=== PATIENT | female | born 1950 | race Caucasian/White ===

== ENCOUNTER 2020-12-30 11:09 | Outpatient (RCR) | payer MEDICARE, SELFPAY ==
[2020-12-30] MEDS: COVID-19 VACC, MRNA(PFIZER)/PF 30 MCG/0.3 ML SYRINGE IM (09:26)
[2021-01-20] MEDS: COVID-19 VACC, MRNA(PFIZER)/PF 30 MCG/0.3 ML SYRINGE IM (09:01)
== END 2021-03-29 23:59 ==
LOC: IMMUN 11:09
PROVIDERS: PCP Internal Medicine; Referring Provider Family Medicine; Visit Provider Family Medicine
DX: Z23 Encounter for immunization (principal)
CPT/HCPCS: 0001A; 0002A; 91300

== ENCOUNTER → 2022-02-28 | Outpatient (CLI) | payer MEDICARE, SELFPAY ==
[2022-02-28] MEDS: COVID-19 VACC, MRNA(PFIZER)/PF 30 MCG/0.3 ML SYRINGE IM (09:17)
== END | disposition home or self-care (01) ==
LOC: IMMUN 08:44
PROVIDERS: PCP Internal Medicine; Referring Provider Family Medicine; Visit Provider Family Medicine
DX: Z23 Encounter for immunization (principal); U07.1 COVID-19
CPT/HCPCS: 0004A; 91300

== ENCOUNTER 2022-07-02 20:12 | Emergency (ER) | payer MEDICARE, SELFPAY ==
[2022-07-02 20:14] VITALS: PULSE 89; RESP 18; TEMP 36.6; O2SAT 100; BMI 16.8
--- NOTE | 2022-07-02 21:41 | EX.ED.DYSGE1 ---
HPI History of Present Illness Chief Complaint: Itching Informant: patient Narrative Narrative: Bee sting left pinky 2 days ago. Increased swelling today with itching. No fevers. Has had bee stings in the past and no reactions like this. Concerns for infection. States increasing warmth. [facility] Medical History Breast cancer Osteoporosis Home Medications anastrozole 1 mg tablet 1 mg PO DAILY 03/04/21 [History Last Taken Unknown] cholecalciferol (vitamin D3) 25 mcg (1,000 unit) capsule 25 mcg PO DAILY 03/04/21 [History Last Taken Unknown] epinephrine 0.3 mg/0.3 mL injection, auto-injector 0.3 mg IM ONCE PRN anaphylaxis 03/04/21 [History Last Taken Unknown] multivitamin 1 tab PO DAILY 03/04/21 [History Last Taken Unknown] cephalexin 500 mg capsule 500 mg PO Q6 #40 caps 07/02/22 [Rx Last Taken Unknown] Allergy/AdvReac Type Severity Reaction Status Date / Time cantaloupe Allergy Intermediate swelling Verified 07/02/22 20:13 clindamycin Allergy Mild rash Verified 07/02/22 20:13 chicken derived Allergy Unknown unknown Verified 07/02/22 20:13 propofol Allergy Unknown unknown Verified 07/02/22 20:13 ranitidine Allergy Unknown unknown Verified 07/02/22 20:13 tetracycline Allergy Unknown unknown Verified 07/02/22 20:13 ciprofloxacin AdvReac Unknown unknown Verified 07/02/22 20:13 Egg Derived AdvReac Unknown unknown Verified 07/02/22 20:13 Family History Mother Alcoholism Drug abuse Father Myocardial infarction, Onset Age: 72 Diabetes Liver disease Grandmother Diabetes Myocardial infarction, Onset Age: 40 68 CVA (cerebral vascular accident) Heart disease Aunt Breast cancer Colon cancer CVA (cerebral vascular accident) Heart disease Uncle Heart disease Cancer Surgical History H/O dilation and curettage H/O mastectomy H/O umbilical hernia repair History of excision of pilonidal cyst History of tonsillectomy and adenoidectomy [place] teeth extracted Social History Smoking Status: Never smoker alcohol intake: current alcohol intake frequency: 0-2 drinks per day Alcohol type: beer and wine substance use type: does not use what type of physical activity do you participate in: walking and weight training frequency: 3-4 times per week ROS ROS ED Constitutional Constitutional ED: Denies chills, fever(s) or sweats Eyes Eyes: Denies change in vision ENT ENT ED: Denies dysphagia or sore throat Cardiovascular Cardiovascular: Denies chest pain, leg edema, palpitations or racing heartbeat Respiratory/Chest Respiratory/Chest: Denies cough, dyspnea or dyspnea on exertion Gastrointestinal Gastrointestinal: Denies abdominal pain, diarrhea, nausea or vomiting Genitourinary Genitourinary ED: Denies dysuria, hematuria or urinary frequency Musculoskeletal Musculoskeletal: Denies back pain, extremity pain or neck pain Integumentary Reports wounds; Denies rash Neurologic Neurologic: Denies headache(s), paresthesias or weakness EXAM Physical Exam Const Vital Signs: 07/02/22 20:14 Temperature 97.8 F Temperature Source Temporal Pulse Rate 89 Respiratory Rate 18 Pulse Ox 100 Oxygen Delivery Method Room Air Positive well nourished and well developed General Appearance ED: well developed and NAD HEENT Reports moist mucous membranes normocephalic and atraumatic Eyes PERRL, EOMs intact bilaterally and conjunctivae normal General Eye ED: Yes normal appearance of both eyes Neck no lymphadenopathy and supple General: Negative for tenderness Chest Wall Chest: Negative for tenderness Resp normal respiratory effort and normal air movement Effort and Inspection: symmetric chest movement; Negative for respiratory distress Cardio regular rate, regular rhythm and no murmurs Peripheral Pulses: pulses 2+ throughout GI normal to inspection, nondistended, normoactive bowel sounds and non-tender Palpation: Negative for guarding or rebound tenderness present Back/Spine no CVA tenderness and no thoracic nor lumbar tenderness Extremity Extremity Narrative: Left upper extremity pink exam notes swelling to the pinky, there is hemorrhagic blisters on the radial aspect of the middle phalanx. There is erythema. There is no redness of the hand. No drainage. There is a puncture noted dorsum of the proximal phalanx. No stinger present. No active drainage. General Extremety ED: Negative for edema or tenderness General Extremity: Negative for edema Neuro oriented x3 and no sensory deficits noted Sensorium / Orientation: awake and alert Skin no rashes or lesions noted and no wounds MDM MDM MDM Narrative Medical decision making narrative: Patient's history exam with concerns for noninflammatory process due to local reaction to bee sting. She has no fevers. There is no streaking. Discussed with patient [id number] antibiotic prescription after 2 to 3 days. Discussed with hemorrhagic blisters this will eventually dry and slough off however may take up to 2 weeks. She is reassured. All questions were answered. Discharge Plan Triage Chief Complaint: Itching ED Provider: Leonid Cabrera Dx/Rx/DC Orders Clinical Impression: Bee sting reaction, Swelling of left little finger Instructions: ED Insect Sting, Local Reaction Prescriptions: New cephalexin [cephalexin] 500 mg capsule 500 mg PO Q6 Qty: 40 0RF No Action anastrozole 1 mg tablet 1 mg PO DAILY cholecalciferol (vitamin D3) 25 mcg (1,000 unit) capsule 25 mcg PO DAILY multivitamin Tablet 1 tab PO DAILY epinephrine 0.3 mg/0.3 mL auto-injector 0.3 mg IM ONCE PRN (Reason: anaphylaxis) Rx Instructions: as a single dose Primary Care Provider: Shannon Giles Referrals: Shannon Giles MD [Primary Care Provider] - 1 Week Activity Restrictions/Additional Instructions: Localized reaction to bee sting to the left femur. Monitor symptoms. If symptoms worsen after 2 to 3 days with redness up the hand start antibiotics otherwise symptomatic treatment. Disposition Disposition: Home, Self Care Discharge Date/Time: 07/02/22 21:48
== END 2022-07-02 21:48 | disposition home or self-care (01) ==
PROVIDERS: Emergency Provider Emergency Medicine; PCP Internal Medicine; Visit Provider Emergency Medicine
DX: T63.444A Toxic effect of venom of bees, undetermined, initial encounter (principal); Z85.3 Personal history of malignant neoplasm of breast; M81.0 Age-related osteoporosis without current pathological fracture
CPT/HCPCS: 99282

== ENCOUNTER → 2022-09-05 | Outpatient (CLI) | payer MEDICARE, SELFPAY | END | disposition home or self-care (01) | LOC: IMMUN 13:24 | PROVIDERS: PCP Internal Medicine; Visit Provider Family Medicine | DX: Z23 Encounter for immunization (principal); Z28.311 Partially vaccinated for COVID-19 | CPT/HCPCS: 0124A; 91312 ==

== ENCOUNTER 2024-08-18 13:43 | Emergency (ER) | payer MEDICARE, SELFPAY ==
[2024-08-18] VITALS (7 sets, daily range): BP systolic 99–135; BP diastolic 57–91; PULSE 60–165; RESP 15–19; TEMP 36.6–36.7; O2SAT 99–100; BMI 17.5
--- NOTE | 2024-08-18 14:35 | EKG12_ITS ---
Test Reason : CHEST PAIN Blood Pressure : / mmHG Vent. Rate : 095 BPM Atrial Rate : 095 BPM P-R Int : 128 ms QRS Dur : 084 ms QT Int : 354 ms P-R-T Axes : 085 068 066 degrees QTc Int : 444 ms Sinus rhythm with frequent Premature ventricular complexes Biatrial enlargement Nonspecific ST abnormality Abnormal ECG Confirmed by ESDRAS MOSELEY, HAL ([id number]), movie editor PERFECTO RODRIGUEZ ([id number]) on 08/19/2024 8:00:19 AM Referred By: Confirmed By:HAL DEWITT MD
[2024-08-18 14:46] LABS: Absolute Lymphocyte Count 1.72 X10^3/uL (0.83-4.51); Absolute Neutrophil Count 5.4 X10^3/uL (2.0-7.7); Basophil# 0.04 X10^3/uL; Basophil% 0.5 % (0-1); Eosinophil# 0.21 X10^3/uL; Eosinophils% 2.6 % (0-5); Hemoglobin 14.6 g/dL (12.0-15.0); Lymphocyte # 1.72 X10^3/ul (0.83-4.51); Mean Corp Hgb Conc 33.2 g/dL (32-36); Mean Corpuscular Hgb 30.3 pg (27.0-32.0); Mean Corpuscular Volume 91.3 fL (81-99); Mean Platelet Vol. 10.3 fl (6.2-12.0); Monocyte# 0.76 X10^3/uL; Monocyte% 9.3 % (0-10); NRBC Flagged by Analyzer 0 % (0-5); Neutrophil # 5.43 X10^3/uL (2.7-7.7); Neutrophil % 66.2 % (47-70); Platelet Count 280 K/mm3 (150-450); RBC Distribution Width SD 43.4 fl (35.1-43.9); Red Blood Count 4.82 M/mm3 (4.2-5.4); White Blood Count 8.2 K/mm3 (4.4-11.0)
--- NOTE | 2024-08-18 14:49 | RAD_ITS ---
STUDY: X-RAY CHEST REASON FOR EXAM: Female, 73 years old. Chest pain TECHNIQUE: Single AP portable view of the chest. COMPARISON: Comparison is made with prior study dated June 25, 2007. FINDINGS: EKG electrodes are seen. Surgical clips are seen in both axillary regions. Findings suggestive of prior mastectomy. Hyperinflation. No acute abnormality is seen. There is no demonstrated pleural abnormality. Normal size heart. Normal mediastinum and kathrine. Normal visualized pulmonary arteries. Normal visualized aortic arch and descending thoracic aorta. Normal visualized thoracic spine. Normal visualized ribs, clavicles, and shoulders. There is no demonstrated abnormality of the visualized soft tissue structures of the upper abdomen. RAD/Chest 1 View (Portable) IMPRESSION: Hyperinflation. No acute abnormality is seen. Electronically Signed: Ji Finch MD at 15:08 EDT ,
[2024-08-18 15:03] LABS: Anion Gap 3 (5-15); BUN 14 mg/dL (7-18); BUN/Creat Ratio 18.8 RATIO (10-20); Calcium,Total 9.7 mg/dL (8.5-10.1); Chloride 106 mmol/L (98-107); Creatinine, Serum 0.74 mg/dL (0.55-1.02); EST Glomerular Filtration Rate 81 mL/min (>60); Est Glom Filt Rate - Afr Amer 98 mL/min (>60); Estimated Creatinine Clearance 47.36 ml/min; Glucose 130 mg/dL (74-106); Potassium 3.6 mmol/L (3.5-5.1); Sodium Level 138 mmol/L (136-145); Troponin-I HS (w/2H Reflex) 6 pg/mL (3.0-54.0)
--- NOTE | 2024-08-18 15:35 | VDLE_ITS ---
Reason For Study: RLE Pain RIGHT LEFT GSV is normal. CFV is compressible, spontaneous, phasic, CFV is compressible, spontaneous, phasic, competent, and demonstrates normal competent and demonstrates normal augmentation. augmentation. FV is compressible, spontaneous, phasic, competent and demonstrates normal augmentation. POP V is compressible, spontaneous, phasic, competent and demonstrates normal augmentation. T/P Trunk is compressible. PTV is compressible. RT PerV is compressible. Procedure This is a venous duplex using B-mode, color flow and spectral Doppler. Exam performed portable in ED. The exam was diagnostic. A preliminary report was called and/or faxed to Veronica Mejia ED RN. VL/Venous Duplex US, Unilateral Interpretation Summary Deep veins of the right lower extremity are patent and compressible segmentally . There is no evidence of right lower extremity deep vein thrombosis. Valvular competence yajaira ears intact within the proximal deep venous system on the right . The right great saphenous vein a ppears patent and compressible segmentally. The left common femoral vein is patent and compressib le . Ordering Physician: Vijaya Serna Referring Physician: Shannon Giles Performed By: Brennan Dennison RVT
[2024-08-18 15:36] LABS: Magnesium 2.6 mg/dL (1.6-2.6); Thyroid Stim Hormone (TSH) 0.995 uIU/mL (0.358-3.740)
--- NOTE | 2024-08-18 15:51 | EDS_ITS ---
HPI History of Present Illness Chief Complaint: Palpitations Informant: patient Narrative Narrative: Patient is a 73-year-old female with history of bilateral breast cancer (initially had unilateral mastectomy and underwent treatment with tamoxifen for 5 years and then had a second mastectomy on the opposite side and was treated with a course of Arimidex) as well as osteoporosis presenting with heart palpitations. Patient states at approximately 1245 she felt that her heart was pounding. She notes every few weeks she will have transient episode of palpitations only last for couple minutes. This lasted for at least half an hour which is what brought her to the emergency room. She checked her heart rate on her smart watch and said her heart rate was 181. She denies any associated diaphoresis but states it made her feel anxious and that did make her feel short of breath. She denies any chest pain. He states her palpitations have currently improved/resolved. She has some mild discomfort underneath her right breast/underarm but thinks it is from the position she is sitting in the bed. She notes that for the past week to a week and a half she has had a heavy feeling in her right groin but that has been improving. She did have a low velocity fall onto her left side 2 weeks ago and thinks is related to that as well as doing yard work. Denies any swelling of her legs. States that she is highly active and walks a mile a day on an incline of her treadmill. States she did this yesterday did not feel short of breath. Denies any recent weight change or night sweats. Denies any nausea, vomiting or melena. Had her normal coffee this morning but no increase in her coffee/caffeine intake. Denies any history of DVT or PE. No other complaints or concerns reported at this time [facility] Medical History Osteoporosis Breast cancer Home Medications ?Medication ?Instructions ?Recorded ?Last Taken ?Type anastrozole 1 mg tablet 1 mg PO DAILY 03/04/21 Unknown History cholecalciferol (vitamin D3) 25 25 mcg PO DAILY 03/04/21 Unknown History mcg (1,000 unit) capsule epinephrine 0.3 mg/0.3 mL 0.3 mg IM ONCE PRN anaphylaxis 03/04/21 Unknown History injection, auto-injector multivitamin 1 tab PO DAILY 03/04/21 Unknown History Allergy/AdvReac Type Severity Reaction Status Date / Time cantaloupe Allergy Intermediate swelling Verified 08/18/24 14:00 clindamycin Allergy Mild rash Verified 08/18/24 14:00 chicken derived Allergy Unknown unknown Verified 08/18/24 14:00 propofol Allergy Unknown unknown Verified 08/18/24 14:00 ranitidine Allergy Unknown unknown Verified 08/18/24 14:00 tetracycline Allergy Unknown unknown Verified 08/18/24 14:00 ciprofloxacin AdvReac Unknown unknown Verified 08/18/24 14:00 Egg Derived AdvReac Unknown unknown Verified 08/18/24 14:00 Family History Mother Alcoholism Drug abuse Father Myocardial infarction, Onset Age: 72 Diabetes Liver disease Grandmother Diabetes Myocardial infarction, Onset Age: 40 68 CVA (cerebral vascular accident) Heart disease Aunt Breast cancer Colon cancer CVA (cerebral vascular accident) Heart disease Uncle Heart disease Cancer Surgical History History of tonsillectomy and adenoidectomy [place] teeth extracted History of excision of pilonidal cyst H/O mastectomy H/O umbilical hernia repair H/O dilation and curettage Social History Smoking Status: Never smoker alcohol intake: current alcohol intake frequency: 0-2 drinks per day Alcohol type: beer and wine substance use type: does not use what type of physical activity do you participate in: walking and weight training frequency: 3-4 times per week ROS ROS ED Constitutional Constitutional ED: Denies chills, fever(s) or sweats ENT ENT ED: Denies sore throat Cardiovascular Cardiovascular: Reports chest pain, palpitations and racing heartbeat Respiratory/Chest Respiratory/Chest: Reports dyspnea; Denies cough or dyspnea on exertion Gastrointestinal Gastrointestinal: Denies abdominal pain, melena, nausea or vomiting Musculoskeletal Musculoskeletal: Reports other Details: Reports right groin heaviness/discomfort ; Denies arthralgias or myalgias Integumentary Denies rash Neurologic Neurologic: Denies paresthesias or weakness Psychiatric Psychiatric: Reports anxiety Hematologic/Lymphatic Hematologic/Lymphatic: Denies easy bleeding or easy bruising EXAM Physical Exam Const Vital Signs: 08/18/24 13:45 08/18/24 14:11 08/18/24 14:12 Temperature 97.9 F Temperature Source Temporal Pulse Rate 165 H 98 Respiratory Rate 18 16 Respiratory Effort Normal Non-Labored Respiratory Pattern Normal Blood Pressure 135/75 H 126/91 H Blood Pressure Mean 95 102 Pulse Ox 99 Oxygen Delivery Method Room Air Room Air 08/18/24 14:49 08/18/24 15:00 08/18/24 16:00 Temperature Temperature Source Pulse Rate 80 60 Respiratory Rate 19 H Respiratory Effort Respiratory Pattern Blood Pressure 99/61 107/65 Blood Pressure Mean 73 79 Pulse Ox 100 Oxygen Delivery Method Room Air 08/18/24 17:00 08/18/24 18:00 Temperature Temperature Source Pulse Rate 76 72 Respiratory Rate 15 Respiratory Effort Respiratory Pattern Blood Pressure 107/57 L 115/70 Blood Pressure Mean 73 85 Pulse Ox Oxygen Delivery Method Positive well nourished and well developed General Appearance ED: well developed and NAD HEENT Reports moist mucous membranes Eyes PERRL Neck supple and no JVD Chest Wall inspection of chest normal and palpation of chest normal Resp normal respiratory effort and clear to auscultation bilaterally Cardio regular rate, regular rhythm and no murmurs GI normal to inspection, nondistended, normoactive bowel sounds and non-tender Extremity normal to inspection General Extremety ED: Negative for edema or tenderness General Extremity: Negative for edema Neuro oriented x3 Sensorium / Orientation: alert Motor Exam: Negative for general weakness Psych mental status grossly normal Skin no rashes or lesions noted and no wounds MDM MDM MDM Narrative Medical decision making narrative: Patient is evaluate for palpitations. Upon arrival patient's heart rate was 165 however on EKG her heart rate is 95 In the room her heart rate is in the 70s. Suspect she has some type of arrhythmia. Differential includes SVT, atrial fibrillation, thyroid dysfunction, symptomatic anemia, electrolyte abnormality and [place] as well as ACS and pulmonary emboli. Workup is largely normal. Patient has no further arrhythmia in the emergency room. D-dimer is less than 0.27 and has since troponin is normal at 6 and 10 respectively. Her TSH is normal. She has no significant leukocytosis, anemia or electrolyte abnormalities. Single view chest x-ray viewed by myself as well as radiology shows hyperinflation with no other acute process. Patient would like to follow-up through the [facility] where she and her receive their care. Will try to follow-up with her PCP as well as her 's controls designer. She is given information for [place] [facility] as well. Discussed that she might benefit from Holter monitor. Is given return precautions. Discussed that my main differential is SVT versus atrial fibrillation. Is counseled on the Valsalva maneuver should she have another episode and this is SVT. At this time do not think she requires admission for further workup of her palpitations and arrhythmia. Patient verbalized agreement understands plan. Discharged home in stable condition Lab Data Attestation: I reviewed the patient's lab results. Labs: Laboratory Results - last 24 hr 08/18/24 08/18/24 14:10 16:54 WBC 8.2 RBC 4.82 Hgb 14.6 Hct 44.0 MCV 91.3 MCH 30.3 MCHC 33.2 RDW Std Deviation 43.4 RDW Coeff of [place] 13.0 Plt Count 280 MPV 10.3 Immature Gran % (Auto) 0.400 Neut % (Auto) 66.2 Lymph % (Auto) 21.0 [place] % (Auto) 9.3 Eos % (Auto) 2.6 Baso % (Auto) 0.5 Absolute Neuts (auto) 5.4 Absolute Lymphs (auto) 1.72 Nucleated RBC % 0 D-Dimer Quant (PE/DVT) < 0.27 L Sodium 138 Potassium 3.6 Chloride 106 Carbon Dioxide 29.0 Anion Gap 3 L BUN 14 Creatinine 0.74 Estim Creat Clear Calc 47.36 Est GFR (MDRD) Af Amer 98 Est GFR (MDRD) Non-Af 81 BUN/Creatinine Ratio 18.8 Glucose 130 H Calcium 9.7 Magnesium 2.6 Troponin I High Sens 6 10 TSH 0.995 Radiography Diagnostic Testing: Clinical Impression(s) from Imaging Studies Chest X-Ray 08/18/24 14:49 IMPRESSION: Hyperinflation. No acute abnormality is seen. Electronically Signed: Ji Finch MD at 15:08 EDT , Rhythm Strip Rhythm Strip: Sinus Rhythm Rate: 95 Ectopy: PVC(s) EKG Initial EKG: Attestation: I personally reviewed and interpreted this EKG as follows: Comments: Normal sinus rhythm at a rate of 95 bpm with PVCs in a trigeminy pattern Normal axis Biatrial enlargement present Normal ST segments No prior EKG available for comparison Discharge Plan Triage Chief Complaint: Palpitations ED Provider: Vijaya Serna Dx/Rx/DC Orders Clinical Impression: Palpitation, Sinus arrhythmia, Frequent PVCs Instructions: ED Palpitations Prescriptions: No Action anastrozole 1 mg tablet 1 mg PO DAILY cholecalciferol (vitamin D3) 25 mcg (1,000 unit) capsule 25 mcg PO DAILY multivitamin Tablet 1 tab PO DAILY epinephrine 0.3 mg/0.3 mL auto-injector 0.3 mg IM ONCE PRN (Reason: anaphylaxis) Rx Instructions: as a single dose Primary Care Provider: Shannon Giles Referrals: Narciso Hodges MD [Med Staff - Active Staff] - As Needed Shannon Giles MD [Primary Care Provider] - Activity Restrictions/Additional Instructions: Your workup today was very reassuring and largely normal. We were not able to capture your high heart rate on an EKG to know what underlying rhythm was. I am concerned it could have either been SVT or atrial fibrillation/flutter. I do think he would benefit from an outpatient Holter monitor. Please follow-up with your primary care doctor and cardiology further workup. If your symptoms worsen or progress please return to the emergency room. Print Language: Indonesian Disposition Disposition: Home, Self Care
[2024-08-18 16:42] LABS: Reflex Troponin-HS? (from REC) Y
[2024-08-18 16:48] LABS: D-Dimer Quantitative (DVT/PE) < 0.27 FEU/ug/m (0.27-0.49)
[2024-08-18 17:33] LABS: Troponin-I HS 10 pg/mL (3.0-54.0)
--- OUTSIDE RECORDS SUMMARY | 2024-08-18 19:35 | XMS RPT_ITS | CCD ---
Author Organization [facility] Care Team Providers Care Animal Care Service Worker Name Role Phone Chan MOSELEY Carolina D Primary Care Provider Dojordyn RN, Martina Unavailable Unavailable Carolina Peterson MD Primary Care Provider Tiffanie RN, Martina Unavailable Unavailable Jose Armando MOSELEY, Dario Ellis Unavailable TALAMPAS, CAROLINA D Primary Care Unavailable TALAMPAS, CAROLINA D Attending Unavailable TALAMPAS, CAROLINA D Primary Care Unavailable TALAMPAS, CAROLINA D Attending Unavailable DARIO SUÁREZ Attending Unavailable JOSE ARMANDODARIO Referring Unavailable TALAMPAS, CAROLINA D Primary Care Unavailable TALAMPAS, CAROLINA D Primary Care Unavailable TALAMPAS, CAROLINA D Attending Unavailable TALAMPAS, CAROLINA D Primary Care Unavailable TALAMPAS, CAROLINA D Referring Unavailable TALAMPAS, CAROLINA D Primary Care Unavailable TALAMPAS, CAROLINA D Primary Care Unavailable SERA PA Attending Unavailable RODRIGUEZ ALTAMIRANO Referring Unavailable TALAMPAS, CAROLINA D Primary Care Unavailable JADE AGUDELO Attending Unavailable TALAMPAS, CAROLINA D Primary Care Unavailable TALAMPAS, CAROLINA D Attending Unavailable TALAMPAS, CAROLINA D Primary Care Unavailable TALAMPAS, CAROLINA D Referring Unavailable ROSAMARIA ZURITA Attending Unavailable TALAMPAS, CAROLINA D Primary Care Unavailable TALAMPAS, CAROLINA D Primary Care Unavailable RODRIGUEZ ALTAMIRANO Referring Unavailable RODRIGUEZ ALTAMIRANO Attending Unavailable TALAMPAS, CAROLINA D Primary Care Unavailable TEE LAGUNAS Attending Unavailable Allergies Allergy Classification Reported Allergen(s) Allergy Type Date of Onset Reaction(s) Facility (20 sources) cantaloupe allergenic extract; Translations: [CANTALOUPE] Drug Allergy 12-30-2012 [facility] Work Phone: (20 sources) chicken allergenic extract; Translations: [CHICKEN] Drug Allergy 07-30-2006 GI Upset [facility] Work Phone: (20 sources) Ciprofloxacin; Translations: [CIPROFLOXACIN] Drug Allergy 12-06-2017 Intolerance [facility] Work Phone: (20 sources) Clindamycin; Translations: [CLINDAMYCIN] Drug Allergy 07-19-2017 Rash [facility] Work Phone: (20 sources) Egg; Translations: [EGG DERIVED] Drug Allergy 04-19-2019 Contraindicatio n-Medical Surgical [facility] (20 sources) Propofol; Translations: [PROPOFOL] Drug Allergy 01-02-2013 Unknown [facility] Work Phone: (20 sources) raNITIdine; Translations: [RANITIDINE HCL] Drug Allergy 08-07-2005 Unknown [facility] (20 sources) Tetracycline; Translations: [TETRACYCLINE] Drug Allergy 08-07-2005 Unknown [facility] Work Phone: Medications Current Medications Medication Drug Class(es) Dates Sig (Normalized) Sig (Original) cholecalciferol 0.025 mg oral capsule (20 sources) Vitamin D Start: 04-10-2018 take 1 capsule by mouth once daily Cholecalciferol, Vitamin D3, 1,000 unit cap Indications: Vitamin D deficiency Take 1 capsule by mouth once daily. 04/10/2018 Active Comment on above: Take 1 capsule by [facility] once daily. [id number] 0.3 ml EPINEPHrine 1 mg/ml auto-injector (20 sources) alpha-Adrenergic Agonist, beta-Adrenergic Agonist, Catecholamine Start: 12-06-2021 End: 07-03-2024 EPINEPHrine (EPIPEN) 0.3 mg/0.3 mL auto-injector Use as directed for reaction to food allergen 2 Each 1 07/03/2024 Active Comment on above: Use as directed for reaction to food allergen THERAPEUTIC MULTIVITAMIN TAB (20 sources) Start: 08-07-2005 take 1 tablet by mouth once daily THERAPEUTIC MULTIVITAMIN TAB Take 1 tablet by mouth once daily. 0 08/07/2005 Active Start: 08-07-2005 THERAPEUTIC MU LTIVITAMIN TAB Take one(1) tablet daily. 0 08/07/2005 Active Comment on above: Take one(1) tablet d aily. Take 1 tablet by eli th once daily. Completed/Discontinued Medications Medication Drug Class(es) Dates Sig (Normalized) Sig (Original) anastrozole 1 mg oral tablet (20 sources) Aromatase Inhibitor Start: 12-09-2021 End: 01-01-2023 take 1 tablet by mouth once daily anastrozole (ARIMIDEX) 1 mg tablet Take 1 tablet by mouth once daily. 90 tablet 3 08/18/2022 01/01/2023 Discontinued Comment on above: Take 1 tablet by eli th once daily. meclizine hydrochloride 12.5 mg oral tablet (3 sources) Antiemetic Start: 05-14-2024 End: 07-10-2024 take 1 tablet by mouth three times daily as needed for dizziness meclizine (ANTIVERT) 12.5 mg tab Indications: Benign paroxysmal positional vertigo, unspecified laterality Take 1 tablet by mouth three times a day as needed (dizziness). 90 tablet 1 05/14/2024 07/10/2024 Discontinued meloxicam 15 mg oral tablet (4 sources) Nonsteroidal Anti-inflammatory Drug Start: 05-25-2023 End: 06-11-2023 take 1 tablet by mouth once daily as needed for pain meloxicam (MOBIC) 15 mg tablet Indications: Right wrist pain Take 1 tablet by mouth once daily as needed for pain. With food. 30 tablet 1 05/25/2023 06/11/2023 Discontinued Comment on above: Take 1 tablet by eli th once daily as needed for pain. With food. triamcinolone acetonide 1 mg/ml topical cream (13 sources) Corticosteroid Start: 07-11-2022 End: 01-01-2023 triamcinolone acetonide (KENALOG) 0.1 % cream Indications: Toxic reaction to hornets, wasps and bees, accidental or unintentional, subsequent encounter Apply 1 application to affected area three times daily as needed (for itchy rash and stings). Apply sparingly to area for rash/itching. Up to 14 days 15 g 0 07/11/2022 01/01/2023 Discontinued Comment on above: Apply 1 application to affected area three times daily as needed (for itchy rash and stings). Apply sparingly to area for rash/itching. Up to 14 days Problems Active Problems Problem Classification Problem Date Documented Da te Episodic/Chronic Allergic reactions (1 source) Solar degeneration; Translations: [Other skin changes due to chronic exposure to nonionizing radiation] Episodic Cancer of breast (20 sources) Malignant neoplasm of female breast; Translations: [Malignant neoplasm of nipple and areola, left female breast] Onset: 6 Resolved: 8 08-10-2016 Chronic Cancer of breast (20 sources) History of malignant neoplasm of breast; Translations: [Personal history of malignant neoplasm of breast] Onset: 8 Resolved: 0 Episodic Complications of surgical procedures or medical care (20 sources) Expected difficult tracheal intubation; Translations: [Failed or difficult intubation, initial encounter] Onset: 3 Resolved: 0 11-01-2017 Episodic Conditions associated with dizziness or vertigo (5 sources) Benign paroxysmal positional vertigo; Translations: [Benign paroxysmal vertigo, unspecified ear] Onset: 4 05-14-2024 Episodic Disorders of teeth and jaw (20 sources) Temporomandibular joint disorder; Translations: [Unspecified temporomandibular joint disorder, unspecified side] 08-07-2005 Episodic E Codes: Natural/environment (1 source) Arthropod bite wound; Translations: [Bitten or stung by nonvenomous insect and other nonvenomous arthropods, subsequent encounter] Episodic Lymphadenitis (4 sources) Lymphadenopathy of head AND/OR neck; Translations: [Localized enlarged lymph nodes] Episodic Neoplasms of unspecified nature or uncertain behavior (2 sources) Neoplastic disease; Translations: [Neoplasm of unspecified behavior of bone, soft tissue, and skin] Episodic Nutritional deficiencies (6 sources) Vitamin D deficiency; Translations: [Vitamin D deficiency, unspecified] Chronic Osteoarthritis (1 source) Arthritis of hand; Translations: [Primary osteoarthritis, unspecified hand] 04-07-2024 Chronic Osteoporosis (20 sources) Postmenopausal osteoporosis; Translations: [Age-related osteoporosis without current pathological fracture] Onset: 5 Chronic Other aftercare (10 sources) Patient encounter status; Translations: [Other manager terminal (current) drug therapy] Episodic Other aftercare (1 source) Prophylactic aromatase inhibitors given; Translations: [retirement (current) use of aromatase inhibitors] Episodic Other and unspecified benign neoplasm (1 source) Multiple benign melanocytic nevi ; Translations: [Melanocytic nevi, unspecified] Episodic Other and unspecified benign neoplasm (1 source) Senile angioma; Translations: [Hemangioma of skin and subcutaneous tissue] Episodic Other and unspecified benign neoplasm (1 source) Dermatofibroma; Translations: [Other benign neoplasm of skin of right upper limb, including shoulder] Episodic Other connective tissue disease (1 source) Neuralgia; Translations: [Neuralgia and neuritis, unspecified] Episodic Other gastrointestinal disorders (20 sources) Irritable bowel syndrome; Translations: [Irritable bowel syndrome without diarrhea] 08-07-2005 Chronic Other inflammatory condition of skin (1 source) Psoriasis; Translations: [Psoriasis, unspecified] Chronic Other non-traumatic joint disorders (2 sources) Pain of right wrist; Translations: [Pain in right wrist] 05-25-2023 Episodic Other skin disorders (1 source) Lentiginosis; Translations: [Other melanin hyperpigmentation] Episodic Other skin disorders (2 sources) Seborrheic keratosis; Translations: [Other seborrheic keratosis] Episodic Other skin disorders (1 source) Abdominal mass; Translations: [Localized swelling, mass and lump, trunk] Episodic Other skin disorders (1 source) Skin tag; Translations: [Other hypertrophic disorders of the skin] Episodic Other skin disorders (1 source) Mass of neck; Translations: [Localized swelling, mass and lump, neck] Episodic Other skin disorders (2 sources) Finding of neck region; Translations: [Localized swelling, mass and lump, neck] 06-22-2023 Episodic Other upper respiratory disease (1 source) Chronic rhinitis; Translations: [Chronic rhinitis] 10-05-2023 Chronic Other upper respiratory infections (1 source) Acute upper respiratory infection; Translations: [Acute upper respiratory infection, unspecified] Episodic Poisoning by nonmedicinal substances (1 source) Poisoning due to insect venom; Translations: [Toxic effect of venom of hornets, accidental (unintentional), subsequent encounter] Episodic Unclassified (1 source) annual/clinical Onset: Viral infection (2 sources) Recurrent herpes simplex labialis; Translations: [Herpesviral vesicular dermatitis] Episodic Past or Other Problems Problem Classification Problem Date Documented Date Episodic/Chronic Abdominal hernia (12 sources) Ventral incisional hernia; Translations: [Incisional hernia without obstruction or gangrene] Onset: 04-22-2017 Resolved: 07-28-2020 07-28-2020 Episodic Deficiency and other anemia (12 sources) Anemia; Translations: [Anemia, unspecified] Resolved: 07-28-2020 07-28-2020 Episodic Diabetes mellitus without complication (20 sources) Impaired fasting glycemia; Translations: [Impaired fasting glucose] Onset: 11-10-2010 Resolved: 02-27-2015 04-03-2017 Episodic Joint disorders and dislocations; trauma-related (12 sources) Dislocation of temporomandibular joint; Translations: [Dislocation of jaw, unspecified side, initial encounter] Onset: 10-20-2015 Resolved: 07-28-2020 07-28-2020 Episodic Nonmalignant breast conditions (20 sources) Breast finding ; Translations: [Dense breasts] Onset: 07-16-2017 Resolved: 07-28-2020 04-21-2018 Episodic Other aftercare (12 sources) Surgical follow-up; Translations: [Encounter for follow-up examination after completed treatment for conditions other than malignant neoplasm] Onset: 01-22-2013 Resolved: 07-28-2020 07-28-2020 Episodic Other and unspecified benign neoplasm (12 sources) Benign neoplasm of skin of upper limb; Translations: [Other benign neoplasm of skin of unspecified upper limb, including shoulder] Onset: 08-26-2005 Resolved: 07-28-2020 07-28-2020 Episodic Other and unspecified benign neoplasm (12 sources) Benign neoplasm of skin of trunk; Translations: [Other benign neoplasm of skin of trunk] Onset: 01-12-2009 Resolved: 07-28-2020 07-28-2020 Episodic Other non-traumatic joint disorders (16 sources) Hip pain; Translations: [Pain in left hip] Onset: 09-21-2021 Resolved: 03-06-2022 01-12-2022 Episodic Other non-traumatic joint disorders (16 sources) Pain in right hip joint; Translations: [Pain in right hip] Onset: 01-12-2022 Resolved: 03-06-2022 01-12-2022 Episodic Other screening for suspected conditions (not mental disorders or infectious disease) (20 sources) Breast cancer genetic marker of susceptibility negative; Translations: [Encounter for nonprocreative screening for genetic disease carrier status] Onset: 04-24-2022 Episodic Results Test Name Value Interpretation Reference Range Facility CNOVSPon 07-10-2024 CNOVS Visit (SP) Office (BAYLEE) -------- INDIADARIA Sharma ([id number]) 1950 F NFR Date Time Provider Department 07/10/24 9:50 AM RODRIGUEZ ALTAMIRANO During your visit today, we recorded the following information about you: Temperature Pulse Blood pressure Weight 97.6 degrees 75/minute 128/82 46.7 kg Height 1.64 m Rodriguez Altamirano DO 07/10/2024 10:23 AM Signed Diagnosis: 1) Breast cancer right breast. 2) H/O stage I breast cancer left breast. HPI: The patient is a 73 yo female who was found to have a suspicious mass in the left breast on a routine gynecologic exam 11/03/2012. Underwent a diagnostic mammogram on 11/25/2012 which demonstrated a lobulated mass associated with a few microcalcifications in the retroareolar region. An US was also performed which revealed a 1.8 cm mass at 12 o'clock. On 12/02, a US guided core biopsy was performed with pathology demonstrating moderate to poorly differentiated IDC with a focus of DCIS, ER/WY (+), Her2 equivocal. She subsequently underwent an MRI on 12/16 which revealed the known left breast cancer and a 0.5 cm enhancing lesion in the lower sternum for which a bone scan was recommended. The bone scan did not show any areas concerning for malignancy. Left mastectomy with SLN biopsy 01/06/13. Final pathology: FINAL DIAGNOSIS A. LEFT SENTINEL LYMPH NODE, EXCISION: TWO LYMPH NODES NEGATIVE FOR MALIGNANCY (0/2). B. LEFT BREAST 58 GRAMS, EXCISION: INVASIVE MODERATELY DIFFERENTIATED DUCTAL CARCINOMA DUCTAL CARCINOMA IN SITU, CRIBRIFORM AND COMEDONECROSIS TYPES SKIN - SEBORRHEIC KERATOSIS SP/mz 01/08/2013 COMMENT B. BREAST (INVASIVE CARCINOMA) SYNOPTIC REPORT PROCEDURE: - Simple mastectomy LYMPH NODE SAMPLING: - [place] lymph nodes SPECIMEN LATERALITY: - Left HISTOLOGIC TYPE OF INVASIVE CARCINOMA: - Invasive ductal carcinoma (no special type or not otherwise specified) TUMOR SIZE (SIZE OF LARGEST INVASIVE CARCINOMA): - Size of largest invasive carcinoma - - Greatest dimension of largest focus invasion over 1 mm: 1.3 cm VIELKA HISTOLOGIC GRADE: - Glandular (acinar)/Tubular differentiation: Score 2 - Nuclear pleomorphism: Score 2 - Mitotic rate: Score 2 - Overall grade: Grade 2 TUMOR FOCALITY: - Single focus of invasive carcinoma DUCTAL CARCINOMA IN SITU (DCIS): - DCIS is present MACROSCOPIC/MICROSCOPIC EXTENT OF TUMOR: - Skin: No invasive carcinoma - Nipple: No invasive carcinoma - Skeletal Muscle: Not identified MARGINS: - Invasive carcinoma MARGINS: - - Distance of DCIS from closest margin: 3.0 mm (deep) DCIS: - Margins uninvolved by DCIS Distance from closest margin: 4.0 mm (deep) LYMPH NODES: - Number of sentinel lymph nodes examined: 2 - Total number of lymph nodes examined (sentinel and non-sentinel): 2 - - Number of lymph nodes with macrometastasis (greater than 2 mm): 0 - - Number of lymph nodes with micrometastasis (greater than 0.2 mm to 2 mm and/or greater than 200 cells): 0 - - Number of lymph nodes with isolated tumor cells (less than or equal to 0.2 mm and less than or equal to 200 cells: 0 - - Number of lymph nodes without tumor cells identified: 2 PATHOLOGIC STAGING: pT1c p(sn)0 pMX Procedure Results and Interpretation ER/PgR/HER2(ERBB2) FISH Estrogen Receptor: Positive (90%) Stain Intensity: Strong Progesterone Receptor: Positive (90%) Stain Intensity: Strong HER2(ERBB2) by FISH: Not amplified HER2(ERBB2)/[id number] ratio 1.1 Tissue analyzed: Invasive carcinoma Block Number: [id number] Control slides: Known positive control tissue (external control) is evaluated in concert with the patient's tissue for ER and PgR expression. A separate slide of the patient's tissue is similarly processed without antibody (negative control); slides were reviewed and showed appropriate staining. Internal control (normal breast epithelial elements) were present and were appropriately positive. Antibody and Detection System: Estrogen receptor (rabbit monoclonal clone SP1), progesterone receptor (rabbit monoclonal clone 1E2); both [place], [place], [place]. Detected with the [employer] iView Detection System (indirect biotin streptavidin detection); [place], [place], [place]. Estrogen/Progesterone Interpretation: Positive: Greater than or equal to 1% of tumor nuclei stain Negative: Less than 1% of tumor nuclei stain These tests were performed and reported according to Guidelines for IHC testing of Estrogen and Progesterone Receptors in Breast Cancer, Arch Pathol Lab Med 2010; 134: E1-E16. Estrogen and progesterone results are valid if tissue was processed according to ASCO/CAP guidelines. HER2(ERBB2) Gene Amplification: NOT AMPLIFIED HER2(ERBB2) Gene Amplification was evaluated on paraffin-embedded block [id number] by interphase fluorescence in situ hybridization (FISH), using a dual label probe set for the HE (more content not included)... Normal [facility] Hemoccult Stl Ql IAon 2023 Lower GI hemoglobin IA Ql (Stl) Negative Normal Negative [facility] Comment on above: Order Comment: Speci men Type: STOOL SPECIMENOrdering Facility: [facility] Address: [address] [place] [address] Performed By: #### [id number] ####[facility] LABCLIA [id number] [address] OF [facility] CNOVon 05-14-2024 CNOV Office Visit (INTMWS ) -------- DARIA OSBORNE ([id number]) 1950 F NFR Date Time Provider Department 05/14/24 10:40 AM TEE LAGUNAS INTMWS During your visit today, we recorded the following information about you: Pulse Respiration Blood pressure Weight 64/minute 16/minute 118/72 46.3 kg Tee Lagunas APRN.DISTRIBUTION SYSTEM OPERATOR 05/14/2024 12:38 PM Signed SUBJECTIVE Daria Sharma [place] is a 73 year old female here today for acute concerns. Chief Complaint Patient presents with: Dizziness: started Sunday am. Off and on More with ROM of head HPI Daria Osborne is a 73 year old female. She is an established patient of Caorlina Peterson MD. Here today for acute concerns of some dizziness. Onset Sunday am. Has occurred off and on, not constant. Seems to be positional. Triggered at the grocery store when looking up at a shelf. Denies any weakness, numbness, tingling, vision disturbance, nausea or vomiting or ear ache. Slight headache associated with the dizziness. Seems to be slowly improving. Her medications were reviewed today and her list is now up to date. Medications Current Outpatient Medications Medication Sig EPINEPHrine (EPIPEN) 0.3 mg/0.3 mL auto-injector Use as directed for reaction to food allergen Cholecalciferol, Vitamin D3, 1,000 unit cap Take 1 capsule by mouth once daily. THERAPEUTIC MULTIVITAMIN TAB Take 1 tablet by mouth once daily. meclizine (ANTIVERT) 12.5 mg tab Take 1 tablet by mouth three times a day as needed (dizziness). No current facility-administered medications for this visit. ALLERGIES Allergen Reactions Cantaloupe Swelling Throat itchy Chicken GI Upset + allergy test to chicken meat (in past just had GI upset but test +); told by property custodian no flu shot because of this allergy Clindamycin Rash possible allergy, rash appeared treatment completed Propofol Unknown History of possible egg allergy as a child. Skin test to egg-white negative on 12/06/17. Patient has never been treated with propofol Ciprofloxacin Intolerance C/o feeling anxious and shaky while taking ciprofloxacin in the post-operative period following evacuation of breast hematoma in Oct, 2017. Also c/o joints popping no other symptoms. Egg Derived Contraindication-Medical Surgical Slipper Maker told patient to avoid anything derived from eggs due to chicken allergy revealed on testing. May eat eggs. Zantac [Ranitidine * Unknown Tetracycline Unknown ACTIVE PROBLEM LIST Benign Paroxysmal Positional Vertigo - 05/14/2024 Brca Negative - 04/24/2022 Status Post Bilateral Mastectomy - 04/12/2022 Difficult Airway for Intubation Malignant Neoplasm of Upper-Outer Quadrant of Right Breast in Female, Estrogen Receptor Positive (Hcc) - 10/31/2017 Ifg (Impaired Fasting Glucose) - 04/03/2017 Malignant Neoplasm of Nipple of Left Breast in Female ([facility]) - 08/10/2016 Osteoporosis Comment: progression to osteoporosis noted on 2008 bone density Irritable Bowel Syndrome Temporomandibular Joint Disorders, Unspecified Social History Tobacco Use Smoking status: Former Types: Cigarettes Quit date: 10/22/1970 Years since quittin.5 Smokeless tobacco: Never Tobacco comments: 3 cigarettes a week back in college for 9 months Vaping Use Vaping Use: Never used Substance Use Topics Alcohol use: Yes Comment: beer/wine maybe daily depends Drug use: No Review of Systems Respiratory: Negative. Cardiovascular: Negative. Neurological: Positive for dizziness. Negative for tremors, seizures, syncope, facial asymmetry, speech difficulty, weakness and numbness. OBJECTIVE BP 118/72 Pulse 64 Resp 16 Wt 102 lb (46.3kg) SpO2 99% LMP 08/31/2013 Physical Exam Vitals and nursing note reviewed. Constitutional: General: She is awake. She is not in acute distress. Appearance: Normal appearance. She is well-developed and well-groomed. She is not ill-appearing, toxic-appearing or diaphoretic. HENT: Head: Normocephalic. Right Ear: External ear normal. Left Ear: External ear normal. Nose: Nose normal. Eyes: General: Vision grossly intact. Conjunctiva/sclera: Conjunctivae normal. Pupils: Pupils are equal, round, and reactive to light. Neck: Vascular: No JVD. Trachea: Trachea normal. Cardiovascular: Rate and Rhythm: Normal rate and regular rhythm. Pulses: Normal pulses. Heart sounds: Normal heart sounds. No murmur heard. Pulmonary: Effort: Pulmonary effort is normal. No accessory muscle usage, prolonged expiration or respiratory distress. Breath sounds: Normal breath sounds. Musculoskeletal: Cervical back: Neck supple. Skin: General: Skin is warm and dry. Capillary Refill: Capillary refill takes less than 2 seconds. Neurological: General: No focal deficit present. Mental Status: She is alert and oriented to person, place, and time. Mental status is at baseline. Cranial Ner (more content not included)... Normal [facility] CNOVon 04-22-2024 CNOV Office Visit (BRCRBD ) -------- DARIA OSBORNE ([id number]) 1950 F NFR Date Time Provider Department 04/22/24 11:00 AM DARIO SUÁREZ During your visit today, we recorded the following information about you: Cristina Lay MA 04/22/2024 10:55 AM Signed Patient is being seen today for annual exam Last mammogram on: N/A Is the patient active on MyChart Yes Electronically Signed By: Cristina Lay MA In Department: BREAST CENTER REVIEW OF PATIENT HISTORY: OB History T1 L1 SAB0 IAB0 Ectopic0 Multiple0 Live Births1 Comment: Menarche age 11 AFB 26 Pt did not breast feed Pt did use BC Pt denies use of HRTs Menopause 54 or 55 FAMILY HISTORY Problem Relation Age of Onset Alcohol/Drug Mother Heart Father [place] at 72 Diabetes Father Thyroid Father other (LIVER) Father Diabetes Paternal Grandmother Heart Paternal Grandmother Diabetes Maternal Grandmother Heart Maternal Grandmother [place] in her 40's; from [place] at 68 Stroke Maternal Grandfather Heart Paternal Grandfather Breast Cancer Maternal Aunt breast, 50's oral Coronary Artery Disease Maternal Uncle Prostate Cancer Maternal Uncle 86 Colon Cancer Maternal Aunt 60 Stroke Maternal Aunt Coronary Artery Disease Maternal Aunt PAST MEDICAL HISTORY Diagnosis Date Anemia, unspecified Benign neoplasm of skin of trunk, except scrotum 01/12/2009 Benign neoplasm of skin of upper limb, including shoulder 08/26/2005 Breast cancer (HCC) 11/2012 left Dense breasts 07/16/2017 Difficult airway for intubation Disorder of bone and cartilage, unspecified History of bilateral breast cancer 04/21/2018 left them right; s/p bilateral mastectomy Incisional hernia of anterior abdominal wall without obstruction or gangrene 04/22/2017 just above and to the right of umbilicus; 02/10/[address] Shepherd reviewed; stable findings of slight bulge seen best while patient standing Irritable bowel syndrome Malignant neoplasm of upper-outer quadrant of right breast, estrogen receptor positive (HCC) Osteoporosis, unspecified progression to osteoporosis noted on 2007 bone density Postmenopausal bleeding Postmenop. bleeding Postoperative thrombophlebitis 09/20/2013 Temporomandibular joint disorders, unspecified TMJ (dislocation of temporomandibular joint) 10/20/2015 Transfusion history after childbirth Unspecified vitamin D deficiency PAST SURGICAL HISTORY Procedure Laterality Date CURETTAGE 1978 Curettage, post delivery CURETTAGE DILATION AND CURETTAGE DXAND/THER NONOBSTETRIC 07/01/2013 [facility] EXCISION PILONIDAL CYST/SINUS SIMPLE LAPROSCOPIC REPAIR UMBILICAL HERNIA MASTECTOMY, SIMPLE, COMPLETE Left 01/06/2013 left breast with SLND ([place]) MASTECTOMY, SIMPLE, COMPLETE 10/2017 right PAST SURGICAL HISTORY OF pilonidal cyst PAST SURGICAL HISTORY OF abdominal hernia PAST SURGICAL HISTORY OF breast cyst removed PAST SURGICAL HISTORY OF wisdom teeth PAST SURGICAL HISTORY OF N/A 07/2020 removal of skin tags PORTOCATH PLACEMENT 2017 PORTOCATH PLACEMENT 12/18/2017 port placement [place]wey NOHEMI W/WO REMOVAL TUBE OVARY 08/2013 w/ BSO TONSILLECTOMY AND ADENOIDECTOMY Social History Tobacco Use Smoking status: Former Types: Cigarettes Quit date: 10/22/1970 Years since quittin.5 Smokeless tobacco: Never Tobacco comments: 3 cigarettes a week back in college for 9 months Vaping Use Vaping Use: Never used Substance Use Topics Alcohol use: Yes Comment: beer/wine maybe daily depends Drug use: No Cristina Lay MA 04/22/2024 10:54 AM Signed General Breast Health Recommendations A healthy body helps promote healthy breasts. If you smoke, please consider a smoking cessation program. If you do not exercise, please consider starting an exercise program if you are able to, even if it is just walking in your neighborhood. Research shows that obesity, especially post-menopausal obesity, is a risk factor for breast cancer. Obtaining calcium in your diet or taking a calcium supplement that contains vitamin D is good for your bones. There is evolving evidence that Vitamin D supplementation may also help to decrease breast cancer risk. If you are post-menopausal and are bothered by hot flashes and still have a uterus, combined estrogen-progesterone preparations can increase your risk of breast cancer if taken for longer than five years. Alcohol is also an under-recognized risk factor. Every drink you have daily increases your breast cancer risk by 10%. Mammograms save lives. Have an annual mammogram annually beginning at age 40. Continue annual mammograms as long as you remain in good health. Breast self-exam, performed on day 7 of your menstrual cycle, can also be very (more content not included)... Normal [facility] CNPNon 04-08-2024 CNPN Telephone (INTMWS) -------- DARIA OSBORNE ([id number]) 1950 F NFR Date Time Provider Department 04/08/24 CAROLINA PETERSON INTMWS During your visit today, we recorded the following information about you: Rosa Isela Sultana LPN 04/08/2024 10:49 AM Signed Patient calling forgot to ask PCP yesterday at her appt for order for the IFOBT kit. It has been a year since her last one was done. She wanted to get it done before she forgets about it. Pending order needs diagnosis. Please advise Carolina Peterson MD 04/08/2024 1:54 PM Signed Filed order Rosa Isela Sultana LPN 04/08/2024 2:31 PM Signed Phoned patient aware order in place and gave her hours of operation for the lab and check in in main lobby first with understanding. Allergies As of Date: 04/08/2024 Noted Allergy Reaction CANTALOUPE 12/30/2012 7 - Swelling Comments: Throat itchy CHICKEN 07/30/2006 8 - GI Upset Comments: + allergy test to chicken meat (in past just had GI upset but test +); told by property custodian no flu shot because of this allergy CLINDAMYCIN 07/19/2017 2 - Rash Comments: possible allergy, rash appeared treatment completed PROPOFOL 01/02/2013 16 - Unknown Comments: History of possible egg allergy as a child. Skin test to egg-white negative on 12/06/17. Patient has never been treated with propofol CIPROFLOXACIN 12/06/2017 5 - Intolerance Comments: C/o feeling anxious and shaky while taking ciprofloxacin in the post-operative period following evacuation of breast hematoma in Oct, 2017. Also c/o joints popping no other symptoms. EGG DERIVED 04/19/2019 15 - Contraindication-Medical Da Silva* Comments: Slipper Maker told patient to avoid anything derived from eggs due to chicken allergy revealed on testing. May eat eggs. ZANTAC (RANITIDINE HCL) 08/07/2005 16 - Unknown TETRACYCLINE 08/07/2005 16 - Unknown Date Reviewed: 04/07/2024 Reviewed by: Mouna Odell LPN - Fully Assessed Reason for Visit: Orders [681] Primary Visit Diagnosis:Colon cancer screening [Z12.11] Order(s):IMMUNOCHEMICAL FECAL OCCULT BLOOD TEST [SQIFOBT] Order #: [id number]. #:[id number] Prescriptions as of 04/08/2024 - EPINEPHrine (EPIPEN) 0.3 mg/0.3 mL auto-injector Use as directed for reaction to food allergen - Cholecalciferol, Vitamin D3, 1,000 unit cap Take 1 capsule by mouth once daily. - THERAPEUTIC MULTIVITAMIN TAB Take 1 tablet by mouth once daily. Problem List As Of Date 04/08/2024 Noted Resolved Anemia [D64.9] 07/28/2020 IRRITABLE COLON [K58.9] TM JOINT DISORDER, UNSPEC [M26.609] Benign neoplasm of skin of upper limb, includin*08/26/2005 07/28/2020 Osteoporosis [M81.0] Benign neoplasm of skin of trunk, except scrotu*01/12/2009 07/28/2020 Impaired fasting glucose [R73.01] 11/10/2010 02/27/2015 Postop check [Z09] 01/22/2013 07/28/2020 Postoperative thrombophlebitis [T81.72XA] 09/20/2013 07/28/2020 TMJ (dislocation of temporomandibular joint) [S*10/20/2015 07/28/2020 Malignant neoplasm of nipple of left breast in *08/10/2016 IFG (impaired fasting glucose) [R73.01] 04/03/2017 Incisional hernia of anterior abdominal wall wi*04/22/2017 07/28/2020 Dense breasts [R92.30] 07/16/2017 04/21/2018 Breast mass, right [N63.10] 10/03/2017 07/28/2020 Malignant neoplasm of upper-outer quadrant of r*10/31/2017 Breast cancer, right breast (HCC) [C50.911] 11/01/2017 Difficult airway for intubation [T88.4XXA] History of bilateral breast cancer [Z85.3] 04/21/2018 07/28/2020 Hip pain, left [M25.552] 09/21/2021 03/06/2022 Hip pain, right [M25.551] 01/12/2022 03/06/2022 Status post bilateral mastectomy [Z90.13] 04/12/2022 BRCA negative [Z13.71] 04/24/2022 Encounter Status:Closed by ROSA ISELA SULTANA on 04/08/24 [facility] CNOVon 04-07-2024 CNOV Office Visit (INTMWS ) -------- DARIA OSBORNE ([id number]) 1950 F NFR Date Time Provider Department 04/07/24 9:20 AM CAROLINA PETERSON INTMWS During your visit today, we recorded the following information about you: Temperature Pulse Respiration Blood pressure 98.4 degrees 74/minute 18/minute 122/62 Weight Height 46.3 kg 1.65 m Carolina Peterson MD 04/08/2024 12:00 AM Signed This note was created using Beetailerriter. Subjective Daria Osborne is a 73 year old female. Patient presents with: F/U 6 months: Labs prior SUBJECTIVE: Daria Osborne is a 73 year old year old lady here today for 6 month follow up appointment for review of medical conditions. Discussed BP okay even though up from prior 90s for SBP. No lightheaded ness or dizziness. Working out in yard more so not exercising as much. Staying active. Will swime more soon. Weight went down to 99 recently but got up to 102 here. At home was 100.8 Weight has been up to 106 to 108. Feels well at 101 to 102. Working on getting more foods with protein--hummus, beans. Knows needs more calories and more protein when more active. Noted right anterior chest wall pain--attributes to pulling weeds plus other yardwork. Wondered if new bra contributed. Right middle finger PIP joint with some swelling. Mild tenderness. Does not hurt often. Sometimes thumb hurts too. PAST MEDICAL HISTORY Diagnosis Date Anemia, unspecified Benign neoplasm of skin of trunk, except scrotum 01/12/2009 Benign neoplasm of skin of upper limb, including shoulder 08/26/2005 Breast cancer (HCC) 11/2012 left Dense breasts 07/16/2017 Difficult airway for intubation Disorder of bone and cartilage, unspecified History of bilateral breast cancer 04/21/2018 left them right; s/p bilateral mastectomy Incisional hernia of anterior abdominal wall without obstruction or gangrene 04/22/2017 just above and to the right of umbilicus; 02/10/[address] Shepherd reviewed; stable findings of slight bulge seen best while patient standing Irritable bowel syndrome Malignant neoplasm of upper-outer quadrant of right breast, estrogen receptor positive (HCC) Osteoporosis, unspecified progression to osteoporosis noted on 2007 bone density Postmenopausal bleeding Postmenop. bleeding Postoperative thrombophlebitis 09/20/2013 Temporomandibular joint disorders, unspecified TMJ (dislocation of temporomandibular joint) 10/20/2015 Transfusion history after childbirth Unspecified vitamin D deficiency Current Outpatient Medications Medication Sig EPINEPHrine (EPIPEN) 0.3 mg/0.3 mL auto-injector Use as directed for reaction to food allergen Cholecalciferol, Vitamin D3, 1,000 unit cap Take 1 capsule by mouth once daily. THERAPEUTIC MULTIVITAMIN TAB Take 1 tablet by mouth once daily. No current facility-administered medications for this visit. Review of Systems Objective BP 122/62 Pulse 74 Temp 36.9 ?C (98.4 ?F) Resp 18 Ht 165 cm (5' 4.96 ) Wt 46.3 kg (102 lb 1.6 oz) LMP 08/31/2013 SpO2 100% BMI 17.01 kg/m? Last 5 Encounter Wt Readings: Date: Wt: 04/07/2024 46.3 kg (102 lb 1.6 oz) 01/11/2024 48.1 kg (106 lb) 01/01/2024 48.5 kg (106 lb 14.4 oz) 10/05/2023 47.2 kg (104 lb) 07/03/2023 47.4 kg (104 lb 8 oz) No waist measurement recorded Estimated body mass index is 17.01 kg/m? as calculated from the following: Height as of this encounter: 165 cm (5' 4.96 ). Weight as of this encounter: 46.3 kg (102 lb 1.6 oz). Last 5 Encounter BP Readings: Date: BP: 04/07/2024 122/62 01/11/2024 116/68 01/01/2024 122/84 10/05/2023 110/62 07/03/2023 102/64 Physical Exam Constitutional: Appearance: Normal appearance. HENT: Head: Normocephalic. Eyes: Conjunctiva/sclera: Conjunctivae normal. Cardiovascular: Rate and Rhythm: Normal rate and regular rhythm. Heart sounds: Normal heart sounds. Pulmonary: Effort: Pulmonary effort is normal. Breath sounds: Normal breath sounds. Musculoskeletal: Right lower leg: No edema. Left lower leg: No edema. Skin: General: Skin is warm and dry. Neurological: General: No focal deficit present. Mental Status: She is alert and oriented to person, place, and time. Psychiatric: Mood and Affect: Mood normal. Behavior: Behavior normal. Thought Content: Thought content normal. Judgment: Judgment normal. Latest Ref Rng 03/24/2023 10/01/2023 04/01/2024 Protein, Total 6.3 - 8.0 g/dL 7.3 7.6 7.2 Albumin 3.9 - 4.9 g/dL 4.5 4.7 4.6 Calcium 8.5 - 10.2 mg/dL 9.7 9.9 9.9 Bilirubin, Total 0.2 - 1.3 mg/dL 0.5 0.6 0.4 Alkaline Phosphatase 34 - 123 U/L 49 53 53 AST 13 - 35 U/L 31 26 34 ALT 7 - 38 U/L 18 18 24 Glucose 74 - 99 mg/dL 100 (H) 109 (H) 101 (H) BUN 7 - 21 mg/dL 10 10 10 Creatinine 0.58 - 0.96 mg/dL 0.53 (L) 0.63 0.60 Sodium 136 - 144 mmol/L 138 140 138 Potassium 3.7 - 5.1 mmol/L 4.7 4 (more content not included)... Normal [facility] 25-hydroxyvitamin D3 [Mass/Vol] 68.2 ng/mL Normal 31.0-80.0 [facility] Comment on above: Order Comment: Speci men Type: BLOOD SPECIMENOrdering Facility: [facility] Address: [address] [place] [address] Result Comment: Clas sification of 25 OH Vitamin D status: Deficiency/Insufficiency: < or = 30 ng/ml. Sufficiency/Optimal Levels: 31-80 ng/mL Toxicity: > 100 ng/mL. Test performed by chemiluminescent immunoassay. Performed By: #### 1 989-3 ####[facility] LABCLIA [id number] [place] [address] [place] CBC panel Auto (Bld)on 04-01 Erythrocyte distribution width (RBC) [Ratio] 13.0 % Normal 11.5-15.0 [facility] Comment on above: Order Comment: Speci men Type: BLOOD SPECIMENOrdering Facility: [facility] Address: [address] [place] [address] Performed By: #### 5 8410-2 ####[facility] LABCLIA [id number] [place] [address] [place] Hematocrit (Bld) [Volume fraction] 45.9 % Normal 36.0-46.0 [facility] Comment on above: Order Comment: Speci men Type: BLOOD SPECIMENOrdering Facility: [facility] Address: [address] [place] [address] Performed By: #### 5 8410-2 ####[facility] LABCLIA [id number] [place] [address] [place] Hemoglobin (Bld) [Mass/Vol] 14.7 g/dL Normal 11.5-15.5 [facility] Comment on above: Order Comment: Speci men Type: BLOOD SPECIMENOrdering Facility: [facility] Address: [address] [place] [address] Performed By: #### 5 8410-2 ####[facility] LABCLIA [id number] [place] [address] [place] MCH (RBC) [Entitic mass] 30.0 pg Normal 26.0-34.0 [facility] Comment on above: Order Comment: Speci men Type: BLOOD SPECIMENOrdering Facility: [facility] Address: [address] [place] [address] Performed By: #### 5 8410-2 ####[facility] LABCLIA [id number] [place] [address] [place] MCHC (RBC) [Mass/Vol] 32.0 g/dL Normal 30.5-36.0 [facility] Comment on above: Order Comment: Speci men Type: BLOOD SPECIMENOrdering Facility: [facility] Address: [address] [place] [address] Performed By: #### 5 8410-2 ####[facility] LABIA [id number] [place] [address] [place] MCV (RBC) [Entitic vol] 93.7 fL Normal 80.0-100.0 [facility] Comment on above: Order Comment: Speci men Type: BLOOD SPECIMENOrdering Facility: [facility] Address: [address] [place] [address] Performed By: #### 5 8410-2 ####[facility] LABIA [id number] [place] [address] [place] Nucleated RBC (Bld) [#/Vol] 10*3/uL Normal <0.01 [facility] Comment on above: Order Comment: Speci men Type: BLOOD SPECIMENOrdering Facility: [facility] Address: [address] [place] [address] Performed By: #### 5 8410-2 ####[facility] LABCLIA [id number] [place] [address] [place] Platelet mean volume (Bld) [Entitic vol] 9.9 fL Normal 9.0-12.7 [facility] Comment on above: Order Comment: Speci men Type: BLOOD SPECIMENOrdering Facility: [facility] Address: [address] [place] [address] Performed By: #### 5 8410-2 ####[facility] LABIA [id number] [place] [address] [place] Platelets (Bld) [#/Vol] 246 10*3/uL Normal 150-400 [facility] Comment on above: Order Comment: Speci men Type: BLOOD SPECIMENOrdering Facility: [facility] Address: [address] [place] [address] Performed By: #### 5 8410-2 ####[facility] LABIA [id number] [place] [address] [place] RBC (Bld) [#/Vol] 4.90 10*6/uL Normal 3.90-5.20 [facility] Comment on above: Order Comment: Speci men Type: BLOOD SPECIMENOrdering Facility: [facility] Address: [address] [place] [address] Performed By: #### 5 8410-2 ####[facility] LABCLIA [id number] [place] [address] [place] WBC (Bld) [#/Vol] 5.07 10*3/uL Normal 3.70-11.00 [facility] Comment on above: Order Comment: Speci men Type: BLOOD SPECIMENOrdering Facility: [facility] Address: [address] [place] [address] Performed By: #### 5 8410-2 ####[facility] LABCLIA [id number] [address] [address] [place] Comprehensive metabolic 2000 panelon 04-01-2024 Albumin [Mass/Vol] 4.6 g/dL Normal 3.9-4.9 [facility] Comment on above: Order Comment: Speci men Type: BLOOD SPECIMENOrdering Facility: [facility] Address: [address] [place] [address] Performed By: #### 2 4323-8 ####[facility] LABCLIA [id number] [place] [address] [place] ALP [Catalytic activity/Vol] 53 U/L Normal 34-123 [facility] Comment on above: Order Comment: Speci men Type: BLOOD SPECIMENOrdering Facility: [facility] Address: [address] [place] [address] Performed By: #### 2 4323-8 ####[facility] LABCLIA [id number] [place] [address] [place] ALT [Catalytic activity/Vol] 24 U/L Normal 7-38 [facility] Comment on above: Order Comment: Speci men Type: BLOOD SPECIMENOrdering Facility: [facility] Address: [address] [place] [address] Performed By: #### 2 4323-8 ####[facility] LABCLIA [id number] [place] [id number] [place] Anion gap [Moles/Vol] 11 mmol/L Normal 8-15 [facility] Comment on above: Order Comment: Speci men Type: BLOOD SPECIMENOrdering Facility: [facility] Address: [address] [place] [address] Performed By: #### 2 4323-8 ####[facility] LABCLIA [id number] [address] [address] [place] AST [Catalytic activity/Vol] 34 U/L Normal 13-35 [facility] Comment on above: Order Comment: Speci men Type: BLOOD SPECIMENOrdering Facility: [facility] Address: [address] [place] [id number] Performed By: #### 2 4323-8 ####[facility] LABCLIA [id number] [address] [address] [place] Bilirubin [Mass/Vol] 0.4 mg/dL Normal 0.2-1.3 [facility] Comment on above: Order Comment: Speci men Type: BLOOD SPECIMENOrdering Facility: [facility] Address: [address] [place], [place] [address] Performed By: #### 2 4323-8 ####[facility] LABCLIA [id number] [place] [address] [place] Calcium [Mass/Vol] 9.9 mg/dL Normal 8.5-10.2 [facility] Comment on above: Order Comment: Speci men Type: BLOOD SPECIMENOrdering Facility: [facility] Address: [address] [place], [place] [address] Performed By: #### 2 4323-8 ####[facility] LABCLIA [id number] [place] [address] [place] Chloride [Moles/Vol] 101 mmol/L Normal 98-107 [facility] Comment on above: Order Comment: Speci men Type: BLOOD SPECIMENOrdering Facility: [facility] Address: [address] [place], [place] [address] Performed By: #### 2 4323-8 ####[facility] LABCLIA [id number] [place] [id number] [place] CO2 [Moles/Vol] 26 mmol/L Normal 22-30 [facility] Comment on above: Order Comment: Speci men Type: BLOOD SPECIMENOrdering Facility: [facility] Address: [address] [place], [place] [address] Performed By: #### 2 4323-8 ####[facility] LABCLIA [id number] [place] [address] [place] Creatinine [Mass/Vol] 0.60 mg/dL Normal 0.58-0.96 [facility] Comment on above: Order Comment: Sheridan good Type: BLOOD SPECIMENOrdering Facility: [facility] Address: [address] [place] [address] Performed By: #### 2 4323-8 ####[facility] LABIA [id number] [address] [facility] Creatinine and Glomerular filtration rate.predicted panel (S/P/Bld) 95 mL/min/1.73m??? Normal >=60 [facility] Comment on above: Order Comment: Sheridan good Type: BLOOD SPECIMENOrdering Facility: [facility] Address: [address] [place] [address] Result Comment: Ruthie mated Glomerular Filtration Rate (eGFR) is calculated using the 2020 CKD-EPI creatinine equation. This equation utilizes serum creatinine, sex, and age as parameters. The creatinine assay has traceable calibration to isotope dilution-mass spectrometry. Refer to KDIGO guidelines for clinical interpretation. In patients with unstable renal function, e.g. those with acute kidney injury, the eGFR may not accurately reflect actual GFR. Performed By: #### 2 4323-8 ####[facility] LABIA [id number] [place] [address] [place] Glucose [Mass/Vol] 101 mg/dL High 74-99 [facility] Comment on above: Order Comment: Sheridan good Type: BLOOD SPECIMENOrdering Facility: [facility] Address: [address] [place] [address] Result Comment: The [place] [employer] (ADA) provides guidance for cutoff values for fasting glucose and random glucose. The ADA defines fasting as no caloric intake for at least 8 hours. Fasting plasma glucose results between 100 to 125 mg/dL indicate increased risk for diabetes (prediabetes). Fasting plasma glucose results greater than or equal to 126 mg/dL meet the criteria for diagnosis of diabetes. In the absence of unequivocal hyperglycemia, results should be confirmed by repeat testing. In a patient with classic symptoms of hyperglycemia or hyperglycemic crisis, random plasma glucose results greater than or equal to 200 mg/dL meet the criteria for diagnosis of diabetes. Reference: Standards of Medical Care in Diabetes 2016, [place] [employer]. Diabetes Care. 2016.39(Suppl 1). Performed By: #### 2 4323-8 ####[facility] LABCLIA [id number] [place] [address] [place] Potassium [Moles/Vol] 4.5 mmol/L Normal 3.7-5.1 [facility] Comment on above: Order Comment: Speci men Type: BLOOD SPECIMENOrdering Facility: [facility] Address: [address] [place] [address] Performed By: #### 2 4323-8 ####[facility] LABIA [id number] [place] [address] [place] Protein [Mass/Vol] 7.2 g/dL Normal 6.3-8.0 [facility] Comment on above: Order Comment: Speci men Type: BLOOD SPECIMENOrdering Facility: [facility] Address: [address] [place] [address] Performed By: #### 2 4323-8 ####[facility] LABIA [id number] [place] [address] [place] Sodium [Moles/Vol] 138 mmol/L Normal 136-144 [facility] Comment on above: Order Comment: Speci men Type: BLOOD SPECIMENOrdering Facility: [facility] Address: [address] [place] [address] Performed By: #### 2 4323-8 ####[facility] LABCLIA [id number] [place] [address] [place] Urea nitrogen [Mass/Vol] 10 mg/dL Normal 7-21 [facility] Comment on above: Order Comment: Speci men Type: BLOOD SPECIMENOrdering Facility: [facility] Address: [address] [place] [address] Performed By: #### 2 4323-8 ####[facility]PITAL[facility] [id number] [address] HbA1c (Bld)on 04-01-2024 Average glucose Estimated from glycated hemoglobin (Bld) [Mass/Vol] 117 mg/dL Normal [facility] Comment on above: Order Comment: Sheridan good Type: BLOOD SPECIMENOrdering Facility: [facility] Address: [address] [place] [address] Result Comment: eAG: (Estimated average glucose) is a calculated value from HgbA1c and is patient service representative of the average blood glucose level in the last 2-3 month period. Performed By: #### 5 5454-3 ####[facility] [id number] [address] HbA1c (Bld) [Mass fraction] 5.7 % High 4.3-5.6 [facility] Comment on above: Order Comment: Sheridan good Type: BLOOD SPECIMENOrdering Facility: [facility] Address: [address] [place] [address] Result Comment: [place] Diabetes Association guidelines indicate that patients with HgbA1c in the range 5.7-6.4% are at increased risk for development of diabetes, and intervention by lifestyle modification may be beneficial. HgbA1c greater or equal to 6.5% is considered diagnostic of diabetes. Performed By: #### 5 5454-3 ####[facility] [id number] [address] CNNURSEon 03-10-2024 [facility] Nurse Visit (FAMPWS) -------- DARIA OSBORNE ([id number]) 1950 F NFR Date Time Provider Department 03/10/24 1:30 PM DE NURSE ASHLEE During your visit today, we recorded the following information about you: Lynette Nj LPN 03/10/2024 1:53 PM Signed Patient presents for COVID vaccine. Denies any problems at this time. Tolerated injection well. Lynette OSEI Nj Allergies As of Date: 03/10/2024 Noted Allergy Reaction CANTALOUPE 12/30/2012 7 - Swelling Comments: Throat itchy CHICKEN 07/30/2006 8 - GI Upset Comments: + allergy test to chicken meat (in past just had GI upset but test +); told by property custodian no flu shot because of this allergy CLINDAMYCIN 07/19/2017 2 - Rash Comments: possible allergy, rash appeared treatment completed PROPOFOL 01/02/2013 16 - Unknown Comments: History of possible egg allergy as a child. Skin test to egg-white negative on 12/06/17. Patient has never been treated with propofol CIPROFLOXACIN 12/06/2017 5 - Intolerance Comments: C/o feeling anxious and shaky while taking ciprofloxacin in the post-operative period following evacuation of breast hematoma in Oct, 2017. Also c/o joints popping no other symptoms. EGG DERIVED 04/19/2019 15 - Contraindication-Medical Da Silva* Comments: Slipper Maker told patient to avoid anything derived from eggs due to chicken allergy revealed on testing. May eat eggs. ZANTAC (RANITIDINE HCL) 08/07/2005 16 - Unknown TETRACYCLINE 08/07/2005 16 - Unknown Date Reviewed: 01/11/2024 Reviewed by: Cielo Aparicio MA - Fully Assessed Reason for Visit: Imm/Inj [58] Visit Diagnosis:Encounter for immunization [Z23] Order(s):Educanon COVID-19 VACCINE ( SEASON) AGE 12+ YR [[id number]] Order #: [id number] Prescriptions as of 03/10/2024 - EPINEPHrine (EPIPEN) 0.3 mg/0.3 mL auto-injector Use as directed for reaction to food allergen - Cholecalciferol, Vitamin D3, 1,000 unit cap Take 1 capsule by mouth once daily. - THERAPEUTIC MULTIVITAMIN TAB Take 1 tablet by mouth once daily. Problem List As Of Date 03/10/2024 Noted Resolved Anemia [D64.9] 07/28/2020 IRRITABLE COLON [K58.9] TM JOINT DISORDER, UNSPEC [M26.609] Benign neoplasm of skin of upper limb, includin*08/26/2005 07/28/2020 Osteoporosis [M81.0] Benign neoplasm of skin of trunk, except scrotu*01/12/2009 07/28/2020 Impaired fasting glucose [R73.01] 11/10/2010 02/27/2015 Postop check [Z09] 01/22/2013 07/28/2020 Postoperative thrombophlebitis [T81.72XA] 09/20/2013 07/28/2020 TMJ (dislocation of temporomandibular joint) [S*10/20/2015 07/28/2020 Malignant neoplasm of nipple of left breast in *08/10/2016 IFG (impaired fasting glucose) [R73.01] 04/03/2017 Incisional hernia of anterior abdominal wall wi*04/22/2017 07/28/2020 Dense breasts [R92.30] 07/16/2017 04/21/2018 Breast mass, right [N63.10] 10/03/2017 07/28/2020 Malignant neoplasm of upper-outer quadrant of r*10/31/2017 Breast cancer, right breast (HCC) [C50.911] 11/01/2017 Difficult airway for intubation [T88.4XXA] History of bilateral breast cancer [Z85.3] 04/21/2018 07/28/2020 Hip pain, left [M25.552] 09/21/2021 03/06/2022 Hip pain, right [M25.551] 01/12/2022 03/06/2022 Status post bilateral mastectomy [Z90.13] 04/12/2022 BRCA negative [Z13.71] 04/24/2022 Encounter Status:Closed by LYNETTE NJ on 03/10/24 [facility] CNBritany 01-11-2024 CNOV Office Visit (GMIGMN ) -------- DARIA OSBORNE ([id number]) 1950 F NFR Date Time Provider Department 01/11/24 10:30 AM SERA [facility] During your visit today, we recorded the following information about you: Blood pressure Weight Height 116/68 48.1 kg 1.651 m Sera Pa, CARETAKER.DISTRIBUTION SYSTEM OPERATOR 01/11/2024 11:30 AM Signed [facility] Department of Benign Gynecology [facility] PATIENT NAME: Daria Osborne PCP: Carolina Peterson MD DATE: 01/11/2024 Chief Complaint CC: Annual MATE RELIEF exam History of Present Illness: Daria is a 73 year old who presents for her annual gynecologic exam. Patient also would like to discuss the following concerns: Breast cancer x 2. Bilateral mastectomy. Sees ONC. Denies vaginal itching, irritation, discharge or odor. Hot flashes: No Night sweats: No Vaginal dryness: No Mood swings: No Insomnia: No Postmenopausal bleeding: No HRT use: none PAP HISTORY: Immunocompromised? No Last Pap: 11/26/2012, normal HPV: 11/19/2012, negative History of abnormal pap: No Sexually active: Yes OB History T1 L1 SAB0 IAB0 Ectopic0 Multiple0 Live Births1 Comment: Menarche age 11 AFB 26 Pt did not breast feed Pt did use BC Pt denies use of HRTs Menopause 54 or [address] Clearer History LMP: 08/31/2013, Hysterectomy Age at Menarche: Age at First : Age at Menopause: Right Of Way Clearer History Comments: Sexual Activity: Yes; Male Contraception: Vasectomy Family history of breast/ovarian/uterine/c olon cancer? Yes Past Surgical History: PAST SURGICAL HISTORY Procedure Laterality Date CURETTAGE 1978 Curettage, post delivery CURETTAGE DILATION AND CURETTAGE DXAND/THER NONOBSTETRIC 07/01/2013 [facility] EXCISION PILONIDAL CYST/SINUS SIMPLE LAPROSCOPIC REPAIR UMBILICAL HERNIA MASTECTOMY, SIMPLE, COMPLETE Left 01/06/2013 left breast with SLND ([place]) MASTECTOMY, SIMPLE, COMPLETE 10/2017 right PAST SURGICAL HISTORY OF pilonidal cyst PAST SURGICAL HISTORY OF abdominal hernia PAST SURGICAL HISTORY OF breast cyst removed PAST SURGICAL HISTORY OF wisdom teeth PAST SURGICAL HISTORY OF N/A 07/2020 removal of skin tags PORTOCATH PLACEMENT 2017 PORTOCATH PLACEMENT 12/18/2017 port placement [place] NOHEMI W/WO REMOVAL TUBE OVARY 08/2013 w/ BSO TONSILLECTOMY AND ADENOIDECTOMY Medications: Current Outpatient Medications Medication Sig EPINEPHrine (EPIPEN) 0.3 mg/0.3 mL auto-injector Use as directed for reaction to food allergen Cholecalciferol, Vitamin D3, 1,000 unit cap Take 1 capsule by mouth once daily. THERAPEUTIC MULTIVITAMIN TAB Take 1 tablet by mouth once daily. No current facility-administered medications for this visit. Medications reviewed in detail and updated PRN. Yes Physical Exam: BP 116/68 Ht 165.1 cm (5' 5 ) Wt 48.1 kg (106 lb) LMP 08/31/2013 BMI 17.64 kg/m? Physical Exam Constitutional: Appearance: Normal appearance. She is normal weight. Genitourinary: Right Labia: No skin changes. Left Labia: No skin changes. Vaginal cuff intact. No vaginal discharge. No vaginal prolapse present. Severe vaginal atrophy present. Right Adnexa: absent. Left Adnexa: absent. Cervix is absent. Uterus is absent. Breasts: Right: Absent. Left: Absent. HENT: Head: Normocephalic. Nose: Nose normal. Pulmonary: Effort: Pulmonary effort is normal. Musculoskeletal: General: Normal range of motion. Cervical back: Normal range of motion. Neurological: Mental Status: She is alert. Skin: General: Skin is warm. Psychiatric: Mood and Affect: Mood normal. Behavior: Behavior normal. Thought Content: Thought content normal. Judgment: Judgment normal. Vitals and nursing note reviewed. Recent labs/Diagnostic studies: I have thoroughly reviewed this patients previous notes, encounters, labs, and results prior to this visit. Assessment and Plan Encounter Diagnosis ICD-10-CM 1. Encounter for gynecological examination (general) (routine) without abnormal findings Z01.419 1) Cervical cancer screening: not indicated. Screening complete, patient is over 65 and/or had a total hysterectomy. 2) Mammogram bilateral mastectomy. Followed by ONC 3) Nutrition, exercise and routine health maintenance exams reviewed. Body mass index is 17.64 kg/m?. 4) Dietary calcium/Vitamin D3 supplementation information provided. 5) Follow up two years or sooner as needed SIGNATURE: Sera Pa APRN.DISTRIBUTION SYSTEM OPERATOR PAGER: [phone] CC: Carolina Peterson MD via EMR Allergies As of Date: 01/11/2024 Noted Allergy Reaction CANTALOUPE 12/30/2012 7 - Swelling Comments: Throat itchy CHICKEN 07/30/2006 8 - GI Upset Comments: + allergy test to chicken meat (in past just had GI upset but (more content not included)... Normal [facility] CNOVSPon 01-01-2024 CNOVSP Visit (SP) Office (BAYLEE) -------- ASTERBENJAMÍNDARIA ([id number]) 1950 F NFR Date Time Provider Department 01/01/24 10:30 AM JADE AGUDELO During your visit today, we recorded the following information about you: Temperature Pulse Blood pressure Weight 97.3 degrees 74/minute 122/84 48.5 kg Height 1.651 m Jade Agudelo APRN.CNP 01/01/2024 12:25 PM Signed Chief Complaint Patient presents with: Established Patient HPI: Daria Sharma Asterbenjamín is a 73 year old female who presents here today for follow up breast cancer. Per Dr. Altamirano's previous note: H/o found to have a suspicious mass in the left breast on a routine gynecologic exam 11/03/2012. Underwent a diagnostic mammogram on 11/25/2012 which demonstrated a lobulated mass associated with a few microcalcifications in the retroareolar region. An US was also performed which revealed a 1.8 cm mass at 12 o'clock. On 12/02, a US guided core biopsy was performed with pathology demonstrating moderate to poorly differentiated IDC with a focus of DCIS, ER/WY (+), Her2 equivocal. She subsequently underwent an MRI on 12/16 which revealed the known left breast cancer and a 0.5 cm enhancing lesion in the lower sternum for which a bone scan was recommended. The bone scan did not show any areas concerning for malignancy. Ultimately underwent left mastectomy with SLN biopsy 01/06/13. Final pathology revealed: FINAL DIAGNOSIS A. LEFT SENTINEL LYMPH NODE, EXCISION: TWO LYMPH NODES NEGATIVE FOR MALIGNANCY (0/2). B. LEFT BREAST 58 GRAMS, EXCISION: INVASIVE MODERATELY DIFFERENTIATED DUCTAL CARCINOMA DUCTAL CARCINOMA IN SITU, CRIBRIFORM AND COMEDONECROSIS TYPES SKIN - SEBORRHEIC KERATOSIS SP/mz 01/08/2013 COMMENT B. BREAST (INVASIVE CARCINOMA) SYNOPTIC REPORT PROCEDURE: - Simple mastectomy LYMPH NODE SAMPLING: - [place] lymph nodes SPECIMEN LATERALITY: - Left HISTOLOGIC TYPE OF INVASIVE CARCINOMA: - Invasive ductal carcinoma (no special type or not otherwise specified) TUMOR SIZE (SIZE OF LARGEST INVASIVE CARCINOMA): - Size of largest invasive carcinoma - - Greatest dimension of largest focus invasion over 1 mm: 1.3 cm VIELKA HISTOLOGIC GRADE: - Glandular (acinar)/Tubular differentiation: Score 2 - Nuclear pleomorphism: Score 2 - Mitotic rate: Score 2 - Overall grade: Grade 2 TUMOR FOCALITY: - Single focus of invasive carcinoma DUCTAL CARCINOMA IN SITU (DCIS): - DCIS is present MACROSCOPIC/MICROSCOPIC EXTENT OF TUMOR: - Skin: No invasive carcinoma - Nipple: No invasive carcinoma - Skeletal Muscle: Not identified MARGINS: - Invasive carcinoma MARGINS: - - Distance of DCIS from closest margin: 3.0 mm (deep) DCIS: - Margins uninvolved by DCIS Distance from closest margin: 4.0 mm (deep) LYMPH NODES: - Number of sentinel lymph nodes examined: 2 - Total number of lymph nodes examined (sentinel and non-sentinel): 2 - - Number of lymph nodes with macrometastasis (greater than 2 mm): 0 - - Number of lymph nodes with micrometastasis (greater than 0.2 mm to 2 mm and/or greater than 200 cells): 0 - - Number of lymph nodes with isolated tumor cells (less than or equal to 0.2 mm and less than or equal to 200 cells: 0 - - Number of lymph nodes without tumor cells identified: 2 PATHOLOGIC STAGING: pT1c p(sn)0 pMX Procedure Results and Interpretation ER/PgR/HER2(ERBB2) FISH Estrogen Receptor: Positive (90%) Stain Intensity: Strong Progesterone Receptor: Positive (90%) Stain Intensity: Strong HER2(ERBB2) by FISH: Not amplified HER2(ERBB2)/[id number] ratio 1.1 Tissue analyzed: Invasive carcinoma Block Number: [id number] Control slides: Known positive control tissue (external control) is evaluated in concert with the patient's tissue for ER and PgR expression. A separate slide of the patient's tissue is similarly processed without antibody (negative control); slides were reviewed and showed appropriate staining. Internal control (normal breast epithelial elements) were present and were appropriately positive. Antibody and Detection System: Estrogen receptor (rabbit monoclonal clone SP1), progesterone receptor (rabbit monoclonal clone 1E2); both [place], [place], [place]. Detected with the [employer] iView Detection System (indirect biotin streptavidin detection); [place], [place], [place]. Estrogen/Progesterone Interpretation: Positive: Greater than or equal to 1% of tumor nuclei stain Negative: Less than 1% of tumor nuclei stain These tests were performed and reported according to Guidelines for IHC testing of Estrogen and Progesterone Receptors in Breast Cancer, Arch Pathol Lab Med 2010; 134: E1-E16. Estrogen and progesterone results are valid if tissue was processed according to ASCO/CAP guidelines. HER2(ERBB2) Gene Amplification: NOT AMPLIFIED HER2(ERBB2) Gene Amplification was evaluated on paraffin-embedded bl (more content not included)... Normal [facility] CNOVon 10-05-2023 CNOV Office Visit (INTMWS ) -------- DARIA OSBORNE ([id number]) 1950 F NFR Date Time Provider Department 10/05/23 9:20 AM CAROLINA PETERSON INTMWS During your visit today, we recorded the following information about you: Temperature Pulse Respiration Blood pressure 98.3 degrees 84/minute 18/minute 110/62 Weight 47.2 kg Carolina Peterson MD 10/05/2023 12:50 PM Signed This note was created using Beetailerriter. Anirudh Osborne is a 72 year old female. Patient presents with: F/U 6 months: Labs prior SUBJECTIVE: Daria Osborne is a 72 year old year old lady here today for 6 month follow up appointment for review of medical conditions. Doing well. Noted had reaction to Pneumovax in 2019--stiffened up, etc. Declines RSV vaccine. Issues with postnasal drip and runny nose and congestion worse this time of year. Mucus gets hard inside nose Nasal saline effective. No pain in sinuses. Walking 1 mile at least at least 5 days a week. PAST MEDICAL HISTORY Diagnosis Date Anemia, unspecified Benign neoplasm of skin of trunk, except scrotum 01/12/2009 Benign neoplasm of skin of upper limb, including shoulder 08/26/2005 Breast cancer (HCC) 11/2012 left Dense breasts 07/16/2017 Difficult airway for intubation Disorder of bone and cartilage, unspecified History of bilateral breast cancer 04/21/2018 left them right; s/p bilateral mastectomy Incisional hernia of anterior abdominal wall without obstruction or gangrene 04/22/2017 just above and to the right of umbilicus; 02/10/[address] Shepherd reviewed; stable findings of slight bulge seen best while patient standing Irritable bowel syndrome Malignant neoplasm of upper-outer quadrant of right breast, estrogen receptor positive (HCC) Osteoporosis, unspecified progression to osteoporosis noted on 2007 bone density Postmenopausal bleeding Postmenop. bleeding Postoperative thrombophlebitis 09/20/2013 Temporomandibular joint disorders, unspecified TMJ (dislocation of temporomandibular joint) 10/20/2015 Transfusion history after childbirth Unspecified vitamin D deficiency Current Outpatient Medications Medication Sig EPINEPHrine (EPIPEN) 0.3 mg/0.3 mL auto-injector Use as directed for reaction to food allergen Cholecalciferol, Vitamin D3, 1,000 unit cap Take 1 capsule by mouth once daily. THERAPEUTIC MULTIVITAMIN TAB Take 1 tablet by mouth once daily. No current facility-administered medications for this visit. OBJECTIVE: Review of Systems Objective BP 110/62 Pulse 84 Temp 36.8 ?C (98.3 ?F) Resp 18 Wt 47.2 kg (104 lb) LMP 08/31/2013 SpO2 99% BMI 17.85 kg/m? Last 5 Encounter Wt Readings: Date: Wt: 10/05/2023 47.2 kg (104 lb) 07/03/2023 47.4 kg (104 lb 8 oz) 06/22/2023 47.7 kg (105 lb 3.2 oz) 06/11/2023 46.5 kg (102 lb 8 oz) 05/25/2023 46.7 kg (103 lb) No waist measurement recorded Estimated body mass index is 17.85 kg/m? as calculated from the following: Height as of 06/22/23: 162.6 cm (5' 4 ). Weight as of this encounter: 47.2 kg (104 lb). Last 5 Encounter BP Readings: Date: BP: 10/05/2023 110/62 07/03/2023 102/64 06/22/2023 112/74 06/11/2023 102/70 05/25/2023 96/59 Physical Exam Constitutional: Appearance: Normal appearance. HENT: Head: Normocephalic. Eyes: Conjunctiva/sclera: Conjunctivae normal. Cardiovascular: Rate and Rhythm: Normal rate and regular rhythm. Heart sounds: Normal heart sounds. Pulmonary: Effort: Pulmonary effort is normal. Breath sounds: Normal breath sounds. Musculoskeletal: Right lower leg: No edema. Left lower leg: No edema. Skin: General: Skin is warm and dry. Neurological: General: No focal deficit present. Mental Status: She is alert and oriented to person, place, and time. Psychiatric: Mood and Affect: Mood normal. Behavior: Behavior normal. Thought Content: Thought content normal. Judgment: Judgment normal. Component Latest Ref Rng AND Units 09/28/2022 03/24/2023 10/01/2023 Protein, Total 6.3 - 8.0 g/dL 7.3 7.3 7.6 Albumin 3.9 - 4.9 g/dL 4.5 4.5 4.7 Calcium 8.5 - 10.2 mg/dL 9.4 9.7 9.9 Bilirubin, Total 0.2 - 1.3 mg/dL 0.6 0.5 0.6 Alkaline Phosphatase 34 - 123 U/L 46 49 53 AST 13 - 35 U/L 23 31 26 ALT 7 - 38 U/L 16 18 18 Glucose 74 - 99 mg/dL 114 (H) 100 (H) 109 (H) BUN 7 - 21 mg/dL 11 10 10 Creatinine 0.58 - 0.96 mg/dL 0.66 0.53 (L) 0.63 Sodium 136 - 144 mmol/L 136 138 140 Potassium 3.7 - 5.1 mmol/L 4.0 4.7 4.0 Chloride 97 - 105 mmol/L 100 102 101 CO2 22 - 30 mmol/L 26 22 26 Anion Gap 9 - 18 mmol/L 10 14 13 eGFR >=60 mL/min/1.73mA? 94 98 94 WBC 3.70 - 11.00 k/uL 4.68 4.76 5.24 RBC 3.90 - 5.20 m/uL 4.57 4.78 4.90 Hemoglobin 11.5 - 15.5 g/dL 14.1 14.8 14.9 Hematocrit 36.0 - 46.0 % 42.7 46.4 (H) 46.3 (H) MCV 80.0 - 100.0 fL 93.4 97.1 94.5 MCH 26.0 - 34.0 pg 30.9 31.0 30.4 MCHC 30.5 - 36.0 g/dL 33 (more content not included)... Normal [facility] 25(OH)D3 [facility] 25-hydroxyvitamin D3 [Mass/Vol] 65.5 ng/mL Normal 31.0-80.0 [facility] Comment on above: Order Comment: Speci men Type: BLOOD SPECIMENOrdering Facility: [facility] Address: [address] [place] [address] Result Comment: Clas sification of 25 [place] Vitamin D status: Deficiency/Insufficiency: < or = 30 ng/ml. Sufficiency/Optimal Levels: 31-80 ng/mL Toxicity: > 100 ng/mL. Test performed by chemiluminescent immunoassay. Performed By: #### 1 989-3 ####[facility] LABCLIA [id number] [facility] [id number] [address] [place] CBC panel Auto (Bld)on 10-01 Erythrocyte distribution width (RBC) [Ratio] 12.6 % Normal 11.5-15.0 [facility] Comment on above: Order Comment: Speci men Type: BLOOD SPECIMENOrdering Facility: [facility] Address: [address] [place] [address] Performed By: #### 5 8410-2 ####[facility] LABIA [id number] [place] [address] [place] Hematocrit (Bld) [Volume fraction] 46.3 % High 36.0-46.0 [facility] Comment on above: Order Comment: Speci men Type: BLOOD SPECIMENOrdering Facility: [facility] Address: [address] [place] [address] Performed By: #### 5 8410-2 ####[facility] LABIA [id number] [place] [address] [place] Hemoglobin (Bld) [Mass/Vol] 14.9 g/dL Normal 11.5-15.5 [facility] Comment on above: Order Comment: Speci men Type: BLOOD SPECIMENOrdering Facility: [facility] Address: [address] [place] [address] Performed By: #### 5 8410-2 ####[facility] LABIA [id number] [place] [address] [place] MCH (RBC) [Entitic mass] 30.4 pg Normal 26.0-34.0 [facility] Comment on above: Order Comment: Speci men Type: BLOOD SPECIMENOrdering Facility: [facility] Address: [address] [place] [address] Performed By: #### 5 8410-2 ####[facility] LABIA [id number] [place] [address] [place] MCHC (RBC) [Mass/Vol] 32.2 g/dL Normal 30.5-36.0 [facility] Comment on above: Order Comment: Speci men Type: BLOOD SPECIMENOrdering Facility: [facility] Address: [address] [place] [address] Performed By: #### 5 8410-2 ####[facility] LABIA [id number] [place] [address] [place] MCV (RBC) [Entitic vol] 94.5 fL Normal 80.0-100.0 [facility] Comment on above: Order Comment: Speci men Type: BLOOD SPECIMENOrdering Facility: [facility] Address: [address] [place] [address] Performed By: #### 5 8410-2 ####[facility] LABIA [id number] [place] [address] [place] Nucleated RBC (Bld) [#/Vol] 10*3/uL Normal <0.01 [facility] Comment on above: Order Comment: Speci men Type: BLOOD SPECIMENOrdering Facility: [facility] Address: [address] [place] [address] Performed By: #### 5 8410-2 ####[facility] LABIA [id number] [place] [address] [place] Platelet mean volume (Bld) [Entitic vol] 10.2 fL Normal 9.0-12.7 [facility] Comment on above: Order Comment: Speci men Type: BLOOD SPECIMENOrdering Facility: [facility] Address: [address] [place] [address] Performed By: #### 5 8410-2 ####[facility] LABIA [id number] [place] [address] [place] Platelets (Bld) [#/Vol] 245 10*3/uL Normal 150-400 [facility] Comment on above: Order Comment: Speci men Type: BLOOD SPECIMENOrdering Facility: [facility] Address: [address] [place] [address] Performed By: #### 5 8410-2 ####[facility] LABIA [id number] [place] [address] [place] RBC (Bld) [#/Vol] 4.90 10*6/uL Normal 3.90-5.20 [facility] Comment on above: Order Comment: Speci men Type: BLOOD SPECIMENOrdering Facility: [facility] Address: [address] [place] [address] Performed By: #### 5 8410-2 ####[facility] LABCLIA [id number] [place] [address] [place] WBC (Bld) [#/Vol] 5.24 10*3/uL Normal 3.70-11.00 [facility] Comment on above: Order Comment: Speci men Type: BLOOD SPECIMENOrdering Facility: [facility] Address: [address] [place] [address] Performed By: #### 5 8410-2 ####[facility] LABCLIA [id number] [place] [address] [place] Comprehensive metabolic 2000 panelon 10-01-2023 Albumin [Mass/Vol] 4.7 g/dL Normal 3.9-4.9 [facility] Comment on above: Order Comment: Speci men Type: BLOOD SPECIMENOrdering Facility: [facility] Address: [address] [place] [address] Performed By: #### 2 4323-8 ####[facility] LABCLIA [id number] [place] [address] [place] ALP [Catalytic activity/Vol] 53 U/L Normal 34-123 [facility] Comment on above: Order Comment: Speci men Type: BLOOD SPECIMENOrdering Facility: [facility] Address: [address] [place] [address] Performed By: #### 2 4323-8 ####[facility] LABCLIA [id number] [place] [address] [place] ALT [Catalytic activity/Vol] 18 U/L Normal 7-38 [facility] Comment on above: Order Comment: Speci men Type: BLOOD SPECIMENOrdering Facility: [facility] Address: [address] [place] [address] Performed By: #### 2 4323-8 ####[facility] LABCLIA [id number] [place] [address] [place] Anion gap [Moles/Vol] 13 mmol/L Normal 9-18 [facility] Comment on above: Order Comment: Speci men Type: BLOOD SPECIMENOrdering Facility: [facility] Address: [address] [place] [address] Performed By: #### 2 4323-8 ####[facility] LABCLIA [id number] [place] [address] [place] AST [Catalytic activity/Vol] 26 U/L Normal 13-35 [facility] Comment on above: Order Comment: Speci men Type: BLOOD SPECIMENOrdering Facility: [facility] Address: [address] [place] [address] Performed By: #### 2 4323-8 ####[facility] LABCLIA [id number] [place] [address] [place] Bilirubin [Mass/Vol] 0.6 mg/dL Normal 0.2-1.3 [facility] Comment on above: Order Comment: Speci men Type: BLOOD SPECIMENOrdering Facility: [facility] Address: [address] [place] [address] Performed By: #### 2 4323-8 ####[facility] LABCLIA [id number] [place] [address] [place] Calcium [Mass/Vol] 9.9 mg/dL Normal 8.5-10.2 [facility] Comment on above: Order Comment: Speci men Type: BLOOD SPECIMENOrdering Facility: [facility] Address: [address] [place] [address] Performed By: #### 2 4323-8 ####[facility] LABCLIA [id number] [place] [address] [place] Chloride [Moles/Vol] 101 mmol/L Normal 97-105 [facility] Comment on above: Order Comment: Speci men Type: BLOOD SPECIMENOrdering Facility: [facility] Address: [address] [place] [address] Performed By: #### 2 4323-8 ####[facility] LABCLIA [id number] [place] [address] [place] CO2 [Moles/Vol] 26 mmol/L Normal 22-30 [facility] Comment on above: Order Comment: Speci men Type: BLOOD SPECIMENOrdering Facility: [facility] Address: [address] [place] [address] Performed By: #### 2 4323-8 ####[facility] LABCLIA [id number] [place] [address] [place] Creatinine [Mass/Vol] 0.63 mg/dL Normal 0.58-0.96 [facility] Comment on above: Order Comment: Speci men Type: BLOOD SPECIMENOrdering Facility: [facility] Address: [address] [place] [address] Performed By: #### 2 4323-8 ####[facility] LABIA [id number] [place] [address] [place] Creatinine and Glomerular filtration rate.predicted panel (S/P/Bld) 94 mL/min/1.73m??? Normal >=60 [facility] Comment on above: Order Comment: Speci men Type: BLOOD SPECIMENOrdering Facility: [facility] Address: [address] [place] [address] Result Comment: Ruthie mated Glomerular Filtration Rate (eGFR) is calculated using the 2020 CKD-EPI creatinine equation. This equation utilizes serum creatinine, sex, and age as parameters. The creatinine assay has traceable calibration to isotope dilution-mass spectrometry. Refer to KDIGO guidelines for clinical interpretation. In patients with unstable renal function, e.g. those with acute kidney injury, the eGFR may not accurately reflect actual GFR. Performed By: #### 2 4323-8 ####[facility] LABCLIA [id number] [place] [address] [place] Glucose [Mass/Vol] 109 mg/dL High 74-99 [facility] Comment on above: Order Comment: Speci men Type: BLOOD SPECIMENOrdering Facility: [facility] Address: [address] [place] [address] Result Comment: The [place] Diabetes Association (ADA) provides guidance for cutoff values for fasting glucose and random glucose. The ADA defines fasting as no caloric intake for at least 8 hours. Fasting plasma glucose results between 100 to 125 mg/dL indicate increased risk for diabetes (prediabetes). Fasting plasma glucose results greater than or equal to 126 mg/dL meet the criteria for diagnosis of diabetes. In the absence of unequivocal hyperglycemia, results should be confirmed by repeat testing. In a patient with classic symptoms of hyperglycemia or hyperglycemic crisis, random plasma glucose results greater than or equal to 200 mg/dL meet the criteria for diagnosis of diabetes. Reference: Standards of Medical Care in Diabetes 2016, [place] Diabetes Association. Diabetes Care. 2016.39(Suppl 1). Performed By: #### 2 4323-8 ####[facility] LABCLIA [id number] [place] [address] [place] Potassium [Moles/Vol] 4.0 mmol/L Normal 3.7-5.1 [facility] Comment on above: Order Comment: Speci men Type: BLOOD SPECIMENOrdering Facility: [facility] Address: [address] [place] [address] Performed By: #### 2 4323-8 ####[facility] LABCLIA [id number] [place] [address] [place] Protein [Mass/Vol] 7.6 g/dL Normal 6.3-8.0 [facility] Comment on above: Order Comment: Speci men Type: BLOOD SPECIMENOrdering Facility: [facility] Address: [address] [place] [address] Performed By: #### 2 4323-8 ####[facility] LABCLIA [id number] [place] [address] [place] Sodium [Moles/Vol] 140 mmol/L Normal 136-144 [facility] Comment on above: Order Comment: Speci men Type: BLOOD SPECIMENOrdering Facility: [facility] Address: [address] [place] [address] Performed By: #### 2 4323-8 ####[facility] LABCLIA [id number] [place] [address] [place] Urea nitrogen [Mass/Vol] 10 mg/dL Normal 7-21 [facility] Comment on above: Order Comment: Sheridan men Type: BLOOD SPECIMENOrdering Facility: [facility] Address: [address] [place] [address] Performed By: #### 2 4323-8 ####[facility] LABCLIA [id number] [place] [address] [place] HbA1c (Bld)on 10-01-2023 Average glucose Estimated from glycated hemoglobin (Bld) [Mass/Vol] 114 mg/dL Normal [facility] Comment on above: Order Comment: Sheridan men Type: BLOOD SPECIMENOrdering Facility: [facility] Address: [address] [place] [address] Result Comment: eAG: (Estimated average glucose) is a calculated value from HgbA1c and is patient service representative of the average blood glucose level in the last 2-3 month period. Performed By: #### 5 5454-3 ####[facility] LABCLIA [id number] [address] [place] HbA1c (Bld) [Mass fraction] 5.6 % Normal 4.3-5.6 [facility] Comment on above: Order Comment: [place] [facility] Type: BLOOD SPECIMENOrdering Facility: [facility] Address: [address] [place] [address] Result Comment: [place] Diabetes Association guidelines indicate that patients with HgbA1c in the range 5.7-6.4% are at increased risk for development of diabetes, and intervention by lifestyle modification may be beneficial. HgbA1c greater or equal to 6.5% is considered diagnostic of diabetes. Performed By: #### 5 5454-3 ####[facility] LABCLIA [id number] [address] [address] [place] Triston 08-29-2023 CNPN Telephone (FAMPWS) -------- DARIA OSBORNE ([id number]) 1950 F NFR Date Time Provider Department 08/29/23 [facility] During your visit today, we recorded the following information about you: Dana Cruz LPN 08/29/2023 10:13 AM Signed Pt calling stating she has her 6 month ov 10/05/[address] Peterson. States she always has labs to do and nothing is ordered. Pt requesting pcp place lab orders for this ov. Please let pt know once orders have been placed. Ok to send My Chart message of can call either contact number, ok to leave a message. Carolina Pena LPN, MD 08/31/2023 4:54 PM Signed Filed standing orders so may do every 6 months with this orders These orders a year from today but can add orders or extend orders in 6 months from now. Liam Cavazos MA 09/03/2023 10:48 AM Signed MC message sent. Liam Cavazos MA Allergies As of Date: 08/29/2023 Noted Allergy Reaction CANTALOUPE 12/30/2012 7 - Swelling Comments: Throat itchy CHICKEN 07/30/2006 8 - GI Upset Comments: + allergy test to chicken meat (in past just had GI upset but test +); told by property custodian no flu shot because of this allergy CLINDAMYCIN 07/19/2017 2 - Rash Comments: possible allergy, rash appeared treatment completed PROPOFOL 01/02/2013 16 - Unknown Comments: History of possible egg allergy as a child. Skin test to egg-white negative on 12/06/17. Patient has never been treated with propofol CIPROFLOXACIN 12/06/2017 5 - Intolerance Comments: C/o feeling anxious and shaky while taking ciprofloxacin in the post-operative period following evacuation of breast hematoma in Oct, 2017. Also c/o joints popping no other symptoms. EGG DERIVED 04/19/2019 15 - Contraindication-Medical Da Silva* Comments: Slipper Maker told patient to avoid anything derived from eggs due to chicken allergy revealed on testing. May eat eggs. ZANTAC (RANITIDINE HCL) 08/07/2005 16 - Unknown TETRACYCLINE 08/07/2005 16 - Unknown Date Reviewed: 08/24/2023 Reviewed by: Cameron Esposito Ma - Fully Assessed Reason for Visit: Orders [681] Primary Visit Diagnosis:Osteoporosis without current pathological fracture, unspecified osteoporosis type [M81.0] Other Visit Diagnosis:IFG (impaired fasting glucose) [R73.01] Order(s):HGB A1C [EYUYR2H] Order #: [id number] STANDING COMP METABOLIC PANEL [SQCMP] Order #: [id number] STANDING CBC [SQCBC] Order #: [id number] STANDING VITAMIN D 25 HYDROXY [SQVITD] Order #: [id number] STANDING Prescriptions as of 09/03/2023 - EPINEPHrine (EPIPEN) 0.3 mg/0.3 mL auto-injector Use as directed for reaction to food allergen - Cholecalciferol, Vitamin D3, 1,000 unit cap Take 1 capsule by mouth once daily. - THERAPEUTIC MULTIVITAMIN TAB Take 1 tablet by mouth once daily. 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30] 07/16/2017 04/21/2018 Breast mass, right [N63.10] 10/03/2017 07/28/2020 Malignant neoplasm of upper-outer quadrant of r*10/31/2017 Breast cancer, right breast (HCC) [C50.911] 11/01/2017 Difficult airway for intubation [T88.4XXA] History of bilateral breast cancer [Z85.3] 04/21/2018 07/28/2020 Hip pain, left [M25.552] 09/21/2021 03/06/2022 Hip pain, right [M25.551] 01/12/2022 03/06/2022 Status post bilateral mastectomy [Z90.13] 04/12/2022 BRCA negative [Z13.71] 04/24/2022 Encounter Status:Closed by LIAM CAVAZOS on 09/03/23 [facility] CNOVon 08-24-2023 CNOV Office Visit (DERMBD ) -------- DRAIA OSBORNE ([id number]) 1950 F NFR Date Time Provider Department 08/24/23 2:15 PM ROSAMARIA ZURITA DERMBD During your visit today, we recorded the following information about you: Rosamaria Zurita DO 09/03/2023 8:49 AM Signed [facility] Department of Dermatology Chief Complaint: Full Body Skin Check Date of last visit to [facility] Dermatology: 12/05/[address] Rodriguez History of Present Illness: Daria Osborne is a 72 year old female Patient is here for:FBSC # Lesion 1 Location: back Duration: manager terminal Symptoms (growing, itching, bleeding, tender): itchy Current Treatments: n/a Past Treatments: n/a PERTINENT PAST DERMATOLOGIC HISTORY: -Personal History of Skin Cancer: No -Personal History of Atypical Moles: No -Personal History of Extensive Sun Exposure/Blistering Sunburns:Yes -History of tanning bed usage: No -Does patient use sunscreen Yes -Is the patient immunosuppressed: No FAMILY HISTORY: -Family History of Skin Cancer: No REVIEW OF SYSTEMS: Patient feels well and denies any recent fevers, chills, or night sweats. PHYSICAL EXAM: -General: well appearing, in no acute distress -Neurology: alert and oriented times three -Psychiatry: appropriate mood/affect Skin: Akbar phototype: l Skin exam performed of Face (including eyes, ears, lips), Scalp/hair, Neck, Chest, Abdomen, Back, Bilateral upper extremities, Hands/nails, Bilateral lower extremities, Feet/toenails, Buttocks/groin/genitalia , Lymph nodes Skin exam normal with the exception of: - Scattered reticulated light silveira macules in sun-exposed distribution c/w solar lentigines - Regular and symmetric brown macules and papules on the head, trunk and extremities c/w benign nevi - Scattered small jefferson red papules throughout c/w jefferson angioma - Few scattered brown stuck on papules and plaques on the head, trunk and extremities c/w seborrheic keratoses brown stuck on papule on erythematous base on the back x1 ASSESSMENT AND PLAN: Inflamed Seborrheic Keratoses -recommend cryotherapy today due to inflammation/symptoms Procedure Note Cryosurgery of benign lesion(s) Risks, benefits, alternatives, complications, and personnel required for cryosurgery reviewed with patient. Specifically, the risks of permanent scar, lightening or darkening of skin color, blister and recurrence of lesion were discussed. Pt verbalizes understanding and wishes to proceed. Cryosurgery performed with Liquid Nitrogen via cryostat spray gun to Inflamed Seborrheic Keratoses . 1 lesion(s) treated. Patient tolerated well. Post-op course explained and wound care instructions given. # Benign Neoplasms (lentigines, seborrheic keratoses, angiomas, benign melanocytic nevi) -discussed benign etiology, no treatment needed at this time # Photoaging of skin # Screening for skin cancer - Discussed signs of melanoma and non-melanoma skin cancer. -recommend at least every 12 month follow up for FBSE by Dermatology and routine self examination -advised daily sunscreen use (at least SPF30+, broad spectrum), large brimmed hat, protective clothing, and sun avoidance as often as possible -discussed to contact clinic immediately for evaluation if any new, changing, or symptomatic lesions arise Patient verbalizes understanding and agrees with treatment plan and will contact us with any further questions or concerns. Return to clinic 1 year FBSC or sooner for any change in/worsening of condition or if any new/changing/symptomatic lesions arise. Psychometrician Attestation: The documentation for this note was completed by Cameron Esposito MA acting as scribe for Rosamaria Zurita DO. August 24, 2023 2:05 PM. I agree with the Chief Complaint, ROS, and Past Histories independently gathered by the clinical nursing support worker and the remaining scribed note accurately describes my personal service to the patient. DO Vaibhav Chavez Ma, Nazarrea 08/24/2023 2:[address] Zurita's Favorite Daily Sunscreens For Dry skin Vanicream Broad Spectrum SPF 50+ (mineral)- Best for sensitive skin. Makeup may not set well when applying over this product. La Kristi Posjyoti Toleriane Double Repair Face Moisturizer UV (chemical) solarsciences tinted mineral (mineral)- [facility] have [facility] at [facility] Vanicream face moisturizer with mineral sunscreen SPF 30 For Normal/ Oily Cetaphil Sheer Mineral Face Sunscreen La Kristi-Olayinka Etienne TORIBIO Kingsley Lester MD UV Clear Adam The Sun Protector (SPF 30)- can also work as a primer under makeup For Darker Skintypes - La Kristi Posay tinted mineral (mineral) - Neutrogena UV tint (comes in 4 tint levels)- Mineral Sunscreens that are a little easier to put on kids Vanicream Broad spectrum SPF 50- See above. Just rubs in very easily and is good for sensitive skin Neutrogena Sheer Zinc Mine (more content not included)... Normal [facility] CT NECK SOFT TISSUE WO IVCON on 06-27-2023 [facility] US HEAD/NECK SOFT TISSUE OTH Casi 06-15-2023 [facility] XR Wrist - right PA and Late ral and Obliqueon 05-29-2023 IMPRESSION: Triscaphe degenerative changes. Vp Analysis: ANNA Transcribe Date/Time: May 29 2023 9:53A Dictated by : CHESTER VENEGAS MD This examination was interpreted and the report reviewed and electronically signed by: CHESTER VENEGAS MD on May 29 2023 9:53AM EST DIVISION OF RADIOLOGY * * *Final Report* * * DATE OF EXAM: May 25 2023 11:10AM WOX 5271 - XR WRIST 3V PA/LAT/OBL RT / PROCEDURE REASON: multiple diagnoses * * * * Physician Interpretation * * * * EXAMINATION: XR WRIST 3V PA/LAT/OBL RT HISTORY: pain for about a week along ulnar side of right wrist no inj Right wrist pain Age-related osteoporosis without current pathological fracture . TECHNIQUE: XR WRIST 3V PA/LAT/OBL RT Laterality: RIGHT Number of different views (projections): 3 M: XB_1 COMPARISON: RESULT: Moderate triscaphe degenerative change. Minimal radiocarpal degenerative changes. No chondrocalcinosis. No acute fracture or dislocation. There are no bony erosions. DIVISION OF RADIOLOGY Provider, [facility] - 05/29/2023 * * *Final Report* * * DATE OF EXAM: May 25 2023 11:10AM WOX 5271 - XR WRIST 3V PA/LAT/OBL RT / PROCEDURE REASON: multiple diagnoses * * * * Physician Interpretation * * * * EXAMINATION: XR WRIST 3V PA/LAT/OBL RT HISTORY: pain for about a week along ulnar side of right wrist no inj Right wrist pain Age-related osteoporosis without current pathological fracture . TECHNIQUE: XR WRIST 3V PA/LAT/OBL RT Laterality: RIGHT Number of different views (projections): 3 M: XB_1 COMPARISON: RESULT: Moderate triscaphe degenerative change. Minimal radiocarpal degenerative changes. No chondrocalcinosis. No acute fracture or dislocation. There are no bony erosions. IMPRESSION IMPRESSION: Triscaphe degenerative changes. Vp Analysis: ANNA Transcribe Date/Time: May 29 2023 9:53A Dictated by : CHESTER VENEGAS MD This examination was interpreted and the report reviewed and electronically signed by: CHESTER VENEGAS MD on May 29 2023 9:53AM EST [facility] XR Wrist - right PA and Late ral and ObliqueOrdered By: Ccf Provider on 05-29-2023 [facility] XR Wrist - right PA and Late ral and Obliqueon 05-25-2023 Radiology Study observation (narrative) [facility] DXA-AXIAL SKELETONon 022 [facility] CNOVon 04-04-2021 CNOV Office Visit (GENSF) -------- DARIA OSBORNE ([id number]) 1950 F NFR Date Time Provider Department 04/04/21 11:40 AM SARBJIT CHICAS During your visit today, we recorded the following information about you: Temperature Pulse Blood pressure Weight 98.6 degrees 68/minute 116/76 47 kg Gena Lobo RN 04/04/2021 11:45 AM Signed Reason for today's visit: Hx bilateral breast cancer Palpates a breast change? no Nipple discharge? no Swelling in either upper extremity? no Taking hormonal medication? no Full Range of motion? 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 She denies chest wall masses or skin changes. She is compliant with her Arimidex, and is swimming daily and not walking on the treadmill as much. She is being followed for probably benign axillary nodes bilaterally with borderline cortical thickening. In 06/2020 bilateral ultrasounds were deemed benign. In 12/04 she was diagnosed with a C8uSBBU breast cancer. MRI 12/04 showed the known lesion measuring 1.7cm on the left at 12pm. In 01/01 she had a left mastectomy with negative margins and 0/2 SLN. The tumor was ER+(90%)/WY+(90%)/HER2-. She did not have reconstruction. ODX was 13 corresponding to an 8% risk of distant intermediate recurrence. She saw Dr. Jimenez in consultation and given her pre-existing osteoporosis (BMD 11/03 -2.9) and TMJ, it was decided that she take Tamoxifen which she started 02/01. In 10/07, she felt a new lump on the right. She was found to have a 4mm mass by ultrasound. 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 She went on to right mastectomy 11/08 demonstrating the 6mm tumor with negative margins, no LVI and 0/1 SLN. She was switched to Arimidex 02/06 for another 5 years. She is tolerating it well. She is followed by Dr. Altamirano in [place]. She was having some vaginal dryness which is improved on Replens. 01/06: Daria Osborne's Common Hereditary Cancers panel through [facility] was negative for a deleterious mutation. ? 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 A VUS is a genetic variant for which insufficient data exists in order to determine if it is associated with disease (deleterious mutation) or is a normal genetic variant which can occur in the population without disease (benign polymorphism).?? History pertaining to prior breast biopsies, genetic reports, pathology reports, treatment summaries, personal, social and family history has been extracted from my note dated 06/04/2020. Her vitamin D level was Vitamin D 25 Hydroxy (ng/mL) Date Value 04/01/2021 66.2 . She takes Vitamin D 2000 units and gets a lot of calcium in her diet . BMD: Yes / 12/07 stable osteoporosis (-2.8). She is NOT interested in therapy as she has jaw issues. 01/06 stable at -2.8. 06/2020 BMD -3.3. PERSONAL BREAST HISTORY: Past breast history (prior to this encounter) is as follows: Breast biopsy: Yes, as above Breast cysts: No Breast surgery: Yes, left mastectomy as above Breast cancer: Yes, Left Stage 1 ([id number]) in the upper breast s/p left mastectomy CANCER SURVEILLANCE: Mammograms: Yes / right mammogram 01/05 negative Breast MRI: 11/08 showing the known cancer; otherwise negative. Colonoscopy: No RISK FACTORS FOR BREAST CANCER: Age at the onset of menses: unknown P: 1 Age at the of first child: 26 years of age. She did not breast feed Age at menopause: The patient does not remember. Post-menopausal hormone therapy: No She is S/P total hysterectomy with negative pathology History of Mantle Radiation prior to the age of 30: No Postmenopausal obesity: No Body mass index is 17.37 kg/m?. Mammographic density: NA; she is s/p bilateral mastectomy. Personal History of Benign Atypical Breast Biopsy: No Alcohol use: 1-2 drinks daily PAST MEDICAL HISTORY: PAST MEDICAL HISTORY Diagnosis Date - Anemia, unspecified - Benign neoplasm of skin of trunk, except scrotum 01/12/2009 - Benign neoplasm of skin of upper limb, including shoulder 08/26/2005 - Breast cancer (HCC) 11/2012 left - Dense breasts 07/16/2017 - Difficult airway for intubation - Disorder of bone and cartilage, unspecified - History of bilateral breast cancer 04/21/2018 left (more content not included)... [facility] 01-03-2021 [facility] Telephone (MEPRAD) -------- DARIA OSBORNE ([id number]) 1950 F NFR Date Time Provider Department 01/03/21 RODRIGUEZ ALTAMIRANO During your visit today, we recorded the following information about you: Rodriguez Altamirano DO 01/03/2021 6:12 AM Signed See message. Referral to Dr. Carlos Irvin roof foreman at [facility]. Dx is osteoporosis. DO Eva Garcia [facility] 01/03/2021 8:24 AM Signed Referral has been sent via fax to 's office at [phone] I called and let Daria know it was sent because she wanted to call them herself to schedule, she stated understanding. Eva Saucedo Pss Allergies As of Date: 01/03/2021 Noted Allergy Reaction CANTALOUPE 12/30/2012 7 - Swelling Comments: Throat itchy CHICKEN 07/30/2006 8 - GI Upset Comments: + allergy test to chicken meat (in past just had GI upset but test +); told by property custodian no flu shot because of this allergy CLINDAMYCIN 07/19/2017 2 - Rash Comments: possible allergy, rash appeared treatment completed PROPOFOL 01/02/2013 16 - Unknown Comments: History of possible egg allergy as a child. Skin test to egg-white negative on 12/06/17. Patient has never been treated with propofol CIPROFLOXACIN 12/06/2017 5 - Intolerance Comments: C/o feeling anxious and shaky while taking ciprofloxacin in the post-operative period following evacuation of breast hematoma in Oct, 2017. Also c/o joints popping no other symptoms. EGG DERIVED 04/19/2019 15 - Contraindication-Medical Da Silva* Comments: Slipper Maker told patient to avoid anything derived from eggs due to chicken allergy revealed on testing. May eat eggs. ZANTAC (RANITIDINE HCL) 08/07/2005 16 - Unknown TETRACYCLINE 08/07/2005 16 - Unknown Date Reviewed: 12/05/2020 Reviewed by: Carolina Peterson - Fully Assessed Reason for Visit: Referral Request [[id number]] Prescriptions as of 01/03/2021 Sig: ANASTROZOLE 1 MG TABLET take 1 tablet by mouth once d* EPINEPHRINE 0.3 MG/0.3 ML INJ* Use as directed for reaction * CHOLECALCIFEROL (VITAMIN D3) * Take 1 capsule by mouth once * * THERAPEUTIC MULTIVITAMIN TABL* Take one(1) tablet daily. Problem List As Of Date 01/03/2021 Noted Resolved Anemia [D64.9] 07/28/2020 IRRITABLE COLON [K58.9] TM JOINT DISORDER, UNSPEC [M26.609] Benign neoplasm of skin of upper limb, includin*08/26/2005 07/28/2020 Osteoporosis [M81.0] More... Benign neoplasm of skin of trunk, except scrotu*01/12/2009 07/28/2020 Impaired fasting glucose [R73.01] 11/10/2010 02/27/2015 Postop check [Z09] 01/22/2013 07/28/2020 Postoperative thrombophlebitis [T81.72XA] 09/20/2013 07/28/2020 TMJ (dislocation of temporomandibular joint) [S*10/20/2015 07/28/2020 Malignant neoplasm of nipple of left breast in *08/10/2016 IFG (impaired fasting glucose) [R73.01] 04/03/2017 Incisional hernia of anterior abdominal wall wi*04/22/2017 07/28/2020 More... Dense breasts [R92.2] 07/16/2017 04/21/2018 Breast mass, right [N63.10] 10/03/2017 07/28/2020 More... Malignant neoplasm of upper-outer quadrant of r*10/31/2017 Breast cancer, right breast (HCC) [C50.911] 11/01/2017 Difficult airway for intubation [T88.4XXA] History of bilateral breast cancer [Z85.3] 04/21/2018 07/28/2020 More... Encounter Status:Closed by EVA FARIAS on 01/03/21 Normal [facility] BD DXA - AXIAL SKELETONon BD DXA - AXIAL SKELETON * * *Final Report* * * DATE OF EXAM: Jun 22 2020 10:24AM DORINDA 0804 - DXA - AXIAL SKELETON / PROCEDURE REASON: multiple diagnoses * * * * Physician Interpretation * * * * EXAMINATION: DXA BONE DENSITOMETRY TECHNIQUE: Low dose AP spine and hip images [facility] Sc[facility]: 06/22/2020 10:24 AM COMPARISON: CLINICAL HISTORY: Personal history of malignant neoplasm of breast Age-related osteoporosis without current pathological fracture TECHNICAL LIMITATIONS: None RESULTS: Lumbar spine (L1-L4): 0.782 , T-score -3.3 , Z-score -1.0 . Left Femoral Neck: 0.633 , T-score-2.9 , Z-score-0.9 . Left Total Hip: 0.658 , T-score-2.8 , Z-score -0.9 . Right Femoral Neck: 0.681 , T-score -2.6 , Z-score-0.5 . Right Total Hip: 0.679 , T-score-2.6 , Z-score -0.7 . IMPRESSION: THE LOWEST T-SCORE IS -3.3 IN THE LUMBAR SPINE 1) DIAGNOSIS (based on BMD alone): OSTEOPOROSIS . Follow-up scans should always be done on the same machine for accurate comparison. FOR MORE INFORMATION: [facility] Disease: [email or web address]/os [email or web address] National Osteoporosis Foundation: www.nof.org International Society of Clinical Densitometry www.iscd.org [employer] CLASSIFICATION OF BONE MASS: CLASSIFICATION T-SCORE Normal Greater than -1 Low Bone Mass Between -1 and -2.5 (Osteopenia) Osteoporosis Less than or equal to -2.5 Vp Analysis: ANNA Transcribe Date/Time: Jun 22 2020 12:44P Dictated by : GRACE JACINTO MD This examination was interpreted and the report reviewed and electronically signed by: GRACE JACINTO MD on Jun 22 2020 12:46PM EST [id number] [facility] PROGRESSon 06-22-2020 PROGRESS HNO ID: [id number] Author: ARIELLA Vazquez (Ct) Service: Radiology Author Type: Clinical Bin Worker Type: Progress Notes Filed: 06/22/2020 10:25 AM Note Text: Radiology Service Progress Note PATIENT NAME: Daria Osborne DATE OF SERVICE: June 22, 2020 TIME: 10:25 AM PATIENT IDENTITY VERIFICATION COMPLETED USING TWO (2) IDENTIFIERS: Name and Date of confirmed by patient verbally and Name and Date of confirmed by identification band. FALL SCREENING: Has the patient had 2 falls in the last year or 1 fall with injury or currently using an Ambulatory Assistive Device (Walker, Cane, Wheelchair, Crutches, etc.)? No PATIENT GENDER DATA: Female. status: : No status: NO. PATIENT RELEVANT IMPLANT DATA REVIEWED: Not Applicable RADIOLOGY DEPARTMENT: Bone Density PERIPHERAL IV DATA: Not applicable SIGNED BY: ARIELLA Vazquez June 22, 2020 10:25 AM [facility] PROGRESSon 05-31-2020 PROGRESS HNO ID: [id number] Author: Interface Note Service: ? Author Type: ? Type: Progress Notes Filed: 05/31/2020 11:09 AM Note Text: The surgical encounter documentation contains information performed by a different Alma Castellanos than is indicated by the provider record. Clinical care was provided and documented by the correct provider. Normal [facility] CHEST 1 VIEWon 12-18-2017 CHEST 1 VIEW Performed at [facility] APPROVED BY: TREMAINE TIWARI MD EXAMINATION: CHEST RADIOGRAPH (PORTABLE SINGLE VIEW AP) Exam Date/Time: 12/18/2017 11:00 AMClinical History: Port-A-Cath placement. Breast cancer. M: [id number]: None available RESULT: Lines, tubes, and devices: A right-sided Mediport is in place with the tip overlying the expected position of the distal SVC. Lungs and pleura: No airspace consolidation, lung mass, pleural effusion or pneumothorax. Cardiomediastinal silhouette: Cardiac silhouette is not enlarged. Surgical clips are noted in the right axilla. IMPRESSION:1. Satisfactory position of right-sided Mediport with the tip overlying the expected position of the distal SVC. 2. Lungs appear well-expanded and clear. Normal [facility] FLUORO UP TO 1 HOURon 2017 FLUORO UP TO 1 HOUR Performed at [facility] APPROVED BY: Damon Ly MD IMPRESSION: 1 minute 6 seconds of fluoroscopy time was utilized for this exam. Normal [facility] PROGRESSon 10-08-2017 PROGRESS HNO ID: [id number]: Andreina Mayen: (none)Author Type: PhysicianType: Progress NotesFiled: 10/08/2017 3:58 PMNote Text:Patient with a personal history of left breast cancer s/p mastectomy wasrecommended for biopsy by [facility] of a palpable finding in the upperouter right breast. Imaging performed at that facility on 09/25/17 andreviewed prior to scheduling here. There is a focal asymmetry/ mass atthe upper outer right breast corresponding with the palpable complaint.On ultrasound there is a hypoechoic mass corresponding with the palpablecomplaint measuring at least 4 x 3 x 4 mm (may be underestimated onimaging provided) located at 11:00 5 cmfn.Agree with recommendation to biopsy the mass at the upper outer rightbreast at 11:00 5 cmfn.Prior to performing the biopsy, would like to repeat the ultrasound toensure accurate size measurements and also to check the right axilla whichwas not checked (or documented) at the time of the prior study .She will be [facility] [place] [facility] [place] [facility]. Normal [facility] Vital Signs Date Time Vital Sign Value Performing Clinician Zari patel 07-10-2024 09:57-0400 Body height 164 cm Rodriguez [employer] DO Work Phone: [facility] 07-10-2024 09:57-0400 Body mass index (BMI) [Ratio] 17.37 kg/m2 Rodriguez Stravai DO Work Phone: [facility] 07-10-2024 09:57-0400 Body temperature 97.59 [degF] Rodriguez Stravai DO Work Phone: [facility] 07-10-2024 09:57-0400 Body weight 46.72 kg Rodriguez Stravai [employer] Work Phone: [facility] 07-10-2024 09:57-0400 Diastolic blood pressure 82 mm[Hg] Rodriguez Stravai DO Work Phone: [facility] 07-10-2024 09:57-0400 Heart rate 75 /min Rodriguez Stravai [employer] Work Phone: [facility] 07-10-2024 09:57-0400 SaO2% (BldA) [Mass fraction] 99 % Rodriguez Stravai [employer] Work Phone: [facility] 07-10-2024 09:57-0400 Systolic blood pressure 128 mm[Hg] Rodriguez Stravai DO Work Phone: [facility] 05-14-2024 10:37-0400 Body mass index (BMI) [Ratio] 16.99 kg/m2 Tee Lagunas CARETAKER.DISTRIBUTION SYSTEM OPERATOR Work Phone: [facility] 05-14-2024 10:37-0400 Body weight 46.27 kg Tee Lagunas CARETAKER.DISTRIBUTION SYSTEM OPERATOR Work Phone: [facility] 05-14-2024 10:37-0400 Diastolic blood pressure 72 mm[Hg] Tee Robin CARETAKER.DISTRIBUTION SYSTEM OPERATOR Work Phone: [facility] 05-14-2024 10:37-0400 Heart rate 64 /min Tee Robin CARETAKER.DISTRIBUTION SYSTEM OPERATOR Work Phone: [facility] 05-14-2024 10:37-0400 Respiratory rate 16 /min Tee Robin CARETAKER.DISTRIBUTION SYSTEM OPERATOR Work Phone: [facility] 05-14-2024 10:37-0400 SaO2% (BldA) [Mass fraction] 99 % Tee Robin CARETAKER.DISTRIBUTION SYSTEM OPERATOR Work Phone: [facility] 05-14-2024 10:37-0400 Systolic blood pressure 118 mm[Hg] Tee Robin CARETAKER.DISTRIBUTION SYSTEM OPERATOR Work Phone: [facility] 04-07-2024 09:45-0400 Body height 165 cm Carolina Peterson MD Work Phone: [facility] 04-07-2024 09:45-0400 Body mass index (BMI) [Ratio] 17.01 kg/m2 Carolina Peterson MD Work Phone: [facility] 04-07-2024 09:45-0400 Body temperature 98.4 [degF] Carolina Peterson MD Work Phone: [facility] 04-07-2024 09:45-0400 Body weight 46.31 kg Carolina Peterson MD Work Phone: [facility] 04-07-2024 09:45-0400 Diastolic blood pressure 62 mm[Hg] Carolina Peterson MD Work Phone: [facility] 04-07-2024 09:45-0400 Heart rate 74 /min Carolina Peterson MD Work Phone: [facility] 04-07-2024 09:45-0400 Respiratory rate 18 /min Carolina Peterson MD Work Phone: [facility] 04-07-2024 09:45-0400 SaO2% (BldA) [Mass fraction] 100 % Carolina Peterson MD Work Phone: [facility] 04-07-2024 09:45-0400 Systolic blood pressure 122 mm[Hg] Carolina Peterson MD Work Phone: [facility] 01-11-2024 10:26-0400 Body height 165.1 cm Sera Anthonysky CARETAKER.DISTRIBUTION SYSTEM OPERATOR Work Phone: [facility] 01-11-2024 10:260400 Body weight 48.08 kg Sera Anthonysky CARETAKER.DISTRIBUTION SYSTEM OPERATOR Work Phone: [facility] 01-11-2024 10:26-0400 Diastolic blood pressure 68 mm[Hg] Sera Brazofsky CARETAKER.DISTRIBUTION SYSTEM OPERATOR Work Phone: [facility] 01-11-2024 10:26-0400 Systolic blood pressure 116 mm[Hg] Sera Brazofsky CARETAKER.DISTRIBUTION SYSTEM OPERATOR Work Phone: [facility] 01-01-2024 10:240400 Body height 165.1 cm [place] Agudelo CARETAKER.DISTRIBUTION SYSTEM OPERATOR Work Phone: [facility] 01-01-2024 10:24-0400 Body temperature 97.3 [degF] [place] [employer] CARETAKER.DISTRIBUTION SYSTEM OPERATOR Work Phone: [facility] 01-01-2024 10:24-0400 Body weight 48.49 kg [place] Ag[employer]elo CARETAKER.DISTRIBUTION SYSTEM OPERATOR Work Phone: [facility] 01-01-2024 10:24-0400 Diastolic blood pressure 84 mm[Hg] Jade Agudelo CARETAKER.DISTRIBUTION SYSTEM OPERATOR Work Phone: [facility] 01-01-2024 10:24-0400 Heart rate 74 /min Jade Agudelo CARETAKER.DISTRIBUTION SYSTEM OPERATOR Work Phone: [facility] 01-01-2024 10:24-0400 SaO2% (BldA) [Mass fraction] 97 % Jade Agudelo CARETAKER.DISTRIBUTION SYSTEM OPERATOR Work Phone: [facility] 01-01-2024 10:24-0400 Systolic blood pressure 122 mm[Hg] Jade Agudelo CARETAKER.DISTRIBUTION SYSTEM OPERATOR Work Phone: [facility] 10-05-2023 09:31-0500 Body temperature 98.29 [degF] Carolina Peterson MD Work Phone: [facility] 10-05-2023 09:31-0500 Body weight 47.17 kg Carolina Peterson MD Work Phone: [facility] 10-05-2023 09:31-0500 Diastolic blood pressure 62 mm[Hg] Carolina Peterson MD Work Phone: [facility] 10-05-2023 09:31-0500 Heart rate 84 /min Carolina Peterson MD Work Phone: [facility] 10-05-2023 09:31-0500 Respiratory rate 18 /min Carolina Peterson MD Work Phone: [facility] 10-05-2023 09:31-0500 SaO2% (BldA) [Mass fraction] 99 % Carolina Peterson MD Work Phone: [facility] 10-05-2023 09:31-0500 Systolic blood pressure 110 mm[Hg] Carolina Peterson MD Work Phone: [facility] 07-03-2023 11:36-0400 Body temperature 98.29 [degF] Rodriguez Trenti DO Work Phone: [facility] 07-03-2023 11:36-0400 Body weight 47.4 kg Rodriguez Twani DO Work Phone: [facility] 07-03-2023 11:36-0400 Diastolic blood pressure 64 mm[Hg] Rodriguez Masci DO Work Phone: [facility] 07-03-2023 11:36-0400 Heart rate 73 /min Rodriguez Twani DO Work Phone: [facility] 07-03-2023 11:36-0400 SaO2% (BldA) [Mass fraction] 98 % Rodriguez Twani DO Work Phone: [facility] 07-03-2023 11:36-0400 Systolic blood pressure 102 mm[Hg] Rodriguez Altamirano Work Phone: [facility] 06-22-2023 09:33-0400 Body height 162.6 cm Mac Shepherd MD Work Phone: [facility] 06-22-2023 09:33-0400 Body temperature 98.2 [degF] Mac Shepherd MD Work Phone: [facility] 06-22-2023 09:33-0400 Body weight 47.72 kg Mac Shepherd MD Work Phone: [facility] 06-22-2023 09:33-0400 Diastolic blood pressure 74 mm[Hg] Mac Shepherd MD Work Phone: [facility] 06-22-2023 09:33-0400 Heart rate 99 /min Mac Shepherd MD Work Phone: [facility] 06-22-2023 09:33-0400 Respiratory rate 14 /min Mac Shepherd MD Work Phone: [facility] 06-22-2023 09:33-0400 SaO2% (BldA) [Mass fraction] 99 % Mac Shepherd MD Work Phone: [facility] 06-22-2023 09:33-0400 Systolic blood pressure 112 mm[Hg] Mac Shepherd MD Work Phone: [facility] 06-11-2023 11:02-0400 Body height 164.5 cm Jade Agudelo CARETAKER.DISTRIBUTION SYSTEM OPERATOR Work Phone: [facility] 06-11-2023 11:02-0400 Body temperature 98.8 [degF] Jade Agudelo CARETAKER.DISTRIBUTION SYSTEM OPERATOR Work Phone: [facility] 06-11-2023 11:02-0400 Body weight 46.49 kg Jade Agudelo CARETAKER.DISTRIBUTION SYSTEM OPERATOR Work Phone: [facility] 06-11-2023 11:02-0400 Diastolic blood pressure 70 mm[Hg] Jade Agudelo CARETAKER.DISTRIBUTION SYSTEM OPERATOR Work Phone: [facility] 06-11-2023 11:02-0400 Heart rate 70 /min [place] Agud[employer] CARETAKER.DISTRIBUTION SYSTEM OPERATOR Work Phone: [facility] 06-11-2023 11:02-0400 SaO2% (BldA) [Mass fraction] 99 % [place] Agudelo CARETAKER.DISTRIBUTION SYSTEM OPERATOR Work Phone: [facility] 06-11-2023 11:02-0400 Systolic blood pressure 102 mm[Hg] Jade Agudelo CARETAKER.DISTRIBUTION SYSTEM OPERATOR Work Phone: [facility] 05-25-2023 10:21-0400 Body weight 46.72 kg Tee Robin CARETAKER.DISTRIBUTION SYSTEM OPERATOR Work Phone: [facility] 05-25-2023 10:21-0400 Diastolic blood pressure 59 mm[Hg] Tee Robin CARETAKER.DISTRIBUTION SYSTEM OPERATOR Work Phone: [facility] 05-25-2023 10:21-0400 Heart rate 72 /min Tee Robin CARETAKER.DISTRIBUTION SYSTEM OPERATOR Work Phone: [facility] 05-25-2023 10:21-0400 Respiratory rate 16 /min Tee Robin CARETAKER.DISTRIBUTION SYSTEM OPERATOR Work Phone: [facility] 05-25-2023 10:21-0400 SaO2% (BldA) [Mass fraction] 96 % Tee Robin CARETAKER.DISTRIBUTION SYSTEM OPERATOR Work Phone: [facility] 05-25-2023 10:21-0400 Systolic blood pressure 96 mm[Hg] Tee Robin CARETAKER.DISTRIBUTION SYSTEM OPERATOR Work Phone: [facility] 04-16-2023 11:36-0400 Body temperature 97.59 [degF] Jade Agudelo CARETAKER.DISTRIBUTION SYSTEM OPERATOR Work Phone: [facility] 04-16-2023 11:36-0400 Body weight 47.4 kg [place] Agud[employer] CARETAKER.DISTRIBUTION SYSTEM OPERATOR Work Phone: [facility] 04-16-2023 11:36-0400 Diastolic blood pressure 64 mm[Hg] [place] Agud[employer] CARETAKER.DISTRIBUTION SYSTEM OPERATOR Work Phone: [facility] 04-16-2023 11:36-0400 Heart rate 68 /min Jade Agudelo CARETAKER.DISTRIBUTION SYSTEM OPERATOR Work Phone: [facility] 04-16-2023 11:36-0400 SaO2% (BldA) [Mass fraction] 100 % Jade Agudelo CARETAKER.DISTRIBUTION SYSTEM OPERATOR Work Phone: [facility] 04-16-2023 11:36-0400 Systolic blood pressure 112 mm[Hg] Jade Agudelo CARETAKER.DISTRIBUTION SYSTEM OPERATOR Work Phone: [facility] 04-13-2023 11:31-0400 Body height 165.1 cm Dario Suárez MD Work Phone: [facility] 04-13-2023 11:31-0400 Body weight 47.17 kg Dario Suárez MD Work Phone: [facility] 04-06-2023 08:53-0400 Body temperature 97.81 [degF] Carolina Peterson MD Work Phone: [facility] 04-06-2023 08:53-0400 Body weight 47.17 kg Carolina Peterson MD Work Phone: [facility] 04-06-2023 08:53-0400 Diastolic blood pressure 60 mm[Hg] Carolina Peterson MD Work Phone: [facility] 04-06-2023 08:53-0400 Heart rate 72 /min Carolina Peterson MD Work Phone: [facility] 04-06-2023 08:53-0400 Respiratory rate 18 /min Carolina Peterson MD Work Phone: [facility] 04-06-2023 08:53-0400 SaO2% (BldA) [Mass fraction] 99 % Carolina Peterson MD Work Phone: [facility] 04-06-2023 08:53-0400 Systolic blood pressure 100 mm[Hg] Carolina Peterson MD Work Phone: [facility] 01-01-2023 09:33-0400 Body temperature 96.91 [degF] Jade Agudelo CARETAKER.DISTRIBUTION SYSTEM OPERATOR Work Phone: [facility] 01-01-2023 09:33-0400 Body weight 48.08 kg Jade Agudelo CARETAKER.DISTRIBUTION SYSTEM OPERATOR Work Phone: [facility] 01-01-2023 09:33-0400 Diastolic blood pressure 64 mm[Hg] Jade Botelloenter CARETAKER.DISTRIBUTION SYSTEM OPERATOR Work Phone: [facility] 01-01-2023 09:33-0400 Heart rate 92 /min Jade Agudelo CARETAKER.DISTRIBUTION SYSTEM OPERATOR Work Phone: [facility] 01-01-2023 09:33-0400 SaO2% (BldA) [Mass fraction] 100 % [place] Agudelo CARETAKER.DISTRIBUTION SYSTEM OPERATOR Work Phone: [facility] 01-01-2023 09:33-0400 Systolic blood pressure 102 mm[Hg] Jade Agudelo CARETAKER.DISTRIBUTION SYSTEM OPERATOR Work Phone: [facility] 10-16-2022 15:40-0500 Body temperature 98.6 [degF] Yvette Ramirez CARETAKER.DISTRIBUTION SYSTEM OPERATOR Work Phone: [facility] 10-16-2022 15:40-0500 Body weight 48.72 kg Yvette Ramirez CARETAKER.DISTRIBUTION SYSTEM OPERATOR Work Phone: [facility] 10-16-2022 15:40-0500 Diastolic blood pressure 72 mm[Hg] Yvette Ramirez CARETAKER.DISTRIBUTION SYSTEM OPERATOR Work Phone: [facility] 10-16-2022 15:40-0500 Heart rate 101 /min Yvette Ramirez CARETAKER.DISTRIBUTION SYSTEM OPERATOR Work Phone: [facility] 10-16-2022 15:40-0500 Respiratory rate 20 /min Yvette Ramirez CARETAKER.DISTRIBUTION SYSTEM OPERATOR Work Phone: [facility] 10-16-2022 15:40-0500 SaO2% (BldA) [Mass fraction] 100 % Yvette Ramirez CARETAKER.DISTRIBUTION SYSTEM OPERATOR Work Phone: [facility] 10-16-2022 15:40-0500 Systolic blood pressure 120 mm[Hg] Yvettedesirae Ramirez APRN.CNP Work Phone: [facility] 10-04-2022 08:40-0500 Body weight 48.08 kg Carolina Peterson MD Work Phone: [facility] 10-04-2022 08:40-0500 Diastolic blood pressure 80 mm[Hg] Carolina Peterson MD Work Phone: [facility] 10-04-2022 08:40-0500 Heart rate 81 /min Carolina Peterson MD Work Phone: [facility] 10-04-2022 08:40-0500 SaO2% (BldA) [Mass fraction] 100 % Carolina Peterson MD Work Phone: [facility] 10-04-2022 08:40-0500 Systolic blood pressure 112 mm[Hg] Carolina Peterson MD Work Phone: [facility] 08-18-2022 11:32-0400 Body temperature 98.71 [degF] Rodriguez Masci DO Work Phone: [facility] 08-18-2022 11:32-0400 Body weight 48.31 kg Rodriguez Masci DO Work Phone: [facility] 08-18-2022 11:32-0400 Diastolic blood pressure 74 mm[Hg] Rodriguez Masci DO Work Phone: [facility] 08-18-2022 11:32-0400 Heart rate 76 /min Rodriguez Masci DO Work Phone: [facility] 08-18-2022 11:32-0400 SaO2% (BldA) [Mass fraction] 98 % Rodriguez Masci DO Work Phone: [facility] 08-18-2022 11:32-0400 Systolic blood pressure 122 mm[Hg] Rodriguez Masci DO Work Phone: [facility] 07-11-2022 08:19-0400 Body height 165.5 cm Carolina Peterson MD Work Phone: [facility] 07-11-2022 08:19-0400 Body weight 47.17 kg Carolina Peterson MD Work Phone: [facility] 07-11-2022 08:19-0400 Diastolic blood pressure 78 mm[Hg] Carolina Peterson MD Work Phone: [facility] 07-11-2022 08:19-0400 Heart rate 70 /min Carolina Peterson MD Work Phone: [facility] 07-11-2022 08:19-0400 SaO2% (BldA) [Mass fraction] 100 % Carolina Peterson MD Work Phone: [facility] 07-11-2022 08:19-0400 Systolic blood pressure 114 mm[Hg] Carolina Peterson MD Work Phone: [facility] 07-03-2022 09:36-0400 Body height 164.2 cm Jade Agudelo CARETAKER.DISTRIBUTION SYSTEM OPERATOR Work Phone: [facility] 07-03-2022 09:36-0400 Body temperature 98.1 [degF] Jade Agudelo CARETAKER.DISTRIBUTION SYSTEM OPERATOR Work Phone: [facility] 07-03-2022 09:36-0400 Body weight 47.63 kg Jade Agudelo CARETAKER.DISTRIBUTION SYSTEM OPERATOR Work Phone: [facility] 07-03-2022 09:36-0400 Diastolic blood pressure 69 mm[Hg] Jade Agudelo CARETAKER.DISTRIBUTION SYSTEM OPERATOR Work Phone: [facility] 07-03-2022 09:36-0400 Heart rate 77 /min Jade Agudelo CARETAKER.DISTRIBUTION SYSTEM OPERATOR Work Phone: [facility] 07-03-2022 09:36-0400 SaO2% (BldA) [Mass fraction] 98 % [place] [employer] CARETAKER.DISTRIBUTION SYSTEM OPERATOR Work Phone: [facility] 07-03-2022 09:36-0400 Systolic blood pressure 119 mm[Hg] Jade Agudelo CARETAKER.DISTRIBUTION SYSTEM OPERATOR Work Phone: [facility] 06-19-2022 10:14-0400 Body weight 47.17 kg Carmelita Krishnamurthy MD Work Phone: [facility] 06-19-2022 10:14-0400 Diastolic blood pressure 68 mm[Hg] Carmelita Krishnamurthy MD Work Phone: [facility] 06-19-2022 10:14-0400 Systolic blood pressure 122 mm[Hg] Carmelita Krishnamurthy MD Work Phone: [facility] 04-05-2022 09:15-0400 Body weight 47.17 kg Carolina Peterson MD Work Phone: [facility] 04-05-2022 09:15-0400 Diastolic blood pressure 60 mm[Hg] Carolina Peterson MD Work Phone: [facility] 04-05-2022 09:15-0400 Heart rate 68 /min Carolina Peterson MD Work Phone: [facility] 04-05-2022 09:15-0400 SaO2% (BldA) [Mass fraction] 99 % Carolina Peterson MD Work Phone: [facility] 04-05-2022 09:15-0400 Systolic blood pressure 108 mm[Hg] Carolina Peterson MD Work Phone: [facility] 02-17-2022 10:55-0400 Body height 165.7 cm Ligia Valdes MD Work Phone: [facility] [facility] 02-17-2022 10:55-0400 Body temperature 97.3 [degF] Ligia Valdes MD Work Phone: [facility] 02-17-2022 10:55-0400 Body weight 47.31 kg Ligia Valdes MD Work Phone: [facility] 02-17-2022 10:55-0400 Diastolic blood pressure 68 mm[Hg] Ligia Valdes MD Work Phone: [facility] 02-17-2022 10:55-0400 Heart rate 66 /min Ligia Valdes MD Work Phone: [facility] 02-17-2022 10:55-0400 SaO2% (BldA) [Mass fraction] 99 % Ligia Valdes MD Work Phone: [facility] 02-17-2022 [id number] Systolic blood pressure 110 mm[Hg] Ligia Valdes MD Work Phone: [facility] Encounters Encounter Date Encounter Type Care Provider Facility Start: 07-10-2024 End: 07-10-2024 ambulatory Rodriguez Altamirano DO Work Phone: Hematology/Oncology Comment on above: Personal history of breast cancer (Primary Dx) Start: 07-10-2024 End: 07-10-2024 Patient encounter procedure Rodriguez Altamirano DO Work Phone: Hematology/Oncology Start: 07-03-2024 End: 07-03-2024 Refill Carolina Peterson MD Work Phone: [facility] [place] Comment on above: Refill Request Start: 05-14-2024 End: 05-14-2024 ambulatory Carolina Peterson MD Work Phone: [facility] [place] Comment on above: Dizziness Start: 05-14-2024 End: 05-14-2024 Patient encounter procedure Tee Lagunas APRN.DISTRIBUTION SYSTEM OPERATOR Work Phone: [facility] [place] Comment on above: Benign paroxysmal po sitional vertigo, unspecified laterality (Primary Dx) Start: 04-28-2024 End: 04-28-2024 ambulatory CAROLINA PETERSON Facility:[facility] Start: 04-28-2024 End: 04-28-2024 Patient encounter procedure Carolina Peterson MD Work Phone: [facility] [place] Comment on above: Medicare annual well ness visit, subsequent (Primary Dx) Start: 04-28-2024 End: 04-28-2024 Telemedicine consultation with patient Carolina Peterson MD Work Phone: [facility] [place] Start: 04-23-2024 ambulatory Carolina fonseca MD Work Phone: [facility] [place] Comment on above: Virtual appt. Rescheduling your vi dulce visit Start: 04-23-2024 E-mail encounter mauricio donnelly caregiver [facility] Provider [facility] [place] Start: 04-22-2024 End: 04-22-2024 ambulatory DARIO SUÁREZ Facility:[facility] Start: 04-22-2024 End: 04-22-2024 Patient encounter procedure Dario Suárez MD Work Phone: [facility] [place] Comment on above: Personal history of breast cancer (Primary Dx); Status post bilateral mastectomy; BRCA negative; Osteoporosis NEC Start: 04-08-2024 Telephone encounter Carolina katz MD Work Phone: [facility] [place] Comment on above: Orders Start: 04-07-2024 End: 04-07-2024 ambulatory CAROLINA PETERSON Facility:[facility] Start: 04-07-2024 End: 04-07-2024 Office outpatient visit 25 minutes Carolina Peterson MD Work Phone: [facility] [place] Comment on above: Hand arthritis (Prim mona Dx); IFG (impaired fasting glucose); Osteoporosis without current pathological fracture, unspecified osteoporosis type; Vitamin D deficiency; Malignant neoplasm of upper-outer quadrant of right breast in female, estrogen receptor positive (HCC) Start: 04-01-2024 End: 04-01-2024 ambulatory CAROLINA PETERSON Facility:[facility] Start: 03-10-2024 End: 03-10-2024 ambulatory CAROLINA PETERSON Facility:[facility] Start: 03-10-2024 End: 03-10-2024 Nursing evaluation of patient and report Mi Nurse Work Phone: Family Medicine [place] Comment on above: Encounter for immuni zation Start: 01-11-2024 End: 01-11-2024 ambulatory CAROLINA PETERSON Facility:[facility] Start: 01-11-2024 End: 01-11-2024 Patient encounter procedure Sera Pa APRN.CNP Work Phone: Gynecology Comment on above: Encounter for gyneco logical examination (general) (routine) without abnormal findings (Primary Dx) Start: 01-11-2024 End: 01-11-2024 Patient encounter status Sera Pa HARESH.DISTRIBUTION SYSTEM OPERATOR Work Phone: [facility] Work Phone: Start: 01-01-2024 End: 01-01-2024 ambulatory Jade Botellotres HUTSON.DISTRIBUTION SYSTEM OPERATOR Work Phone: Hematology/Oncology Comment on above: Personal history of breast cancer (Primary Dx) Start: 01-01-2024 End: 01-01-2024 Patient encounter procedure Jade Botellotres HUTSON.DISTRIBUTION SYSTEM OPERATOR Work Phone: [facility] Start: 10-05-2023 End: 10-05-2023 ambulatory CAROLINA PETERSON Facility:[facility] Start: 10-05-2023 End: 10-05-2023 Office outpatient visit 25 minutes Carolina Peterson MD Work Phone: [facility] [place] Comment on above: IFG (impaired fastin g glucose) (Primary Dx); Vitamin D deficiency; Chronic rhinitis; Age-related osteoporosis without current pathological fracture Start: 10-01-2023 End: 10-01-2023 ambulatory CAROLINA PETERSON Facility:[facility] Start: 08-24-2023 End: 08-24-2023 ambulatory ROSAMARIA LOS ALAMOS Facility:[facility] Start: 07-18-2023 Refill Carolina fonseca MD Work Phone: [facility] [place] Comment on above: Refill Request Start: 07-03-2023 End: 07-03-2023 ambulatory Rodriguez Altamirano DO Work Phone: Hematology/Oncology Comment on above: Malignant neoplasm o f upper-outer quadrant of right breast in female, estrogen receptor positive (HCC) (Primary Dx) Start: 07-03-2023 End: 07-03-2023 Patient encounter procedure Rodriguez Altamirano DO Work Phone: [facility] Start: 06-27-2023 ambulatory Mac bright MD Work Phone: General Surgery Comment on above: Test result Start: 06-27-2023 End: 06-27-2023 Subsequent hospital visit by physician Ariella [facility] (I-Stat) Work Phone: Cat Scan Comment on above: Localized swelling, mass and lump, neck [R22.1] Start: 06-22-2023 End: 06-22-2023 Patient encounter procedure Mac Shepherd MD Work Phone: General Surgery Comment on above: Localized swelling, mass and lump, neck (Primary Dx) Start: 06-19-2023 ambulatory Jade ozuna CARETAKER.DISTRIBUTION SYSTEM OPERATOR Work Phone: Hematology/Oncology Comment on above: Sonogram results Start: 06-18-2023 ambulatory Jade ozuna CARETAKER.DISTRIBUTION SYSTEM OPERATOR Work Phone: Hematology/Oncology Comment on above: Sonogram results Start: 06-15-2023 End: 06-15-2023 Subsequent hospital visit by physician Us [facility] Mob 2 Work Phone: Radiology Comment on above: Personal history of breast cancer [Z85.3] Start: 06-11-2023 End: 06-11-2023 ambulatory Jade Agudelo APRN.DISTRIBUTION SYSTEM OPERATOR Work Phone: Hematology/Oncology Comment on above: Personal history of breast cancer (Primary Dx); History of bilateral mastectomy; Enlarged lymph nodes Start: 06-11-2023 End: 06-11-2023 Patient encounter procedure Jade Agudelo APRN.DISTRIBUTION SYSTEM OPERATOR Work Phone: [place] [facility] Start: 05-28-2023 Telephone encounter Carolina katz MD Work Phone: Internal Medicine [place] Comment on above: result (x-ray) Start: 05-25-2023 End: 05-25-2023 Subsequent hospital visit by physician Xr [facility] [place] Work Phone: Radiology Comment on above: Right wrist pain [M2 5.531] Start: 05-25-2023 End: 05-25-2023 Patient encounter procedure Tee Lagunas APRN.DISTRIBUTION SYSTEM OPERATOR Work Phone: [facility] [place] Comment on above: Right wrist pain (Pr imary Dx); Age-related osteoporosis without current pathological fracture Start: 04-18-2023 Telephone encounter Jade joshua APRN.DISTRIBUTION SYSTEM OPERATOR Work Phone: Hematology/Oncology Comment on above: Patient Update; Maritza ent Question; Appointment Start: 04-16-2023 End: 04-16-2023 ambulatory Jade Agudelo APRN.DISTRIBUTION SYSTEM OPERATOR Work Phone: Hematology/Oncology Comment on above: Personal history of breast cancer (Primary Dx); History of bilateral mastectomy; Enlarged lymph node in neck Start: 04-16-2023 End: 04-16-2023 Patient encounter procedure Jade Agudelo APRN.DISTRIBUTION SYSTEM OPERATOR Work Phone: [facility] Start: 04-13-2023 End: 04-13-2023 Patient encounter procedure Dario Suárez MD Work Phone: [facility] Comment on above: Personal history of breast cancer (Primary Dx); Status post bilateral mastectomy; BRCA negative; Osteoporosis NEC; Enlarged lymph node in neck Start: 04-10-2023 Telephone encounter Rodriguez price DO Work Phone: Hematology/Oncology Comment on above: Patient Update; Maritza ent Question Start: 04-06-2023 End: 04-06-2023 Office outpatient visit 25 minutes Carolina Peterson MD Work Phone: [facility] [place] Comment on above: Recurrent cold sores (Primary Dx); IFG (impaired fasting glucose); Lump on neck; Vitamin D deficiency; Colon cancer screening Start: 01-01-2023 End: 01-01-2023 ambulatory Jade Agudelo APRN.DISTRIBUTION SYSTEM OPERATOR Work Phone: Hematology/Oncology Comment on above: Malignant neoplasm o f upper-outer quadrant of right breast in female, estrogen receptor positive (HCC) (Primary Dx); Malignant neoplasm of nipple of left breast in female, estrogen receptor positive (HCC) Start: 01-01-2023 End: 01-01-2023 Patient encounter procedure Jade Agudelo APRN.DISTRIBUTION SYSTEM OPERATOR Work Phone: [facility] Start: 12-05-2022 End: 12-05-2022 Patient encounter procedure Tremaine Rodriguez MD Work Phone: Dermatology Comment on above: Seborrheic keratosis (Primary Dx); Inflamed acrochordon Start: 10-16-2022 End: 10-16-2022 Patient encounter procedure Yvette Ramirez APRN.CNP Work Phone: [facility] Comment on above: URI, acute (Primary Dx) Start: 10-16-2022 Telephone encounter Carolina katz MD Work Phone: Internal Medicine [place] Comment on above: COVID positive home test Start: 10-04-2022 End: 10-04-2022 Office outpatient visit 25 minutes Carolina Peterson MD Work Phone: [facility] [place] Comment on above: Age-related osteopor osis without current pathological fracture (Primary Dx); IFG (impaired fasting glucose); Abdominal wall lump; Vitamin D deficiency; Encounter for long-term current use of medication Start: 09-26-2022 End: 09-26-2022 Subsequent hospital visit by physician Bone Density [facility] Work Phone: Radiology Comment on above: Osteoporosis, 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] Start: 09-25-2022 Telephone encounter Carolina katz MD Work Phone: [facility] [place] Comment on above: Orders Start: 08-24-2022 End: 08-24-2022 Patient encounter procedure Shauna Fuller MD Work Phone: Dermatology Comment on above: Neoplasm of unspecif ied behavior of bone, soft tissue, and skin (Primary Dx) Start: 08-23-2022 End: 08-23-2022 ambulatory Shauna Fuller MD Work Phone: Dermatology Comment on above: Neoplasm of unspecif ied behavior of bone, soft tissue, and skin (Primary Dx) Start: 08-23-2022 End: 08-23-2022 Telemedicine consultation with patient Shauna Fuller MD Work Phone: [facility] Start: 08-18-2022 End: 08-18-2022 ambulatory Rodriguez Altamirano DO Work Phone: Hematology/Oncology Comment on above: Malignant neoplasm o f upper-outer quadrant of right breast in female, estrogen receptor positive (HCC) (Primary Dx) Start: 08-18-2022 End: 08-18-2022 Patient encounter procedure Rodriguez Altamirano DO Work Phone: [facility] Start: 08-02-2022 Refill Carolina fonseca MD Work Phone: [facility] [place] Comment on above: Refill Request Start: 07-20-2022 End: 07-20-2022 Patient encounter procedure Shauna Fuller MD Work Phone: Dermatology Comment on above: Skin exam, screening for cancer (Primary Dx); Photoaging of skin; Multiple benign nevi; Lentigines; Seborrheic keratosis; Jefferson angioma; Arthropod bite, subsequent encounter; Dermatofibroma of right upper arm Start: 07-11-2022 End: 07-11-2022 Office outpatient visit 15 minutes Carolina Peterson MD Work Phone: [facility] [place] Comment on above: Toxic reaction to ho rnets, wasps and bees, accidental or unintentional, subsequent encounter (Primary Dx) Start: 07-03-2022 End: 07-03-2022 ambulatory Jade Agudelo APRN.DISTRIBUTION SYSTEM OPERATOR Work Phone: Hematology/Oncology Comment on above: Malignant neoplasm o f upper-outer quadrant of right breast in female, estrogen receptor positive (HCC) (Primary Dx); Malignant neoplasm of nipple of left breast in female, estrogen receptor positive (HCC) Start: 07-03-2022 End: 07-03-2022 Patient encounter procedure Jade Agudelo APRN.DISTRIBUTION SYSTEM OPERATOR Work Phone: [facility] Start: 06-20-2022 ambulatory Carmelita benítez MD Work Phone: [facility] Comment on above: Aging well doctor's name Start: 06-19-2022 End: 06-19-2022 Patient encounter procedure Carmelita Krishnamurthy MD Work Phone: [facility] Comment on above: Encounter for gyneco logical examination (general) (routine) without abnormal findings (Primary Dx) Start: 06-19-2022 End: 06-19-2022 Patient encounter status Carmelita Krishnamurthy MD Work Phone: [facility] Start: 05-25-2022 Telephone encounter Carolina katz MD Work Phone: [facility] [place] Comment on above: Lab Orders Start: 04-12-2022 End: 04-12-2022 Patient encounter procedure Dario Suárez MD Work Phone: [facility] [place] Comment on above: Personal history of breast cancer (Primary Dx); Status post bilateral mastectomy; Osteoporosis without current pathological fracture, unspecified osteoporosis type; BRCA negative; Aromatase inhibitor use Start: 04-05-2022 End: 04-05-2022 Office outpatient visit 25 minutes Carolina Peterson MD Work Phone: [facility] [place] Comment on above: Psoriasis (Primary D x); Neuralgia; Recurrent cold sores; Vitamin D deficiency; IFG (impaired fasting glucose); Temporomandibular joint disorders, unspecified Start: 02-27-2022 Telephone encounter Ligia Valdes MD Work Phone: Rheumatology Comment on above: Results Start: 02-20-2022 End: 02-20-2022 ambulatory Judie Mcknight PT Work Phone: [facility] Comment on above: Hip pain, left (Prim mona Dx); Hip pain, right Start: 02-17-2022 End: 02-17-2022 Patient encounter procedure Ligia Valdes MD Work Phone: [facility] Comment on above: Osteoporosis, post m enopausal (Primary Dx); Encounter for long-term (current) use of medications Procedures Date Procedure Procedure Detail Performing Clinician Start: 04-28-2024 Adult depression screening assessment Carolina Peterson MD Work Phone: Start: 03-10-2024 [employer] COVID-19 VACCINE ( SEASON) AGE 12+ YR Carolina Peterson MD Work Phone: Start: 06-27-2023 Ct soft tissue neck w/o contrast material Mac Shepherd MD Work Phone: Start: 06-15-2023 Us soft tissue head & neck real time imge docm Jade Agudelo CARETAKER.DISTRIBUTION SYSTEM OPERATOR Work Phone: Start: 05-25-2023 Radex wrist complete minimum 3 views Tee Lagunas CARETAKER.DISTRIBUTION SYSTEM OPERATOR Work Phone: Start: 09-28-2022 Lipid 1996 panel - Serum or Plasma Rodriguez Adarsh DO Work Phone: Start: 09-26-2022 Dxa bone density lexis dy 1/> sites axial sanjana Valdes MD Work Phone: Start: 04-12-2022 History of bilateral mastectomy Status post bilateral mastectomy Dario Suárez MD Work Phone: Start: 04-10-2022 Adult depression screening assessment Dario Suárez MD Work Phone: Start: 01-07-2022 Adult depression screening assessment Ligia Valdes MD Work Phone: History of bilateral mastectomy History of bilateral mastectomy Jade Agudelo CARETAKER.DISTRIBUTION SYSTEM OPERATOR Work Phone: History of bilateral mastectomy Status post bilateral mastectomy Dario Suárez MD Work Phone: History of bilateral mastectomy History of bilateral mastectomy Jade Agudelo CARETAKER.DISTRIBUTION SYSTEM OPERATOR Work Phone: History of bilateral mastectomy History of bilateral mastectomy 2 Work Phone: History of bilateral mastectomy Status post bilateral mastectomy Dario Suárez MD Work Phone: Plan of Treatment Date Care Activity Detail Author Start: 09-28-2027 Lipid 1996 panel - Serum or Plasma Lipid Screening [facility] Start: 09-28-2027 Lipid panel Lipid Screening [facility] Start: 09-28-2027 LIPID SCREEN LIPID SCREEN [facility] Start: 04-01-2027 Diabetes Screening Diabetes Screenin [facility] Start: 10-01-2026 Diabetes Screening Diabetes Screenin [facility] Start: 03-24-2026 DIABETES SCREEN DIABETES SCREEN [facility] Start: 03-24-2026 Diabetes Screening Diabetes Screenin g [facility] Start: 09-28-2025 DIABETES SCREEN DIABETES SCREEN [facility] Start: 07-09-2025 Urine microalbumin profile [facility] Start: 05-16-2025 Screening for malign ant neoplasm of colon [facility] Start: 04-28-2025 Anxiety Screening Anxiety Screening [facility] Start: 04-28-2025 Depression Screening Depression Scre ening [facility] Start: 04-28-2025 End: 04-28-2025 Patient encounter procedure 04/28/2025 10:40 AM EDT Office Visit Breast Center [address] [place] [address] Dario Suárez [place] [address] [place] [address] Annual Clinical Only [facility] Comment on above: Annual Clinical Only Start: 04-15-2025 End: 04-15-2025 Patient encounter procedure 04/15/2025 8:00 AM EDT Office Visit [facility] [place] [address] [place] [address] Carolina Peterson MD [address] [place] [address] Medicare Wellness [facility] [place] Comment on above: Medicare Wellness Start: 04-04-2025 DIABETES SCREEN DIABETES SCREEN [facility] Start: 01-07-2025 End: 01-07-2025 ambulatory 01/07/2025 10:10 AM EDT Visit (SP) Office Hematology/Oncology [address] [place] [address] Rodriguez Altamirano DO [address] [place] [address] 6 MO OV* pt requested Dr Cortez Hematology/Oncology Comment on above: 6 MO OV* pt requeste d Dr Cortez Start: 11-19-2024 End: 11-19-2024 Patient encounter procedure 11/19/2024 10:40 AM EST Office Visit Dermatology [address] [id number] Abdiaziz Almodovar MD [address] [place] [address] [facility]se Dermatology Comment on above: fbse Start: 10-07-2024 End: 10-07-2024 Patient encounter procedure 10/07/2024 8:20 AM EST Office Visit Internal [facility] [place] [address] [place] [address] Carolina Peetrson MD [address] [place] [address] 6 month follow up [facility] [place] Comment on above: 6 month follow up Start: 10-05-2024 RSV Vaccine (1 - 1-d ose 60+ series) RSV Vaccine (1 - 1-dose 60+ series) [facility] Comment on above: Postponed from 12/11 (Declined at this time) Start: 09-26-2024 Screening for osteoporosis Bone Density Screening [facility] Start: 09-23-2024 DIABETES SCREEN DIABETES SCREEN [facility] Start: 07-10-2024 End: 07-10-2024 ambulatory 07/10/2024 9:50 AM EDT Visit (SP) Office Hematology/Oncology [address] [place] [address] Rodriguez Altamirano, [address] [place] [address] 6 MO OV* pt requested Dr Cortez Hematology/Oncology Comment on above: 6 MO OV* pt requeste d Dr Cortez Start: 07-03-2024 End: 07-03-2024 ambulatory 07/03/2024 9:50 AM EDT Visit (SP) Office Hematology/Oncology [address] [place] [address] Rodriguez Altamirano DO [address] [place] [address] 6 MO OV* pt requested Dr Cortez Hematology/Oncology Comment on above: 6 MO OV* pt requeste d Dr Cortez Start: 04-28-2024 End: 04-28-2024 ambulatory 04/28/2024 10:00 AM EDT [facility] Internal Medicine [place] [address] [facility] [place] [address] Carolina Peterson MD [address] [facility] [address] Medicare Wellness r/s'd from 04-23-24 [facility] [place] Comment on above: Medicare Wellness r/ s'd from 04-23-24 Start: 04-23-2024 End: 04-23-2024 ambulatory 04/23/2024 10:40 AM EDT [facility] Internal Medicine [place] [address] [facility] [place] [address] Carolina Peterson MD [address] [facility] [place], [place] [id number] Medicare Wellness [facility] [place] Comment on above: Medicare Wellness Start: 04-22-2024 End: 04-22-2024 Patient encounter procedure 04/22/2024 11:00 AM EDT Office Visit Breast Center [address] [place] [address] Dario Suárez [place] [address] [place] [address] ANNUAL [facility] Center Comment on above: ANNUAL Start: 04-07-2024 End: 04-07-2024 Patient encounter procedure 04/07/2024 9:20 AM EDT Office Visit [facility] [place] [address] [facility] [place] [address] Carolina Peterson MD [address] [facility], [place] [address] 6 month follow-up [facility] [place] Comment on above: 6 month follow-up Start: 04-06-2024 Colorectal Cancer Screening Colorectal Cancer Screening [facility] Start: 04-06-2024 Fecal Occult Blood Fecal Occult Bloo d [facility] Start: 04-06-2024 Pneumococcal Vaccine : 65+ (2 - PCV) Pneumococcal Vaccine: 65+ (2 - PCV) [facility] Comment on above: Postponed from 08/23 (Declined at this time) Start: 04-06-2024 Pneumococcal Vaccine : 65+ (2 of 2 - PCV) Pneumococcal Vaccine: 65+ (2 of 2 - PCV) [facility] Comment on above: Postponed from 08/23 (Declined at this time) Start: 04-06-2024 PNEUMOCOCCAL: 65+ (2 - PCV) PNEUMOCOCCAL: 65+ (2 - PCV) [facility] Comment on above: Postponed from 08/23 (Declined at this time) Start: 04-06-2024 Screening for malign ant neoplasm of colon [facility] Start: 10-22-2023 Advance Directive Discussion Advance Directive Discussion [facility] Start: 10-22-2023 Behavioral Health Screening Behavioral Health Screening [facility] Start: 10-22-2023 Depression Assessment Depression Ass essment [facility] Start: 07-17-2023 LIPID SCREEN LIPID SCREEN [facility] Start: 06-14-2023 COLORECTAL CANCER SCREENING COLORECTAL CANCER SCREENING [facility] Start: 06-14-2023 FECAL OCCULT BLOOD FECAL OCCULT BLOO D [facility] Start: 04-10-2023 Adult depression screening assessment DEPRESSION SCREENING [facility] Start: 04-05-2023 PNEUMOCOCCAL: 65+ (2 - PCV) PNEUMOCOCCAL: 65+ (2 - PCV) [facility] Comment on above: Postponed from 08/23 (Declined at this time) Start: 04-04-2023 End: 06-04-2023 25-hydroxyvitamin D3 [Mass/volume] in Serum or Plasma VITAMIN D 25 HYDROXY Lab Routine Vitamin D deficiency Age-related osteoporosis without current pathological fracture Expected: 04/04/2023 (Approximate), Expires: 06/04/2023 [facility] Work Phone: Comment on above: Expected: 04/04/2023 (Approximate), Expires: 06/04/2023 Start: 04-04-2023 End: 06-04-2023 CBC panel - Blood by Automated count CBC Lab Routine Age-related osteoporosis without current pathological fracture Encounter for long-term current use of medication Expected: 04/04/2023 (Approximate), Expires: 06/04/2023 [facility] Work Phone: Comment on above: Expected: 04/04/2023 (Approximate), Expires: 06/04/2023 Start: 04-04-2023 End: 06-04-2023 Comprehensive metabolic 2000 panel - Serum or Plasma COMP METABOLIC PANEL Lab Routine Age-related osteoporosis without current pathological fracture Encounter for long-term current use of medication Expected: 04/04/2023 (Approximate), Expires: 06/04/2023 [facility] Work Phone: Comment on above: Expected: 04/04/2023 (Approximate), Expires: 06/04/2023 Start: 04-04-2023 End: 06-04-2023 Hemoglobin A1c in Blood HGB A1C Lab Routine IFG (impaired fasting glucose) Expected: 04/04/2023 (Approximate), Expires: 06/04/2023 [facility] Work Phone: Comment on above: Expected: 04/04/2023 (Approximate), Expires: 06/04/2023 Start: 01-07-2023 Adult depression screening assessment DEPRESSION SCREENING [facility] Start: 01-03-2023 COVID-19 VACCINE (6 - Pfizer series) COVID-19 VACCINE (6 - Pfizer series) [facility] Start: 10-22-2022 ADVANCE DIRECTIVE DISCUSSION ADVANCE DIRECTIVE DISCUSSION [facility] Start: 10-22-2022 DEPRESSION ASSESSMENT DEPRESSION ASS ESSMENT [facility] Start: 10-02-2022 End: 12-02-2022 Lipid 1996 panel - Serum or Plasma LIPID PANEL BASIC Lab Routine Screening for lipid disorders Expected: 10/02/2022, Expires: 12/02[facility]22 [facility] [place] Work Phone: Comment on above: Expected: 10/02/2022 , Expires: 12/02/2022 Start: 09-25-2022 End: 11-25-2022 25-hydroxyvitamin D3 [Mass/volume] in Serum or Plasma VITAMIN D 25 HYDROXY Lab Routine Vitamin D deficiency Expected: 09/25/2022, Expires: 11/25/2022 [facility] [place] Work Phone: Comment on above: Expected: 09/25/2022 , Expires: 11/25/2022 Start: 09-25-2022 End: 11-25-2022 CBC panel - Blood by Automated count CBC Lab Routine Personal history of malignant neoplasm of breast Encounter for therapeutic drug monitoring Expected: 09/25/2022, Expires: 11/25/2022 [facility] [place] Work Phone: Comment on above: Expected: 09/25/2022 , Expires: 11/25/2022 Start: 09-25-2022 End: 11-25-2022 Comprehensive metabolic 2000 panel - Serum or Plasma COMP METABOLIC PANEL Lab Routine Personal history of malignant neoplasm of breast Encounter for therapeutic drug monitoring Expected: 09/25/2022, Expires: 11/25/2022 [facility] [place] Work Phone: Comment on above: Expected: 09/25/2022 , Expires: 11/25/2022 Start: 09-25-2022 End: 11-25-2022 Hemoglobin A1c in Blood HGB A1C Lab Routine Personal history of malignant neoplasm of breast IFG (impaired fasting glucose) Expected: 09/25/2022, Expires: 11/25/2022 [facility] [place] Work Phone: Comment on above: Expected: 09/25/2022 , Expires: 11/25/2022 Start: 07-01-2022 COVID-19 VACCINE (5 - Booster for Pfizer series) COVID-19 VACCINE (5 - Booster for Pfizer series) [facility] Start: 05-26-2022 COLORECTAL CANCER SCREENING COLORECTAL CANCER SCREENING [facility] Start: 05-26-2022 FECAL OCCULT BLOOD FECAL OCCULT BLOO D [facility] Start: 04-25-2022 COVID-19 VACCINE (5 - Booster for Pfizer series) COVID-19 VACCINE (5 - Booster for Pfizer series) [facility] Start: 02-17-2022 End: 04-19-2022 CROSS-LINK N-TELOPEP CROSS-LINK N-TELOPEP Lab Routine Osteoporosis, post menopausal Encounter for long-term (current) use of medications Expected: 02/17/2022, Expires: 04/19/2022 [facility] [place] Work Phone: Comment on above: Expected: 02/17/2022 , Expires: 04/19/2022 Start: 10-22-2021 ADVANCE DIRECTIVE DISCUSSION ADVANCE DIRECTIVE DISCUSSION [facility] Start: 10-22-2021 COVID-19 VACCINE (4 - Booster for Pfizer series) COVID-19 VACCINE (4 - Booster for Pfizer series) [facility] Start: 10-22-2021 DEPRESSION ASSESSMENT DEPRESSION ASS ESSMENT [facility] Start: 08-23-2021 Pneumococcal Vaccine : 65+ (2 of 2 - PCV) Pneumococcal Vaccine: 65+ (2 of 2 - PCV) [facility] Start: 2010 RSV Vaccine (1 - 1-d ose 60+ series) RSV Vaccine (1 - 1-dose 60+ series) [facility] Start: 1995 COLOGUARD (FIT-DNA) COLOGUARD (FIT-D NA) [facility] Start: 1995 Colonoscopy COLONOSCOPY [facility] Start: [address] COLONOGRAPHY [facility] Start: 1995 Screening for malign ant neoplasm of colon [facility] Start: 1995 SIGMOIDOSCOPY SIGMOIDOSCOPY [facility] End: 04-07-2025 25-hydroxyvitamin D3 [Mass/volume] in Serum or Plasma VITAMIN D 25 HYDROXY Lab Routine Osteoporosis without current pathological fracture, unspecified osteoporosis type Every 6 months for 90 Occurrences starting 04/07/2024 until 04/07/2025 [facility] Comment on above: Every 6 months for 9 0 Occurrences starting 04/07/2024 until 04/07/2025 End: 04-07-2025 CBC panel - Blood by Automated count COMPLETE BLOOD COUNT Lab Routine Osteoporosis without current pathological fracture, unspecified osteoporosis type 3 Occurrences starting 04/07/2024 until 04/07/2025 [facility] Comment on above: 3 Occurrences starti ng 04/07/2024 until 04/07/2025 End: 04-07-2025 Comprehensive metabolic 2000 panel - Serum or Plasma COMPREHENSIVE METABOLIC PANEL Lab Routine IFG (impaired fasting glucose) Osteoporosis without current pathological fracture, unspecified osteoporosis type 3 Occurrences starting 04/07/2024 until 04/07/2025 [facility] [place] Work Phone: Comment on above: 3 Occurrences starti ng 04/07/2024 until 04/07/2025 End: 07-21-2024 CT NECK SOFT TISSUE WO IVCON CT NECK SOFT TISSUE WO IVCON Radiology Routine Localized swelling, mass and lump, neck 1 Occurrences starting 06/22/2023 until 07/21/2024 [facility] [place] Work Phone: Comment on above: 1 Occurrences starti ng 06/22/2023 until 07/21/2024 End: 03-19-2023 Dxa bone density study 1/> sites axial skel DXA-AXIAL SKELETON Radiology Routine Osteoporosis, post menopausal Encounter for long-term (current) use of medications 1 Occurrences starting 02/17/2022 until 03/19/2023 [facility] [place] Work Phone: Comment on above: 1 Occurrences starti ng 02/17/2022 until 03/19/2023 Hemoglobin.gastroint est inal.lower [Presence] in Stool by Immunoassay FECAL OCCULT BLOOD TEST Lab Routine Colon cancer screening Ordered: 05/26/2022 [facility] [place] Work Phone: Comment on above: Ordered: 05/26/2022 Hemoglobin.gastroint est inal.lower [Presence] in Stool by Immunoassay FECAL OCCULT BLOOD TEST Lab Routine Colon cancer screening Ordered: 04/06/2023 [facility] [place] Work Phone: Comment on above: Ordered: 04/06/2023 Hemoglobin.gastroint est inal.lower [Presence] in Stool by Immunoassay IMMUNOCHEMICAL FECAL OCCULT BLOOD TEST Lab Routine Colon cancer screening Ordered: 04/08/2024 [facility] [place] Work Phone: Comment on above: Ordered: 04/08/2024 SURGICAL PATHOLOGY SURGICAL PATH OLOGY Lab Routine Neoplasm of unspecified behavior of bone, soft tissue, and skin 08/24/2022 1:59 PM EDT [facility] [place] Work Phone: End: 07-10-2024 US HEAD/NECK SOFT TISSUE OTHER US HEAD/NECK SOFT TISSUE OTHER Radiology Routine Personal history of breast cancer History of bilateral mastectomy Enlarged lymph nodes 1 Occurrences starting 06/11/2023 until 07/10/2024 [facility] [place] Work Phone: Comment on above: 1 Occurrences starti ng 06/11/2023 until 07/10/2024 End: 06-23-2024 XR WRIST GENERAL 3V PA/LAT/OBL RIGHT XR WRIST GENERAL 3V PA/LAT/OBL RIGHT Radiology Routine Right wrist pain Age-related osteoporosis without current pathological fracture 1 Occurrences starting 05/25/2023 until 06/23/2024 [facility] [place] Work Phone: Comment on above: 1 Occurrences starti ng 05/25/2023 until 06/23/2024 XR WRIST GENERAL 3V PA/LAT/OBL RIGHT XR WRIST GENERAL 3V PA/LAT/OBL RIGHT Radiology Routine Right wrist pain Age-related osteoporosis without current pathological fracture 05/25/2023 11:10 AM EDT [facility] [place] Work Phone: [facility] Immunizations Immunization Date Immunization Notes Care Provider Bebeto nguyen 03-10-2024 COVID-19 vaccine, ag e 12+ yr, season (PFIZER-BIONTECH) Mi Nurse Work Phone: [facility] 07-28-2023 COVID-19 vaccine, ag e 12+ yr, season (PFIZER-BIONTECH) Carolina Peterson MD Work Phone: [facility] 07-22-2021 COVID-19 vaccine, ag e 12+ yr (PFIZER-BIONTECH - PURPLE TOP) Ligia Valdes MD Work Phone: [facility] Work Phone: 01-20-2021 COVID-19 vaccine, ag e 12+ yr (PFIZER-BIONTECH - PURPLE TOP) Ligia Valdes MD Work Phone: [facility] 12-30-2020 COVID-19 vaccine, ag e 12+ yr (PFIZER-BIONTYuanV - PURPLE TOP) Ligia Valdes MD Work Phone: [facility] 08-23-2020 pneumococcal polysaccharide vaccine, 23 valent Ligia Valdes MD Work Phone: [facility] Work Phone: 07-09-2015 tetanus and diphther ia toxoids, adsorbed, preservative free, for adult use (5 Lf of tetanus toxoid and 2 Lf of diphtheria toxoid) Ligia Valdes MD Work Phone: [facility] 06-16-2005 tetanus and diphther ia toxoids, not adsorbed, for adult use Ligia Valdes MD Work Phone: [facility] Work Phone: 10-22-1995 diphtheria and tetan us toxoids, adsorbed for pediatric use Ligia Valdes MD Work Phone: [facility] Work Phone: Payers Date Payer Category Payer Medicare AETNA MEDICARE A ETNA MEDICARE PPO [id number] 2021-Present [phone] [address] [place] [address] PPO [id number] 2021 Medicare AETNA MEDICARE A ETNA MEDICARE PPO [id number] 2021-Present [phone] [address] [place] [address] PPO [id number] 2021 Medicare [id number] Social History Date Type Detail Facility Start: 05-05-2013 End: 06-19-2022 Tobacco smoking status NHIS Ex-smoker [facility] Work Phone: End: 10-22-1970 History of tobacco use Current smoker [facility] Work Phone: End: 10-22-1970 History of tobacco use Cigarette Smoker [facility] Work Phone: Start: 02-17-2022 End: 07-10-2024 Alcohol intake Current drinker of alcohol (finding) [facility] Start: 11-17-2020 History SDOH Alcohol Frequency 5 [facility] Start: 11-17-2020 End: 10-03-2021 History SDOH Alcohol Std Drinks 1 [facility] Start: 10-24-2017 History SDOH Alcohol Comment beer/wine maybe daily depends [facility] Start: 11-17-2020 History SDOH Social Connections Phone 98 [facility] Start: 11-17-2020 History SDOH Social Connections Living 3 [facility] Start: 11-17-2020 History SDOH Physica l Activity DPW 7 [facility] Start: 11-17-2020 History SDOH Physica l Activity MPS 4 [facility] Start: 11-17-2020 End: 10-03-2021 History SDOH Stress 2 [facility] Start: 11-16-2020 Education 17 [facility] Start: 12-30-2012 Tobacco Comment 3 cigarettes a week back in college FOR 9 MONTHS [facility] Start: 1950 Sex Assigned At Not on file [facility] Start: 02-07-2022 End: 07-20-2022 Exposure to SARS-CoV-2 (event) Not sure [facility] Start: 05-05-2013 End: 06-19-2022 Tobacco use and exposure Smokeless tobacco non-user [facility] Start: 06-19-2022 Tobacco Comment 3 cigarettes a week back in college for 9 months [facility] Start: 11-16-2020 End: 04-06-2023 History of Social function [facility] Start: 11-16-2020 End: 04-06-2023 Social connection and isolation panel [facility] In a typical week, h ow many times do you talk on the telephone with family, friends, or neighbors? Patient refused [facility] Are you now , , , , never or living with a partner? [facility] How often to you hav e a drink containing alcohol? 4 or more times a week [facility] How many standard dr inks containing alcohol do you have on a typical day? 1 or 2 [facility] How often do you hav e 6 or more drinks on 1 occasion? Never [facility] Do you feel stress - tense, restless, nervous, or anxious, or unable to sleep at night because your mind is troubled all the time - these days [OSQ] Only a little [facility] (I/We) worried wheth er (my/our) food would run out before (I/we) got money to buy more. Never true [facility] In the past 12 month s, was there a time when you were not able to pay the mortgage or rent on time? No [facility] Do you belong to any clubs or organizations such as orthodoxy groups, unions, fraternal or athletic groups, or school groups? Yes [facility] Do you feel stress - tense, restless, nervous, or anxious, or unable to sleep at night because your mind is troubled all the time - these days [OSQ] Not at all [facility] Medical Equipment Procedure Code Equipment Code Equipment Origin al Text Equipment Identifier Dates Port Powerport M ri 8fr Plastic Polyurethane Implantable Infusion - [id number] Start: 12-18-2017 Comment on above: Description: PowerPo rt MRI Implantable Port with attachable 8 F Polyurethan Open-ended Single Lumen Venous Catheter Clinical Notes 04-21-2018 to 07-10-2024 Rodriguez Altamirano DO - 07/10/2024 9:58 AM EDTTelephone Encounter - Carolina Peterson MD - 07/03/2024 3:05 PM EDTTelephone Encounter - Carolina Peterson MD - 07/03/2024 3:05 PM EDTPatient Instructions Note Date & Type Note Facility 07-10-2024 Note HNO ID: [id number] Author: RODRIGUEZ ALTAMIRANO DO Service: ? Author Type: Physician Type: Progress Notes Filed: 07/10/2024 10:23 Note Text: Diagnosis: 1) Breast cancer right breast. 2) H/O stage I breast cancer left breast. HPI: The patient is a 73 yo female who was found to have a suspicious mass in the left breast on a routine gynecologic exam 11/03/2012. Underwent a diagnostic mammogram on 11/25/2012 which demonstrated a lobulated mass associated with a few microcalcifications in the retroareolar region. An US was also performed which revealed a 1.8 cm mass at 12 o'clock. On 12/02, a US guided core biopsy was performed with pathology demonstrating moderate to poorly differentiated IDC with a focus of DCIS, ER/WY (+), Her2 equivocal. She subsequently underwent an MRI on 12/16 which revealed the known left breast cancer and a 0.5 cm enhancing lesion in the lower sternum for which a bone scan was recommended. The bone scan did not show any areas concerning for malignancy. Left mastectomy with SLN biopsy 01/06/13. Final pathology: FINAL DIAGNOSIS A. LEFT SENTINEL LYMPH NODE, EXCISION: TWO LYMPH NODES NEGATIVE FOR MALIGNANCY (0/2). B. LEFT BREAST 58 GRAMS, EXCISION: INVASIVE MODERATELY DIFFERENTIATED DUCTAL CARCINOMA DUCTAL CARCINOMA IN SITU, CRIBRIFORM AND COMEDONECROSIS TYPES SKIN - SEBORRHEIC KERATOSIS SP/mz 01/08/2013 COMMENT B. BREAST (INVASIVE CARCINOMA) SYNOPTIC REPORT PROCEDURE: - Simple mastectomy LYMPH NODE SAMPLING: - [place] lymph nodes SPECIMEN LATERALITY: - Left HISTOLOGIC TYPE OF INVASIVE CARCINOMA: - Invasive ductal carcinoma (no special type or not otherwise specified) TUMOR SIZE (SIZE OF LARGEST INVASIVE CARCINOMA): - Size of largest invasive carcinoma - - Greatest dimension of largest focus invasion over 1 mm: 1.3 cm VIELKA HISTOLOGIC GRADE: - Glandular (acinar)/Tubular differentiation: Score 2 - Nuclear pleomorphism: Score 2 - Mitotic rate: Score 2 - Overall grade: Grade 2 TUMOR FOCALITY: - Single focus of invasive carcinoma DUCTAL CARCINOMA IN SITU (DCIS): - DCIS is present MACROSCOPIC/MICROSCOPIC EXTENT OF TUMOR: - Skin: No invasive carcinoma - Nipple: No invasive carcinoma - Skeletal Muscle: Not identified MARGINS: - Invasive carcinoma MARGINS: - - Distance of DCIS from closest margin: 3.0 mm (deep) DCIS: - Margins uninvolved by DCIS Distance from closest margin: 4.0 mm (deep) LYMPH NODES: - Number of sentinel lymph nodes examined: 2 - Total number of lymph nodes examined (sentinel and non-sentinel): 2 - - Number of lymph nodes with macrometastasis (greater than 2 mm): 0 - - Number of lymph nodes with micrometastasis (greater than 0.2 mm to 2 mm and/or greater than 200 cells): 0 - - Number of lymph nodes with isolated tumor cells (less than or equal to 0.2 mm and less than or equal to 200 cells: 0 - - Number of lymph nodes without tumor cells identified: 2 PATHOLOGIC STAGING: pT1c p(sn)0 pMX Procedure Results and Interpretation ER/PgR/HER2(ERBB2) FISH Estrogen Receptor: Positive (90%) Stain Intensity: Strong Progesterone Receptor: Positive (90%) Stain Intensity: Strong HER2(ERBB2) by FISH: Not amplified HER2(ERBB2)/[id number] ratio 1.1 Tissue analyzed: Invasive carcinoma Block Number: [id number] Control slides: Known positive control tissue (external control) is evaluated in concert with the patient's tissue for ER and PgR expression. A separate slide of the patient's tissue is similarly processed without antibody (negative control); slides were reviewed and showed appropriate staining. Internal control (normal breast epithelial elements) were present and were appropriately positive. Antibody and Detection System: Estrogen receptor (rabbit monoclonal clone SP1), progesterone receptor (rabbit monoclonal clone 1E2); both [place], [place], [place]. Detected with the [employer] iView Detection System (indirect biotin streptavidin detection); [employer], [place], [place]. Estrogen/Progesterone Interpretation: Positive: Greater than or equal to 1% of tumor nuclei stain Negative: Less than 1% of tumor nuclei stain These tests were performed and reported according to Guidelines for IHC testing of Estrogen and Progesterone Receptors in Breast Cancer, Arch Pathol Lab Med 2010; 134: E1-E16. Estrogen and progesterone results are valid if tissue was processed according to ASCO/CAP guidelines. HER2(ERBB2) Gene Amplification: NOT AMPLIFIED HER2(ERBB2) Gene Amplification was evaluated on paraffin-embedded block [id number] by interphase fluorescence in situ hybridization (FISH), using a dual label probe set for the HER2(ERBB2) locus and the centromeric region of chromosome 17 (PathVysion; [employer], [place]). The Molecular Genetic Pathology Laboratory of the [facility] has validated modifications of the PathVysion kit used for the testing including the use of Target Retrieval Solution and p (more content not included)... [facility] 07-10-2024 History of Present illness Narrative Diagnosis: 1) Breast cancer right breast. 2) H/O stage I breast cancer left breast. HPI: The patient is a 73 yo female who was found to have a suspicious mass in the left breast on a routine gynecologic exam 11/03/2012. Underwent a diagnostic mammogram on 11/25/2012 which demonstrated a lobulated mass associated with a few microcalcifications in the retroareolar region. An US was also performed which revealed a 1.8 cm mass at 12 o'clock. On 12/02, a US guided core biopsy was performed with pathology demonstrating moderate to poorly differentiated IDC with a focus of DCIS, ER/WY (+), Her2 equivocal. She subsequently underwent an MRI on 12/16 which revealed the known left breast cancer and a 0.5 cm enhancing lesion in the lower sternum for which a bone scan was recommended. The bone scan did not show any areas concerning for malignancy. Left mastectomy with SLN biopsy 01/06/13. Final pathology: FINAL DIAGNOSIS A. LEFT SENTINEL LYMPH NODE, EXCISION: TWO LYMPH NODES NEGATIVE FOR MALIGNANCY (0/2). B. LEFT BREAST 58 GRAMS, EXCISION: INVASIVE MODERATELY DIFFERENTIATED DUCTAL CARCINOMA DUCTAL CARCINOMA IN SITU, CRIBRIFORM AND COMEDONECROSIS TYPES SKIN - SEBORRHEIC KERATOSIS SP/mz 01/08/2013 COMMENT B. BREAST (INVASIVE CARCINOMA) SYNOPTIC REPORT PROCEDURE: - Simple mastectomy LYMPH NODE SAMPLING: - [place] lymph nodes SPECIMEN LATERALITY: - Left HISTOLOGIC TYPE OF INVASIVE CARCINOMA: - Invasive ductal carcinoma (no special type or not otherwise specified) TUMOR SIZE (SIZE OF LARGEST INVASIVE CARCINOMA): - Size of largest invasive carcinoma - - Greatest dimension of largest focus invasion over 1 mm: 1.3 cm VIELKA HISTOLOGIC GRADE: - Glandular (acinar)/Tubular differentiation: Score 2 - Nuclear pleomorphism: Score 2 - Mitotic rate: Score 2 - Overall grade: Grade 2 TUMOR FOCALITY: - Single focus of invasive carcinoma DUCTAL CARCINOMA IN SITU (DCIS): - DCIS is present MACROSCOPIC/MICROSCOPIC EXTENT OF TUMOR: - Skin: No invasive carcinoma - Nipple: No invasive carcinoma - Skeletal Muscle: Not identified MARGINS: - Invasive carcinoma MARGINS: - - Distance of DCIS from closest margin: 3.0 mm (deep) DCIS: - Margins uninvolved by DCIS Distance from closest margin: 4.0 mm (deep) LYMPH NODES: - Number of sentinel lymph nodes examined: 2 - Total number of lymph nodes examined (sentinel and non-sentinel): 2 - - Number of lymph nodes with macrometastasis (greater than 2 mm): 0 - - Number of lymph nodes with micrometastasis (greater than 0.2 mm to 2 mm and/or greater than 200 cells): 0 - - Number of lymph nodes with isolated tumor cells (less than or equal to 0.2 mm and less than or equal to 200 cells: 0 - - Number of lymph nodes without tumor cells identified: 2 PATHOLOGIC STAGING: pT1c p(sn)0 pMX Procedure Results and Interpretation ER/PgR/HER2(ERBB2) FISH Estrogen Receptor: Positive (90%) Stain Intensity: Strong Progesterone Receptor: Positive (90%) Stain Intensity: Strong HER2(ERBB2) by FISH: Not amplified HER2(ERBB2)/Bxmglsdtef14 ratio 1.1 Tissue analyzed: Invasive carcinoma Block Number: [id number] Control slides: Known positive control tissue (external control) is evaluated in concert with the patient's tissue for ER and PgR expression. A separate slide of the patient's tissue is similarly processed without antibody (negative control); slides were reviewed and showed appropriate staining. Internal control (normal breast epithelial elements) were present and were appropriately positive. Antibody and Detection System: Estrogen receptor (rabbit monoclonal clone SP1), progesterone receptor (rabbit monoclonal clone 1E2); both [place], [place], [place]. Detected with the [employer] iView Detection System (indirect biotin streptavidin detection); [employer] [place], [place], [place]. Estrogen/Progesterone Interpretation: Positive: Greater than or equal to 1% of tumor nuclei stain Negative: Less than 1% of tumor nuclei stain These tests were performed and reported according to Guidelines for IHC testing of Estrogen and Progesterone Receptors in Breast Cancer, Arch Pathol Lab Med 2010; 134: E1-E16. Estrogen and progesterone results are valid if tissue was processed according to ASCO/CAP guidelines. HER2(ERBB2) Gene Amplification: NOT AMPLIFIED HER2(ERBB2) Gene Amplification was evaluated on paraffin-embedded block [id number] by interphase fluorescence in situ hybridization (FISH), using a dual label probe set for the HER2(ERBB2) locus and the centromeric region of chromosome 17 (Path[employer]Exion; [employer], [place]). The Molecular Genetic Pathology Laboratory of the [facility] has validated modifications of the PathVysion kit used for the testing including the use of Target Retrieval Solution and proteinase K ([employer]; [place]) for cell conditioning, and modified probe/target denaturation and hybridization conditions for the assay. When necessary, a test with a probe for the [id number] locus (laboratory developed), and using a similar protocol is also performed. The in situ hybridization analysis was performed for and correlated with preselected areas of invasive carcinoma. Result: HER2(ERBB2) gene amplification is absent; the average copy number is 1.9. The HER2(ERBB2)/Chromosome 17 ratio is 1.1 (reference range is 0.8 - 1.7). Had Oncotype testing done. Low risk. Didn't want to go on AI therapy due to concerns of ONJ (has h/o TMJ). Started tamoxifen. Underwent hysterectomy with BSO. Path: Uterus, cervix, bilateral fallopian tubes and ovaries, excision: Endometrium - Benign inactive endometrium. Myometrium - Adenomyosis and adenomyomas. Bilateral ovaries - No significant pathologic findings Had been on tamoxifen. Appreciated mass in right breast. Ultrasound-guided core needle biopsy performed on 10/18/2017 demonstrated invasive carcinoma with mixed ductal and lobular features, nuclear grade 2. Estrogen receptors stained with strong intensity at 95% and progesterone receptors were negative with 0% staining. HER-2 1+ on immunohistochemistry. MRI of the breast done on 10/23/2017 revealed a 7 mm mass in the upper outer quadrant of the right breast correlating with the biopsy-proven malignancy at 11:00 position 5 cm from the nipple. Left chest demonstrated postsurgical findings of left mastectomy with no MRI findings to suggest local recurrence. Mastectomy with SLN 11/09/2017. Pathology: 1. Right axillary sentinel lymph node, sentinel node biopsy (A) - One lymph node, negative for malignancy (0/1) 2. Right breast, mastectomy (B) - Invasive mammary carcinoma with mixed ductal and lobular features, Vielka grade 1, measuring 0.6 cm in greatest dimension (please see synoptic report) - Atypical lobular hyperplasia - Skin with seborrheic keratoses - Biopsy clip and biopsy site reparative changes identified SYNOPTIC REPORT OF KUMAR PATHOLOGIC FINDINGS RIGHT BREAST: BREAST INVASIVE CARCINOMA WORKSHEET Part: A and B Procedure: Total mastectomy (including nipple-sparing and skin-sparing mastectomy) Specimen Laterality: Right Tumor size: Size of largest invasive carcinoma: Greatest dimension of largest focus of invasion >1 mm: 6 mm Tumor Focality: Single focus of invasive carcinoma Histologic Type of Invasive Carcinoma: Invasive carcinoma with ductal and lobular features (mixed type carcinoma) Histologic Grade: Glandular (Acinar) / Tubular Differentiation: Score 3 Nuclear Pleomorphism: Score 1 Mitotic Rate: Score 1 (<=3 mitosis per mm2) Overall Grade: Grade I Ductal Carcinoma In Situ: No DCIS is present in specimen Tumor Extension: Skin: Uninvolved Nipple: Uninvolved Skeletal muscle: Not applicable Invasive Carcinoma Margins: Margins uninvolved by invasive carcinoma Distance from closest margin: 2 mm Closest margin: Radial DCIS Margins: No DCIS in specimen Lymph Nodes: Number of lymph nodes with macrometastases (>2 mm): 0 Number of lymph nodes with micrometastases (>0.2 mm to 2 mm and/or >200 cells): 0 Number of lymph nodes with isolated tumor cells (<= 0.2 mm and <= 200 cells): 0 Number of lymph nodes examined: 1 Number of sentinel lymph nodes examined (required only if sentinel nodes are present): 1 Treatment Effect: No known presurgical therapy Lymph-Vascular Invasion: Not identified Pathologic Stage Classification (pTNM,AJCC 8th ed) TNM Descriptor(s): Not applicable Primary Tumor (Invasive Carcinoma) (pT): pT1b Regional Lymph Nodes (pN): Modifier: (sn): [place] node(s) evaluated Category (pN): pN0 Distant metastasis: Distant Metastasis (pM) Not applicable/Not confirmed pathologically in this case Previous therapy: 1) TC x1. 2) Adjuvant anastrozole. Completed 5 years of therapy December 2022. Presents for ongoing oncologic management. Interim history: Feeling well and has no complaints. PMH, medications and allergies personally reviewed by me today. Any changes documented in appropriate section. The sensitive examination was discussed with the Patient or Patient's Authorized Fifth Grade Teacher. As applicable, any other physician, advance practice provider, medical student, or other health professional student that will be observing or involved in the sensitive examination for educational or training purposes was discussed with the Patient or Authorized Fifth Grade Teacher. The Patient or Authorized Fifth Grade Teacher has agreed to proceed with the sensitive examination. (Sensitive examination includes inspection and/or palpation of the breasts, pelvis, prostate and anorectal regions) Patient provided verbal consent. PHYSICAL EXAM: Vitals: Height 164 cm (5' 4.57 ), weight 46.7 kg (103 lb), last menstrual period 08/31/2013. Well-appearing and in no acute distress. EYES: Sclerae are anicteric bilaterally. LYMPHATIC: There is no palpable cervical, supraclavicular adenopathy. No axillary adenopathy bilaterally. There is a soft round protrusion of the lower midline posterior neck that resolves with forward bending of the head. RESPIRATORY: Inspiratory breath sounds are of normal intensity in all au. No rales, wheezes or rhonchi. CARDIOVASCULAR: Rhythm is regular. BREAST: chaperoned. Bilateral mastectomy sites--no chest wall mass or skin nodules appreciated. Nothing to suggest dermal metastases. ABDOMEN: The abdomen is nondistended. No organomegaly. No tenderness. Extremities: No swelling or edema. 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 -Oncotype recurrence score 28 (intermediate risk) suggested 10 year risk of distant recurrence at 18% with the use of tamoxifen alone. -Tolerated anastrozole overall well. Completed 5 years of therapy. -H/O osteoporosis. Plan: -OV in 6 months. -Continue follow-up with endocrinology for management of osteoporosis. Portions of this documentation were copied and pasted from previous office visit notes in order to provide a cohesive continuity of the history. The note has been reviewed and edited and updated as necessary. I spent a total of 15 minutes on the date of the service which included preparing to see the patient, [id number] patient care, completing clinical documentation, performing a medically appropriate examination, communicating with other HCPs (not separately reported), and communicating results to the patient/family/caregiver. Rodriguez Altamirano DO documented in this encounter [facility] 07-03-2024 Telephone encounter Note The following approved medication requests have been transmitted electronically. Requested Prescriptions Signed Prescriptions Disp Refills EPINEPHrine (EPIPEN) 0.3 mg/0.3 mL auto-injector 2 Each 1 Sig: Use as directed for reaction to food allergen Authorizing Provider: CAROLINA PETERSON MD [facility] 07-03-2024 Miscellaneous Notes The following approved medication requests have been transmitted electronically. Requested Prescriptions Signed Prescriptions Disp Refills EPINEPHrine (EPIPEN) 0.3 mg/0.3 mL auto-injector 2 Each 1 Sig: Use as directed for reaction to food allergen Authorizing Provider: CAROLINA PETERSON MD The patient has been identified by name and date of : Yes Caregiver verified no other encounters exist for this prescription request: Yes Caregiver confirmed with patient/requestor that no other refills are due, in the near future, with this provider at this time: Yes The last office visit in the department: 05/14/2024 Does the patient have a future office visit with this provider/department: Yes 10/07/2024 Requested Prescriptions Pending Prescriptions Disp Refills EPINEPHrine (EPIPEN) 0.3 mg/0.3 mL auto-injector 2 Each 1 Sig: Use as directed for reaction to food allergen Rosa Isela Sultana LPN July 03, 2024 1:07 PM documented in this encounter [facility] 07-03-2024 Telephone encounter Note The patient has been identified by name and date of : Yes Caregiver verified no other encounters exist for this prescription request: Yes Caregiver confirmed with patient/requestor that no other refills are due, in the near future, with this provider at this time: Yes The last office visit in the department: 05/14/2024 Does the patient have a future office visit with this provider/department: Yes 10/07/2024 Requested Prescriptions Pending Prescriptions Disp Refills EPINEPHrine (EPIPEN) 0.3 mg/0.3 mL auto-injector 2 Each 1 Sig: Use as directed for reaction to food allergen Rosa Isela Sultana LPN July 03, 2024 1:07 PM [facility] 05-14-2024 Note HNO ID: [id number] Author: TEE LAGUNAS APRN.DISTRIBUTION SYSTEM OPERATOR Service: ? Author Type: Nurse Practitioner Type: Progress Notes Filed: 05/14/2024 12:38 Note Text: SUBJECTIVE Daria Osborne is a 73 year old female here today for acute concerns. Chief Complaint Patient presents with: Dizziness: started Sunday am. Off and on More with ROM of head HPI Daria Osborne is a 73 year old female. She is an established patient of Carolina Peterson MD. Here today for acute concerns of some dizziness. Onset Sunday am. Has occurred off and on, not constant. Seems to be positional. Triggered at the grocery store when looking up at a shelf. Denies any weakness, numbness, tingling, vision disturbance, nausea or vomiting or ear ache. Slight headache associated with the dizziness. Seems to be slowly improving. Her medications were reviewed today and her list is now up to date. Medications Current Outpatient Medications Medication Sig EPINEPHrine (EPIPEN) 0.3 mg/0.3 mL auto-injector Use as directed for reaction to food allergen Cholecalciferol, Vitamin D3, 1,000 unit cap Take 1 capsule by mouth once daily. THERAPEUTIC MULTIVITAMIN TAB Take 1 tablet by mouth once daily. meclizine (ANTIVERT) 12.5 mg tab Take 1 tablet by mouth three times a day as needed (dizziness). No current facility-administered medications for this visit. ALLERGIES Allergen Reactions Cantaloupe Swelling Throat itchy Chicken GI Upset + allergy test to chicken meat (in past just had GI upset but test +); told by property custodian no flu shot because of this allergy Clindamycin Rash possible allergy, rash appeared treatment completed Propofol Unknown History of possible egg allergy as a child. Skin test to egg-white negative on 12/06/17. Patient has never been treated with propofol Ciprofloxacin Intolerance C/o feeling anxious and shaky while taking ciprofloxacin in the post-operative period following evacuation of breast hematoma in Oct, 2017. Also c/o joints popping no other symptoms. Egg Derived Contraindication-Medical Surgical Slipper Maker told patient to avoid anything derived from eggs due to chicken allergy revealed on testing. May eat eggs. Zantac [Ranitidine * Unknown Tetracycline Unknown ACTIVE PROBLEM LIST Benign Paroxysmal Positional Vertigo - 05/14/2024 Brca Negative - 04/24/2022 Status Post Bilateral Mastectomy - 04/12/2022 Difficult Airway for Intubation Malignant Neoplasm of Upper-Outer Quadrant of Right Breast in Female, Estrogen Receptor Positive ([facility]) - 10/31/2017 Ifg (Impaired Fasting Glucose) - 04/03/2017 Malignant Neoplasm of Nipple of Left Breast in Female ([facility]) - 08/10/2016 Osteoporosis Comment: progression to osteoporosis noted on 2007 bone density Irritable Bowel Syndrome Temporomandibular Joint Disorders, Unspecified Social History Tobacco Use Smoking status: Former Types: Cigarettes Quit date: 10/22/1970 Years since quittin.5 Smokeless tobacco: Never Tobacco comments: 3 cigarettes a week back in college for 9 months Vaping Use Vaping Use: Never used Substance Use Topics Alcohol use: Yes Comment: beer/wine maybe daily depends Drug use: No Review of Systems Respiratory: Negative. Cardiovascular: Negative. Neurological: Positive for dizziness. Negative for tremors, seizures, syncope, facial asymmetry, speech difficulty, weakness and numbness. OBJECTIVE BP 118/72 Pulse 64 Resp 16 Wt 102 lb (46.3kg) SpO2 99% LMP 08/31/2013 Physical Exam Vitals and nursing note reviewed. Constitutional: General: She is awake. She is not in acute distress. Appearance: Normal appearance. She is well-developed and well-groomed. She is not ill-appearing, toxic-appearing or diaphoretic. HENT: Head: Normocephalic. Right Ear: External ear normal. Left Ear: External ear normal. Nose: Nose normal. Eyes: General: Vision grossly intact. Conjunctiva/sclera: Conjunctivae normal. Pupils: Pupils are equal, round, and reactive to light. Neck: Vascular: No JVD. Trachea: Trachea normal. Cardiovascular: Rate and Rhythm: Normal rate and regular rhythm. Pulses: Normal pulses. Heart sounds: Normal heart sounds. No murmur heard. Pulmonary: Effort: Pulmonary effort is normal. No accessory muscle usage, prolonged expiration or respiratory distress. Breath sounds: Normal breath sounds. Musculoskeletal: Cervical back: Neck supple. Skin: General: Skin is warm and dry. Capillary Refill: Capillary refill takes less than 2 seconds. Neurological: General: No focal deficit present. Mental Status: She is alert and oriented to person, place, and time. Mental status is at baseline. Cranial Nerves: Cranial nerves 2-12 are intact. Sensory: Sensation is intact. Motor: Motor function is intact. Coordination: Coordination is intact. Comments: Positive Bi Hallpike testing Psychiatric: Attention and Perception: Attention and perception normal. Mood (more content not included)... [facility] 05-14-2024 History of Present illness Narrative SUBJECTIVE Daria Osborne is a 73 year old female here today for acute concerns. Chief Complaint Patient presents with: Dizziness: started Sunday am. Off and on More with ROM of head HPI Daria Osborne is a 73 year old female. She is an established patient of Carolina Peterson MD. Here today for acute concerns of some dizziness. Onset Sunday am. Has occurred off and on, not constant. Seems to be positional. Triggered at the grocery store when looking up at a shelf. Denies any weakness, numbness, tingling, vision disturbance, nausea or vomiting or ear ache. Slight headache associated with the dizziness. Seems to be slowly improving. Her medications were reviewed today and her list is now up to date. Medications Current Outpatient Medications Medication Sig EPINEPHrine (EPIPEN) 0.3 mg/0.3 mL auto-injector Use as directed for reaction to food allergen Cholecalciferol, Vitamin D3, 1,000 unit cap Take 1 capsule by mouth once daily. THERAPEUTIC MULTIVITAMIN TAB Take 1 tablet by mouth once daily. meclizine (ANTIVERT) 12.5 mg tab Take 1 tablet by mouth three times a day as needed (dizziness). No current facility-administered medications for this visit. ALLERGIES Allergen Reactions Cantaloupe Swelling Throat itchy Chicken GI Upset + allergy test to chicken meat (in past just had GI upset but test +); told by property custodian no flu shot because of this allergy Clindamycin Rash possible allergy, rash appeared treatment completed Propofol Unknown History of possible egg allergy as a child. Skin test to egg-white negative on 12/06/17. Patient has never been treated with propofol Ciprofloxacin Intolerance C/o feeling anxious and shaky while taking ciprofloxacin in the post-operative period following evacuation of breast hematoma in Oct, 2017. Also c/o joints popping no other symptoms. Egg Derived Contraindication-Medical Surgical Slipper Maker told patient to avoid anything derived from eggs due to chicken allergy revealed on testing. May eat eggs. Zantac [Ranitidine * Unknown Tetracycline Unknown ACTIVE PROBLEM LIST Benign Paroxysmal Positional Vertigo - 05/14/2024 Brca Negative - 04/24/2022 Status Post Bilateral Mastectomy - 04/12/2022 Difficult Airway for Intubation Malignant Neoplasm of Upper-Outer Quadrant of Right Breast in Female, Estrogen Receptor Positive ([facility]) - 10/31/2017 Ifg (Impaired Fasting Glucose) - 04/03/2017 Malignant Neoplasm of Nipple of Left Breast in Female ([facility]) - 08/10/2016 Osteoporosis Comment: progression to osteoporosis noted on 2007 bone density Irritable Bowel Syndrome Temporomandibular Joint Disorders, Unspecified Social History Tobacco Use Smoking status: Former Types: Cigarettes Quit date: 10/22/1970 Years since quittin.5 Smokeless tobacco: Never Tobacco comments: 3 cigarettes a week back in college for 9 months Vaping Use Vaping Use: Never used Substance Use Topics Alcohol use: Yes Comment: beer/wine maybe daily depends Drug use: No Review of Systems Respiratory: Negative. Cardiovascular: Negative. Neurological: Positive for dizziness. Negative for tremors, seizures, syncope, facial asymmetry, speech difficulty, weakness and numbness. OBJECTIVE BP 118/72 Pulse 64 Resp 16 Wt 102 lb (46.3kg) SpO2 99% LMP 08/31/2013 Physical Exam Vitals and nursing note reviewed. Constitutional: General: She is awake. She is not in acute distress. Appearance: Normal appearance. She is well-developed and well-groomed. She is not ill-appearing, toxic-appearing or diaphoretic. HENT: Head: Normocephalic. Right Ear: External ear normal. Left Ear: External ear normal. Nose: Nose normal. Eyes: General: Vision grossly intact. Conjunctiva/sclera: Conjunctivae normal. Pupils: Pupils are equal, round, and reactive to light. Neck: Vascular: No JVD. Trachea: Trachea normal. Cardiovascular: Rate and Rhythm: Normal rate and regular rhythm. Pulses: Normal pulses. Heart sounds: Normal heart sounds. No murmur heard. Pulmonary: Effort: Pulmonary effort is normal. No accessory muscle usage, prolonged expiration or respiratory distress. Breath sounds: Normal breath sounds. Musculoskeletal: Cervical back: Neck supple. Skin: General: Skin is warm and dry. Capillary Refill: Capillary refill takes less than 2 seconds. Neurological: General: No focal deficit present. Mental Status: She is alert and oriented to person, place, and time. Mental status is at baseline. Cranial Nerves: Cranial nerves 2-12 are intact. Sensory: Sensation is intact. Motor: Motor function is intact. Coordination: Coordination is intact. Comments: Positive [place] Hallpike testing Psychiatric: Attention and Perception: Attention and perception normal. Mood and Affect: Mood and affect normal. Speech: Speech normal. Behavior: Behavior normal. Behavior is cooperative. Thought Content: Thought content normal. Cognition and Memory: Cognition and memory normal. Judgment: Judgment normal. ASSESSMENT/PLAN: 1. Benign paroxysmal positional vertigo, unspecified laterality - ICD9: 386.11, ICD10: H81.10 No red flags on exam, symptoms and exam consistent with BPPV. Can use meclizine PRN, Alex maneuver handout given. Discussed ensuring adequate hydration. If persistent then consider referral for vestibular therapy. - MECLIZINE 12.5 MG TABLET Portions of this note have been entered by ancillary staff. I have reviewed and when necessary edited, so that they are an adequate record of my encounter with this patient Please note that parts of this document were created using voice recognition software and therefore may contain grammatical errors. Patient verbalizes understanding of instructions from today's visit and in agreement with treatment plan. Questions answered. Agrees to call the office if questions, concerns of issues with acute symptoms not improving or if they worsen. See diagnoses and orders for additional plan(s). Allergies and medications were reviewed, list was updated, and refills given if needed. Past medical, surgical, social, and family history reviewed and updated as appropriate. Encouraged proper diet & exercise as well as compliance with taking medications. Age-appropriate health preventative measures were discussed. Return if symptoms worsen or fail to improve, for Keep next scheduled appointment.. RAN Rivers documented in this encounter [facility] 05-14-2024 Telephone encounter Note Protocol recommends see provider within 24 hours. Booked for an appt with Tee Lagunas today at 1040. Reason for Disposition [1] MODERATE dizziness (e.g., vertigo; feels very unsteady, interferes with normal activities) AND [2] has NOT been evaluated by doctor (or PLANNING ANALYST/PA) for this Answer Assessment - Initial Assessment Questions 1. DESCRIPTION: Pt feels like she is having episodes of vertigo. Denies having it right now. Feels dizziness off and on mainly with position changes 2. VERTIGO: States sometimes it feels like her bed is flying around the room . 3. LIGHTHEADED: When she is having an episode, she feels woozy and feels like she can't walk without holding on to something. 4. SEVERITY: When she is having an episode, symptoms are moderate. - MILD: Feels slightly dizzy and unsteady, but is walking normally. - MODERATE: Feels unsteady when walking, but not falling; interferes with normal activities (e.g., school, work). - SEVERE: Unable to walk without falling, or requires assistance to walk without falling. 5. ONSET: started 2 days ago when she got up. 6. AGGRAVATING FACTORS: any position changes 7. CAUSE: pt feels she has vertigo 8. RECURRENT SYMPTOM: Pt states she remembers an episode of vertigo from a very long time ago and ended up in the ER. Had a lot of nausea 9. OTHER SYMPTOMS: Denies any headache at this moment but states her head just doesn't feel right and maybe gets a slight headache with an episode. Pt states the episodes don't seem to be as bad as they were 2 days ago. Denies any weakness, numbness or tingling, visual disturbances,nausea or vomiting, or an earache. When she has the headache, she states it is not severe. Denies any chest pain, SOB or any pain anywhere at the moment. 10. : n/a Protocols used: Dizziness - [id number] [facility] 05-14-2024 Miscellaneous Notes Protocol recommends see provider within 24 hours. Booked for an appt with Tee Lagunas today at 1040. Reason for Disposition [1] MODERATE dizziness (e.g., vertigo; feels very unsteady, interferes with normal activities) AND [2] has NOT been evaluated by doctor (or PLANNING ANALYST/PA) for this Answer Assessment - Initial Assessment Questions 1. DESCRIPTION: Pt feels like she is having episodes of vertigo. Denies having it right now. Feels dizziness off and on mainly with position changes 2. VERTIGO: States sometimes it feels like her bed is flying around the room . 3. LIGHTHEADED: When she is having an episode, she feels woozy and feels like she can't walk without holding on to something. 4. SEVERITY: When she is having an episode, symptoms are moderate. - MILD: Feels slightly dizzy and unsteady, but is walking normally. - MODERATE: Feels unsteady when walking, but not falling; interferes with normal activities (e.g., school, work). - SEVERE: Unable to walk without falling, or requires assistance to walk without falling. 5. ONSET: started 2 days ago when she got up. 6. AGGRAVATING FACTORS: any position changes 7. CAUSE: pt feels she has vertigo 8. RECURRENT SYMPTOM: Pt states she remembers an episode of vertigo from a very long time ago and ended up in the ER. Had a lot of nausea 9. OTHER SYMPTOMS: Denies any headache at this moment but states her head just doesn't feel right and maybe gets a slight headache with an episode. Pt states the episodes don't seem to be as bad as they were 2 days ago. Denies any weakness, numbness or tingling, visual disturbances,nausea or vomiting, or an earache. When she has the headache, she states it is not severe. Denies any chest pain, SOB or any pain anywhere at the moment. 10. : n/a Protocols used: Dizziness - [id number] documented in this encounter [facility] 04-28-2024 Instructions Carolina Peterson MD - 04/28/2024 10:56 AM EDT Screening schedule The following prevention plan is recommended: Pneumococcal Vaccine: 65+(2 of 2 - PCV) due on 08/23/2021 Advance Directive Discussion due on 10/22/2023 Behavioral Health Screening Never done Colorectal Cancer Screening due on 04/06/2024 WHAT YOU CAN DO TO PREVENT FALLS Many falls can be prevented. By making some changes, you can lower your chances of falling. Four things YOU can do to prevent falls for you* and your caregiver 1. Begin a regular exercise program Exercise is one of the most important ways to lower your chances of falling. It makes you stronger and helps you feel better. Exercises that improve balance and coordination (like Geoff Chi) are the most helpful. Lack of exercise leads to weakness and increases your chances of falling. Ask your doctor or health care provider about the best type of exercise program for you. 2. Have your health care provider review your medicines Have your doctor or pharmacist review all the medicines you take, even [id number] medicines. As you get older, the way medicines work in your body can change. Some medicines, or combinations of medicines, can make you sleepy or dizzy and can cause you to fall. 3. Have your vision checked Have your eyes checked by an eye doctor at least once a year. You may be wearing the wrong glasses or have a condition like glaucoma or cataracts that limits your vision. Poor vision can increase your chances of falling. 4. Make your home safer About half of all falls happen at home. To make your home safer: Remove things you can trip over (like papers, books, clothes, and shoes) from stairs and places where you walk. Remove small throw rugs or use double-sided tape to keep the rugs from slipping. Keep items you use often in cabinets you can reach easily without using a step stool. Have grab bars put in next to your toilet and in the tub or shower. Use non-slip mats in the bathtub and on shower floors. Improve the lighting in your home. As you get older, you need brighter lights to see well. Hang light-weight curtains or shades to reduce glare. Have handrails and lights put in on all staircases. Wear shoes both inside and outside the house. Avoid going barefoot or wearing slippers. For more information, contact: Centers for Disease Control and Prevention www.cdc.gov/injury * This information may not apply if you have certain medical conditions. documented in this encounter [facility] 04-28-2024 Note HNO ID: [id number] Author: CAROLINA PETERSON MD Service: ? Author Type: Physician Type: Progress Notes Filed: 04/28/2024 11:16 Note Text: Daria Osborne is a 73 year old female here for a Medicare wellness visit. MyChart Zoom Video Visit was used for evaluation of this patient. I have communicated my name and active licensure. The patient's identity and physical location were verified at the time of this visit. Either the patient or their legal patient service representative has been informed of the risks and benefits of -- and alternatives to -- treatment through a remote evaluation and consents to proceed with the evaluation remotely. Medicare Health Risk Assessment General Health Exercise: Minutes/Day 20 min Exercise: Days/Week 5 days Alcohol: Daily Use 4 or more times a week Alcohol: Drinks/Day 1 or 2 Alcohol: 6 or more drinks Never Feel off balance No Concerns: Teeth/Dentures No Concerns: Sexual function No Troubled by feelings None of the above Frequency: Eating healthy diet Nearly every day ADLs requiring help None of the above Safety precautions in home/vehicle Yes Smoke, vape, chews tobacco No Difficulty hearing No Difficulty seeing No Current Providers Specialists: I have reviewed specialist-related care of the patient in the medical record. Outside specialists seen: Bone Crusher Dr. Villafana at [facility], Dentist: Dr. Mcfarland Medical/Family history review Reviewed and updated problem list, medical/surgical/family/social history, medications, and allergies. Opioid use review Opioid Medications (last 90 days) No data to display Anxiety/Depression screening (Lower risk for depression) Recommendation: no further intervention at this time Cognitive screening Virtual cognitive assessment performed Scored 5/5 Functional Observation Was the patient's Timed Up AND Go test unsteady or ? 12 seconds? No Advance Care Planning Surrogate decision maker and/or advance care plan documented Measurements LMP 08/31/2013 Vision Screening: Follows with optometry/ophthalmology Latest Ref Rng 10/01/2023 04/01/2024 Protein, Total 6.3 - 8.0 g/dL 7.6 7.2 Albumin 3.9 - 4.9 g/dL 4.7 4.6 Calcium 8.5 - 10.2 mg/dL 9.9 9.9 Bilirubin, Total 0.2 - 1.3 mg/dL 0.6 0.4 Alkaline Phosphatase 34 - 123 U/L 53 53 AST 13 - 35 U/L 26 34 ALT 7 - 38 U/L 18 24 Glucose 74 - 99 mg/dL 109 (H) 101 (H) BUN 7 - 21 mg/dL 10 10 Creatinine 0.58 - 0.96 mg/dL 0.63 0.60 Sodium 136 - 144 mmol/L 140 138 Potassium 3.7 - 5.1 mmol/L 4.0 4.5 Chloride 98 - 107 mmol/L 101 101 CO2 22 - 30 mmol/L 26 26 Anion Gap 8 - 15 mmol/L 13 11 eGFR >=60 mL/min/1.73m? 94 95 WBC 3.70 - 11.00 k/uL 5.24 5.07 RBC 3.90 - 5.20 m/uL 4.90 4.90 Hemoglobin 11.5 - 15.5 g/dL 14.9 14.7 Hematocrit 36.0 - 46.0 % 46.3 (H) 45.9 MCV 80.0 - 100.0 fL 94.5 93.7 MCH 26.0 - 34.0 pg 30.4 30.0 MCHC 30.5 - 36.0 g/dL 32.2 32.0 RDW-CV 11.5 - 15.0 % 12.6 13.0 Platelet Count 150 - 400 k/uL 245 246 MPV 9.0 - 12.7 fL 10.2 9.9 Absolute nRBC <0.01 k/uL <0.01 <0.01 Hemoglobin A1C 4.3 - 5.6 % 5.6 5.7 (H) Estimated Average Glucose mg/dL 114 117 Vitamin D 25 Hydroxy 31.0 - 80.0 ng/mL 65.5 68.2 Legend: (H) High Reviewed that had genetic testing done. Had the genetic counseling done prior. Assessment/Plan Medicare annual wellness visit, subsequent (Z00.00) - Counseled on healthy diet and regular exercise - Fall avoidance information provided - Personalized prevention plan provided [facility] 04-28-2024 History of Present illness Narrative Images from the original note were not included. Daria Osborne is a 73 year old female here for a Medicare wellness visit. MyChart Zoom Video Visit was used for evaluation of this patient. I have communicated my name and active licensure. The patient's identity and physical location were verified at the time of this visit. Either the patient or their legal patient service representative has been informed of the risks and benefits of -- and alternatives to -- treatment through a remote evaluation and consents to proceed with the evaluation remotely. Medicare Health Risk Assessment General Health Exercise: Minutes/Day 20 min Exercise: Days/Week 5 days Alcohol: Daily Use 4 or more times a week Alcohol: Drinks/Day 1 or 2 Alcohol: 6 or more drinks Never Feel off balance No Concerns: Teeth/Dentures No Concerns: Sexual function No Troubled by feelings None of the above Frequency: Eating healthy diet Nearly every day ADLs requiring help None of the above Safety precautions in home/vehicle Yes Smoke, vape, chews tobacco No Difficulty hearing No Difficulty seeing No Current Providers Specialists: I have reviewed specialist-related care of the patient in the medical record. Outside specialists seen: Bone Crusher Dr. Villafana at [facility], Dentist: Dr. Mcfarland Medical/Family history review Reviewed and updated problem list, medical/surgical/family/social history, medications, and allergies. Opioid use review Opioid Medications (last 90 days) No data to display Anxiety/Depression screening (Lower risk for depression) Recommendation: no further intervention at this time Cognitive screening Virtual cognitive assessment performed Scored 5/5 Functional Observation Was the patient's Timed Up & Go test unsteady or ? 12 seconds? No Advance Care Planning Surrogate decision maker and/or advance care plan documented Measurements LMP 08/31/2013 Vision Screening: Follows with optometry/ophthalmology Latest Ref Rng 10/01/2023 04/01/2024 Protein, Total 6.3 - 8.0 g/dL 7.6 7.2 Albumin 3.9 - 4.9 g/dL 4.7 4.6 Calcium 8.5 - 10.2 mg/dL 9.9 9.9 Bilirubin, Total 0.2 - 1.3 mg/dL 0.6 0.4 Alkaline Phosphatase 34 - 123 U/L 53 53 AST 13 - 35 U/L 26 34 ALT 7 - 38 U/L 18 24 Glucose 74 - 99 mg/dL 109 (H) 101 (H) BUN 7 - 21 mg/dL 10 10 Creatinine 0.58 - 0.96 mg/dL 0.63 0.60 Sodium 136 - 144 mmol/L 140 138 Potassium 3.7 - 5.1 mmol/L 4.0 4.5 Chloride 98 - 107 mmol/L 101 101 CO2 22 - 30 mmol/L 26 26 Anion Gap 8 - 15 mmol/L 13 11 eGFR >=60 mL/min/1.73m 94 95 WBC 3.70 - 11.00 k/uL 5.24 5.07 RBC 3.90 - 5.20 m/uL 4.90 4.90 Hemoglobin 11.5 - 15.5 g/dL 14.9 14.7 Hematocrit 36.0 - 46.0 % 46.3 (H) 45.9 MCV 80.0 - 100.0 fL 94.5 93.7 MCH 26.0 - 34.0 pg 30.4 30.0 MCHC 30.5 - 36.0 g/dL 32.2 32.0 RDW-CV 11.5 - 15.0 % 12.6 13.0 Platelet Count 150 - 400 k/uL 245 246 MPV 9.0 - 12.7 fL 10.2 9.9 Absolute nRBC <0.01 k/uL <0.01 <0.01 Hemoglobin A1C 4.3 - 5.6 % 5.6 5.7 (H) Estimated Average Glucose mg/dL 114 117 Vitamin D 25 Hydroxy 31.0 - 80.0 ng/mL 65.5 68.2 Legend: (H) High Reviewed that had genetic testing done. Had the genetic counseling done prior. Assessment/Plan Medicare annual wellness visit, subsequent (Z00.00) - Counseled on healthy diet and regular exercise - Fall avoidance information provided - Personalized prevention plan provided documented in this encounter [facility] 04-25-2024 Telephone encounter Note Patient phoned in and rescheduled 7 VV to 8. [facility] 04-25-2024 Miscellaneous Notes Patient phoned in and rescheduled [phone] VV to [id number]. documented in this encounter [facility] 04-23-2024 Telephone encounter Note Spoke with patient, did not want to reschedule. Patient to go to [facility] tomorrow. Mouna Odell LPN [facility] 04-23-2024 Miscellaneous Notes Spoke with patient, did not want to reschedule. Patient to go to EC tomorrow. 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 She denies chest wall masses, pain, or skin changes. She is following medical -oncology. Last OV 12/2023 when her Arimidex was discontinued, having completed 5 years of therapy. She was followed for probably benign axillary nodes bilaterally with borderline cortical thickening. In 06/2020 bilateral ultrasounds were deemed benign. In 12/04 she was diagnosed with a [id number] breast cancer. MRI 12/04 showed the known lesion measuring 1.7cm on the left at 12pm. In 01/01 she had a left mastectomy with negative margins and 0/2 SLN. The tumor was ER+(90%)/WY+(90%)/HER2-. She did not have reconstruction. ODX was 13 corresponding to an 8% risk of distant intermediate recurrence. She saw Dr. Jimenez in consultation and given her pre-existing osteoporosis (BMD 11/03 -2.9) and TMJ, it was decided that she take Tamoxifen which she started 02/01. In 10/07, she felt a new lump on the right. She was found to have a 4mm mass by ultrasound. 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 She went on to right mastectomy 11/08 demonstrating the 6mm tumor with negative margins, no LVI and 0/1 SLN. She was switched to Arimidex 02/06 for another 5 years. She is followed by Dr. Altamirano in [place]. She was having some vaginal dryness which is improved on Replens. 01/06: Daria Osborne's Common Hereditary Cancers panel through [facility] was negative for a deleterious mutation. 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 A VUS is a genetic variant for which insufficient data exists in order to determine if it is associated with disease (deleterious mutation) or is a normal genetic variant which can occur in the population without disease (benign polymorphism). Her vitamin D level was Vitamin D 25 Hydroxy (ng/mL) Date Value 04/01/2024 68.2 09/23/2021 58.6 . She takes Vitamin D 2000 units and gets a lot of calcium in her diet . BMD: Yes 12/07 osteoporosis (-2.8). She is NOT interested in therapy as she has jaw issues. 06/2020 BMD -3.3. 09/2022 BMD T score - 3.3 PERSONAL BREAST HISTORY: Past breast history (prior to this encounter) is as follows: Breast biopsy: Yes, as above Breast cysts: No Breast surgery: Yes, left mastectomy as above. Right mastectomy as above Breast cancer: Yes, 2012 Left Stage 1 ([id number]) in the upper breast s/p left mastectomy. In 2016 Right ER+(90%)/WY-/HER2 BC, s/p right mastectomy CANCER SURVEILLANCE: Mammograms: Yes / right mammogram 01/05 negative Breast MRI: 11/08 showing the known cancer; otherwise negative. Colonoscopy: No RISK FACTORS FOR BREAST CANCER: Age at the onset of menses: unknown P: 1 Age at the of first child: 26 years of age. She did not breast feed Age at menopause: The patient does not remember. Post-menopausal hormone therapy: No She is S/P total hysterectomy with negative pathology History of Mantle Radiation prior to the age of 30: No Postmenopausal obesity: No Mammographic density: NA; she is s/p bilateral mastectomy. Personal History of Benign Atypical Breast Biopsy: No Alcohol use: 1-2 drinks daily PAST MEDICAL HISTORY: PAST MEDICAL HISTORY Diagnosis Date Anemia, unspecified Benign neoplasm of skin of trunk, except scrotum 01/12/2009 Benign neoplasm of skin of upper limb, including shoulder 08/26/2005 Breast cancer (HCC) 11/2012 left Dense breasts 07/16/2017 Difficult airway for intubation Disorder of bone and cartilage, unspecified History of bilateral breast cancer 04/21/2018 left them right; s/p bilateral mastectomy Incisional hernia of anterior abdominal wall without obstruction or gangrene 04/22/2017 just above and to the right of umbilicus; 02/10/[address] Shepherd reviewed; stable findings of slight bulge seen best while patient standing Irritable bowel syndrome Malignant neoplasm of upper-outer quadrant of right breast, estrogen receptor positive (HCC) Osteoporosis, unspecified progression to osteoporosis noted on 2007 bone density Postmenopausal bleeding Postmenop. bleeding Postoperative thrombophlebitis 09/20/2013 Temporomandibular joint disorders, unspecified TMJ (dislocation of temporomandibular joint) 10/20/2015 Transfusion history after childbirth Unspecified vitamin D deficiency Patient specifically denies history of: DVT, PE, Migraine headaches. She has osteoporosis. PAST SURGICAL HISTORY: PAST SURGICAL HISTORY Procedure Laterality Date CURETTAGE 1978 Curettage, post delivery CURETTAGE DILATION & CURETTAGE DX&/THER NONOBSTETRIC 07/01/[facility] EXCISION PILONIDAL CYST/SINUS SIMPLE LAPROSCOPIC REPAIR UMBILICAL HERNIA MASTECTOMY, SIMPLE, COMPLETE Left 01/06/2013 left breast with SLND ([place]) MASTECTOMY, SIMPLE, COMPLETE 10/2017 right PAST SURGICAL HISTORY OF pilonidal cyst PAST SURGICAL HISTORY OF abdominal hernia PAST SURGICAL HISTORY OF breast cyst removed PAST SURGICAL HISTORY OF wisdom teeth PAST SURGICAL HISTORY OF N/A 07/2020 removal of skin tags PORTOCATH PLACEMENT 2017 PORTOCATH PLACEMENT 12/18/2017 port placement Nemesio SONG W/WO REMOVAL TUBE OVARY 08/2013 w/ BSO TONSILLECTOMY & ADENOIDECTOMY <AGE 12 SOCIAL HISTORY: Social History Tobacco Use Smoking status: Former Types: Cigarettes Quit date: 10/22/1970 Years since quittin.5 Smokeless tobacco: Never Tobacco comments: 3 cigarettes a week back in college for 9 months Vaping Use Vaping Use: Never used Substance Use Topics Alcohol use: Yes Comment: beer/wine maybe daily depends Drug use: No Caffeine intake: 2 / day Exercise: 30 minutes/5 times a week or more FAMILY HISTORY: Family history of breast cancer: A maternal aunt had bilateral breast cancer Family history of ovarian cancer: None Number of sisters: 0 Number of maternal aunts: 2 Number of paternal aunts: 1 Ashkenazi Ancestry: no Has Patient had Genetic Testing? No Have any Family Members had Genetic Testing? No Other Cancer: Maternal aunt with colon cancer There is no family history of prostate, uterine, pancreatic, gastric, brain, renal cell or thyroid cancer. There is no family history of melanoma, sarcoma or leukemia. Osteoporosis: Maternal aunt Stroke: MGF and a maternal aunt had strokes Blood Clot: None Heart attack: PGF, PGM and MGM had MIs Thyroid Nodule or Goiter: None Autism: None FAMILY HISTORY Problem Relation Age of Onset Alcohol/Drug Mother Heart Father [place] at 72 Diabetes Father Thyroid Father other (LIVER) Father Diabetes Paternal Grandmother Heart Paternal Grandmother Diabetes Maternal Grandmother Heart Maternal Grandmother [place] in her 40's; from [place] at 68 Stroke Maternal Grandfather Heart Paternal Grandfather Breast Cancer Maternal Aunt breast, 50's oral Coronary Artery Disease Maternal Uncle Prostate Cancer Maternal Uncle 86 Colon Cancer Maternal Aunt 60 Stroke Maternal Aunt Coronary Artery Disease Maternal Aunt MEDICATIONS: EPINEPHrine (EPIPEN) 0.3 mg/0.3 mL auto-injector Use as directed for reaction to food allergen Cholecalciferol, Vitamin D3, 1,000 unit cap Take 1 capsule by mouth once daily. THERAPEUTIC MULTIVITAMIN TAB Take 1 tablet by mouth once daily. ALLERGIES: ALLERGIES Allergen Reactions Cantaloupe Swelling Throat itchy Chicken GI Upset + allergy test to chicken meat (in past just had GI upset but test +); told by property custodian no flu shot because of this allergy Clindamycin Rash possible allergy, rash appeared treatment completed Propofol Unknown History of possible egg allergy as a child. Skin test to egg-white negative on 12/06/17. Patient has never been treated with propofol Ciprofloxacin Intolerance C/o feeling anxious and shaky while taking ciprofloxacin in the post-operative period following evacuation of breast hematoma in Oct, 2017. Also c/o joints popping no other symptoms. Egg Derived Contraindication-Medical Surgical Slipper Maker told patient to avoid anything derived from eggs due to chicken allergy revealed on testing. May eat eggs. Zantac [Ranitidine * Unknown Tetracycline Unknown REVIEW OF SYSTEMS: She denies chest pain, shortness of breath, persistent cough, severe headaches, unusual bony pains, abdominal pain or unintentional weight loss. PHYSICAL EXAM: Last Menstrual Period 08/31/2013 General: well-nourished, healthy, female, alert and oriented x 3, calm Skin: warm, dry, skin color, texture, turgor normal Head/Eyes: normocephalic, atraumatic and anicteric Neck Soft, smooth mobile occipital node Breasts and Regional Lymph Nodes: The patient was examined in the upright and supine positions. There is no concerning supraclavicular, infraclavicular or axillary lymphadenopathy or fullness. She is s/p left simple mastectomy with SLNB with no evidence of local recurrence. She is s/p right simple mastectomy with SLNB with no evidence of local recurrence. She has had no reconstruction on either side. Chest - clear Cor - s1+s2 Abd - soft, no hepatomegaly IMAGING: Deferred . LABS: Hemoglobin (g/dL) Date Value 04/01/2024 14.7 09/23/2021 14.3 Hematocrit (%) Date Value 04/01/2024 45.9 09/23/2021 43.6 WBC (k/uL) Date Value 04/01/2024 5.07 09/23/2021 5.37 Glucose (mg/dL) Date Value 04/01/2024 101 09/23/2021 110 Potassium (mmol/L) Date Value 04/01/2024 4.5 09/23/2021 4.0 Sodium (mmol/L) Date Value 04/01/2024 138 09/23/2021 139 Chloride (mmol/L) Date Value 04/01/2024 101 09/23/2021 100 CO2 (mmol/L) Date Value 04/01/2024 26 09/23/2021 26 Creatinine (mg/dL) Date Value 04/01/2024 0.60 09/23/2021 0.64 BUN (mg/dL) Date Value 04/01/2024 10 09/23/2021 13 Anion Gap (mmol/L) Date Value 04/01/2024 11 09/23/2021 13 Calcium (mg/dL) Date Value 09/23/2021 9.4 Calcium, Total (mg/dL) Date Value 04/01/2024 9.9 Protein, Total (g/dL) Date Value 04/01/2024 7.2 09/23/2021 7.2 Albumin (g/dL) Date Value 04/01/2024 4.6 09/23/2021 4.5 Bilirubin, Total (mg/dL) Date Value 04/01/2024 0.4 09/23/2021 0.4 Alkaline Phosphatase (U/L) Date Value 04/01/2024 53 09/23/2021 52 AST (U/L) Date Value 04/01/2024 34 09/23/2021 24 ALT (U/L) Date Value 04/01/2024 24 09/23/2021 17 Assessment IMPRESSION/PLAN: (Z85.3) Personal history of BILATERAL breast cancer (primary encounter diagnosis) (Z90.13) Status post bilateral mastectomy (M81.0) Osteoporosis without current pathological fracture (Z13.71) BRCA negative There is no evidence of malignancy. The patient was reassured as to the benign nature of her clinical findings. She is now s/p bilateral mastectomy and has reduced her risk of another cancer by 90-95%. We talked about her osteoporosis and potential treatment. She is NOT interested in treatment. Genetics referral made: Negative panel testing as above. Chemoprevention discussion: She completed 5 years of tamoxifen and then 5 years of Arimidex for her second cancer The patient is advised to exercise regularly, achieve/maintain ideal body weight, and to limit alcohol consumption to less than 3 drinks weekly for breast cancer risk reduction and overall health. She is reminded about screening colonoscopy. She really doesn't want to do it. For bone health, she exercises regularly and takes Calcium and D. She is not interested in medication. I will see her for clinical evaluation in one year. She will call me in the interim should she have any questions or concerns. I spent a total of 30 minutes on the date of the service which included preparing to see the patient, [id number] patient care, completing clinical documentation, obtaining and/or reviewing separately obtained history, performing a medically appropriate examination and counseling and educating the patient/family/caregiver. Dario Suárez MD Medical Breast Specialist documented in this encounter [facility] 04-22-2024 Note HNO ID: [id number] Author: DARIO SUÁREZ MD Service: ? 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 She denies chest wall masses, pain, or skin changes. She is following medical -oncology. Last OV 12/2023 when her Arimidex was discontinued, having completed 5 years of therapy. She was followed for probably benign axillary nodes bilaterally with borderline cortical thickening. In 06/2020 bilateral ultrasounds were deemed benign. In 12/04 she was diagnosed with a [id number] breast cancer. MRI 12/04 showed the known lesion measuring 1.7cm on the left at 12pm. In 01/01 she had a left mastectomy with negative margins and 0/2 SLN. The tumor was ER+(90%)/WY+(90%)/HER2-. She did not have reconstruction. ODX was 13 corresponding to an 8% risk of distant intermediate recurrence. She saw Dr. Jimenez in consultation and given her pre-existing osteoporosis (BMD 11/03 -2.9) and TMJ, it was decided that she take Tamoxifen which she started 02/01. In 10/07, she felt a new lump on the right. She was found to have a 4mm mass by ultrasound. 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 She went on to right mastectomy 11/08 demonstrating the 6mm tumor with negative margins, no LVI and 0/1 SLN. She was switched to Arimidex 02/06 for another 5 years. She is followed by Dr. Altamirano in [place]. She was having some vaginal dryness which is improved on Replens. 01/06: Daria Osborne's Common Hereditary Cancers panel through [facility] was negative for a deleterious mutation. 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 A VUS is a genetic variant for which insufficient data exists in order to determine if it is associated with disease (deleterious mutation) or is a normal genetic variant which can occur in the population without disease (benign polymorphism). Her vitamin D level was Vitamin D 25 Hydroxy (ng/mL) Date Value 04/01/2024 68.2 09/23/2021 58.6 . She takes Vitamin D 2000 units and gets a lot of calcium in her diet . BMD: Yes 12/07 osteoporosis (-2.8). She is NOT interested in therapy as she has jaw issues. 06/2020 BMD -3.3. 09/2022 BMD T score - 3.3 PERSONAL BREAST HISTORY: Past breast history (prior to this encounter) is as follows: Breast biopsy: Yes, as above Breast cysts: No Breast surgery: Yes, left mastectomy as above. Right mastectomy as above Breast cancer: Yes, 2012 Left Stage 1 ([id number]) in the upper breast s/p left mastectomy. In 2017 Right ER+(90%)/[place]-/HER2 BC, s/p right mastectomy CANCER SURVEILLANCE: Mammograms: Yes / right mammogram 01/05 negative Breast MRI: 11/08 showing the known cancer; otherwise negative. Colonoscopy: No RISK FACTORS FOR BREAST CANCER: Age at the onset of menses: unknown P: 1 Age at the of first child: 26 years of age. She did not breast feed Age at menopause: The patient does not remember. Post-menopausal hormone therapy: No She is S/P total hysterectomy with negative pathology History of Mantle Radiation prior to the age of 30: No Postmenopausal obesity: No Mammographic density: NA; she is s/p bilateral mastectomy. Personal History of Benign Atypical Breast Biopsy: No Alcohol use: 1-2 drinks daily PAST MEDICAL HISTORY: PAST MEDICAL HISTORY Diagnosis Date Anemia, unspecified Benign neoplasm of skin of trunk, except scrotum 01/12/2009 Benign neoplasm of skin of upper limb, including shoulder 08/26/2005 Breast cancer (HCC) 11/2012 left Dense breasts 07/16/2017 Difficult airway for intubation Disorder of bone and cartilage, unspecified History of bilateral breast cancer 04/21/2018 left them right; s/p bilateral mastectomy Incisional hernia of anterior abdominal wall without obstruction or gangrene 04/22/2017 just above and to the right of umbilicus; 02/10/[address] Shepherd reviewed; stable findings of slight bulge seen best while patient standing Irritable bowel syndrome Malignant neoplasm of upper-outer quadrant of right breast, estrogen receptor positive (HCC) Osteoporosis, unspecified progression to osteoporosis noted on 2007 bone density Postmenopausal bleeding Postmenop. bleeding Postoperative thrombophlebitis 09/20/2013 Temporomandibular joint disorders, unspecified TMJ (dislocation of temporomandibular joint) 10/20/2015 Transfusion history after childbirth Unspecified vitamin D deficiency Patient specifically denies history of: DVT, PE, Migraine headaches. She has osteoporosis. PAST SURGICAL HISTORY: PAST SURGICAL HISTORY Procedure Later (more content not included)... [facility] 04-22-2024 Instructions Cristina Lay MA - 04/22/2024 10:54 AM EDT General Breast Health Recommendations A healthy body helps promote healthy breasts. If you smoke, please consider a smoking cessation program. If you do not exercise, please consider starting an exercise program if you are able to, even if it is just walking in your neighborhood. Research shows that obesity, especially post-menopausal obesity, is a risk factor for breast cancer. Obtaining calcium in your diet or taking a calcium supplement that contains vitamin D is good for your bones. There is evolving evidence that Vitamin D supplementation may also help to decrease breast cancer risk. If you are post-menopausal and are bothered by hot flashes and still have a uterus, combined estrogen-progesterone preparations can increase your risk of breast cancer if taken for longer than five years. Alcohol is also an under-recognized risk factor. Every drink you have daily increases your breast cancer risk by 10%. Mammograms save lives. Have an annual mammogram annually beginning at age 40. Continue annual mammograms as long as you remain in good health. Breast self-exam, performed on day 7 of your menstrual cycle, can also be very helpful. Know your breasts and report changes to your health care provider or breast specialist. Clinical breast exams by your primary care provider or breast specialist are recommended annually every 1-3 years for women over the age of 20 and annually after the age of 40. Increased frequency of the clinical exam may be recommended for women at increased risk of breast cancer. Risk factors for breast cancer: Being a woman Family history of breast cancer Early menarche (onset of menses) prior to age 13 Nulliparity (never had children) First child after age 30 Late menopause (stopping of periods) after age 55 History of breast biopsy that showed atypical cells (ADH, ALH, LCIS, FEA) Presence of a genetic mutation (BRCA1, BRCA2, PTEN, P53, CDH1) History of chest wall irradiation (such as with Hodgkin's Lymphoma) prior to age 30 Personal history of breast cancer Post-menopausal Obesity Combined hormone therapy (estrogen and progesterone) for greater than 5 years Alcohol consumption of greater than 7 alcohol-containing drinks per week Breast density If you have a family history of breast or ovarian cancer, review this with your primary care provider or breast specialist to see if a referral for genetic counseling is recommended. 5-10% of breast cancers and up to 15% of ovarian cancers are linked to a genetic mutation. Signs of hereditary breast cancer syndrome include breast cancer that occurs under the age of 50, ovarian cancer at any age, male breast cancer, multiple family members affected with breast cancer, and a history of Ashkenazi Sikh ancestry. Breast pain is very common and usually is not a sign of cancer, but should be evaluated by a breast specialist. For comfort, simply reducing caffeine (coffee, tea, chocolate, energy drinks, sodas) in your diet can provide relief. A properly fitted bra can also be helpful in reducing breast pain. If those two measures do not provide relief, taking Evening [place] Oil 1000mg capsules twice a day for a short period of time (three to four months) may be helpful. Many women wonder about their breast density. Dense breast tissue is, in and of itself, a relatively common condition which could hide abnormalities in a screening mammogram. This information is not provided to cause undue concern; rather, it is to raise your awareness and promote discussion with your health care provider regarding the presence of dense breast tissue in addition to other risk factors. If you would like to compliment one of our caregivers you encountered today, you may do so at [email or web address]. Thank you ! documented in this encounter [facility] 04-22-2024 Nurse Note Patient is being seen today for annual exam Last mammogram on: N/A Is the patient active on MyChart Yes Electronically Signed By: Cristina Lay MA In Department: BREAST CENTER REVIEW OF PATIENT HISTORY: OB History T1 L1 SAB0 IAB0 Ectopic0 Multiple0 Live Births1 Comment: Menarche age 11 AFB 26 Pt did not breast feed Pt did use BC Pt denies use of HRTs Menopause 54 or 55 FAMILY HISTORY Problem Relation Age of Onset Alcohol/Drug Mother Heart Father [place] at 72 Diabetes Father Thyroid Father other (LIVER) Father Diabetes Paternal Grandmother Heart Paternal Grandmother Diabetes Maternal Grandmother Heart Maternal Grandmother [place] in her 40's; from [place] at 68 Stroke Maternal Grandfather Heart Paternal Grandfather Breast Cancer Maternal Aunt breast, 50's oral Coronary Artery Disease Maternal Uncle Prostate Cancer Maternal Uncle 86 Colon Cancer Maternal Aunt 60 Stroke Maternal Aunt Coronary Artery Disease Maternal Aunt PAST MEDICAL HISTORY Diagnosis Date Anemia, unspecified Benign neoplasm of skin of trunk, except scrotum 01/12/2009 Benign neoplasm of skin of upper limb, including shoulder 08/26/2005 Breast cancer (HCC) 11/2012 left Dense breasts 07/16/2017 Difficult airway for intubation Disorder of bone and cartilage, unspecified History of bilateral breast cancer 04/21/2018 left them right; s/p bilateral mastectomy Incisional hernia of anterior abdominal wall without obstruction or gangrene 04/22/2017 just above and to the right of umbilicus; 02/10/[address] Shepherd reviewed; stable findings of slight bulge seen best while patient standing Irritable bowel syndrome Malignant neoplasm of upper-outer quadrant of right breast, estrogen receptor positive (HCC) Osteoporosis, unspecified progression to osteoporosis noted on 2007 bone density Postmenopausal bleeding Postmenop. bleeding Postoperative thrombophlebitis 09/20/2013 Temporomandibular joint disorders, unspecified TMJ (dislocation of temporomandibular joint) 10/20/2015 Transfusion history after childbirth Unspecified vitamin D deficiency PAST SURGICAL HISTORY Procedure Laterality Date CURETTAGE 1978 Curettage, post delivery CURETTAGE DILATION & CURETTAGE DX&/THER NONOBSTETRIC 07/01/2013 [facility] EXCISION PILONIDAL CYST/SINUS SIMPLE LAPROSCOPIC REPAIR UMBILICAL HERNIA MASTECTOMY, SIMPLE, COMPLETE Left 01/06/2013 left breast with SLND ([place]) MASTECTOMY, SIMPLE, COMPLETE 10/2017 right PAST SURGICAL HISTORY OF pilonidal cyst PAST SURGICAL HISTORY OF abdominal hernia PAST SURGICAL HISTORY OF breast cyst removed PAST SURGICAL HISTORY OF wisdom teeth PAST SURGICAL HISTORY OF N/A 07/2020 removal of skin tags PORTOCATH PLACEMENT 2017 PORTOCATH PLACEMENT 12/18/2017 port placement [place] NOHEMI W/WO REMOVAL TUBE OVARY 08/2013 w/ BSO TONSILLECTOMY & ADENOIDECTOMY Social History Tobacco Use Smoking status: Former Types: Cigarettes Quit date: 10/22/1970 Years since quittin.5 Smokeless tobacco: Never Tobacco comments: 3 cigarettes a week back in college for 9 months Vaping Use Vaping Use: Never used Substance Use Topics Alcohol use: Yes Comment: beer/wine maybe daily depends Drug use: No [facility] 04-22-2024 Nurse Note Patient is being seen today for annual exam Last mammogram on: N/A Is the patient active on [employer] Yes Electronically Signed By: Cristina Lay MA In Department: BRE[facility] CENTER REVIEW OF PATIENT HISTORY: OB History T1 L1 SAB0 IAB0 Ectopic0 Multiple0 Live Births1 Comment: Menarche age 11 AFB 26 Pt did not breast feed Pt did use BC Pt denies use of HRTs Menopause 54 or 55 FAMILY HISTORY Problem Relation Age of Onset Alcohol/Drug Mother Heart Father [place] at 72 Diabetes Father Thyroid Father other (LIVER) Father Diabetes Paternal Grandmother Heart Paternal Grandmother Diabetes Maternal Grandmother Heart Maternal Grandmother [place] in her 40's; from [place] at 68 Stroke Maternal Grandfather Heart Paternal Grandfather Breast Cancer Maternal Aunt breast, 50's oral Coronary Artery Disease Maternal Uncle Prostate Cancer Maternal Uncle 86 Colon Cancer Maternal Aunt 60 Stroke Maternal Aunt Coronary Artery Disease Maternal Aunt PAST MEDICAL HISTORY Diagnosis Date Anemia, unspecified Benign neoplasm of skin of trunk, except scrotum 01/12/2009 Benign neoplasm of skin of upper limb, including shoulder 08/26/2005 Breast cancer (HCC) 11/2012 left Dense breasts 07/16/2017 Difficult airway for intubation Disorder of bone and cartilage, unspecified History of bilateral breast cancer 04/21/2018 left them right; s/p bilateral mastectomy Incisional hernia of anterior abdominal wall without obstruction or gangrene 04/22/2017 just above and to the right of umbilicus; 02/10/[address] Shepherd reviewed; stable findings of slight bulge seen best while patient standing Irritable bowel syndrome Malignant neoplasm of upper-outer quadrant of right breast, estrogen receptor positive (HCC) Osteoporosis, unspecified progression to osteoporosis noted on 2007 bone density Postmenopausal bleeding Postmenop. bleeding Postoperative thrombophlebitis 09/20/2013 Temporomandibular joint disorders, unspecified TMJ (dislocation of temporomandibular joint) 10/20/2015 Transfusion history after childbirth Unspecified vitamin D deficiency PAST SURGICAL HISTORY Procedure Laterality Date CURETTAGE 1978 Curettage, post delivery CURETTAGE DILATION & CURETTAGE DX&/THER NONOBSTETRIC 07/01/2013 [facility] EXCISION PILONIDAL CYST/SINUS SIMPLE LAPROSCOPIC REPAIR UMBILICAL HERNIA MASTECTOMY, SIMPLE, COMPLETE Left 01/06/2013 left breast with SLND ([place]) MASTECTOMY, SIMPLE, COMPLETE 10/2017 right PAST SURGICAL HISTORY OF pilonidal cyst PAST SURGICAL HISTORY OF abdominal hernia PAST SURGICAL HISTORY OF breast cyst removed PAST SURGICAL HISTORY OF wisdom teeth PAST SURGICAL HISTORY OF N/A 07/2020 removal of skin tags PORTOCATH PLACEMENT 2017 PORTOCATH PLACEMENT 12/18/2017 port placement [place] NOHEMI W/WO REMOVAL TUBE OVARY 08/2013 w/ BSO TONSILLECTOMY & ADENOIDECTOMY <AGE 12 Social History Tobacco Use Smoking status: Former Types: Cigarettes Quit date: 10/22/1970 Years since quittin.5 Smokeless tobacco: Never Tobacco comments: 3 cigarettes a week back in college for 9 months Vaping Use Vaping Use: Never used Substance Use Topics Alcohol use: Yes Comment: beer/wine maybe daily depends Drug use: No documented in this encounter [facility] 04-08-2024 Telephone encounter Note Phoned patient aware order in place and gave her hours of operation for the lab and check in in main lobby first with understanding. [facility] 04-08-2024 Miscellaneous Notes Phoned patient aware order in place and gave her hours of operation for the lab and check in in main lobby first with understanding. Filed order Patient calling forgot to ask PCP yesterday at her appt for order for the IFOBT kit. It has been a year since her last one was done. She wanted to get it done before she forgets about it. Pending order needs diagnosis. Please advise documented in this encounter [facility] 04-08-2024 Telephone encounter Note Filed order [facility] 04-08-2024 Telephone encounter Note Patient calling forgot to ask PCP yesterday at her appt for order for the IFOBT kit. It has been a year since her last one was done. She wanted to get it done before she forgets about it. Pending order needs diagnosis. Please advise [facility] 04-07-2024 Note HNO ID: [id number] Author: CAROLINA PETERSON MD Service: ? Author Type: Physician Type: Progress Notes Filed: 04/08/2024 00:00 Note Text: This note was created using Beetailerriter. Subjective Daria Osborne is a 73 year old female. Patient presents with: F/U 6 months: Labs prior SUBJECTIVE: Daria Osborne is a 73 year old year old lady here today for 6 month follow up appointment for review of medical conditions. Discussed BP okay even though up from prior 90s for SBP. No lightheaded ness or dizziness. Working out in yard more so not exercising as much. Staying active. Will swime more soon. Weight went down to 99 recently but got up to 102 here. At home was 100.8 Weight has been up to 106 to 108. Feels well at 101 to 102. Working on getting more foods with protein--hummus, beans. Knows needs more calories and more protein when more active. Noted right anterior chest wall pain--attributes to pulling weeds plus other yardwork. Wondered if new bra contributed. Right middle finger PIP joint with some swelling. Mild tenderness. Does not hurt often. Sometimes thumb hurts too. PAST MEDICAL HISTORY Diagnosis Date Anemia, unspecified Benign neoplasm of skin of trunk, except scrotum 01/12/2009 Benign neoplasm of skin of upper limb, including shoulder 08/26/2005 Breast cancer (HCC) 11/2012 left Dense breasts 07/16/2017 Difficult airway for intubation Disorder of bone and cartilage, unspecified History of bilateral breast cancer 04/21/2018 left them right; s/p bilateral mastectomy Incisional hernia of anterior abdominal wall without obstruction or gangrene 04/22/2017 just above and to the right of umbilicus; 02/10/[address] Shepherd reviewed; stable findings of slight bulge seen best while patient standing Irritable bowel syndrome Malignant neoplasm of upper-outer quadrant of right breast, estrogen receptor positive (HCC) Osteoporosis, unspecified progression to osteoporosis noted on 2007 bone density Postmenopausal bleeding Postmenop. bleeding Postoperative thrombophlebitis 09/20/2013 Temporomandibular joint disorders, unspecified TMJ (dislocation of temporomandibular joint) 10/20/2015 Transfusion history after childbirth Unspecified vitamin D deficiency Current Outpatient Medications Medication Sig EPINEPHrine (EPIPEN) 0.3 mg/0.3 mL auto-injector Use as directed for reaction to food allergen Cholecalciferol, Vitamin D3, 1,000 unit cap Take 1 capsule by mouth once daily. THERAPEUTIC MULTIVITAMIN TAB Take 1 tablet by mouth once daily. No current facility-administered medications for this visit. Review of Systems Objective BP 122/62 Pulse 74 Temp 36.9 ?C (98.4 ?F) Resp 18 Ht 165 cm (5' 4.96 ) Wt 46.3 kg (102 lb 1.6 oz) LMP 08/31/2013 SpO2 100% BMI 17.01 kg/m? Last 5 Encounter Wt Readings: Date: Wt: 04/07/2024 46.3 kg (102 lb 1.6 oz) 01/11/2024 48.1 kg (106 lb) 01/01/2024 48.5 kg (106 lb 14.4 oz) 10/05/2023 47.2 kg (104 lb) 07/03/2023 47.4 kg (104 lb 8 oz) No waist measurement recorded Estimated body mass index is 17.01 kg/m? as calculated from the following: Height as of this encounter: 165 cm (5' 4.96 ). Weight as of this encounter: 46.3 kg (102 lb 1.6 oz). Last 5 Encounter BP Readings: Date: BP: 04/07/2024 122/62 01/11/2024 116/68 01/01/2024 122/84 10/05/2023 110/62 07/03/2023 102/64 Physical Exam Constitutional: Appearance: Normal appearance. HENT: Head: Normocephalic. Eyes: Conjunctiva/sclera: Conjunctivae normal. Cardiovascular: Rate and Rhythm: Normal rate and regular rhythm. Heart sounds: Normal heart sounds. Pulmonary: Effort: Pulmonary effort is normal. Breath sounds: Normal breath sounds. Musculoskeletal: Right lower leg: No edema. Left lower leg: No edema. Skin: General: Skin is warm and dry. Neurological: General: No focal deficit present. Mental Status: She is alert and oriented to person, place, and time. Psychiatric: Mood and Affect: Mood normal. Behavior: Behavior normal. Thought Content: Thought content normal. Judgment: Judgment normal. Latest Ref Rng 03/24/2023 10/01/2023 04/01/2024 Protein, Total 6.3 - 8.0 g/dL 7.3 7.6 7.2 Albumin 3.9 - 4.9 g/dL 4.5 4.7 4.6 Calcium 8.5 - 10.2 mg/dL 9.7 9.9 9.9 Bilirubin, Total 0.2 - 1.3 mg/dL 0.5 0.6 0.4 Alkaline Phosphatase 34 - 123 U/L 49 53 53 AST 13 - 35 U/L 31 26 34 ALT 7 - 38 U/L 18 18 24 Glucose 74 - 99 mg/dL 100 (H) 109 (H) 101 (H) BUN 7 - 21 mg/dL 10 10 10 Creatinine 0.58 - 0.96 mg/dL 0.53 (L) 0.63 0.60 Sodium 136 - 144 mmol/L 138 140 138 Potassium 3.7 - 5.1 mmol/L 4.7 4.0 4.5 Chloride 98 - 107 mmol/L 102 101 101 CO2 22 - 30 mmol/L 22 26 26 Anion Gap 8 - 15 mmol/L 14 13 11 eGFR >=60 mL/min/1.73m? 98 94 95 WBC 3.70 - 11.00 k/uL 4.76 5.24 5.07 RBC 3.90 - 5.20 m/uL 4.78 4.90 4.90 Hemoglobin 11.5 - 15.5 g/dL 14.8 14.9 14.7 Hematocrit 36.0 - 46.0 % 46.4 (H) 46.3 (H) 45.9 MCV 8 (more content not included)... [facility] 04-07-2024 History of Present illness Narrative This note was created using NoteWriter. Subjective Daria Osborne is a 73 year old female. Patient presents with: F/U 6 months: Labs prior SUBJECTIVE: Daria Osborne is a 73 year old year old lady here today for 6 month follow up appointment for review of medical conditions. Discussed BP okay even though up from prior 90s for SBP. No lightheaded ness or dizziness. Working out in yard more so not exercising as much. Staying active. Will swime more soon. Weight went down to 99 recently but got up to 102 here. At home was 100.8 Weight has been up to 106 to 108. Feels well at 101 to 102. Working on getting more foods with protein--hummus, beans. Knows needs more calories and more protein when more active. Noted right anterior chest wall pain--attributes to pulling weeds plus other yardwork. Wondered if new bra contributed. Right middle finger PIP joint with some swelling. Mild tenderness. Does not hurt often. Sometimes thumb hurts too. PAST MEDICAL HISTORY Diagnosis Date Anemia, unspecified Benign neoplasm of skin of trunk, except scrotum 01/12/2009 Benign neoplasm of skin of upper limb, including shoulder 08/26/2005 Breast cancer (HCC) 11/2012 left Dense breasts 07/16/2017 Difficult airway for intubation Disorder of bone and cartilage, unspecified History of bilateral breast cancer 04/21/2018 left them right; s/p bilateral mastectomy Incisional hernia of anterior abdominal wall without obstruction or gangrene 04/22/2017 just above and to the right of umbilicus; 02/10/[address] Shepehrd reviewed; stable findings of slight bulge seen best while patient standing Irritable bowel syndrome Malignant neoplasm of upper-outer quadrant of right breast, estrogen receptor positive (HCC) Osteoporosis, unspecified progression to osteoporosis noted on 2007 bone density Postmenopausal bleeding Postmenop. bleeding Postoperative thrombophlebitis 09/20/2013 Temporomandibular joint disorders, unspecified TMJ (dislocation of temporomandibular joint) 10/20/2015 Transfusion history after childbirth Unspecified vitamin D deficiency Current Outpatient Medications Medication Sig EPINEPHrine (EPIPEN) 0.3 mg/0.3 mL auto-injector Use as directed for reaction to food allergen Cholecalciferol, Vitamin D3, 1,000 unit cap Take 1 capsule by mouth once daily. THERAPEUTIC MULTIVITAMIN TAB Take 1 tablet by mouth once daily. No current facility-administered medications for this visit. Review of Systems Objective BP 122/62 Pulse 74 Temp 36.9 C (98.4 F) Resp 18 Ht 165 cm (5' 4.96 ) Wt 46.3 kg (102 lb 1.6 oz) LMP 08/31/2013 SpO2 100% BMI 17.01 kg/m Last 5 Encounter Wt Readings: Date: Wt: 04/07/2024 46.3 kg (102 lb 1.6 oz) 01/11/2024 48.1 kg (106 lb) 01/01/2024 48.5 kg (106 lb 14.4 oz) 10/05/2023 47.2 kg (104 lb) 07/03/2023 47.4 kg (104 lb 8 oz) No waist measurement recorded Estimated body mass index is 17.01 kg/m as calculated from the following: Height as of this encounter: 165 cm (5' 4.96 ). Weight as of this encounter: 46.3 kg (102 lb 1.6 oz). Last 5 Encounter BP Readings: Date: BP: 04/07/2024 122/62 01/11/2024 116/68 01/01/2024 122/84 10/05/2023 110/62 07/03/2023 102/64 Physical Exam Constitutional: Appearance: Normal appearance. HENT: Head: Normocephalic. Eyes: Conjunctiva/sclera: Conjunctivae normal. Cardiovascular: Rate and Rhythm: Normal rate and regular rhythm. Heart sounds: Normal heart sounds. Pulmonary: Effort: Pulmonary effort is normal. Breath sounds: Normal breath sounds. Musculoskeletal: Right lower leg: No edema. Left lower leg: No edema. Skin: General: Skin is warm and dry. Neurological: General: No focal deficit present. Mental Status: She is alert and oriented to person, place, and time. Psychiatric: Mood and Affect: Mood normal. Behavior: Behavior normal. Thought Content: Thought content normal. Judgment: Judgment normal. Latest Ref Rng 03/24/2023 10/01/2023 04/01/2024 Protein, Total 6.3 - 8.0 g/dL 7.3 7.6 7.2 Albumin 3.9 - 4.9 g/dL 4.5 4.7 4.6 Calcium 8.5 - 10.2 mg/dL 9.7 9.9 9.9 Bilirubin, Total 0.2 - 1.3 mg/dL 0.5 0.6 0.4 Alkaline Phosphatase 34 - 123 U/L 49 53 53 AST 13 - 35 U/L 31 26 34 ALT 7 - 38 U/L 18 18 24 Glucose 74 - 99 mg/dL 100 (H) 109 (H) 101 (H) BUN 7 - 21 mg/dL 10 10 10 Creatinine 0.58 - 0.96 mg/dL 0.53 (L) 0.63 0.60 Sodium 136 - 144 mmol/L 138 140 138 Potassium 3.7 - 5.1 mmol/L 4.7 4.0 4.5 Chloride 98 - 107 mmol/L 102 101 101 CO2 22 - 30 mmol/L 22 26 26 Anion Gap 8 - 15 mmol/L 14 13 11 eGFR >=60 mL/min/1.73m 98 94 95 WBC 3.70 - 11.00 k/uL 4.76 5.24 5.07 RBC 3.90 - 5.20 m/uL 4.78 4.90 4.90 Hemoglobin 11.5 - 15.5 g/dL 14.8 14.9 14.7 Hematocrit 36.0 - 46.0 % 46.4 (H) 46.3 (H) 45.9 MCV 80.0 - 100.0 fL 97.1 94.5 93.7 MCH 26.0 - 34.0 pg 31.0 30.4 30.0 MCHC 30.5 - 36.0 g/dL 31.9 32.2 32.0 RDW-CV 11.5 - 15.0 % 12.8 12.6 13.0 Platelet Count 150 - 400 k/uL 229 245 246 MPV 9.0 - 12.7 fL 10.3 10.2 9.9 Absolute nRBC <0.01 k/uL <0.01 <0.01 <0.01 Hemoglobin A1C 4.3 - 5.6 % 5.5 5.6 5.7 (H) Estimated Average Glucose mg/dL 111 114 117 Vitamin D 25 Hydroxy 31.0 - 80.0 ng/mL 64.6 65.5 68.2 Legend: (H) High (L) Low Assessment and Plan Encounter Diagnosis ICD-10-CM 1. 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 Monitor for now. Can try Voltaren gel 2. IFG (impaired fasting glucose) R73.01 COMPREHENSIVE METABOLIC PANEL Still just IFG, not DM 3. Osteoporosis without current pathological fracture, unspecified osteoporosis type M81.0 COMPREHENSIVE METABOLIC PANEL COMPLETE BLOOD COUNT VITAMIN D 25 HYDROXY Vitamin D level still good. Continue present management 4. Vitamin D deficiency E55.9 Well replaced/substituted; continue supplement Above issues addressed with patient. Patient involved in shared decision making for management of medical issues. History and medications reviewed. Epic updated as needed Refills and/or prescriptions taken care of and meds adjusted as indicated after reviewed history, exam and labs. Health Maintenance reviewed. Updated record and/or ordered tests as recorded. Encouraged on efforts at healthy diet and regular exercise and adequate sleep. Will make sure to eat enough calories and protein to keep up with activity level. Carolina Peterson MD documented in this encounter [facility] 03-10-2024 Note HNO ID: [id number] Author: LYNETTE NJ LPN Service: ? Author Type: LICENSED NURSE Type: Progress Notes Filed: 03/10/2024 13:53 Note Text: Patient presents for COVID vaccine. Denies any problems at this time. Tolerated injection well. Lynette Nj LPN [facility] 03-10-2024 History of Present illness Narrative Patient presents for COVID vaccine. Denies any problems at this time. Tolerated injection well. Lynette Nj LPN documented in this encounter [facility] 01-11-2024 Note HNO ID: [id number] Author: SERA PA APRN.REUBEN Service: ? Author Type: Nurse Practitioner Type: Progress Notes Filed: 01/11/2024 11:30 Note Text: [facility] [place] [facility] Gyne[facility] PATIENT NAME: Daria Osborne PCP: Carolina Peterson MD DATE: 01/11/2024 Chief Complaint CC: Annual MATE RELIEF exam History of Present Illness: Daria is a 73 year old who presents for her annual gynecologic exam. Patient also would like to discuss the following concerns: Breast cancer x 2. Bilateral mastectomy. Sees ONC. Denies vaginal itching, irritation, discharge or odor. Hot flashes: No Night sweats: No Vaginal dryness: No Mood swings: No Insomnia: No Postmenopausal bleeding: No HRT use: none PAP HISTORY: Immunocompromised? No Last Pap: 11/26/2012, normal HPV: 11/19/2012, negative History of abnormal pap: No Sexually active: Yes OB History T1 L1 SAB0 IAB0 Ectopic0 Multiple0 Live Births1 Comment: Menarche age 11 AFB 26 Pt did not breast feed Pt did use BC Pt denies use of HRTs Menopause 54 or [address] [employer] History LMP: 08/31/2013, Hysterectomy Age at Menarche: Age at First : Age at Menopause: Right [employer] History Comments: Sexual Activity: Yes; Male Contraception: Vasectomy Family history of breast/ovarian/uterine/colon cancer? Yes Past Surgical History: PAST SURGICAL HISTORY Procedure Laterality Date CURETTAGE 1978 Curettage, post delivery CURETTAGE DILATION AND CURETTAGE DXAND/THER NONOBSTETRIC 07/01/2013 [facility] EXCISION PILONIDAL CYST/SINUS SIMPLE LAPROSCOPIC REPAIR UMBILICAL HERNIA MASTECTOMY, SIMPLE, COMPLETE Left 01/06/2013 left breast with SLND ([place]) MASTECTOMY, SIMPLE, COMPLETE 10/2017 right PAST SURGICAL HISTORY OF pilonidal cyst PAST SURGICAL HISTORY OF abdominal hernia PAST SURGICAL HISTORY OF breast cyst removed PAST SURGICAL HISTORY OF wisdom teeth PAST SURGICAL HISTORY OF N/A 07/2020 removal of skin tags PORTOCATH PLACEMENT 2017 PORTOCATH PLACEMENT 12/18/2017 port placement [place] NOHEMI W/WO REMOVAL TUBE OVARY 08/2013 w/ BSO TONSILLECTOMY AND ADENOIDECTOMY Medications: Current Outpatient Medications Medication Sig EPINEPHrine (EPIPEN) 0.3 mg/0.3 mL auto-injector Use as directed for reaction to food allergen Cholecalciferol, Vitamin D3, 1,000 unit cap Take 1 capsule by mouth once daily. THERAPEUTIC MULTIVITAMIN TAB Take 1 tablet by mouth once daily. No current facility-administered medications for this visit. Medications reviewed in detail and updated PRN. Yes Physical Exam: BP 116/68 Ht 165.1 cm (5' 5 ) Wt 48.1 kg (106 lb) LMP 08/31/2013 BMI 17.64 kg/m? Physical Exam Constitutional: Appearance: Normal appearance. She is normal weight. Genitourinary: Right Labia: No skin changes. Left Labia: No skin changes. Vaginal cuff intact. No vaginal discharge. No vaginal prolapse present. Severe vaginal atrophy present. Right Adnexa: absent. Left Adnexa: absent. Cervix is absent. Uterus is absent. Breasts: Right: Absent. Left: Absent. HENT: Head: Normocephalic. Nose: Nose normal. Pulmonary: Effort: Pulmonary effort is normal. Musculoskeletal: General: Normal range of motion. Cervical back: Normal range of motion. Neurological: Mental Status: She is alert. Skin: General: Skin is warm. Psychiatric: Mood and Affect: Mood normal. Behavior: Behavior normal. Thought Content: Thought content normal. Judgment: Judgment normal. Vitals and nursing note reviewed. Recent labs/Diagnostic studies: I have thoroughly reviewed this patients previous notes, encounters, labs, and results prior to this visit. Assessment and Plan Encounter Diagnosis ICD-10-CM 1. Encounter for gynecological examination (general) (routine) without abnormal findings Z01.419 1) Cervical cancer screening: not indicated. Screening complete, patient is over 65 and/or had a total hysterectomy. 2) Mammogram bilateral mastectomy. Followed by ONC 3) Nutrition, exercise and routine health maintenance exams reviewed. Body mass index is 17.64 kg/m?. 4) Dietary calcium/Vitamin D3 supplementation information provided. 5) Follow up two years or sooner as needed SIGNATURE: Sera Pa APRN.[facility] PAGER: [phone] CC: Carolina Peterson MD via EMR [facility] 01-11-2024 History of Present illness Narrative Images from the original note were not included. [facility] [place] [facility] Benign Gynecology [facility] PATIENT NAME: Daria Osborne PCP: Carolina Peterson MD DATE: 01/11/2024 Chief Complaint CC: Annual MATE RELIEF exam History of Present Illness: Daria is a 73 year old who presents for her annual gynecologic exam. Patient also would like to discuss the following concerns: Breast cancer x 2. Bilateral mastectomy. Sees ONC. Denies vaginal itching, irritation, discharge or odor. Hot flashes: No Night sweats: No Vaginal dryness: No Mood swings: No Insomnia: No Postmenopausal bleeding: No HRT use: none PAP HISTORY: Immunocompromised? No Last Pap: 11/26/2012, normal HPV: 11/19/2012, negative History of abnormal pap: No Sexually active: Yes OB History T1 L1 SAB0 IAB0 Ectopic0 Multiple0 Live Births1 Comment: Menarche age 11 AFB 26 Pt did not breast feed Pt did use BC Pt denies use of HRTs Menopause 54 or [address] History LMP: 08/31/2013, Hysterectomy Age at Menarche: Age at First : Age at Menopause: Right Of Way Cle[employer] History Comments: Sexual Activity: Yes; Male Contraception: Vasectomy Family history of breast/ovarian/uterine/colon cancer? Yes Past Surgical History: PAST SURGICAL HISTORY Procedure Laterality Date CURETTAGE 1978 Curettage, post delivery CURETTAGE DILATION & CURETTAGE DX&/THER NONOBSTETRIC 07/01/2013 [facility] EXCISION PILONIDAL CYST/SINUS SIMPLE LAPROSCOPIC REPAIR UMBILICAL HERNIA MASTECTOMY, SIMPLE, COMPLETE Left 01/06/2013 left breast with SLND ([place]) MASTECTOMY, SIMPLE, COMPLETE 10/2017 right PAST SURGICAL HISTORY OF pilonidal cyst PAST SURGICAL HISTORY OF abdominal hernia PAST SURGICAL HISTORY OF breast cyst removed PAST SURGICAL HISTORY OF wisdom teeth PAST SURGICAL HISTORY OF N/A 07/2020 removal of skin tags PORTOCATH PLACEMENT 2017 PORTOCATH PLACEMENT 12/18/2017 port placement [place] NOHEMI W/WO REMOVAL TUBE OVARY 08/2013 w/ BSO TONSILLECTOMY & ADENOIDECTOMY <AGE 12 Medications: Current Outpatient Medications Medication Sig EPINEPHrine (EPIPEN) 0.3 mg/0.3 mL auto-injector Use as directed for reaction to food allergen Cholecalciferol, Vitamin D3, 1,000 unit cap Take 1 capsule by mouth once daily. THERAPEUTIC MULTIVITAMIN TAB Take 1 tablet by mouth once daily. No current facility-administered medications for this visit. Medications reviewed in detail and updated PRN. Yes Physical Exam: BP 116/68 Ht 165.1 cm (5' 5 ) Wt 48.1 kg (106 lb) LMP 08/31/2013 BMI 17.64 kg/m Physical Exam Constitutional: Appearance: Normal appearance. She is normal weight. Genitourinary: Right Labia: No skin changes. Left Labia: No skin changes. Vaginal cuff intact. No vaginal discharge. No vaginal prolapse present. Severe vaginal atrophy present. Right Adnexa: absent. Left Adnexa: absent. Cervix is absent. Uterus is absent. Breasts: Right: Absent. Left: Absent. HENT: Head: Normocephalic. Nose: Nose normal. Pulmonary: Effort: Pulmonary effort is normal. Musculoskeletal: General: Normal range of motion. Cervical back: Normal range of motion. Neurological: Mental Status: She is alert. Skin: General: Skin is warm. Psychiatric: Mood and Affect: Mood normal. Behavior: Behavior normal. Thought Content: Thought content normal. Judgment: Judgment normal. Vitals and nursing note reviewed. Recent labs/Diagnostic studies: I have thoroughly reviewed this patients previous notes, encounters, labs, and results prior to this visit. Assessment and Plan Encounter Diagnosis ICD-10-CM 1. Encounter for gynecological examination (general) (routine) without abnormal findings Z01.419 1) Cervical cancer screening: not indicated. Screening complete, patient is over 65 and/or had a total hysterectomy. 2) Mammogram bilateral mastectomy. Followed by ONC 3) Nutrition, exercise and routine health maintenance exams reviewed. Body mass index is 17.64 kg/m . 4) Dietary calcium/Vitamin D3 supplementation information provided. 5) Follow up two years or sooner as needed SIGNATURE: Sera Pa APRN.CNP PAGER: [phone] CC: Carolina Peterson MD via EMR documented in this encounter [facility] 01-01-2024 Note HNO ID: [id number] Author: JADE AGUDELO APRN.CNP Service: ? Author Type: Nurse Practitioner Type: Progress Notes Filed: 01/01/2024 12:25 Note Text: Chief Complaint Patient presents with: Established Patient HPI: Daria Osborne is a 73 year old female who presents here today for follow up breast cancer. Per Dr. Altamirano's previous note: H/o found to have a suspicious mass in the left breast on a routine gynecologic exam 11/03/2012. Underwent a diagnostic mammogram on 11/25/2012 which demonstrated a lobulated mass associated with a few microcalcifications in the retroareolar region. An US was also performed which revealed a 1.8 cm mass at 12 o'clock. On 12/02, a US guided core biopsy was performed with pathology demonstrating moderate to poorly differentiated IDC with a focus of DCIS, ER/WY (+), Her2 equivocal. She subsequently underwent an MRI on 12/16 which revealed the known left breast cancer and a 0.5 cm enhancing lesion in the lower sternum for which a bone scan was recommended. The bone scan did not show any areas concerning formalignancy. Ultimately underwent left mastectomy with SLN biopsy 01/06/13. Final pathology revealed: FINAL DIAGNOSIS A. LEFT SENTINEL LYMPH NODE, EXCISION: TWO LYMPH NODES NEGATIVE FOR MALIGNANCY (0/2). B. LEFT BREAST 58 GRAMS, EXCISION: INVASIVE MODERATELY DIFFERENTIATED DUCTAL CARCINOMA DUCTAL CARCINOMA IN SITU, CRIBRIFORM AND COMEDONECROSIS TYPES SKIN - SEBORRHEIC KERATOSIS SP/mz 01/08/2013 COMMENT B. BREAST (INVASIVE CARCINOMA) SYNOPTIC REPORT PROCEDURE: - Simple mastectomy LYMPH NODE SAMPLING: - [place] lymph nodes SPECIMEN LATERALITY: - Left HISTOLOGIC TYPE OF INVASIVE CARCINOMA: - Invasive ductal carcinoma (no special type or not otherwise specified) TUMOR SIZE (SIZE OF LARGEST INVASIVE CARCINOMA): - Size of largest invasive carcinoma - - Greatest dimension of largest focus invasion over 1 mm: 1.3 cm VIELKA HISTOLOGIC GRADE: - Glandular (acinar)/Tubular differentiation: Score 2 - Nuclear pleomorphism: Score 2 - Mitotic rate: Score 2 - Overall grade: Grade 2 TUMOR FOCALITY: - Single focus of invasive carcinoma DUCTAL CARCINOMA IN SITU (DCIS): - DCIS is present MACROSCOPIC/MICROSCOPIC EXTENT OF TUMOR: - Skin: No invasive carcinoma - Nipple: No invasive carcinoma - Skeletal Muscle: Not identified MARGINS: - Invasive carcinoma MARGINS: - - Distance of DCIS from closest margin: 3.0 mm (deep) DCIS: - Margins uninvolved by DCIS Distance from closest margin: 4.0 mm (deep) LYMPH NODES: - Number of sentinel lymph nodes examined: 2 - Total number of lymph nodes examined (sentinel and non-sentinel): 2 - - Number of lymph nodes with macrometastasis (greater than 2 mm): 0 - - Number of lymph nodes with micrometastasis (greater than 0.2 mm to 2 mm and/or greater than 200 cells): 0 - - Number of lymph nodes with isolated tumor cells (less than or equal to 0.2 mm and less than or equal to 200 cells: 0 - - Number of lymph nodes without tumor cells identified: 2 PATHOLOGIC STAGING: pT1c p(sn)0 pMX Procedure Results and Interpretation ER/PgR/HER2(ERBB2) FISH Estrogen Receptor: Positive (90%) Stain Intensity: Strong Progesterone Receptor: Positive (90%) Stain Intensity: Strong HER2(ERBB2) by FISH: Not amplified HER2(ERBB2)/Wynohexqoz97 ratio 1.1 Tissue analyzed: Invasive carcinoma Block Number: [id number] Control slides: Known positive control tissue (external control) is evaluated in concert with the patient's tissue for ER and PgR expression. A separate slide of the patient's tissue is similarly processed without antibody (negative control); slides were reviewed and showed appropriate staining. Internal control (normal breast epithelial elements) were present and were appropriately positive. Antibody and Detection System: Estrogen receptor (rabbit monoclonal clone SP1), progesterone receptor (rabbit monoclonal clone 1E2); both [place], [place], [place]. Detected with the [employer] iView Detection System (indirect biotin streptavidin detection); [employer], [place], [place]. Estrogen/Progesterone Interpretation: Positive: Greater than or equal to 1% of tumor nuclei stain Negative: Less than 1% of tumor nuclei stain These tests were performed and reported according to Guidelines for IHC testing of Estrogen and Progesterone Receptors in Breast Cancer, Arch Pathol Lab Med 2010; 134: E1-E16. Estrogen and progesterone results are valid if tissue was processed according to ASCO/CAP guidelines. HER2(ERBB2) Gene Amplification: NOT AMPLIFIED HER2(ERBB2) Gene Amplification was evaluated on paraffin-embedded block [id number] by interphase fluorescence in situ hybridization (FISH), using a dual label probe set for the HER2(ERBB2) locus and the centromeric region of chromosome 17 (PathVysion; [employer], [place]). The Molecular Genetic Pathology Laboratory of the [facility] has (more content not included)... [facility] 01-01-2024 History of Present illness Narrative Chief Complaint Patient presents with: Established Patient HPI: Daria Osborne is a 73 year old female who presents here today for follow up breast cancer. Per Dr. Altamirano's previous note: H/o found to have a suspicious mass in the left breast on a routine gynecologic exam 11/03/2012. Underwent a diagnostic mammogram on 11/25/2012 which demonstrated a lobulated mass associated with a few microcalcifications in the retroareolar region. An US was also performed which revealed a 1.8 cm mass at 12 o'clock. On 12/02, a US guided core biopsy was performed with pathology demonstrating moderate to poorly differentiated IDC with a focus of DCIS, ER/WY (+), Her2 equivocal. She subsequently underwent an MRI on 12/16 which revealed the known left breast cancer and a 0.5 cm enhancing lesion in the lower sternum for which a bone scan was recommended. The bone scan did not show any areas concerning for malignancy. Ultimately underwent left mastectomy with SLN biopsy 01/06/13. Final pathology revealed: FINAL DIAGNOSIS A. LEFT SENTINEL LYMPH NODE, EXCISION: TWO LYMPH NODES NEGATIVE FOR MALIGNANCY (0/2). B. LEFT BREAST 58 GRAMS, EXCISION: INVASIVE MODERATELY DIFFERENTIATED DUCTAL CARCINOMA DUCTAL CARCINOMA IN SITU, CRIBRIFORM AND COMEDONECROSIS TYPES SKIN - SEBORRHEIC KERATOSIS SP/mz 01/08/2013 COMMENT B. BREAST (INVASIVE CARCINOMA) SYNOPTIC REPORT PROCEDURE: - Simple mastectomy LYMPH NODE SAMPLING: - [place] lymph nodes SPECIMEN LATERALITY: - Left HISTOLOGIC TYPE OF INVASIVE CARCINOMA: - Invasive ductal carcinoma (no special type or not otherwise specified) TUMOR SIZE (SIZE OF LARGEST INVASIVE CARCINOMA): - Size of largest invasive carcinoma - - Greatest dimension of largest focus invasion over 1 mm: 1.3 cm VIELKA HISTOLOGIC GRADE: - Glandular (acinar)/Tubular differentiation: Score 2 - Nuclear pleomorphism: Score 2 - Mitotic rate: Score 2 - Overall grade: Grade 2 TUMOR FOCALITY: - Single focus of invasive carcinoma DUCTAL CARCINOMA IN SITU (DCIS): - DCIS is present MACROSCOPIC/MICROSCOPIC EXTENT OF TUMOR: - Skin: No invasive carcinoma - Nipple: No invasive carcinoma - Skeletal Muscle: Not identified MARGINS: - Invasive carcinoma MARGINS: - - Distance of DCIS from closest margin: 3.0 mm (deep) DCIS: - Margins uninvolved by DCIS Distance from closest margin: 4.0 mm (deep) LYMPH NODES: - Number of sentinel lymph nodes examined: 2 - Total number of lymph nodes examined (sentinel and non-sentinel): 2 - - Number of lymph nodes with macrometastasis (greater than 2 mm): 0 - - Number of lymph nodes with micrometastasis (greater than 0.2 mm to 2 mm and/or greater than 200 cells): 0 - - Number of lymph nodes with isolated tumor cells (less than or equal to 0.2 mm and less than or equal to 200 cells: 0 - - Number of lymph nodes without tumor cells identified: 2 PATHOLOGIC STAGING: pT1c p(sn)0 pMX Procedure Results and Interpretation ER/PgR/HER2(ERBB2) FISH Estrogen Receptor: Positive (90%) Stain Intensity: Strong Progesterone Receptor: Positive (90%) Stain Intensity: Strong HER2(ERBB2) by FISH: Not amplified HER2(ERBB2)/Dfzyiecann23 ratio 1.1 Tissue analyzed: Invasive carcinoma Block Number: [id number] Control slides: Known positive control tissue (external control) is evaluated in concert with the patient's tissue for ER and PgR expression. A separate slide of the patient's tissue is similarly processed without antibody (negative control); slides were reviewed and showed appropriate staining. Internal control (normal breast epithelial elements) were present and were appropriately positive. Antibody and Detection System: Estrogen receptor (rabbit monoclonal clone SP1), progesterone receptor (rabbit monoclonal clone 1E2); both [place], [place], [place]. Detected with the [employer] iView Detection System (indirect biotin streptavidin detection); [place], [place], [place]. Estrogen/Progesterone Interpretation: Positive: Greater than or equal to 1% of tumor nuclei stain Negative: Less than 1% of tumor nuclei stain These tests were performed and reported according to Guidelines for IHC testing of Estrogen and Progesterone Receptors in Breast Cancer, Arch Pathol Lab Med 2010; 134: E1-E16. Estrogen and progesterone results are valid if tissue was processed according to ASCO/CAP guidelines. HER2(ERBB2) Gene Amplification: NOT AMPLIFIED HER2(ERBB2) Gene Amplification was evaluated on paraffin-embedded block [id number] by interphase fluorescence in situ hybridization (FISH), using a dual label probe set for the HER2(ERBB2) locus and the centromeric region of chromosome 17 (PathVysion; [employer], [place]). The Molecular Genetic Pathology Laboratory of the [facility] has validated modifications of the PathVysion kit used for the testing including the use of Target Retrieval Solution and proteinase K ([employer]; [place]) for cell conditioning, and modified probe/target denaturation and hybridization conditions for the assay. When necessary, a test with a probe for the [id number] locus (laboratory developed), and using a similar protocol is also performed. The in situ hybridization analysis was performed for and correlated with preselected areas of invasive carcinoma. Result: HER2(ERBB2) gene amplification is absent; the average copy number is 1.9. The HER2(ERBB2)/Chromosome 17 ratio is 1.1 (reference range is 0.8 - 1.7). Had Oncotype testing done. Low risk. Didn't want to go on AI therapy due to concerns of ONJ (has h/o TMJ). Started tamoxifen. Underwent hysterectomy with BSO. Path: Uterus, cervix, bilateral fallopian tubes and ovaries, excision: Endometrium - Benign inactive endometrium. Myometrium - Adenomyosis and adenomyomas. Bilateral ovaries - No significant pathologic findings Had been on tamoxifen. Appreciated mass in right breast. Ultrasound-guided core needle biopsy performed on 10/18/2017 demonstrated invasive carcinoma with mixed ductal and lobular features, nuclear grade 2. Estrogen receptors stained with strong intensity at 95% and progesterone receptors were negative with 0% staining. HER-2 1+ on immunohistochemistry. MRI of the breast done on 10/23/2017 revealed a 7 mm mass in the upper outer quadrant of the right breast correlating with the biopsy-proven malignancy at 11:00 position 5 cm from the nipple. Left chest demonstrated postsurgical findings of left mastectomy with no MRI findings to suggest local recurrence. Mastectomy with SLN 11/09/2017. Pathology: 1. Right axillary sentinel lymph node, sentinel node biopsy (A) - One lymph node, negative for malignancy (0/1) 2. Right breast, mastectomy (B) - Invasive mammary carcinoma with mixed ductal and lobular features, Wilmot grade 1, measuring 0.6 cm in greatest dimension (please see synoptic report) - Atypical lobular hyperplasia - Skin with seborrheic keratoses - Biopsy clip and biopsy site reparative changes identified SYNOPTIC REPORT OF KUMAR PATHOLOGIC FINDINGS RIGHT BREAST: BREAST INVASIVE CARCINOMA WORKSHEET Part: A and B Procedure: Total mastectomy (including nipple-sparing and skin-sparing mastectomy) Specimen Laterality: Right Tumor size: Size of largest invasive carcinoma: Greatest dimension of largest focus of invasion >1 mm: 6 mm Tumor Focality: Single focus of invasive carcinoma Histologic Type of Invasive Carcinoma: Invasive carcinoma with ductal and lobular features (mixed type carcinoma) Histologic Grade: Glandular (Acinar) / Tubular Differentiation: Score 3 Nuclear Pleomorphism: Score 1 Mitotic Rate: Score 1 (<=3 mitosis per mm2) Overall Grade: Grade I Ductal Carcinoma In Situ: No DCIS is present in specimen Tumor Extension: Skin: Uninvolved Nipple: Uninvolved Skeletal muscle: Not applicable Invasive Carcinoma Margins: Margins uninvolved by invasive carcinoma Distance from closest margin: 2 mm Closest margin: Radial DCIS Margins: No DCIS in specimen Lymph Nodes: Number of lymph nodes with macrometastases (>2 mm): 0 Number of lymph nodes with micrometastases (>0.2 mm to 2 mm and/or >200 cells): 0 Number of lymph nodes with isolated tumor cells (<= 0.2 mm and <= 200 cells): 0 Number of lymph nodes examined: 1 Number of sentinel lymph nodes examined (required only if sentinel nodes are present): 1 Treatment Effect: No known presurgical therapy Lymph-Vascular Invasion: Not identified Pathologic Stage Classification (pTNM,AJCC 8th ed) TNM Descriptor(s): Not applicable Primary Tumor (Invasive Carcinoma) (pT): pT1b Regional Lymph Nodes (pN): Modifier: (sn): [place] node(s) evaluated Category (pN): pN0 Distant metastasis: Distant Metastasis (pM) Not applicable/Not confirmed pathologically in this case Previous therapy: 1) TC x1. 2) Adjuvant anastrozole. Completed 5 years of therapy December 2022. No new concerns today. Pt. here today with her spouse. Appetite: Great. Energy level: Good. URI in September-recovered on her own at home. Resp:denies cough or sob Cardiac:denies chest pain/palpitations GI:denies abd pain, n/v, moving bowels regularly :denies dysuria/hematuria Extrem:denies pain Endo:denies hot flashes Neuro:denies symptoms of neuropathy Skin:denies rashes Heme:denies bleeding The ROS is otherwise negative. Past medical history, appointments, medications, allergies reviewed. No changes. EXAM: BP 122/84 Pulse 74 Temp 36.3 C (97.3 F) (Temporal) Ht 165.1 cm (5' 5 ) Wt 48.5 kg (106 lb 14.4 oz) LMP 08/31/2013 SpO2 97% BMI 17.79 kg/m APPEARANCE Well appearing, alert, in no acute distress, well-hydrated, well nourished. HEART RRR with normal S1 and S2, no murmurs LUNG clear to auscultation BREAST FEMALE b/l mastectomy scars, no nodule LYMPH NODES No cervical lymphadenopathy, No supraclavicular lymphadenopathy, and No axillary lymphadenopathy. ABDOMEN bowel sounds normoactive, soft, non-tender EXTREMITIES No edema NEURO Awake, alert and oriented x 3, Normal gait, and No involuntary motions. SKIN Skin color, texture, turgor normal, no suspicious rashes or lesions ASSESSMENT/PLAN: 1. Personal history of breast cancer - ICD9: V10.3, ICD10: Z85.[address] 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 -Oncotype recurrence score 28 (intermediate risk) suggested 10 year risk of distant recurrence at 18% with the use of tamoxifen alone. -Tolerated anastrozole overall well. Completed 5 years of therapy. -H/O osteoporosis. On vit D supplement with no other treatment for osteoporosis. -We reviewed her CT scan of the neck in detail. The small lump is a protrusion of the supraspinatus ligament. Gave her reassurance. Plan: -OV in 6 months. -Continue follow-up with endocrinology for management of osteoporosis. - No concerning findings on exam. - Completed 5 years of AI therapy. - Continue follow up with PCP for routine care. - Follow up in 6 months. - Pt. aware to call office with any questions/concerns. The patient indicates understanding of these issues and agrees with the plan. All documentation from previous visit of 07/03/23-Dr. Altamirano was copied and pasted, documentation has been reviewed and edited as necessary for today's visit. Jade Agudelo APRN.REUBEN documented in this encounter [facility] 10-05-2023 Note HNO ID: [id number] Author: Carolina Peterson MD Service: ? Author Type: Physician Type: Progress Notes Filed: 10/05/2023 12:50 PM Note Text: This note was created using Beetailerriter. Subjective Daria Osborne is a 72 year old female. Patient presents with: F/U 6 months: Labs prior SUBJECTIVE: Daria Osborne is a 72 year old year old lady here today for 6 month follow up appointment for review of medical conditions. Doing well. Noted had reaction to Pneumovax in 2019--stiffened up, etc. Declines RSV vaccine. Issues with postnasal drip and runny nose and congestion worse this time of year. Mucus gets hard inside nose Nasal saline effective. No pain in sinuses. Walking 1 mile at least at least 5 days a week. PAST MEDICAL HISTORY Diagnosis Date Anemia, unspecified Benign neoplasm of skin of trunk, except scrotum 01/12/2009 Benign neoplasm of skin of upper limb, including shoulder 08/26/2005 Breast cancer (HCC) 11/2012 left Dense breasts 07/16/2017 Difficult airway for intubation Disorder of bone and cartilage, unspecified History of bilateral breast cancer 04/21/2018 left them right; s/p bilateral mastectomy Incisional hernia of anterior abdominal wall without obstruction or gangrene 04/22/2017 just above and to the right of umbilicus; 02/10/[address] Shepherd reviewed; stable findings of slight bulge seen best while patient standing Irritable bowel syndrome Malignant neoplasm of upper-outer quadrant of right breast, estrogen receptor positive (HCC) Osteoporosis, unspecified progression to osteoporosis noted on 2007 bone density Postmenopausal bleeding Postmenop. bleeding Postoperative thrombophlebitis 09/20/2013 Temporomandibular joint disorders, unspecified TMJ (dislocation of temporomandibular joint) 10/20/2015 Transfusion history after childbirth Unspecified vitamin D deficiency Current Outpatient Medications Medication Sig EPINEPHrine (EPIPEN) 0.3 mg/0.3 mL auto-injector Use as directed for reaction to food allergen Cholecalciferol, Vitamin D3, 1,000 unit cap Take 1 capsule by mouth once daily. THERAPEUTIC MULTIVITAMIN TAB Take 1 tablet by mouth once daily. No current facility-administered medications for this visit. OBJECTIVE: Review of Systems Objective BP 110/62 Pulse 84 Temp 36.8 ?C (98.3 ?F) Resp 18 Wt 47.2 kg (104 lb) LMP 08/31/2013 SpO2 99% BMI 17.85 kg/m? Last 5 Encounter Wt Readings: Date: Wt: 10/05/2023 47.2 kg (104 lb) 07/03/2023 47.4 kg (104 lb 8 oz) 06/22/2023 47.7 kg (105 lb 3.2 oz) 06/11/2023 46.5 kg (102 lb 8 oz) 05/25/2023 46.7 kg (103 lb) No waist measurement recorded Estimated body mass index is 17.85 kg/m? as calculated from the following: Height as of 06/22/23: 162.6 cm (5' 4 ). Weight as of this encounter: 47.2 kg (104 lb). Last 5 Encounter BP Readings: Date: BP: 10/05/2023 110/62 07/03/2023 102/64 06/22/2023 112/74 06/11/2023 102/70 05/25/2023 96/59 Physical Exam Constitutional: Appearance: Normal appearance. HENT: Head: Normocephalic. Eyes: Conjunctiva/sclera: Conjunctivae normal. Cardiovascular: Rate and Rhythm: Normal rate and regular rhythm. Heart sounds: Normal heart sounds. Pulmonary: Effort: Pulmonary effort is normal. Breath sounds: Normal breath sounds. Musculoskeletal: Right lower leg: No edema. Left lower leg: No edema. Skin: General: Skin is warm and dry. Neurological: General: No focal deficit present. Mental Status: She is alert and oriented to person, place, and time. Psychiatric: Mood and Affect: Mood normal. Behavior: Behavior normal. Thought Content: Thought content normal. Judgment: Judgment normal. Component Latest Ref Rng AND Units 09/28/2022 03/24/2023 10/01/2023 Protein, Total 6.3 - 8.0 g/dL 7.3 7.3 7.6 Albumin 3.9 - 4.9 g/dL 4.5 4.5 4.7 Calcium 8.5 - 10.2 mg/dL 9.4 9.7 9.9 Bilirubin, Total 0.2 - 1.3 mg/dL 0.6 0.5 0.6 Alkaline Phosphatase 34 - 123 U/L 46 49 53 AST 13 - 35 U/L 23 31 26 ALT 7 - 38 U/L 16 18 18 Glucose 74 - 99 mg/dL 114 (H) 100 (H) 109 (H) BUN 7 - 21 mg/dL 11 10 10 Creatinine 0.58 - 0.96 mg/dL 0.66 0.53 (L) 0.63 Sodium 136 - 144 mmol/L 136 138 140 Potassium 3.7 - 5.1 mmol/L 4.0 4.7 4.0 Chloride 97 - 105 mmol/L 100 102 101 CO2 22 - 30 mmol/L 26 22 26 Anion Gap 9 - 18 mmol/L 10 14 13 eGFR >=60 mL/min/1.73mA? 94 98 94 WBC 3.70 - 11.00 k/uL 4.68 4.76 5.24 RBC 3.90 - 5.20 m/uL 4.57 4.78 4.90 Hemoglobin 11.5 - 15.5 g/dL 14.1 14.8 14.9 Hematocrit 36.0 - 46.0 % 42.7 46.4 (H) 46.3 (H) MCV 80.0 - 100.0 fL 93.4 97.1 94.5 MCH 26.0 - 34.0 pg 30.9 31.0 30.4 MCHC 30.5 - 36.0 g/dL 33.0 31.9 32.2 RDW-CV 11.5 - 15.0 % 12.7 12.8 12.6 Platelet Count 150 - 400 k/uL 222 229 245 MPV 9.0 - 12.7 fL 9.6 10.3 10.2 Absolute nRBC <0.01 k/uL <0.01 <0.01 <0.01 Cholesterol, Total <200 mg/dL 202 (H) Triglyceride <150 mg/dL 53 HDL Cholesterol >39 mg/dL 96 Non HDL Cholesterol <130 mg/dL (more content not included)... [facility] 10-05-2023 History of Present illness Narrative This note was created using NoteWriter. Subjective Daria Osborne is a 72 year old female. Patient presents with: F/U 6 months: Labs prior SUBJECTIVE: Daria Osborne is a 72 year old year old lady here today for 6 month follow up appointment for review of medical conditions. Doing well. Noted had reaction to Pneumovax in 2019--stiffened up, etc. Declines RSV vaccine. Issues with postnasal drip and runny nose and congestion worse this time of year. Mucus gets hard inside nose Nasal saline effective. No pain in sinuses. Walking 1 mile at least at least 5 days a week. PAST MEDICAL HISTORY Diagnosis Date Anemia, unspecified Benign neoplasm of skin of trunk, except scrotum 01/12/2009 Benign neoplasm of skin of upper limb, including shoulder 08/26/2005 Breast cancer (HCC) 11/2012 left Dense breasts 07/16/2017 Difficult airway for intubation Disorder of bone and cartilage, unspecified History of bilateral breast cancer 04/21/2018 left them right; s/p bilateral mastectomy Incisional hernia of anterior abdominal wall without obstruction or gangrene 04/22/2017 just above and to the right of umbilicus; 02/10/[address] Shepherd reviewed; stable findings of slight bulge seen best while patient standing Irritable bowel syndrome Malignant neoplasm of upper-outer quadrant of right breast, estrogen receptor positive (HCC) Osteoporosis, unspecified progression to osteoporosis noted on 2007 bone density Postmenopausal bleeding Postmenop. bleeding Postoperative thrombophlebitis 09/20/2013 Temporomandibular joint disorders, unspecified TMJ (dislocation of temporomandibular joint) 10/20/2015 Transfusion history after childbirth Unspecified vitamin D deficiency Current Outpatient Medications Medication Sig EPINEPHrine (EPIPEN) 0.3 mg/0.3 mL auto-injector Use as directed for reaction to food allergen Cholecalciferol, Vitamin D3, 1,000 unit cap Take 1 capsule by mouth once daily. THERAPEUTIC MULTIVITAMIN TAB Take 1 tablet by mouth once daily. No current facility-administered medications for this visit. OBJECTIVE: Review of Systems Objective BP 110/62 Pulse 84 Temp 36.8 C (98.3 F) Resp 18 Wt 47.2 kg (104 lb) LMP 08/31/2013 SpO2 99% BMI 17.85 kg/m Last 5 Encounter Wt Readings: Date: Wt: 10/05/2023 47.2 kg (104 lb) 07/03/2023 47.4 kg (104 lb 8 oz) 06/22/2023 47.7 kg (105 lb 3.2 oz) 06/11/2023 46.5 kg (102 lb 8 oz) 05/25/2023 46.7 kg (103 lb) No waist measurement recorded Estimated body mass index is 17.85 kg/m as calculated from the following: Height as of 06/22/23: 162.6 cm (5' 4 ). Weight as of this encounter: 47.2 kg (104 lb). Last 5 Encounter BP Readings: Date: BP: 10/05/2023 110/62 07/03/2023 102/64 06/22/2023 112/74 06/11/2023 102/70 05/25/2023 96/59 Physical Exam Constitutional: Appearance: Normal appearance. HENT: Head: Normocephalic. Eyes: Conjunctiva/sclera: Conjunctivae normal. Cardiovascular: Rate and Rhythm: Normal rate and regular rhythm. Heart sounds: Normal heart sounds. Pulmonary: Effort: Pulmonary effort is normal. Breath sounds: Normal breath sounds. Musculoskeletal: Right lower leg: No edema. Left lower leg: No edema. Skin: General: Skin is warm and dry. Neurological: General: No focal deficit present. Mental Status: She is alert and oriented to person, place, and time. Psychiatric: Mood and Affect: Mood normal. Behavior: Behavior normal. Thought Content: Thought content normal. Judgment: Judgment normal. Component Latest Ref Rng & Units 09/28/2022 03/24/2023 10/01/2023 Protein, Total 6.3 - 8.0 g/dL 7.3 7.3 7.6 Albumin 3.9 - 4.9 g/dL 4.5 4.5 4.7 Calcium 8.5 - 10.2 mg/dL 9.4 9.7 9.9 Bilirubin, Total 0.2 - 1.3 mg/dL 0.6 0.5 0.6 Alkaline Phosphatase 34 - 123 U/L 46 49 53 AST 13 - 35 U/L 23 31 26 ALT 7 - 38 U/L 16 18 18 Glucose 74 - 99 mg/dL 114 (H) 100 (H) 109 (H) BUN 7 - 21 mg/dL 11 10 10 Creatinine 0.58 - 0.96 mg/dL 0.66 0.53 (L) 0.63 Sodium 136 - 144 mmol/L 136 138 140 Potassium 3.7 - 5.1 mmol/L 4.0 4.7 4.0 Chloride 97 - 105 mmol/L 100 102 101 CO2 22 - 30 mmol/L 26 22 26 Anion Gap 9 - 18 mmol/L 10 14 13 eGFR >=60 mL/min/1.73m 94 98 94 WBC 3.70 - 11.00 k/uL 4.68 4.76 5.24 RBC 3.90 - 5.20 m/uL 4.57 4.78 4.90 Hemoglobin 11.5 - 15.5 g/dL 14.1 14.8 14.9 Hematocrit 36.0 - 46.0 % 42.7 46.4 (H) 46.3 (H) MCV 80.0 - 100.0 fL 93.4 97.1 94.5 MCH 26.0 - 34.0 pg 30.9 31.0 30.4 MCHC 30.5 - 36.0 g/dL 33.0 31.9 32.2 RDW-CV 11.5 - 15.0 % 12.7 12.8 12.6 Platelet Count 150 - 400 k/uL 222 229 245 MPV 9.0 - 12.7 fL 9.6 10.3 10.2 Absolute nRBC <0.01 k/uL <0.01 <0.01 <0.01 Cholesterol, Total <200 mg/dL 202 (H) Triglyceride <150 mg/dL 53 HDL Cholesterol >39 mg/dL 96 Non HDL Cholesterol <130 mg/dL 106 Fasting Time hrs 12 VLDL Cholesterol <30 mg/dL 11 TC:HDL Ratio <5.10 2.10 LDL Cholesterol <100 mg/dL 95 LDL:HDL Ratio <2.54 0.99 Hemoglobin A1C 4.3 - 5.6 % 5.8 (H) 5.5 5.6 Estimated Average Glucose mg/dL 120 111 114 Vitamin D 25 Hydroxy 31.0 - 80.0 ng/mL 52.4 64.6 65.5 Assessment and Plan Encounter Diagnosis ICD-10-CM 1. IFG (impaired fasting glucose) R73.01 Still just IFG, not DM. Staying active with regular aerobic exercise 2. Vitamin D deficiency E55.9 Well replaced. Stay on same dose of suppplement 3. Chronic rhinitis J31.0 Discussed management. Prefers to avoid nasal steroids. Nasal saline spray and gels ([place]) discussed. Could add Mucinex.Stays hydrated 4. Age-related osteoporosis without current pathological fracture M81.0 Working on weight bearing exercises. Bone density 09/2024 Above issues addressed with patient. Patient involved in shared decision making for management of medical issues. History and medications reviewed. Epic updated as needed Refills and/or prescriptions taken care of and meds adjusted as indicated after reviewed history, exam and labs. Health Maintenance reviewed. Updated record and/or ordered tests as recorded. Encouraged on efforts at healthy diet and regular exercise and adequate sleep. Continues to be active. Walking most days. Could do better with weight bearing exercises. Carolina Peterson MD documented in this encounter [facility] 08-24-2023 Note HNO ID: [id number] Author: Rosamaria Zurita DO Service: ? Author Type: Physician Type: Progress Notes Filed: 09/03/2023 8:49 AM Note Text: [facility] Department of Dermatology Chief Complaint: Full Body Skin Check Date of last visit to [facility] Dermatology: 12/05/[address] Rodriguez History of Present Illness: Daria Osborne is a 72 year old female Patient is here for:[facility] [place] # Lesion 1 Location: back Duration: intermediate Symptoms (growing, itching, bleeding, tender): itchy Current Treatments: n/a Past Treatments: n/a PERTINENT PAST DERMATOLOGIC HISTORY: -Personal History of Skin Cancer: No -Personal History of Atypical Moles: No -Personal History of Extensive Sun Exposure/Blistering Sunburns:Yes -History of tanning bed usage: No -Does patient use sunscreen Yes -Is the patient immunosuppressed: No FAMILY HISTORY: -Family History of Skin Cancer: No REVIEW OF SYSTEMS: Patient feels well and denies any recent fevers, chills, or night sweats. PHYSICAL EXAM: -General: well appearing, in no acute distress -Neurology: alert and oriented times three -Psychiatry: appropriate mood/affect Skin: Akbar phototype: l Skin exam performed of Face (including eyes, ears, lips), Scalp/hair, Neck, Chest, Abdomen, Back, Bilateral upper extremities, Hands/nails, Bilateral lower extremities, Feet/toenails, Buttocks/groin/genitalia, Lymph nodes Skin exam normal with the exception of: - Scattered reticulated light silveira macules in sun-exposed distribution c/w solar lentigines - Regular and symmetric brown macules and papules on the head, trunk and extremities c/w benign nevi - Scattered small jefferson red papules throughout c/w jefferson angioma - Few scattered brown stuck on papules and plaques on the head, trunk and extremities c/w seborrheic keratoses brown stuck on papule on erythematous base on the back x1 ASSESSMENT AND PLAN: Inflamed Seborrheic Keratoses -recommend cryotherapy today due to inflammation/symptoms Procedure Note Cryosurgery of benign lesion(s) Risks, benefits, alternatives, complications, and personnel required for cryosurgery reviewed with patient. Specifically, the risks of permanent scar, lightening or darkening of skin color, blister and recurrence of lesion were discussed. Pt verbalizes understanding and wishes to proceed. Cryosurgery performed with Liquid Nitrogen via cryostat spray gun to Inflamed Seborrheic Keratoses . 1 lesion(s) treated. Patient tolerated well. Post-op course explained and wound care instructions given. # Benign Neoplasms (lentigines, seborrheic keratoses, angiomas, benign melanocytic nevi) -discussed benign etiology, no treatment needed at this time # Photoaging of skin # Screening for skin cancer - Discussed signs of melanoma and non-melanoma skin cancer. -recommend at least every 12 month follow up for FBSE by Dermatology and routine self examination -advised daily sunscreen use (at least SPF30+, broad spectrum), large brimmed hat, protective clothing, and sun avoidance as often as possible -discussed to contact clinic immediately for evaluation if any new, changing, or symptomatic lesions arise Patient verbalizes understanding and agrees with treatment plan and will contact us with any further questions or concerns. Return to clinic 1 year FBSC or sooner for any change in/worsening of condition or if any new/changing/symptomatic lesions arise. Psychometrician Attestation: The documentation for this note was completed by Cameron Esposito MA acting as scribe for Rosamaria Zurita DO. August 24, 2023 2:05 PM. I agree with the Chief Complaint, ROS, and Past Histories independently gathered by the clinical nursing support worker and the remaining scribed note accurately describes my personal service to the patient. Rosamaria Zurita DO [facility] 07-19-2023 Miscellaneous Notes Okayed Patient has been identified by name and date of : Yes, Provider Dr. Peterson Date 07/19/23 Time 7:37 am Patient phones for refill(s): Requested Prescriptions Pending Prescriptions Disp Refills EPINEPHrine (EPIPEN) 0.3 mg/0.3 mL auto-injector 2 Each 1 Sig: Use as directed for reaction to food allergen Date of last office visit in primary care: 05/25/23 Last 2 Encounter Wt Readings: Date: Wt: 07/03/2023 47.4 kg (104 lb 8 oz) 06/22/2023 47.7 kg (105 lb 3.2 oz) Previous labs/tests for medication: Not applicable Thank you. Millie Diallo LPN documented in this encounter [facility] 07-03-2023 History of Present illness Narrative Diagnosis: 1) Breast cancer right breast. 2) H/O stage I breast cancer left breast. HPI: The patient is a 72 yo female who was found to have a suspicious mass in the left breast on a routine gynecologic exam 11/03/2012. Underwent a diagnostic mammogram on 11/25/2012 which demonstrated a lobulated mass associated with a few microcalcifications in the retroareolar region. An US was also performed which revealed a 1.8 cm mass at 12 o'clock. On 12/02, a US guided core biopsy was performed with pathology demonstrating moderate to poorly differentiated IDC with a focus of DCIS, ER/W[place] (+), Her2 equivocal. She subsequently underwent an MRI on 12/16 which revealed the known left breast cancer and a 0.5 cm enhancing lesion in the lower sternum for which a bone scan was recommended. The bone scan did not show any areas concerning for malignancy. Ultimately underwent left mastectomy with SLN biopsy 01/06/13. Final pathology revealed: FINAL DIAGNOSIS A. LEFT SENTINEL LYMPH NODE, EXCISION: TWO LYMPH NODES NEGATIVE FOR MALIGNANCY (0/2). B. LEFT BREAST 58 GRAMS, EXCISION: INVASIVE MODERATELY DIFFERENTIATED DUCTAL CARCINOMA DUCTAL CARCINOMA IN SITU, CRIBRIFORM AND COMEDONECROSIS TYPES SKIN - SEBORRHEIC KERATOSIS SP/mz 01/08/2013 COMMENT B. BREAST (INVASIVE CARCINOMA) SYNOPTIC REPORT PROCEDURE: - Simple mastectomy LYMPH NODE SAMPLING: - [place] lymph nodes SPECIMEN LATERALITY: - Left HISTOLOGIC TYPE OF INVASIVE CARCINOMA: - Invasive ductal carcinoma (no special type or not otherwise specified) TUMOR SIZE (SIZE OF LARGEST INVASIVE CARCINOMA): - Size of largest invasive carcinoma - - Greatest dimension of largest focus invasion over 1 mm: 1.3 cm VIELKA HISTOLOGIC GRADE: - Glandular (acinar)/Tubular differentiation: Score 2 - Nuclear pleomorphism: Score 2 - Mitotic rate: Score 2 - Overall grade: Grade 2 TUMOR FOCALITY: - Single focus of invasive carcinoma DUCTAL CARCINOMA IN SITU (DCIS): - DCIS is present MACROSCOPIC/MICROSCOPIC EXTENT OF TUMOR: - Skin: No invasive carcinoma - Nipple: No invasive carcinoma - Skeletal Muscle: Not identified MARGINS: - Invasive carcinoma MARGINS: - - Distance of DCIS from closest margin: 3.0 mm (deep) DCIS: - Margins uninvolved by DCIS Distance from closest margin: 4.0 mm (deep) LYMPH NODES: - Number of sentinel lymph nodes examined: 2 - Total number of lymph nodes examined (sentinel and non-sentinel): 2 - - Number of lymph nodes with macrometastasis (greater than 2 mm): 0 - - Number of lymph nodes with micrometastasis (greater than 0.2 mm to 2 mm and/or greater than 200 cells): 0 - - Number of lymph nodes with isolated tumor cells (less than or equal to 0.2 mm and less than or equal to 200 cells: 0 - - Number of lymph nodes without tumor cells identified: 2 PATHOLOGIC STAGING: pT1c p(sn)0 pMX Procedure Results and Interpretation ER/PgR/HER2(ERBB2) FISH Estrogen Receptor: Positive (90%) Stain Intensity: Strong Progesterone Receptor: Positive (90%) Stain Intensity: Strong HER2(ERBB2) by FISH: Not amplified HER2(ERBB2)/[id number] ratio 1.1 Tissue analyzed: Invasive carcinoma Block Number: [id number] Control slides: Known positive control tissue (external control) is evaluated in concert with the patient's tissue for ER and PgR expression. A separate slide of the patient's tissue is similarly processed without antibody (negative control); slides were reviewed and showed appropriate staining. Internal control (normal breast epithelial elements) were present and were appropriately positive. Antibody and Detection System: Estrogen receptor (rabbit monoclonal clone SP1), progesterone receptor (rabbit monoclonal clone [id number]); both [place], [place], [place]. Detected with the [place] iView Detection System (indirect biotin streptavidin detection); [employer], [place], [place]. Estrogen/Progesterone Interpretation: Positive: Greater than or equal to 1% of tumor nuclei stain Negative: Less than 1% of tumor nuclei stain These tests were performed and reported according to Guidelines for IHC testing of Estrogen and Progesterone Receptors in Breast Cancer, Arch Pathol Lab Med 2010; 134: E1-E16. Estrogen and progesterone results are valid if tissue was processed according to ASCO/CAP guidelines. HER2(ERBB2) Gene Amplification: NOT AMPLIFIED HER2(ERBB2) Gene Amplification was evaluated on paraffin-embedded block [id number] B5 by interphase fluorescence in situ hybridization (FISH), using a dual label probe set for the HER2(ERBB2) locus and the centromeric region of chromosome 17 (PathShopExion; [employer], [place]). The Molecular Genetic Pathology Laboratory of the [facility] has validated modifications of the PathVysion kit used for the testing including the use of Target Retrieval Solution and proteinase K ([employer]ako; [place]) for cell conditioning, and modified probe/target denaturation and hybridization conditions for the assay. When necessary, a test with a probe for the [id number] locus (laboratory developed), and using a similar protocol is also performed. The in situ hybridization analysis was performed for and correlated with preselected areas of invasive carcinoma. Result: HER2(ERBB2) gene amplification is absent; the average copy number is 1.9. The HER2(ERBB2)/Chromosome 17 ratio is 1.1 (reference range is 0.8 - 1.7). Had Oncotype testing done. Low risk. Didn't want to go on AI therapy due to concerns of ONJ (has h/o TMJ). Started tamoxifen. Underwent hysterectomy with BSO. Path: Uterus, cervix, bilateral fallopian tubes and ovaries, excision: Endometrium - Benign inactive endometrium. Myometrium - Adenomyosis and adenomyomas. Bilateral ovaries - No significant pathologic findings Had been on tamoxifen. Appreciated mass in right breast. Ultrasound-guided core needle biopsy performed on 10/18/2017 demonstrated invasive carcinoma with mixed ductal and lobular features, nuclear grade 2. Estrogen receptors stained with strong intensity at 95% and progesterone receptors were negative with 0% staining. HER-2 1+ on immunohistochemistry. MRI of the breast done on 10/23/2017 revealed a 7 mm mass in the upper outer quadrant of the right breast correlating with the biopsy-proven malignancy at 11:00 position 5 cm from the nipple. Left chest demonstrated postsurgical findings of left mastectomy with no MRI findings to suggest local recurrence. Mastectomy with SLN 11/09/2017. Pathology: 1. Right axillary sentinel lymph node, sentinel node biopsy (A) - One lymph node, negative for malignancy (0/1) 2. Right breast, mastectomy (B) - Invasive mammary carcinoma with mixed ductal and lobular features, Wilmot grade 1, measuring 0.6 cm in greatest dimension (please see synoptic report) - Atypical lobular hyperplasia - Skin with seborrheic keratoses - Biopsy clip and biopsy site reparative changes identified SYNOPTIC REPORT OF KUMAR PATHOLOGIC FINDINGS RIGHT BREAST: BREAST INVASIVE CARCINOMA WORKSHEET Part: A and B Procedure: Total mastectomy (including nipple-sparing and skin-sparing mastectomy) Specimen Laterality: Right Tumor size: Size of largest invasive carcinoma: Greatest dimension of largest focus of invasion >1 mm: 6 mm Tumor Focality: Single focus of invasive carcinoma Histologic Type of Invasive Carcinoma: Invasive carcinoma with ductal and lobular features (mixed type carcinoma) Histologic Grade: Glandular (Acinar) / Tubular Differentiation: Score 3 Nuclear Pleomorphism: Score 1 Mitotic Rate: Score 1 (<=3 mitosis per mm2) Overall Grade: Grade I Ductal Carcinoma In Situ: No DCIS is present in specimen Tumor Extension: Skin: Uninvolved Nipple: Uninvolved Skeletal muscle: Not applicable Invasive Carcinoma Margins: Margins uninvolved by invasive carcinoma Distance from closest margin: 2 mm Closest margin: Radial DCIS Margins: No DCIS in specimen Lymph Nodes: Number of lymph nodes with macrometastases (>2 mm): 0 Number of lymph nodes with micrometastases (>0.2 mm to 2 mm and/or >200 cells): 0 Number of lymph nodes with isolated tumor cells (<= 0.2 mm and <= 200 cells): 0 Number of lymph nodes examined: 1 Number of sentinel lymph nodes examined (required only if sentinel nodes are present): 1 Treatment Effect: No known presurgical therapy Lymph-Vascular Invasion: Not identified Pathologic Stage Classification (pTNM,AJCC 8th ed) TNM Descriptor(s): Not applicable Primary Tumor (Invasive Carcinoma) (pT): pT1b Regional Lymph Nodes (pN): Modifier: (sn): [place] node(s) evaluated Category (pN): pN0 Distant metastasis: Distant Metastasis (pM) Not applicable/Not confirmed pathologically in this case Previous therapy: 1) TC x1. 2) Adjuvant anastrozole. Completed 5 years of therapy December 2022. Presents for ongoing oncologic management. Interim history: She discovered a lump in the midline of her posterior neck in February. She has undergone ultrasound evaluation and recent CT. Not on treatment for osteoporosis. PMH, medications and allergies personally reviewed by me today. Any changes documented in appropriate section. PHYSICAL EXAM: Vitals: Blood pressure 102/64, pulse 73, temperature 36.8 C (98.3 F), weight 47.4 kg (104 lb 8 oz), last menstrual period 08/31/2013, SpO2 98 %. Well-appearing and in no acute distress. EYES: Sclerae are anicteric bilaterally. LYMPHATIC: There is no palpable cervical, supraclavicular adenopathy. No axillary adenopathy bilaterally. There is a soft round protrusion of the lower midline posterior neck that resolves with forward bending of the head. RESPIRATORY: Inspiratory breath sounds are of normal intensity in all au. No rales, wheezes or rhonchi. CARDIOVASCULAR: Rhythm is regular. BREAST: chaperoned. Bilateral mastectomy sites--no chest wall mass or skin nodules appreciated. ABDOMEN: The abdomen is nondistended. No organomegaly. No tenderness. Extremities: No swelling or edema. SKIN: No jaundice or rash. No petechiae. NEUROLOGIC: manager skilled II-XII are grossly intact. No focal motor weakness. 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 -Oncotype recurrence score 28 (intermediate risk) suggested 10 year risk of distant recurrence at 18% with the use of tamoxifen alone. -Tolerated anastrozole overall well. Completed 5 years of therapy. -H/O osteoporosis. On vit D supplement with no other treatment for osteoporosis. -We reviewed her CT scan of the neck in detail. The small lump is a protrusion of the supraspinatus ligament. Gave her reassurance. Plan: -OV in 6 months. -Continue follow-up with endocrinology for management of osteoporosis. Portions of this documentation were copied and pasted from previous office visit notes in order to provide a cohesive continuity of the history. The note has been reviewed and edited and updated as necessary. I spent a total of 30 minutes on the date of the service which included preparing to see the patient, [id number] patient care, completing clinical documentation, obtaining and/or reviewing separately obtained history, performing a medically appropriate examination, counseling and educating the patient/family/caregiver, communicating with other HCPs (not separately reported), and communicating results to the patient/family/caregiver. Rodriguez Altamirano DO documented in this encounter [facility] 06-27-2023 Miscellaneous Notes Patient called. Verified name and date of . Patient would like results of CT scan explained to her. Please review and advise. Marii Naidu LPN documented in this encounter [facility] 06-27-2023 History of Present illness Narrative Radiology Service Progress Note PATIENT NAME: Daria Osborne DATE OF SERVICE: June 27, 2023 TIME: 12:55 PM PATIENT IDENTITY VERIFICATION COMPLETED USING TWO (2) IDENTIFIERS: Name and Date of confirmed by patient verbally. FALL SCREENING: Has the patient had 2 falls in the last year or 1 fall with injury or currently using an Ambulatory Assistive Device (Walker, Cane, Wheelchair, Crutches, etc.)? No PATIENT GENDER DATA: Female. status: : No status: NO. PATIENT RELEVANT IMPLANT DATA REVIEWED: Yes RADIOLOGY DEPARTMENT: CT; Exam(s) Completed: Neck PERIPHERAL IV DATA: Not applicable SIGNED BY: RT Naresh(R) June 27, 2023 12:55 PM documented in this encounter [facility] 06-24-2023 History of Present illness Narrative HISTORY AND PHYSICAL Daria Osborne 1950 REFERRING PHYSICIAN: No ref. provider found CHIEF COMPLAINT: Lymph Node Enlargement HPI: The patient is a 72 year old female with a complaint of a palpable nodule in the centerline of the back of her neck. In February the patient noted multiple cold sores on her lips and multiple swollen glands in her anterior neck. While examining herself she noted a small nodule in the posterior midline of her neck. She had flareup of those cold sores in February and then March. She was initially evaluated at the breast center who felt that these cold sores were likely related to her neck tenderness and palpable nodules and the seem to come and go based upon the activity of her cold sores. The patient has a history of left-sided breast cancer. She had undergone left simple mastectomy and sentinel lymph node biopsy on January 06, [address] Susan Davidson. Her pathology results from that procedure returned as T1c N0. On November 09, 2017 she underwent a right mastectomy and sentinel lymph node biopsy by Dr. Carissa Laguna. Her pathology for that procedure returned as T1b N0 She has been taking selective estrogen receptor modulator since 2018. The patient was advised regarding given his nodular posterior neck and anxiety that that could be a lymph node. She returned to follow-up with Jade Agudelo on June 11, 2023. The patient had an ultrasound of the area performed which returned as: IMPRESSION: SOLID NODULE WITHIN THE SUBCUTANEOUS TISSUES CORRESPONDS TO THE PALPABLE ABNORMALITY. FURTHER EVALUATION WITH CT AND/OR MRI MAY BE HELPFUL. ALTERNATIVELY, PATHOLOGIC EVALUATION. RESULT: Targeted ultrasound in the region of palpable abnormality, midline occipital region, was performed. Hypoechoic solid 1.2 x 0.6 x 0.5 cm somewhat poorly defined nodule within the subcutaneous tissues is noted. No significant flow This area is located right in the center line between the 2 muscle bodies. The patient is being seen by me today at the request of Jade Agudelo for my opinion and advice regarding palpable posterior midline nodule. PAST MEDICAL HISTORY Diagnosis Date Anemia, unspecified Benign neoplasm of skin of trunk, except scrotum 01/12/2009 Benign neoplasm of skin of upper limb, including shoulder 08/26/2005 Breast cancer (HCC) 11/2012 left Dense breasts 07/16/2017 Difficult airway for intubation Disorder of bone and cartilage, unspecified History of bilateral breast cancer 04/21/2018 left them right; s/p bilateral mastectomy Incisional hernia of anterior abdominal wall without obstruction or gangrene 04/22/2017 just above and to the right of umbilicus; 02/10/[address] Shepherd reviewed; stable findings of slight bulge seen best while patient standing Irritable bowel syndrome Malignant neoplasm of upper-outer quadrant of right breast, estrogen receptor positive (HCC) Osteoporosis, unspecified progression to osteoporosis noted on 2007 bone density Postmenopausal bleeding Postmenop. bleeding Postoperative thrombophlebitis 09/20/2013 Temporomandibular joint disorders, unspecified TMJ (dislocation of temporomandibular joint) 10/20/2015 Transfusion history after childbirth Unspecified vitamin D deficiency PAST SURGICAL HISTORY Procedure Laterality Date CURETTAGE 1978 Curettage, post delivery CURETTAGE DILATION & CURETTAGE DX&/THER NONOBSTETRIC 07/01/2013 [facility]CISION PILONIDAL CYST/SINUS SIMPLE LAPROSCOPIC REPAIR UMBILICAL HERNIA MASTECTOMY, SIMPLE, COMPLETE Left 01/06/2013 left breast with SLND ([place]) MASTECTOMY, SIMPLE, COMPLETE 10/2017 right PAST SURGICAL HISTORY OF pilonidal cyst PAST SURGICAL HISTORY OF abdominal hernia PAST SURGICAL HISTORY OF breast cyst removed PAST SURGICAL HISTORY OF wisdom teeth PAST SURGICAL HISTORY OF N/A 07/2020 removal of skin tags PORTOCATH PLACEMENT 2017 PORTOCATH PLACEMENT 12/18/2017 port placement [place] NOHEMI W/WO REMOVAL TUBE OVARY 08/2013 w/ BSO TONSILLECTOMY & ADENOIDECTOMY <AGE 12 Current Outpatient Medications Medication Sig EPINEPHrine (EPIPEN) 0.3 mg/0.3 mL auto-injector Use as directed for reaction to food allergen Cholecalciferol, Vitamin D3, 1,000 unit cap Take 1 capsule by mouth once daily. THERAPEUTIC MULTIVITAMIN TAB Take 1 tablet by mouth once daily. No current facility-administered medications for this visit. ALLERGIES: Cantaloupe, Chicken, Clindamycin, Propofol, Ciprofloxacin, Egg Derived, Zantac [Ranitidine Hcl], and Tetracycline PERSONAL HISTORY: Social History Tobacco Use Smoking status: Former Types: Cigarettes Quit date: 10/22/1970 Years since quittin.7 Smokeless tobacco: Never Tobacco comments: 3 cigarettes a week back in college for 9 months Vaping Use Vaping Use: Never used Substance Use Topics Alcohol use: Yes Comment: beer/wine maybe daily depends Drug use: No FAMILY HISTORY: FAMILY HISTORY Problem Relation Age of Onset Alcohol/Drug Mother Heart Father [place] at 72 Diabetes Father Thyroid Father other (LIVER) Father Diabetes Paternal Grandmother Heart Paternal Grandmother Diabetes Maternal Grandmother Heart Maternal Grandmother [place] in her 40's; from [place] at 68 Stroke Maternal Grandfather Heart Paternal Grandfather Breast Cancer Maternal Aunt breast, 50's oral Coronary Artery Disease Maternal Uncle Prostate Cancer Maternal Uncle 86 Colon Cancer Maternal Aunt 60 Stroke Maternal Aunt Coronary Artery Disease Maternal Aunt REVIEW OF SYMPTOMS: The review of systems data was entered by the nurse and reviewed by ar Nursing Notes: Vane Owusu RN 06/22/2023 9:38 AM Signed REVIEW OF SYSTEMS: General: The patient denies fatigue, denies weight loss, denies weight gain, denies feeling hot, and denies feelings of cold. Eyes: The patient denies glaucoma, denies eye injury/surgery, wears glasses or contacts. Ear/Nose/Throat: The patient denies allergies, denies hayfever, denies ear infections, and denies bloody noses. Cardiovascular: The patient denies chest pain, denies heart disease, denies high blood pressure,denies cardiac stent, denies prior heart attack, denies irregular heart beat, denies high cholesterol, denies poor circulation, denies heart failure, other cardiac issues, denies claudication, denies cold feet, denies peripheral arterial stent. Respiratory: The patient denies tuberculosis, denies pneumonia, denies frequent cough, denies pulmonary embolism, denies shortness of breath, and denies coughing up blood. Gastrointestinal: The patient denies difficulty swallowing, denies acid reflux, denies ulcers, denies vomiting, denies jaundice/hepatitis, denies gallbladder problems, denies black or tarry stools, denies hemorrhoids, denies bleeding from rectum, denies diverticulitis, denies constipation, denies diarrhea, denies loss of stool control, and denies hernias. Kidney/Bladder: The patient denies kidney stones, denies urine infections, and denies bloody urine. Skin: The patient denies a history of skin cancer, denies bleeding/changing moles, and denies a history of skin rash. Neurologic: The patient denies a history of epilepsy/convulsions, denies headaches, denies head/spinal injuries, and denies stroke/TIA. Psychiatric: The patient denies psychiatric medications, denies depression, and denies voices, denies substance abuse. Endocrine: The patient denies thyroid disorders, denies diabetes, and denies hormonal problems. Hematologic: The patient denies a history of bruising, denies bleeding, and denies anemia, denies blood clots. Infections: The patient NOTES a history of measles and mumps, denies rheumatic fever, and denies sexually transmitted diseases. Musculoskeletal: The patient denies back pain/injury, denies back problems, denies sciatica, denies knee/foot trouble, denies arthritis, or denies gout. When was patient's last Mammogram screening? N/A d/t bilateral mastectomy Last Colonoscopy: Never Vane Owusu RN PHYSICAL EXAMINATION: General: The patient is 72 year old female, well nourished, well hydrated in no acute distress. The patient is oriented to time, place, and person. VITALS: Blood pressure 112/74, pulse 99, temperature 36.8 C (98.2 F), temperature source Temporal, resp. rate 14, height 162.6 cm (5' 4 ), weight 47.7 kg (105 lb 3.2 oz), last menstrual period 08/31/2013, SpO2 99 %. HEENT: Normal cephalic, ataumatic, pupils are equally round, sclera are anicteric, mucous membranes are moist, oropharynx is clear. Neck has no masses, asymmetry or lymphadenopathy. Thyroid is unremarkable. -Posterior neck-very difficult to appreciate subcentimeter nodule in the posterior midline of her neck. Minimally tender LABORATORY VALUES: As Noted RADIOLOGIC STUDIES: As Noted Review of the formal ultrasound was undertaken and office-based ultrasound was performed of the site. My review of the formal ultrasound was this was a very vague abnormality I agree he had no blood flow. He did not have characteristics of lymph node. By office-based ultrasound failed to demonstrate an obvious mass in the area this was felt to be deep to this posterior neck fascia between the 2 muscle heads. It had no flow it did not have characteristics consistent with a lymph node. Assessment IMPRESSION: Incidental finding of posterior midline neck mass, unknown etiology PLAN: I plan to obtain a CT scan of the neck to assess for the site and to assess for other adenopathy. Due to its location core biopsy would be a challenge. Fine-needle could be performed in the area if necessary but would likely be marginally diagnostic. I discussed with the patient that given the findings on CT scan we may consider just monitoring the area and to assure that the site is not growing. Diagnoses: (R22.1) Localized swelling, mass and lump, neck (primary encounter diagnosis) My findings have been communicated to Jade Agudelo via shared medical record. This note will be forwarded to Carolina Peterson MD. Return to Clinic: The patient is instructed to follow-up with me after the testing has been completed. Mac Shepherd MD documented in this encounter [facility] 06-22-2023 Nurse Note REVIEW OF SYSTEMS: General: The patient denies fatigue, denies weight loss, denies weight gain, denies feeling hot, and denies feelings of cold. Eyes: The patient denies glaucoma, denies eye injury/surgery, wears glasses or contacts. Ear/Nose/Throat: The patient denies allergies, denies hayfever, denies ear infections, and denies bloody noses. Cardiovascular: The patient denies chest pain, denies heart disease, denies high blood pressure,denies cardiac stent, denies prior heart attack, denies irregular heart beat, denies high cholesterol, denies poor circulation, denies heart failure, other cardiac issues, denies claudication, denies cold feet, denies peripheral arterial stent. Respiratory: The patient denies tuberculosis, denies pneumonia, denies frequent cough, denies pulmonary embolism, denies shortness of breath, and denies coughing up blood. Gastrointestinal: The patient denies difficulty swallowing, denies acid reflux, denies ulcers, denies vomiting, denies jaundice/hepatitis, denies gallbladder problems, denies black or tarry stools, denies hemorrhoids, denies bleeding from rectum, denies diverticulitis, denies constipation, denies diarrhea, denies loss of stool control, and denies hernias. Kidney/Bladder: The patient denies kidney stones, denies urine infections, and denies bloody urine. Skin: The patient denies a history of skin cancer, denies bleeding/changing moles, and denies a history of skin rash. Neurologic: The patient denies a history of epilepsy/convulsions, denies headaches, denies head/spinal injuries, and denies stroke/TIA. Psychiatric: The patient denies psychiatric medications, denies depression, and denies voices, denies substance abuse. Endocrine: The patient denies thyroid disorders, denies diabetes, and denies hormonal problems. Hematologic: The patient denies a history of bruising, denies bleeding, and denies anemia, denies blood clots. Infections: The patient NOTES a history of measles and mumps, denies rheumatic fever, and denies sexually transmitted diseases. Musculoskeletal: The patient denies back pain/injury, denies back problems, denies sciatica, denies knee/foot trouble, denies arthritis, or denies gout. When was patient's last Mammogram screening? N/A d/t bilateral mastectomy Last Colonoscopy: Never Vane Owusu RN documented in this encounter [facility] 06-20-2023 Miscellaneous Notes Patient scheduled with Gen Surg schedulers Please schedule with Dr. Shepherd to eval posterior neck lymph node. Thank you. Jade Agudelo APRN.DISTRIBUTION SYSTEM OPERATOR documented in this encounter [facility] 06-11-2023 History of Present illness Narrative Chief Complaint Patient presents with: Established Patient HPI: Daria Osborne is a 72 year old female who presents here today for follow up enlarged LN neck. Per Dr. Altamirano's previous note: H/o found to have a suspicious mass in the left breast on a routine gynecologic exam 11/03/2012. Underwent a diagnostic mammogram on 11/25/2012 which demonstrated a lobulated mass associated with a few microcalcifications in the retroareolar region. An US was also performed which revealed a 1.8 cm mass at 12 o'clock. On 12/02, a US guided core biopsy was performed with pathology demonstrating moderate to poorly differentiated IDC with a focus of DCIS, ER/WY (+), Her2 equivocal. She subsequently underwent an MRI on 12/16 which revealed the known left breast cancer and a 0.5 cm enhancing lesion in the lower sternum for which a bone scan was recommended. The bone scan did not show any areas concerning for malignancy. Ultimately underwent left mastectomy with SLN biopsy 01/06/13. Final pathology revealed: FINAL DIAGNOSIS A. LEFT SENTINEL LYMPH NODE, EXCISION: TWO LYMPH NODES NEGATIVE FOR MALIGNANCY (0/2). B. LEFT BREAST 58 GRAMS, EXCISION: INVASIVE MODERATELY DIFFERENTIATED DUCTAL CARCINOMA DUCTAL CARCINOMA IN SITU, CRIBRIFORM AND COMEDONECROSIS TYPES SKIN - SEBORRHEIC KERATOSIS SP/mz 01/08/2013 COMMENT B. BREAST (INVASIVE CARCINOMA) SYNOPTIC REPORT PROCEDURE: - Simple mastectomy LYMPH NODE SAMPLING: - [place] lymph nodes SPECIMEN LATERALITY: - Left HISTOLOGIC TYPE OF INVASIVE CARCINOMA: - Invasive ductal carcinoma (no special type or not otherwise specified) TUMOR SIZE (SIZE OF LARGEST INVASIVE CARCINOMA): - Size of largest invasive carcinoma - - Greatest dimension of largest focus invasion over 1 mm: 1.3 cm VIELKA HISTOLOGIC GRADE: - Glandular (acinar)/Tubular differentiation: Score 2 - Nuclear pleomorphism: Score 2 - Mitotic rate: Score 2 - Overall grade: Grade 2 TUMOR FOCALITY: - Single focus of invasive carcinoma DUCTAL CARCINOMA IN SITU (DCIS): - DCIS is present MACROSCOPIC/MICROSCOPIC EXTENT OF TUMOR: - Skin: No invasive carcinoma - Nipple: No invasive carcinoma - Skeletal Muscle: Not identified MARGINS: - Invasive carcinoma MARGINS: - - Distance of DCIS from closest margin: 3.0 mm (deep) DCIS: - Margins uninvolved by DCIS Distance from closest margin: 4.0 mm (deep) LYMPH NODES: - Number of sentinel lymph nodes examined: 2 - Total number of lymph nodes examined (sentinel and non-sentinel): 2 - - Number of lymph nodes with macrometastasis (greater than 2 mm): 0 - - Number of lymph nodes with micrometastasis (greater than 0.2 mm to 2 mm and/or greater than 200 cells): 0 - - Number of lymph nodes with isolated tumor cells (less than or equal to 0.2 mm and less than or equal to 200 cells: 0 - - Number of lymph nodes without tumor cells identified: 2 PATHOLOGIC STAGING: pT1c p(sn)0 pMX Procedure Results and Interpretation ER/PgR/HER2(ERBB2) FISH Estrogen Receptor: Positive (90%) Stain Intensity: Strong Progesterone Receptor: Positive (90%) Stain Intensity: Strong HER2(ERBB2) by FISH: Not amplified HER2(ERBB2)/[id number] ratio 1.1 Tissue analyzed: Invasive carcinoma Block Number: [id number] Control slides: Known positive control tissue (external control) is evaluated in concert with the patient's tissue for ER and PgR expression. A separate slide of the patient's tissue is similarly processed without antibody (negative control); slides were reviewed and showed appropriate staining. Internal control (normal breast epithelial elements) were present and were appropriately positive. Antibody and Detection System: Estrogen receptor (rabbit monoclonal clone SP1), progesterone receptor (rabbit monoclonal clone [id number]); both [place], [place], [place]. Detected with the [employer] iView Detection System (indirect biotin streptavidin detection); [place], [place], [place]. Estrogen/Progesterone Interpretation: Positive: Greater than or equal to 1% of tumor nuclei stain Negative: Less than 1% of tumor nuclei stain These tests were performed and reported according to Guidelines for IHC testing of Estrogen and Progesterone Receptors in Breast Cancer, Arch Pathol Lab Med 2010; 134: E1-E16. Estrogen and progesterone results are valid if tissue was processed according to ASCO/CAP guidelines. HER2(ERBB2) Gene Amplification: NOT AMPLIFIED HER2(ERBB2) Gene Amplification was evaluated on paraffin-embedded block [id number] by interphase fluorescence in situ hybridization (FISH), using a dual label probe set for the HER2(ERBB2) locus and the centromeric region of chromosome 17 (PathShopExion; [employer], [place]). The [facility] of the [facility] has validated modifications of the PathShopExion kit used for the testing including the use of Target Retrieval Solution and proteinase K ([employer]; [place]) for cell conditioning, and modified probe/target denaturation and hybridization conditions for the assay. When necessary, a test with a probe for the [id number] locus (laboratory developed), and using a similar protocol is also performed. The in situ hybridization analysis was performed for and correlated with preselected areas of invasive carcinoma. Result: HER2(ERBB2) gene amplification is absent; the average copy number is 1.9. The HER2(ERBB2)/Chromosome 17 ratio is 1.1 (reference range is 0.8 - 1.7). Had Oncotype testing done. Low risk. Didn't want to go on AI therapy due to concerns of ONJ (has h/o TMJ). Started tamoxifen. Underwent hysterectomy with BSO. Path: Uterus, cervix, bilateral fallopian tubes and ovaries, excision: Endometrium - Benign inactive endometrium. Myometrium - Adenomyosis and adenomyomas. Bilateral ovaries - No significant pathologic findings Had been on tamoxifen. Appreciated mass in right breast. Ultrasound-guided core needle biopsy performed on 10/18/2017 demonstrated invasive carcinoma with mixed ductal and lobular features, nuclear grade 2. Estrogen receptors stained with strong intensity at 95% and progesterone receptors were negative with 0% staining. HER-2 1+ on immunohistochemistry. MRI of the breast done on 10/23/2017 revealed a 7 mm mass in the upper outer quadrant of the right breast correlating with the biopsy-proven malignancy at 11:00 position 5 cm from the nipple. Left chest demonstrated postsurgical findings of left mastectomy with no MRI findings to suggest local recurrence. Mastectomy with SLN 11/09/2017. Pathology: 1. Right axillary sentinel lymph node, sentinel node biopsy (A) - One lymph node, negative for malignancy (0/1) 2. Right breast, mastectomy (B) - Invasive mammary carcinoma with mixed ductal and lobular features, Vielka grade 1, measuring 0.6 cm in greatest dimension (please see synoptic report) - Atypical lobular hyperplasia - Skin with seborrheic keratoses - Biopsy clip and biopsy site reparative changes identified SYNOPTIC REPORT OF KUMAR PATHOLOGIC FINDINGS RIGHT BREAST: BREAST INVASIVE CARCINOMA WORKSHEET Part: A and B Procedure: Total mastectomy (including nipple-sparing and skin-sparing mastectomy) Specimen Laterality: Right Tumor size: Size of largest invasive carcinoma: Greatest dimension of largest focus of invasion >1 mm: 6 mm Tumor Focality: Single focus of invasive carcinoma Histologic Type of Invasive Carcinoma: Invasive carcinoma with ductal and lobular features (mixed type carcinoma) Histologic Grade: Glandular (Acinar) / Tubular Differentiation: Score 3 Nuclear Pleomorphism: Score 1 Mitotic Rate: Score 1 (<=3 mitosis per mm2) Overall Grade: Grade I Ductal Carcinoma In Situ: No DCIS is present in specimen Tumor Extension: Skin: Uninvolved Nipple: Uninvolved Skeletal muscle: Not applicable Invasive Carcinoma Margins: Margins uninvolved by invasive carcinoma Distance from closest margin: 2 mm Closest margin: Radial DCIS Margins: No DCIS in specimen Lymph Nodes: Number of lymph nodes with macrometastases (>2 mm): 0 Number of lymph nodes with micrometastases (>0.2 mm to 2 mm and/or >200 cells): 0 Number of lymph nodes with isolated tumor cells (<= 0.2 mm and <= 200 cells): 0 Number of lymph nodes examined: 1 Number of sentinel lymph nodes examined (required only if sentinel nodes are present): 1 Treatment Effect: No known presurgical therapy Lymph-Vascular Invasion: Not identified Pathologic Stage Classification (pTNM,AJCC 8th ed) TNM Descriptor(s): Not applicable Primary Tumor (Invasive Carcinoma) (pT): pT1b Regional Lymph Nodes (pN): Modifier: (sn): [place] node(s) evaluated Category (pN): pN0 Distant metastasis: Distant Metastasis (pM) Not applicable/Not confirmed pathologically in this case Previous therapy: 1) TC x1. Current therapy: 1) Adjuvant anastrozole. Begin spring 2017. She was seen by Dr. Irvin and roof foreman at [facility]. Prolia was advised. She was seen by another roof foreman. Currently not on any treatment for osteoporosis. Pt. here today with her . Follow up on posterior neck LN. It's still there. It's the same. Appetite: Good. Energy level: Good energy. Denies fevers. Resp:denies cough or sob Cardiac:denies chest pain/palpitations GI:denies abd pain, n/v, moving bowels regularly :denies dysuria/hematuria Extrem:denies pain Endo:denies hot flashes Neuro:denies symptoms of neuropathy Skin:denies rashes Heme:denies bleeding The ROS is otherwise negative. Past medical history, appointments, medications, allergies reviewed. No changes. EXAM: BP 102/70 Pulse 70 Temp 37.1 C (98.8 F) Ht 164.5 cm (5' 4.76 ) Wt 46.5 kg (102 lb 8 oz) LMP 08/31/2013 SpO2 99% BMI 17.18 kg/m APPEARANCE Well appearing, alert, in no acute distress, well-hydrated, well nourished. HEART RRR with normal S1 and S2, no murmurs LUNG clear to auscultation BREAST FEMALE b/l mastectomy scars, no nodule LYMPH NODES +posterior neck LN-mobile 1cm, nt, No cervical lymphadenopathy, No supraclavicular lymphadenopathy, and No axillary lymphadenopathy. ABDOMEN bowel sounds normoactive, soft, non-tender EXTREMITIES No edema NEURO Awake, alert and oriented x 3, Normal gait, and No involuntary motions. SKIN Skin color, texture, turgor normal, no suspicious rashes or lesions ASSESSMENT/PLAN: 1. Personal history of breast cancer - ICD9: V10.3, ICD10: Z85.3 (primary diagnosis) 2. History of bilateral mastectomy - ICD9: V45.71, ICD10: Z90.13 3. 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 Oncotype recurrence score 28 (intermediate risk) suggested 10 year risk of distant recurrence at 18% with the use of tamoxifen alone. 2. Malignant neoplasm of nipple of left breast in female, estrogen receptor positive (HCC) - ICD9: 174.0, V86.0, ICD10: C50.012, Z17.0 H/O stage I breast cancer left breast. Per Dr. 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 -Oncotype recurrence score 28 (intermediate risk) suggested 10 year risk of distant recurrence at 18% with the use of tamoxifen alone. -She is tolerating anastrozole well with no symptomatic side effects. -H/O osteoporosis. On vit D supplement with no other treatment for osteoporosis. -Discussed plan to complete 5 years worth of endocrine therapy which will be in December 2022. After that she will be seen on an every 6-month basis up to approximately 10 years. Plan: -OV as scheduled in December. -She will be discontinuing anastrozole on or around that time. -Continue follow-up with endocrinology for management of osteoporosis. - L posterior neck LE-wasihcpm-mwekkqyb initially with viral illness. - Declines treatment for osteoporosis. Has been seen by endo in the past. - Completed 5 years of AI therapy. - US neck soon. Pending results-ENT consult. - Follow up with Dr. Altamirano as scheduled. - Pt. aware to call office with any questions/concerns. The patient indicates understanding of these issues and agrees with the plan. All documentation from previous visit of 04/16/23-Dr. Altamirano/myself was copied and pasted, documentation has been reviewed and edited as necessary for today's visit. Jade Agudelo APRN.DISTRIBUTION SYSTEM OPERATOR documented in this encounter [facility] 05-29-2023 Miscellaneous Notes I just sent a [employer] message, I can reach out with a call if she does not see the message. Pt called and is notified results: IMPRESSION: Triscaphe degenerative changes. No acute fracture or dislocation. Pt voices understanding. Let her know that provider would call if any other finds seen or instructions. Ginger Calixto RN Noted, xray reading still in process, will call once report is back. Patient requesting provider to advise on wrist xray results when able. Informed pt that results have not been received yet but patient would be called once results is received. Thank you. documented in this encounter [facility] 05-25-2023 History of Present illness Narrative Radiology Service Progress Note PATIENT NAME: Daria Osborne DATE OF SERVICE: May 25, 2023 TIME: 11:05 AM PATIENT IDENTITY VERIFICATION COMPLETED USING TWO (2) IDENTIFIERS: Name and Date of confirmed by patient verbally. FALL SCREENING: Has the patient had 2 falls in the last year or 1 fall with injury or currently using an Ambulatory Assistive Device (Walker, Cane, Wheelchair, Crutches, etc.)? No PATIENT GENDER DATA: Female. status: : No status: NO. PATIENT RELEVANT IMPLANT DATA REVIEWED: Not Applicable RADIOLOGY DEPARTMENT: General X-ray: Exam(s) Completed: Upper Extremity X-Ray(s): Wrist, right PERIPHERAL IV DATA: Not applicable SIGNED BY: RT Maximo(R) May 25, 2023 11:05 AM documented in this encounter [facility] 05-25-2023 History of Present illness Narrative SUBJECTIVE Daria Osborne is a 72 year old female here today for a check up on her medical problems. Chief Complaint Patient presents with: Acute Visit: right wrist pain HPI Daria Osborne is a 72 year old female. Here today for some right wrist pain, was off and on but about a week ago started being more consistent. Hurt to drive her car. Has stick shift. No injuries, no falls. Some concern about possible issues from her osteoporosis. Maybe pain better today. Described as aching, maybe sore. Not very stiff. No numbness, tingling, or weakness. Right handed. Ulnar side of the posterior wrist. Tried ibuprofen. No swelling that she has noticed. Her medications were reviewed today and her list is now up to date. Medications Current Outpatient Medications Medication Sig EPINEPHrine (EPIPEN) 0.3 mg/0.3 mL auto-injector Use as directed for reaction to food allergen Cholecalciferol, Vitamin D3, 1,000 unit cap Take 1 capsule by mouth once daily. THERAPEUTIC MULTIVITAMIN TAB Take one(1) tablet daily. meloxicam (MOBIC) 15 mg tablet Take 1 tablet by mouth once daily as needed for pain. With food. No current facility-administered medications for this visit. ALLERGIES Allergen Reactions Cantaloupe Swelling Throat itchy Chicken GI Upset + allergy test to chicken meat (in past just had GI upset but test +); told by property custodian no flu shot because of this allergy Clindamycin Rash possible allergy, rash appeared treatment completed Propofol Unknown History of possible egg allergy as a child. Skin test to egg-white negative on 12/06/17. Patient has never been treated with propofol Ciprofloxacin Intolerance C/o feeling anxious and shaky while taking ciprofloxacin in the post-operative period following evacuation of breast hematoma in Oct, 2017. Also c/o joints popping no other symptoms. Egg Derived Contraindication-Medical Surgical Slipper Maker told patient to avoid anything derived from eggs due to chicken allergy revealed on testing. May eat eggs. Zantac [Ranitidine * Unknown Tetracycline Unknown ACTIVE PROBLEM LIST Brca Negative - 04/24/2022 Status Post Bilateral Mastectomy - 04/12/2022 Difficult Airway for Intubation Malignant Neoplasm of Upper-Outer Quadrant of Right Breast in Female, Estrogen Receptor Positive (Hcc) - 10/31/2017 Ifg (Impaired Fasting Glucose) - 04/03/2017 Malignant Neoplasm of Nipple of Left Breast in Female ([facility]) - 08/10/2016 Osteoporosis Comment: progression to osteoporosis noted on 2007 bone density Irritable Bowel Syndrome Temporomandibular Joint Disorders, Unspecified Social History Tobacco Use Smoking status: Former Types: Cigarettes Quit date: 10/22/1970 Years since quittin.6 Smokeless tobacco: Never Tobacco comments: 3 cigarettes a week back in college for 9 months Vaping Use Vaping Use: Never used Substance Use Topics Alcohol use: Yes Comment: beer/wine maybe daily depends Drug use: No Review of Systems Musculoskeletal: Positive for arthralgias. Negative for joint swelling and myalgias. OBJECTIVE BP 96/59 Pulse 72 Resp 16 Wt 103 lb (46.7kg) SpO2 96% LMP 08/31/2013 Physical Exam Vitals and nursing note reviewed. Constitutional: General: She is awake. She is not in acute distress. Appearance: Normal appearance. She is well-developed and well-groomed. She is not ill-appearing, toxic-appearing or diaphoretic. HENT: Head: Normocephalic. Right Ear: External ear normal. Left Ear: External ear normal. Nose: Nose normal. Eyes: General: Vision grossly intact. Conjunctiva/sclera: Conjunctivae normal. Pupils: Pupils are equal, round, and reactive to light. Neck: Vascular: No JVD. Trachea: Trachea normal. Cardiovascular: Pulses: Normal pulses. Pulmonary: Effort: Pulmonary effort is normal. No accessory muscle usage, prolonged expiration or respiratory distress. Musculoskeletal: Right wrist: Tenderness (slight tenderness to the ulnar side, posteriorly) present. No swelling, deformity, effusion, lacerations, bony tenderness, snuff box tenderness or crepitus. Normal range of motion. Normal pulse. Cervical back: Neck supple. Skin: General: Skin is warm and dry. Capillary Refill: Capillary refill takes less than 2 seconds. Neurological: General: No focal deficit present. Mental Status: She is alert and oriented to person, place, and time. Mental status is at baseline. Psychiatric: Attention and Perception: Attention and perception normal. Mood and Affect: Mood and affect normal. Speech: Speech normal. Behavior: Behavior normal. Behavior is cooperative. Thought Content: Thought content normal. Cognition and Memory: Cognition and memory normal. Judgment: Judgment normal. ASSESSMENT/PLAN: 1. Right wrist pain - ICD9: 719.43, ICD10: M25.531 (primary diagnosis) Pain suspected to be from over use versus arthritis or a combination. Rule out hair-line fracture due to concerns of her having osteoporosis. Meloxicam PRN, can also ice PRN. - MELOXICAM 15 MG TABLET - XR WRIST GENERAL 3V PA/LAT/OBL RIGHT 2. Age-related osteoporosis without current pathological fracture - ICD9: 733.01, ICD10: M81.0 - XR WRIST GENERAL 3V PA/LAT/OBL RIGHT Portions of this note have been entered by ancillary staff. I have reviewed and when necessary edited, so that they are an adequate record of my encounter with this patient Please note that parts of this document were created using voice recognition software and therefore may contain grammatical errors. Patient verbalizes understanding of instructions from today's visit and in agreement with treatment plan. Questions answered. Agrees to call the office if questions, concerns of issues with acute symptoms not improving or if they worsen. Return if symptoms worsen or fail to improve, for Keep next scheduled appointment.. Tee Lagunas APRN-REUBEN documented in this encounter [facility] 04-20-2023 Miscellaneous Notes Spoke with pt. She is ok with appt. On 06/11 . If anything comes open sooner she may be able to get sooner if the LN hasn't decreased. Andreina Chen LPN TC to pt, left VM that I would be sending her a detailed [employer] message regarding [place] [place]'s response. Charo Meyer LPN Pt. was made aware that I would be out. It was my understanding that she was going to follow up with Dr. Suárez for follow up in May. I did see the my chart message that Dr. Suárez is good with her follow up here in May. Keep appt. as scheduled. Thank you. Jade Agudelo APRN.DISTRIBUTION SYSTEM OPERATOR Patient calling on status of request and demanded an appt. so that she is on the books. She is scheduled for 06/11 Pt calling in stating she needs sooner follow up with Jade. That the provider informed her she will be back in office on 06/04. The next available apt is Jun 11. Pt stated this was not soon enough. Stated as told by at yearly visit with breast center to make sure she gets a 4 wk follow up wMary after her visit ana Hansen on 04/16. Pt stated that she wants to get in and seen so someone can take a look at the lump on her neck. She stated she is confused and would just like an OV scheduled so she can speak with a provider. Please review and advise. Thank you! documented in this encounter [facility] 04-16-2023 History of Present illness Narrative Chief Complaint Patient presents with: Established Patient HPI: Daria Osborne is a 72 year old female who presents here today for complaints of enlarged LN. Per Dr. Altamirano's previous note: H/o found to have a suspicious mass in the left breast on a routine gynecologic exam 11/03/2012. Underwent a diagnostic mammogram on 11/25/2012 which demonstrated a lobulated mass associated with a few microcalcifications in the retroareolar region. An US was also performed which revealed a 1.8 cm mass at 12 o'clock. On 12/02, a US guided core biopsy was performed with pathology demonstrating moderate to poorly differentiated IDC with a focus of DCIS, ER/WY (+), Her2 equivocal. She subsequently underwent an MRI on 12/16 which revealed the known left breast cancer and a 0.5 cm enhancing lesion in the lower sternum for which a bone scan was recommended. The bone scan did not show any areas concerning for malignancy. Ultimately underwent left mastectomy with SLN biopsy 01/06/13. Final pathology revealed: FINAL DIAGNOSIS A. LEFT SENTINEL LYMPH NODE, EXCISION: TWO LYMPH NODES NEGATIVE FOR MALIGNANCY (0/2). B. LEFT BREAST 58 GRAMS, EXCISION: INVASIVE MODERATELY DIFFERENTIATED DUCTAL CARCINOMA DUCTAL CARCINOMA IN SITU, CRIBRIFORM AND COMEDONECROSIS TYPES SKIN - SEBORRHEIC KERATOSIS SP/mz 01/08/2013 COMMENT B. BREAST (INVASIVE CARCINOMA) SYNOPTIC REPORT PROCEDURE: - Simple mastectomy LYMPH NODE SAMPLING: - [place] lymph nodes SPECIMEN LATERALITY: - Left HISTOLOGIC TYPE OF INVASIVE CARCINOMA: - Invasive ductal carcinoma (no special type or not otherwise specified) TUMOR SIZE (SIZE OF LARGEST INVASIVE CARCINOMA): - Size of largest invasive carcinoma - - Greatest dimension of largest focus invasion over 1 mm: 1.3 cm VIELKA HISTOLOGIC GRADE: - Glandular (acinar)/Tubular differentiation: Score 2 - Nuclear pleomorphism: Score 2 - Mitotic rate: Score 2 - Overall grade: Grade 2 TUMOR FOCALITY: - Single focus of invasive carcinoma DUCTAL CARCINOMA IN SITU (DCIS): - DCIS is present MACROSCOPIC/MICROSCOPIC EXTENT OF TUMOR: - Skin: No invasive carcinoma - Nipple: No invasive carcinoma - Skeletal Muscle: Not identified MARGINS: - Invasive carcinoma MARGINS: - - Distance of DCIS from closest margin: 3.0 mm (deep) DCIS: - Margins uninvolved by DCIS Distance from closest margin: 4.0 mm (deep) LYMPH NODES: - Number of sentinel lymph nodes examined: 2 - Total number of lymph nodes examined (sentinel and non-sentinel): 2 - - Number of lymph nodes with macrometastasis (greater than 2 mm): 0 - - Number of lymph nodes with micrometastasis (greater than 0.2 mm to 2 mm and/or greater than 200 cells): 0 - - Number of lymph nodes with isolated tumor cells (less than or equal to 0.2 mm and less than or equal to 200 cells: 0 - - Number of lymph nodes without tumor cells identified: 2 PATHOLOGIC STAGING: pT1c p(sn)0 pMX Procedure Results and Interpretation ER/PgR/HER2(ERBB2) FISH Estrogen Receptor: Positive (90%) Stain Intensity: Strong Progesterone Receptor: Positive (90%) Stain Intensity: Strong HER2(ERBB2) by FISH: Not amplified HER2(ERBB2)/Vpqiatatkg33 ratio 1.1 Tissue analyzed: Invasive carcinoma Block Number: [id number] Control slides: Known positive control tissue (external control) is evaluated in concert with the patient's tissue for ER and PgR expression. A separate slide of the patient's tissue is similarly processed without antibody (negative control); slides were reviewed and showed appropriate staining. Internal control (normal breast epithelial elements) were present and were appropriately positive. Antibody and Detection System: Estrogen receptor (rabbit monoclonal clone SP1), progesterone receptor (rabbit monoclonal clone [id number]); both [place], [place], [place]. Detected with the [employer] iView Detection System (indirect biotin streptavidin detection); [employer], [place], [place]. Estrogen/Progesterone Interpretation: Positive: Greater than or equal to 1% of tumor nuclei stain Negative: Less than 1% of tumor nuclei stain These tests were performed and reported according to Guidelines for IHC testing of Estrogen and Progesterone Receptors in Breast Cancer, Arch Pathol Lab Med 2010; 134: E1-E16. Estrogen and progesterone results are valid if tissue was processed according to ASCO/CAP guidelines. HER2(ERBB2) Gene Amplification: NOT AMPLIFIED HER2(ERBB2) Gene Amplification was evaluated on paraffin-embedded block [id number] by interphase fluorescence in situ hybridization (FISH), using a dual label probe set for the HER2(ERBB2) locus and the centromeric region of chromosome 17 ([employer]rest[employer]; [employer], [place]). The Molecular Genetic Pathology Laboratory of the [facility] has validated modifications of the PathV[employer]ion kit used for the testing including the use of Target Retrieval Solution and proteinase K ([employer]; [place]) for cell conditioning, and modified probe/target denaturation and hybridization conditions for the assay. When necessary, a test with a probe for the [id number] locus (laboratory developed), and using a similar protocol is also performed. The in situ hybridization analysis was performed for and correlated with preselected areas of invasive carcinoma. Result: HER2(ERBB2) gene amplification is absent; the average copy number is 1.9. The HER2(ERBB2)/Chromosome 17 ratio is 1.1 (reference range is 0.8 - 1.7). Had Oncotype testing done. Low risk. Didn't want to go on AI therapy due to concerns of ONJ (has h/o TMJ). Started tamoxifen. Underwent hysterectomy with BSO. Path: Uterus, cervix, bilateral fallopian tubes and ovaries, excision: Endometrium - Benign inactive endometrium. Myometrium - Adenomyosis and adenomyomas. Bilateral ovaries - No significant pathologic findings Had been on tamoxifen. Appreciated mass in right breast. Ultrasound-guided core needle biopsy performed on 10/18/2017 demonstrated invasive carcinoma with mixed ductal and lobular features, nuclear grade 2. Estrogen receptors stained with strong intensity at 95% and progesterone receptors were negative with 0% staining. HER-2 1+ on immunohistochemistry. MRI of the breast done on 10/23/2017 revealed a 7 mm mass in the upper outer quadrant of the right breast correlating with the biopsy-proven malignancy at 11:00 position 5 cm from the nipple. Left chest demonstrated postsurgical findings of left mastectomy with no MRI findings to suggest local recurrence. Mastectomy with SLN 11/09/2017. Pathology: 1. Right axillary sentinel lymph node, sentinel node biopsy (A) - One lymph node, negative for malignancy (0/1) 2. Right breast, mastectomy (B) - Invasive mammary carcinoma with mixed ductal and lobular features, Wilmot grade 1, measuring 0.6 cm in greatest dimension (please see synoptic report) - Atypical lobular hyperplasia - Skin with seborrheic keratoses - Biopsy clip and biopsy site reparative changes identified SYNOPTIC REPORT OF KUMAR PATHOLOGIC FINDINGS RIGHT BREAST: BREAST INVASIVE CARCINOMA WORKSHEET Part: A and B Procedure: Total mastectomy (including nipple-sparing and skin-sparing mastectomy) Specimen Laterality: Right Tumor size: Size of largest invasive carcinoma: Greatest dimension of largest focus of invasion >1 mm: 6 mm Tumor Focality: Single focus of invasive carcinoma Histologic Type of Invasive Carcinoma: Invasive carcinoma with ductal and lobular features (mixed type carcinoma) Histologic Grade: Glandular (Acinar) / Tubular Differentiation: Score 3 Nuclear Pleomorphism: Score 1 Mitotic Rate: Score 1 (<=3 mitosis per mm2) Overall Grade: Grade I Ductal Carcinoma In Situ: No DCIS is present in specimen Tumor Extension: Skin: Uninvolved Nipple: Uninvolved Skeletal muscle: Not applicable Invasive Carcinoma Margins: Margins uninvolved by invasive carcinoma Distance from closest margin: 2 mm Closest margin: Radial DCIS Margins: No DCIS in specimen Lymph Nodes: Number of lymph nodes with macrometastases (>2 mm): 0 Number of lymph nodes with micrometastases (>0.2 mm to 2 mm and/or >200 cells): 0 Number of lymph nodes with isolated tumor cells (<= 0.2 mm and <= 200 cells): 0 Number of lymph nodes examined: 1 Number of sentinel lymph nodes examined (required only if sentinel nodes are present): 1 Treatment Effect: No known presurgical therapy Lymph-Vascular Invasion: Not identified Pathologic Stage Classification (pTNM,AJCC 8th ed) TNM Descriptor(s): Not applicable Primary Tumor (Invasive Carcinoma) (pT): pT1b Regional Lymph Nodes (pN): Modifier: (sn): [place] node(s) evaluated Category (pN): pN0 Distant metastasis: Distant Metastasis (pM) Not applicable/Not confirmed pathologically in this case Previous therapy: 1) TC x1. Current therapy: 1) Adjuvant anastrozole. Begin spring 2017. She was seen by Dr. Irvin and roof foreman at [facility]. Prolia was advised. She was seen by another roof foreman. Currently not on any treatment for osteoporosis. Pt. here today with her . She was seen by Dr. Suárez this past Sunday. Pt. was under a lot of stress planning/participating in her 50th year reunion. She broke out in cold sores on her lips and noticed an enlarged LN on the back of her neck. She was seen by her PCP during the lip break out who also evaluated the neck LN. Lips now improved. Neck LN persists. Appetite: Good. Energy level: Good energy. Denies fevers. Resp:denies cough or sob Cardiac:denies chest pain/palpitations GI:denies abd pain, n/v, moving bowels regularly :denies dysuria/hematuria Extrem:denies pain Endo:denies hot flashes Neuro:denies symptoms of neuropathy Skin:denies rashes Heme:denies bleeding The ROS is otherwise negative. Past medical history, appointments, medications, allergies reviewed. No changes. EXAM: BP 112/64 Pulse 68 Temp 36.4 C (97.6 F) (Temporal) Wt 47.4 kg (104 lb 8 oz) LMP 08/31/2013 SpO2 100% BMI 17.39 kg/m APPEARANCE Well appearing, alert, in no acute distress, well-hydrated, well nourished. HEART RRR with normal S1 and S2, no murmurs LUNG clear to auscultation BREAST FEMALE b/l mastectomy scars, no nodule/mass/skin changes LYMPH NODES + L posterior neck LN, 1cm, mobile, nt, No supraclavicular lymphadenopathy and No axillary lymphadenopathy. ABDOMEN bowel sounds normoactive, soft, non-tender EXTREMITIES No edema NEURO Awake, alert and oriented x 3, Normal gait, and No involuntary motions. SKIN Skin color, texture, turgor normal, no suspicious rashes or lesions ASSESSMENT/PLAN: 1. Personal history of breast cancer - ICD9: V10.3, ICD10: Z85.3 (primary diagnosis) 2. History of bilateral mastectomy - ICD9: V45.71, ICD10: Z90.13 3. 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 Oncotype recurrence score 28 (intermediate risk) suggested 10 year risk of distant recurrence at 18% with the use of tamoxifen alone. 2. Malignant neoplasm of nipple of left breast in female, estrogen receptor positive (HCC) - ICD9: 174.0, V86.0, ICD10: C50.012, Z17.0 H/O stage I breast cancer left breast. Per Dr. 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 -Oncotype recurrence score 28 (intermediate risk) suggested 10 year risk of distant recurrence at 18% with the use of tamoxifen alone. -She is tolerating anastrozole well with no symptomatic side effects. -H/O osteoporosis. On vit D supplement with no other treatment for osteoporosis. -Discussed plan to complete 5 years worth of endocrine therapy which will be in December 2022. After that she will be seen on an every 6-month basis up to approximately 10 years. Plan: -OV as scheduled in December. -She will be discontinuing anastrozole on or around that time. -Continue follow-up with endocrinology for management of osteoporosis. - New L posterior neck LN-occurred with viral illness. - Declines treatment for osteoporosis. Has been seen by endo in the past. - Completed 5 years of AI therapy. - Follow up with Dr. Suárez in 3-4 weeks for follow up eval on LN. Pt will call for appt. - Follow up with Dr. Altamirano as scheduled. - Pt. aware to call office with any questions/concerns. The patient indicates understanding of these issues and agrees with the plan. All documentation from previous visit of 01/01/23-Dr. Altamirano/myself was copied and pasted, documentation has been reviewed and edited as necessary for today's visit. 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 She denies chest wall masses, pain, or skin changes. She does report a lump back of her neck which was noted after a viral syndrome presenting with multiple oral cold sores She is following medical -oncology. Last OV 12/2022 when her Arimidex was discontinued, having completed 5 years of therapy. She was followed for probably benign axillary nodes bilaterally with borderline cortical thickening. In 06/2020 bilateral ultrasounds were deemed benign. In 12/04 she was diagnosed with a [id number] breast cancer. MRI 12/04 showed the known lesion measuring 1.7cm on the left at 12pm. In 01/01 she had a left mastectomy with negative margins and 0/2 SLN. The tumor was ER+(90%)/WY+(90%)/HER2-. She did not have reconstruction. ODX was 13 corresponding to an 8% risk of distant manager terminal recurrence. She saw Dr. Jimenez in consultation and given her pre-existing osteoporosis (BMD 11/03 -2.9) and TMJ, it was decided that she take Tamoxifen which she started 02/01. In 10/07, she felt a new lump on the right. She was found to have a 4mm mass by ultrasound. 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 She went on to right mastectomy 11/08 demonstrating the 6mm tumor with negative margins, no LVI and 0/1 SLN. She was switched to Arimidex 02/06 for another 5 years. She is followed by Dr. Altamirano in [place]. She was having some vaginal dryness which is improved on Replens. 01/06: Daria Osborne's Common Hereditary Cancers panel through [facility] was negative for a deleterious mutation. 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 A VUS is a genetic variant for which insufficient data exists in order to determine if it is associated with disease (deleterious mutation) or is a normal genetic variant which can occur in the population without disease (benign polymorphism). Her vitamin D level was Vitamin D 25 Hydroxy (ng/mL) Date Value 03/24/2023 64.6 09/23/2021 58.6 . She takes Vitamin D 2000 units and gets a lot of calcium in her diet . BMD: Yes / 12/07 osteoporosis (-2.8). She is NOT interested in therapy as she has jaw issues. 01/06 stable at -2.8. 06/2020 BMD -3.3. 09/2022 BMD T score - 3.3 PERSONAL BREAST HISTORY: Past breast history (prior to this encounter) is as follows: Breast biopsy: Yes, as above Breast cysts: No Breast surgery: Yes, left mastectomy as above. Right mastectomy as above Breast cancer: Yes, 2012 Left Stage 1 ([id number]) in the upper breast s/p left mastectomy. In 2017 Right ER+(90%)/WY-/HER2 BC, s/p right mastectomy CANCER SURVEILLANCE: Mammograms: Yes / right mammogram 01/05 negative Breast MRI: 11/08 showing the known cancer; otherwise negative. Colonoscopy: No RISK FACTORS FOR BREAST CANCER: Age at the onset of menses: unknown P: 1 Age at the of first child: 26 years of age. She did not breast feed Age at menopause: The patient does not remember. Post-menopausal hormone therapy: No She is S/P total hysterectomy with negative pathology History of Mantle Radiation prior to the age of 30: No Postmenopausal obesity: No Mammographic density: NA; she is s/p bilateral mastectomy. Personal History of Benign Atypical Breast Biopsy: No Alcohol use: 1-2 drinks daily PAST MEDICAL HISTORY: PAST MEDICAL HISTORY Diagnosis Date Anemia, unspecified Benign neoplasm of skin of trunk, except scrotum 01/12/2009 Benign neoplasm of skin of upper limb, including shoulder 08/26/2005 Breast cancer (HCC) 11/2012 left Dense breasts 07/16/2017 Difficult airway for intubation Disorder of bone and cartilage, unspecified History of bilateral breast cancer 04/21/2018 left them right; s/p bilateral mastectomy Incisional hernia of anterior abdominal wall without obstruction or gangrene 04/22/2017 just above and to the right of umbilicus; 02/10/[address] Shepherd reviewed; stable findings of slight bulge seen best while patient standing Irritable bowel syndrome Malignant neoplasm of upper-outer quadrant of right breast, estrogen receptor positive (HCC) Osteoporosis, unspecified progression to osteoporosis noted on 2007 bone density Postmenopausal bleeding Postmenop. bleeding Postoperative thrombophlebitis 09/20/2013 Temporomandibular joint disorders, unspecified TMJ (dislocation of temporomandibular joint) 10/20/2015 Transfusion history after childbirth Unspecified vitamin D deficiency Patient specifically denies history of: DVT, PE, Migraine headaches. She has osteoporosis. PAST SURGICAL HISTORY: PAST SURGICAL HISTORY Procedure Laterality Date CURETTAGE 1978 Curettage, post delivery CURETTAGE DILATION & CURETTAGE DX&/THER NONOBSTETRIC 07/01/2013 [facility] EXCISION PILONIDAL CYST/SINUS SIMPLE LAPROSCOPIC REPAIR UMBILICAL HERNIA MASTECTOMY, SIMPLE, COMPLETE Left 01/06/2013 left breast with SLND ([place]) MASTECTOMY, SIMPLE, COMPLETE 10/2017 right PAST SURGICAL HISTORY OF pilonidal cyst PAST SURGICAL HISTORY OF abdominal hernia PAST SURGICAL HISTORY OF breast cyst removed PAST SURGICAL HISTORY OF wisdom teeth PAST SURGICAL HISTORY OF N/A 07/2020 removal of skin tags PORTOCATH PLACEMENT 2017 PORTOCATH PLACEMENT 12/18/2017 port placement [place] NOHEMI W/WO REMOVAL TUBE OVARY 08/2013 w/ BSO TONSILLECTOMY & ADENOIDECTOMY <AGE 12 SOCIAL HISTORY: Social History Tobacco Use Smoking status: Former Types: Cigarettes Quit date: 10/22/1970 Years since quittin.5 Smokeless tobacco: Never Tobacco comments: 3 cigarettes a week back in college for 9 months Vaping Use Vaping Use: Never used Substance Use Topics Alcohol use: Yes Comment: beer/wine maybe daily depends Drug use: No Caffeine intake: 2 / day Exercise: 30 minutes/5 times a week or more FAMILY HISTORY: Family history of breast cancer: A maternal aunt had bilateral breast cancer Family history of ovarian cancer: None Number of sisters: 0 Number of maternal aunts: 2 Number of paternal aunts: 1 Ashkenazi Ancestry: no Has Patient had Genetic Testing? No Have any Family Members had Genetic Testing? No Other Cancer: Maternal aunt with colon cancer There is no family history of prostate, uterine, pancreatic, gastric, brain, renal cell or thyroid cancer. There is no family history of melanoma, sarcoma or leukemia. Osteoporosis: Maternal aunt Stroke: MGF and a maternal aunt had strokes Blood Clot: None Heart attack: PGF, PGM and MGM had MIs Thyroid Nodule or Goiter: None Autism: None FAMILY HISTORY Problem Relation Age of Onset Alcohol/Drug Mother Heart Father [place] at 72 Diabetes Father Thyroid Father other (LIVER) Father Diabetes Paternal Grandmother Heart Paternal Grandmother Diabetes Maternal Grandmother Heart Maternal Grandmother [place] in her 40's; from [place] at 68 Stroke Maternal Grandfather Heart Paternal Grandfather Breast Cancer Maternal Aunt breast, 50's oral Coronary Artery Disease Maternal Uncle Prostate Cancer Maternal Uncle 86 Colon Cancer Maternal Aunt 60 Stroke Maternal Aunt Coronary Artery Disease Maternal Aunt MEDICATIONS: EPINEPHrine (EPIPEN) 0.3 mg/0.3 mL auto-injector Use as directed for reaction to food allergen Cholecalciferol, Vitamin D3, 1,000 unit cap Take 1 capsule by mouth once daily. THERAPEUTIC MULTIVITAMIN TAB Take one(1) tablet daily. ALLERGIES: ALLERGIES Allergen Reactions Cantaloupe Swelling Throat itchy Chicken GI Upset + allergy test to chicken meat (in past just had GI upset but test +); told by property custodian no flu shot because of this allergy Clindamycin Rash possible allergy, rash appeared treatment completed Propofol Unknown History of possible egg allergy as a child. Skin test to egg-white negative on 12/06/17. Patient has never been treated with propofol Ciprofloxacin Intolerance C/o feeling anxious and shaky while taking ciprofloxacin in the post-operative period following evacuation of breast hematoma in Oct, 2017. Also c/o joints popping no other symptoms. Egg Derived Contraindication-Medical Surgical Slipper Maker told patient to avoid anything derived from eggs due to chicken allergy revealed on testing. May eat eggs. Zantac [Ranitidine * Unknown Tetracycline Unknown REVIEW OF SYSTEMS: She denies chest pain, shortness of breath, persistent cough, severe headaches, unusual bony pains, abdominal pain or unintentional weight loss. PHYSICAL EXAM: Last Menstrual Period 08/31/2013 General: well-nourished, healthy, female, alert and oriented x 3, calm Skin: warm, dry, skin color, texture, turgor normal Head/Eyes: normocephalic, atraumatic and anicteric Neck Soft, smooth mobile occipital node Breasts and Regional Lymph Nodes: The patient was examined in the upright and supine positions. There is no concerning supraclavicular, infraclavicular or axillary lymphadenopathy or fullness. She is s/p left simple mastectomy with SLNB with no evidence of local recurrence. She is s/p right simple mastectomy with SLNB with no evidence of local recurrence. She has had no reconstruction on either side. Chest - clear Cor - s1+s2 Abd - soft, no hepatomegaly IMAGING: Deferred . LABS: Hemoglobin (g/dL) Date Value 03/24/2023 14.8 09/23/2021 14.3 Hematocrit (%) Date Value 03/24/2023 46.4 09/23/2021 43.6 WBC (k/uL) Date Value 03/24/2023 4.76 09/23/2021 5.37 Glucose (mg/dL) Date Value 03/24/2023 100 09/23/2021 110 Potassium (mmol/L) Date Value 03/24/2023 4.7 09/23/2021 4.0 Sodium (mmol/L) Date Value 03/24/2023 138 09/23/2021 139 Chloride (mmol/L) Date Value 03/24/2023 102 09/23/2021 100 CO2 (mmol/L) Date Value 03/24/2023 22 09/23/2021 26 Creatinine (mg/dL) Date Value 03/24/2023 0.53 09/23/2021 0.64 BUN (mg/dL) Date Value 03/24/2023 10 09/23/2021 13 Anion Gap (mmol/L) Date Value 03/24/2023 14 09/23/2021 13 Calcium (mg/dL) Date Value 09/23/2021 9.4 Calcium, Total (mg/dL) Date Value 03/24/2023 9.7 Protein, Total (g/dL) Date Value 03/24/2023 7.3 09/23/2021 7.2 Albumin (g/dL) Date Value 03/24/2023 4.5 09/23/2021 4.5 Bilirubin, Total (mg/dL) Date Value 03/24/2023 0.5 09/23/2021 0.4 Alkaline Phosphatase (U/L) Date Value 03/24/2023 49 09/23/2021 52 AST (U/L) Date Value 03/24/2023 31 09/23/2021 24 ALT (U/L) Date Value 03/24/2023 18 09/23/2021 17 Assessment IMPRESSION/PLAN: (Z85.3) Personal history of BILATERAL breast cancer (primary encounter diagnosis) (Z90.13) Status post bilateral mastectomy (M81.0) Osteoporosis without current pathological fracture (Z13.71) BRCA negative (R59.0) Enlarged lymph node in neck. Likely reactive and regressing in size. There is no evidence of malignancy. The patient was reassured as to the benign nature of her clinical findings. She is now s/p bilateral mastectomy and has reduced her risk of another cancer by 90-95%. We talked about her osteoporosis and potential treatment. She is NOT interested in treatment. Genetics referral made: Negative panel testing as above. Chemoprevention discussion: She completed 5 years of tamoxifen and then 5 years of Arimidex for her second cancer The patient is advised to exercise regularly, achieve/maintain ideal body weight, and to limit alcohol consumption to less than 3 drinks weekly for breast cancer risk reduction and overall health. She is reminded about screening colonoscopy. She really doesn't want to do it. For bone health, she exercises regularly and takes Calcium and D. She is not interested in medication. She will see medical oncology as scheduled next week, and I will see her for clinical evaluation in one year. She will call me in the interim should she have any questions or concerns. I spent a total of 30 minutes on the date of the service which included preparing to see the patient, [id number] patient care, completing clinical documentation, obtaining and/or reviewing separately obtained history, performing a medically appropriate examination and counseling and educating the patient/family/caregiver. Dario Suárez MD Medical Breast Specialist documented in this encounter [facility] 04-13-2023 Nurse Note Last mammogram on: Results: See Report Is the patient active on MyChart Yes Electronically Signed By: Elizabeth Cole LPN In Department: BREAST CENTER REVIEW OF PATIENT HISTORY: OB History T1 L1 SAB0 IAB0 Ectopic0 Multiple0 Live Births1 Comment: Menarche age 11 AFB 26 Pt did not breast feed Pt did use BC Pt denies use of HRTs Menopause 54 or 55 FAMILY HISTORY Problem Relation Age of Onset Alcohol/Drug Mother Heart Father [place] at 72 Diabetes Father Thyroid Father other (LIVER) Father Diabetes Paternal Grandmother Heart Paternal Grandmother Diabetes Maternal Grandmother Heart Maternal Grandmother [place] in her 40's; from [place] at 68 Stroke Maternal Grandfather Heart Paternal Grandfather Breast Cancer Maternal Aunt breast, 50's oral Coronary Artery Disease Maternal Uncle Prostate Cancer Maternal Uncle 86 Colon Cancer Maternal Aunt 60 Stroke Maternal Aunt Coronary Artery Disease Maternal Aunt PAST MEDICAL HISTORY Diagnosis Date Anemia, unspecified Benign neoplasm of skin of trunk, except scrotum 01/12/2009 Benign neoplasm of skin of upper limb, including shoulder 08/26/2005 Breast cancer (HCC) 11/2012 left Dense breasts 07/16/2017 Difficult airway for intubation Disorder of bone and cartilage, unspecified History of bilateral breast cancer 04/21/2018 left them right; s/p bilateral mastectomy Incisional hernia of anterior abdominal wall without obstruction or gangrene 04/22/2017 just above and to the right of umbilicus; 02/10/[address] Shepherd reviewed; stable findings of slight bulge seen best while patient standing Irritable bowel syndrome Malignant neoplasm of upper-outer quadrant of right breast, estrogen receptor positive (HCC) Osteoporosis, unspecified progression to osteoporosis noted on 2007 bone density Postmenopausal bleeding Postmenop. bleeding Postoperative thrombophlebitis 09/20/2013 Temporomandibular joint disorders, unspecified TMJ (dislocation of temporomandibular joint) 10/20/2015 Transfusion history after childbirth Unspecified vitamin D deficiency PAST SURGICAL HISTORY Procedure Laterality Date CURETTAGE 1978 Curettage, post delivery CURETTAGE DILATION & CURETTAGE DX&/THER NONOBSTETRIC 07/01/2013 [facility] EXCISION PILONIDAL CYST/SINUS SIMPLE LAPROSCOPIC REPAIR UMBILICAL HERNIA MASTECTOMY, SIMPLE, COMPLETE Left 01/06/2013 left breast with SLND ([place]) MASTECTOMY, SIMPLE, COMPLETE 10/2017 right PAST SURGICAL HISTORY OF pilonidal cyst PAST SURGICAL HISTORY OF abdominal hernia PAST SURGICAL HISTORY OF breast cyst removed PAST SURGICAL HISTORY OF wisdom teeth PAST SURGICAL HISTORY OF N/A 07/2020 removal of skin tags PORTOCATH PLACEMENT 2017 PORTOCATH PLACEMENT 12/18/2017 port placement [place] NOHEMI W/WO REMOVAL TUBE OVARY 08/2013 w/ BSO TONSILLECTOMY & ADENOIDECTOMY <AGE 12 Social History Tobacco Use Smoking status: Former Types: Cigarettes Quit date: 10/22/1970 Years since quittin.5 Smokeless tobacco: Never Tobacco comments: 3 cigarettes a week back in college for 9 months Vaping Use Vaping Use: Never used Substance Use Topics Alcohol use: Yes Comment: beer/wine maybe daily depends Drug use: No documented in this encounter [facility] 04-13-2023 Instructions Elizabeth OSEI Cole - 04/13/2023 11:25 AM EDT BREAST CANCER SCREENING If you have remaining breast tissue, an annual screening mammogram and clinical breast exam by your breast provider is recommended. Option for mammography include digital mammograms and digital breast tomosynthesis. Single view mammograms are recommended if you have had a mastectomy with tissue flap reconstruction. Mammograms are not necessary if you have had a mastectomy with implant reconstruction. Breast MRI is NOT ROUTINELY recommended for screening following a cancer diagnosis and is NOT recommended for women who have undergone bilateral mastectomy procedures unless otherwise clinically indicated. MRI is recommended for breast cancer survivors with remaining breast tissue who: Have a history if chest irradiation under the age of 30. Carry genetic mutations conferring increased cancer risk (BRCA1, BRCA2, PTEN, TP53, CDH1, STK11, PALB2, CHEK2, GORGE) Per [facility] High Risk Care Path recommendations, screening breast MRI may be considered for women under the age of 65 with remaining breast tissue in the following situations: Patients who were under the age of 50 at the time of their breast cancer diagnosis Patients with mammographically dense tissue (BI-RADS category 3 or 4) Patients with a history of invasive lobular breast cancer GENETIC TESTING Approximately 10% of all breast cancers in the [place] are due to inherited genetic mutations. BRCA 1 and BRCA 2 are the most common genes associated with hereditary breast and ovarian cancer risk, but other genes known to increase breast cancer risk have also been identified. A certified genetic counselor can help decide if you are a candidate for testing, especially if your breast cancer was diagnosed prior to the age of 50 you had triple negative breast cancer you have a personal or family history of ovarian cancer you have a family member with a known genetic mutation you have a person or family history of male breast cancer you are of Ashkenazi Sikh descent HEALTHY LIFESTYLE MANAGEMENT (per NCCN Guidelines Version 1.2017 for Survivorship) All survivors should be encouraged to achieve and maintain a healthy lifestyle with attention to weight management, physical activity, and healthy dietary habits. Healthy Lifestyle habits have been associated with overall health and quality of life. For some cancers, a healthy lifestyle has been associated with a reduced risk of recurrence and . For a healthy lifestyle, all survivors should be encouraged to: Achieve and maintain a healthy body weight throughout life. Strive for at least 150 minutes of moderate or 75 minutes of vigorous activity per week. Maintain a healthy diet high in fruits, vegetables, and whole grains and low in red and processed meats, sugars, and fat in order to promote weight control and avoid obesity. Limit alcohol intake to less than one drink per day. Avoid tobacco products. Practice sun safety. Obtain 6-7 hours of sleep per night. Follow up with primary care physician regularly. WHEN TO CALL Tests may become necessary in some point of time. We encourage you to call with any new questions or concerns, particularly if your symptoms are worsening or have lasted longer than two weeks. Specifically, please report: breast or chest wall lumps, skin changes, swelling, or nipple discharge unexplained nausea or vomiting unexplained localized bone pain unexplained cough or shortness of breath unexplained swelling in your arm(s) unexplained and persistent headaches Breast Cancer Support and Resources Many resources are available in the community and offer an array of programs including support groups and community education programs. All of them have web sites you can access for additional information. These include but are not limited to: The [facility] Comprehensive Breast Cancer Program - [email or web address]/services/br xzok-guhmmg-hbekohy [facility] - [facility].[email or web address] [employer] - cancer.org [facility] - jdbcfoundation.org FORCE - facingourrisk.org [place] - brightpink.org Young Survival Coalition - youngsurvival.org [facility] [place] - 4thangel.org [facility] - touchedbycancer.org ([place] and [place]) [facility] - thevictorycenter.org ([place] area) [facility] - yellowbrickplace.org ([place] area) [facility] - stewartscaringplace.org ([place] area) If you would like to compliment one of our caregivers you encountered today, you may do so at [email or web address]. Thank you ! documented in this encounter [facility] 04-11-2023 Miscellaneous Notes Spoke with pt and scheduled as directed Next available with Jade. Rodriguez Altamirano DO Patient states she first noticed the large pea sized lump on the back of her neck around 04/04/2023. Denies fever or any other lumps anywhere else. She is unsure if this is hard, soft or immobile. Patient also states started with one cold sore on her mouth back around and then several since then. They are finally scabbed over now and she is wondering if this lump is r/t that virus. Patient asking if Dr. Altamirano received message from Dr. Peterson and what she should do next. Lucille Chan LPN Pt calling in stated that she saw Dr. Peterson on Friday 04/06. That sent an e-mail/message to . Pt has a lump on back of her neck. Please contact on pt on next steps jluis. Pt stated she's concerned. Thank you! documented in this encounter [facility] 04-06-2023 History of Present illness Narrative Images from the original note were not included. This note was created using [employer]. Subjective Daria Osborne is a 72 year old female. Patient presents with: F/U 6 months SUBJECTIVE: Daria Osborne is a 72 year old year old lady here today for 6 month follow up appointment for review of medical conditions. Cold sores breaking out since weekend. [place] crappy when that started. Another episode started this past weekend. Recent sun exposure with wind at class reunion. Stressful. Did not have sunscreen on lips. Last episodes a long time ago. Similar weather conditions. Also feels lump back of head--?lymph node. Started weekend. Pain in left hand since had lab draw. Tender to light touch noted on exam.No large lumps and no warmth or redness. Normal hand funciton. Stopped Arimidex in December. Seems to be reason sugars better now that off of that. Bone in foot on left that has given trouble for years. Big toe can hurt if wears certain shoes. PAST MEDICAL HISTORY Diagnosis Date Anemia, unspecified Benign neoplasm of skin of trunk, except scrotum 01/12/2009 Benign neoplasm of skin of upper limb, including shoulder 08/26/2005 Breast cancer (HCC) 11/2012 left Dense breasts 07/16/2017 Difficult airway for intubation Disorder of bone and cartilage, unspecified History of bilateral breast cancer 04/21/2018 left them right; s/p bilateral mastectomy Incisional hernia of anterior abdominal wall without obstruction or gangrene 04/22/2017 just above and to the right of umbilicus; 02/10/[address] Shepherd reviewed; stable findings of slight bulge seen best while patient standing Irritable bowel syndrome Malignant neoplasm of upper-outer quadrant of right breast, estrogen receptor positive (HCC) Osteoporosis, unspecified progression to osteoporosis noted on 2007 bone density Postmenopausal bleeding Postmenop. bleeding Postoperative thrombophlebitis 09/20/2013 Temporomandibular joint disorders, unspecified TMJ (dislocation of temporomandibular joint) 10/20/2015 Transfusion history after childbirth Unspecified vitamin D deficiency Current Outpatient Medications Medication Sig EPINEPHrine (EPIPEN) 0.3 mg/0.3 mL auto-injector Use as directed for reaction to food allergen Cholecalciferol, Vitamin D3, 1,000 unit cap Take 1 capsule by mouth once daily. THERAPEUTIC MULTIVITAMIN TAB Take one(1) tablet daily. No current facility-administered medications for this visit. Review of Systems Objective BP 100/60 Pulse 72 Temp 36.6 C (97.8 F) Resp 18 Wt 47.2 kg (104 lb) LMP 08/31/2013 SpO2 99% BMI 17.22 kg/m Last 5 Encounter Wt Readings: Date: Wt: 04/06/2023 47.2 kg (104 lb) 01/01/2023 48.1 kg (106 lb) 10/16/2022 48.7 kg (107 lb 6.4 oz) 10/04/2022 48.1 kg (106 lb) 08/18/2022 48.3 kg (106 lb 8 oz) No waist measurement recorded Estimated body mass index is 17.22 kg/m as calculated from the following: Height as of 07/11/22: 165.5 cm (5' 5.16 ). Weight as of this encounter: 47.2 kg (104 lb). Last 5 Encounter BP Readings: Date: BP: 04/06/2023 100/60 01/01/2023 102/64 10/16/2022 120/72 10/04/2022 112/80 08/18/2022 122/74 Physical Exam Constitutional: Appearance: Normal appearance. HENT: Head: Normocephalic. Eyes: Conjunctiva/sclera: Conjunctivae normal. Neck: Cardiovascular: Rate and Rhythm: Normal rate and regular rhythm. Heart sounds: Normal heart sounds. Pulmonary: Effort: Pulmonary effort is normal. Breath sounds: Normal breath sounds. Skin: General: Skin is warm and dry. Neurological: General: No focal deficit present. Mental Status: She is alert and oriented to person, place, and time. Psychiatric: Mood and Affect: Mood normal. Behavior: Behavior normal. Thought Content: Thought content normal. Judgment: Judgment normal. Component Latest Ref Rng & Units 04/04/2022 09/28/2022 03/24/2023 Protein, Total 6.3 - 8.0 g/dL 7.0 7.3 7.3 Albumin 3.9 - 4.9 g/dL 4.5 4.5 4.5 Calcium 8.5 - 10.2 mg/dL 9.6 9.4 9.7 Bilirubin, Total 0.2 - 1.3 mg/dL 0.6 0.6 0.5 Alkaline Phosphatase 34 - 123 U/L 48 46 49 AST 13 - 35 U/L 22 23 31 ALT 7 - 38 U/L 17 16 18 Glucose 74 - 99 mg/dL 116 (H) 114 (H) 100 (H) BUN 7 - 21 mg/dL 10 11 10 Creatinine 0.58 - 0.96 mg/dL 0.60 0.66 0.53 (L) Sodium 136 - 144 mmol/L 139 136 138 Potassium 3.7 - 5.1 mmol/L 4.3 4.0 4.7 Chloride 97 - 105 mmol/L 101 100 102 CO2 22 - 30 mmol/L 28 26 22 Anion Gap 9 - 18 mmol/L 10 10 14 eGFR >=60 mL/min/1.73m 96 94 98 WBC 3.70 - 11.00 k/uL 5.00 4.68 4.76 RBC 3.90 - 5.20 m/uL 4.45 4.57 4.78 Hemoglobin 11.5 - 15.5 g/dL 13.8 14.1 14.8 Hematocrit 36.0 - 46.0 % 41.3 42.7 46.4 (H) MCV 80.0 - 100.0 fL 92.8 93.4 97.1 MCH 26.0 - 34.0 pg 31.0 30.9 31.0 MCHC 30.5 - 36.0 g/dL 33.4 33.0 31.9 RDW-CV 11.5 - 15.0 % 12.6 12.7 12.8 Platelet Count 150 - 400 k/uL 218 222 229 MPV 9.0 - 12.7 fL 9.2 9.6 10.3 Absolute nRBC <0.01 k/uL <0.01 <0.01 <0.01 Cholesterol, Total <200 mg/dL 202 (H) Triglyceride <150 mg/dL 53 HDL Cholesterol >39 mg/dL 96 Non HDL Cholesterol <130 mg/dL 106 Fasting Time hrs 12 VLDL Cholesterol <30 mg/dL 11 TC:HDL Ratio <5.10 2.10 LDL Cholesterol <100 mg/dL 95 LDL:HDL Ratio <2.54 0.99 Hemoglobin A1C 4.3 - 5.6 % 5.7 (H) 5.8 (H) 5.5 Estimated Average Glucose mg/dL 117 120 111 Vitamin D 25 Hydroxy 31.0 - 80.0 ng/mL 60.0 52.4 64.6 Hemoglobin A1C (%) Date Value 03/24/2023 5.5 09/28/2022 5.8 04/04/2022 5.7 09/23/2021 5.8 04/01/2021 5.4 10/08/2020 5.8 03/30/2020 5.5 09/23/2019 5.6 Assessment and Plan Encounter Diagnosis ICD-10-CM 1. 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 IFG (impaired fasting glucose) R73.01 3. Lump on neck R22.1 Posterior neck. 4. Vitamin D deficiency E55.9 5. Colon cancer screening Z12.11 FECAL OCCULT BLOOD TEST Above issues addressed with patient. Patient involved in shared decision making for management of medical issues. Consider antivirals for cold sore if continue to be recurrent. Noted lump posterior neck. Patient anxious given history of cancer. Will touch base with oncology and see whether needs to pursue follow up with them or imaging studies first. Further evaluation and treatment as indicated. History and medications reviewed. Epic updated as needed Refills and/or prescriptions taken care of and meds adjusted as indicated after reviewed history, exam and labs. Health Maintenance reviewed. Updated record and/or ordered tests as recorded. Encouraged on efforts at healthy diet and regular exercise and adequate sleep. Needs to keep working on diet and exercise with lifestyle changes for effective weight loss as well as prevention of DM, and control of BP and lipids. Needs to keep working on getting enough calories to maintain weight. Note that weight the past 16 years has stayed within 101-108 pounds range. I spent a total of 38 minutes on the date of the service which included preparing to see the patient, [id number] patient care, completing clinical documentation, performing a medically appropriate examination, counseling and educating the patient/family/caregiver, and ordering medications, tests, or procedures. Carolina Peterson MD documented in this encounter [facility] 01-01-2023 History of Present illness Narrative Chief Complaint Patient presents with: Established Patient HPI: Daria Osborne is a 72 year old female who presents here today for follow up breast cancer. Per Dr. Altamirano's previous note: H/o found to have a suspicious mass in the left breast on a routine gynecologic exam 11/03/2012. Underwent a diagnostic mammogram on 11/25/2012 which demonstrated a lobulated mass associated with a few microcalcifications in the retroareolar region. An US was also performed which revealed a 1.8 cm mass at 12 o'clock. On 12/02, a US guided core biopsy was performed with pathology demonstrating moderate to poorly differentiated IDC with a focus of DCIS, ER/WY (+), Her2 equivocal. She subsequently underwent an MRI on 12/16 which revealed the known left breast cancer and a 0.5 cm enhancing lesion in the lower sternum for which a bone scan was recommended. The bone scan did not show any areas concerning for malignancy. Ultimately underwent left mastectomy with SLN biopsy 01/06/13. Final pathology revealed: FINAL DIAGNOSIS A. LEFT SENTINEL LYMPH NODE, EXCISION: TWO LYMPH NODES NEGATIVE FOR MALIGNANCY (0/2). B. LEFT BREAST 58 GRAMS, EXCISION: INVASIVE MODERATELY DIFFERENTIATED DUCTAL CARCINOMA DUCTAL CARCINOMA IN SITU, CRIBRIFORM AND COMEDONECROSIS TYPES SKIN - SEBORRHEIC KERATOSIS SP/mz 01/08/2013 COMMENT B. BREAST (INVASIVE CARCINOMA) SYNOPTIC REPORT PROCEDURE: - Simple mastectomy LYMPH NODE SAMPLING: - [place] lymph nodes SPECIMEN LATERALITY: - Left HISTOLOGIC TYPE OF INVASIVE CARCINOMA: - Invasive ductal carcinoma (no special type or not otherwise specified) TUMOR SIZE (SIZE OF LARGEST INVASIVE CARCINOMA): - Size of largest invasive carcinoma - - Greatest dimension of largest focus invasion over 1 mm: 1.3 cm VIELKA HISTOLOGIC GRADE: - Glandular (acinar)/Tubular differentiation: Score 2 - Nuclear pleomorphism: Score 2 - Mitotic rate: Score 2 - Overall grade: Grade 2 TUMOR FOCALITY: - Single focus of invasive carcinoma DUCTAL CARCINOMA IN SITU (DCIS): - DCIS is present MACROSCOPIC/MICROSCOPIC EXTENT OF TUMOR: - Skin: No invasive carcinoma - Nipple: No invasive carcinoma - Skeletal Muscle: Not identified MARGINS: - Invasive carcinoma MARGINS: - - Distance of DCIS from closest margin: 3.0 mm (deep) DCIS: - Margins uninvolved by DCIS Distance from closest margin: 4.0 mm (deep) LYMPH NODES: - Number of sentinel lymph nodes examined: 2 - Total number of lymph nodes examined (sentinel and non-sentinel): 2 - - Number of lymph nodes with macrometastasis (greater than 2 mm): 0 - - Number of lymph nodes with micrometastasis (greater than 0.2 mm to 2 mm and/or greater than 200 cells): 0 - - Number of lymph nodes with isolated tumor cells (less than or equal to 0.2 mm and less than or equal to 200 cells: 0 - - Number of lymph nodes without tumor cells identified: 2 PATHOLOGIC STAGING: pT1c p(sn)0 pMX Procedure Results and Interpretation ER/PgR/HER2(ERBB2) FISH Estrogen Receptor: Positive (90%) Stain Intensity: Strong Progesterone Receptor: Positive (90%) Stain Intensity: Strong HER2(ERBB2) by FISH: Not amplified HER2(ERBB2)/Xrfkziuedz08 ratio 1.1 Tissue analyzed: Invasive carcinoma Block Number: [id number] Control slides: Known positive control tissue (external control) is evaluated in concert with the patient's tissue for ER and PgR expression. A separate slide of the patient's tissue is similarly processed without antibody (negative control); slides were reviewed and showed appropriate staining. Internal control (normal breast epithelial elements) were present and were appropriately positive. Antibody and Detection System: Estrogen receptor (rabbit monoclonal clone SP1), progesterone receptor (rabbit monoclonal clone [id number]); both [place], [place], [place]. Detected with the [employer] iView Detection System (indirect biotin streptavidin detection); [employer], [place], [place]. Estrogen/Progesterone Interpretation: Positive: Greater than or equal to 1% of tumor nuclei stain Negative: Less than 1% of tumor nuclei stain These tests were performed and reported according to Guidelines for IHC testing of Estrogen and Progesterone Receptors in Breast Cancer, Arch Pathol Lab Med 2010; 134: E1-E16. Estrogen and progesterone results are valid if tissue was processed according to ASCO/CAP guidelines. HER2(ERBB2) Gene Amplification: NOT AMPLIFIED HER2(ERBB2) Gene Amplification was evaluated on paraffin-embedded block [id number] by interphase fluorescence in situ hybridization (FISH), using a dual label probe set for the HER2(ERBB2) locus and the centromeric region of chromosome 17 (PathShopExion; [employer], [place]). The [facility] Laboratory of the [facility] has validated modifications of the PathVysion kit used for the testing including the use of Target Retrieval Solution and proteinase K ([employer]; [place]) for cell conditioning, and modified probe/target denaturation and hybridization conditions for the assay. When necessary, a test with a probe for the [id number] locus (laboratory developed), and using a similar protocol is also performed. The in situ hybridization analysis was performed for and correlated with preselected areas of invasive carcinoma. Result: HER2(ERBB2) gene amplification is absent; the average copy number is 1.9. The HER2(ERBB2)/Chromosome 17 ratio is 1.1 (reference range is 0.8 - 1.7). Had Oncotype testing done. Low risk. Didn't want to go on AI therapy due to concerns of ONJ (has h/o TMJ). Started tamoxifen. Underwent hysterectomy with BSO. Path: Uterus, cervix, bilateral fallopian tubes and ovaries, excision: Endometrium - Benign inactive endometrium. Myometrium - Adenomyosis and adenomyomas. Bilateral ovaries - No significant pathologic findings Had been on tamoxifen. Appreciated mass in right breast. Ultrasound-guided core needle biopsy performed on 10/18/2017 demonstrated invasive carcinoma with mixed ductal and lobular features, nuclear grade 2. Estrogen receptors stained with strong intensity at 95% and progesterone receptors were negative with 0% staining. HER-2 1+ on immunohistochemistry. MRI of the breast done on 10/23/2017 revealed a 7 mm mass in the upper outer quadrant of the right breast correlating with the biopsy-proven malignancy at 11:00 position 5 cm from the nipple. Left chest demonstrated postsurgical findings of left mastectomy with no MRI findings to suggest local recurrence. Mastectomy with SLN 11/09/2017. Pathology: 1. Right axillary sentinel lymph node, sentinel node biopsy (A) - One lymph node, negative for malignancy (0/1) 2. Right breast, mastectomy (B) - Invasive mammary carcinoma with mixed ductal and lobular features, Vielka grade 1, measuring 0.6 cm in greatest dimension (please see synoptic report) - Atypical lobular hyperplasia - Skin with seborrheic keratoses - Biopsy clip and biopsy site reparative changes identified SYNOPTIC REPORT OF KUMAR PATHOLOGIC FINDINGS RIGHT BREAST: BREAST INVASIVE CARCINOMA WORKSHEET Part: A and B Procedure: Total mastectomy (including nipple-sparing and skin-sparing mastectomy) Specimen Laterality: Right Tumor size: Size of largest invasive carcinoma: Greatest dimension of largest focus of invasion >1 mm: 6 mm Tumor Focality: Single focus of invasive carcinoma Histologic Type of Invasive Carcinoma: Invasive carcinoma with ductal and lobular features (mixed type carcinoma) Histologic Grade: Glandular (Acinar) / Tubular Differentiation: Score 3 Nuclear Pleomorphism: Score 1 Mitotic Rate: Score 1 (<=3 mitosis per mm2) Overall Grade: Grade I Ductal Carcinoma In Situ: No DCIS is present in specimen Tumor Extension: Skin: Uninvolved Nipple: Uninvolved Skeletal muscle: Not applicable Invasive Carcinoma Margins: Margins uninvolved by invasive carcinoma Distance from closest margin: 2 mm Closest margin: Radial DCIS Margins: No DCIS in specimen Lymph Nodes: Number of lymph nodes with macrometastases (>2 mm): 0 Number of lymph nodes with micrometastases (>0.2 mm to 2 mm and/or >200 cells): 0 Number of lymph nodes with isolated tumor cells (<= 0.2 mm and <= 200 cells): 0 Number of lymph nodes examined: 1 Number of sentinel lymph nodes examined (required only if sentinel nodes are present): 1 Treatment Effect: No known presurgical therapy Lymph-Vascular Invasion: Not identified Pathologic Stage Classification (pTNM,AJCC 8th ed) TNM Descriptor(s): Not applicable Primary Tumor (Invasive Carcinoma) (pT): pT1b Regional Lymph Nodes (pN): Modifier: (sn): [place] node(s) evaluated Category (pN): pN0 Distant metastasis: Distant Metastasis (pM) Not applicable/Not confirmed pathologically in this case Previous therapy: 1) TC x1. Current therapy: 1) Adjuvant anastrozole. Begin spring 2017. She was seen by Dr. Irvin and roof foreman at [facility]. Prolia was advised. She was seen by another roof foreman. Currently not on any treatment for osteoporosis. Pt. had covid Bl[place] 2021. No new concerns today. Appetite: Always good. Energy level: Plenty on energy. Denies fevers or recent illness. Resp:denies cough or sob Cardiac:denies chest pain/palpitations GI:denies abd pain, n/v, moving bowels regularly :denies dysuria/hematuria Extrem:denies pain Endo:denies hot flashes Neuro:denies symptoms of neuropathy Skin:denies rashes Heme:denies bleeding The ROS is otherwise negative. Past medical history, appointments, medications, allergies reviewed. No changes. EXAM: BP 102/64 Pulse 92 Temp 36.1 C (96.9 F) (Temporal) Wt 48.1 kg (106 lb) LMP 08/31/2013 SpO2 100% BMI 17.55 kg/m APPEARANCE Well appearing, alert, in no acute distress, well-hydrated, well nourished. HEART RRR with normal S1 and S2, no murmurs LUNG clear to auscultation BREAST FEMALE b/l mastectomy scars, no nodule/mass/skin changes LYMPH NODES No cervical lymphadenopathy, No supraclavicular lymphadenopathy, and No axillary lymphadenopathy. ABDOMEN bowel sounds normoactive, soft, non-tender EXTREMITIES No edema NEURO Awake, alert and oriented x 3, Normal gait, and No involuntary motions. SKIN Skin color, texture, turgor normal, no suspicious rashes or lesions ASSESSMENT/PLAN: 1. Malignant neoplasm of upper-outer quadrant of right breast in female, estrogen receptor positive (HCC) - ICD9: 174.4, V86.0, ICD10: C50.411, Z17.0 (primary diagnosis) pT1b (6 mm; grade I; no ALI) pN0(sln) ER positive/WY negative, HER-2 non-overexpressed mixed ductal/lobular carcinoma of the right breast. Oncotype recurrence score 28 (intermediate risk) suggested 10 year risk of distant recurrence at 18% with the use of tamoxifen alone. 2. Malignant neoplasm of nipple of left breast in female, estrogen receptor positive (HCC) - ICD9: 174.0, V86.0, ICD10: C50.012, Z17.0 H/O stage I breast cancer left breast. Per Dr. 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 -Oncotype recurrence score 28 (intermediate risk) suggested 10 year risk of distant recurrence at 18% with the use of tamoxifen alone. -She is tolerating anastrozole well with no symptomatic side effects. -H/O osteoporosis. On vit D supplement with no other treatment for osteoporosis. -Discussed plan to complete 5 years worth of endocrine therapy which will be in December 2022. After that she will be seen on an every 6-month basis up to approximately 10 years. Plan: -OV as scheduled in December. -She will be discontinuing anastrozole on or around that time. -Continue follow-up with endocrinology for management of osteoporosis. - No new concerning findings on exam. - Tolerating arimidex well. - Declines treatment for osteoporosis. Has been seen by endo. - Stop arimidex. Has now completed 5 years of therapy. - Follow up with Dr. Suárez as scheduled. - Follow up with Dr. Altamirano in 6 months. - Pt. aware to call office with any questions/concerns. The patient indicates understanding of these issues and agrees with the plan. All documentation from previous visit of 08/18/22-Dr. Altamirano was copied and pasted, documentation has been reviewed and edited as necessary for today's visit. Jade Agudelo APRN.DISTRIBUTION SYSTEM OPERATOR documented in this encounter [facility] 12-05-2022 Instructions Theresa Mg RN - 12/05/2022 11:53 AM EST 1. Wash your hands with soap and water. 2. Cleanse the site with antibacterial soap. 3. Thoroughly dry the area and apply a small amount of Vaseline or Aquaphor to keep area greasy at all times (this prevents a scab from forming). 4. PLEASE DO NOT use polysporin, Bacitracin, triple antibiotic or similar ointments. 5. Place a small dressing or band-aid over the wound until the wound is healed. (Studies show that wounds heal better when covered with ointment and a dressing). If you have any questions or concerns, please contact the office at [phone]. documented in this encounter [facility] 12-05-2022 History of Present illness Narrative Chief Complaint: Lesion of concern History of Present Ilness: Daria Osborne is a 71 year old female Patient is here for: 1) Lesion of concern Location: neck Duration: 1 week Symptoms: raised Pertinent Past Medical History: History of skin cancer or atypical nevi: No Specialty Problems None Pertinent Family medical history: History of melanoma: No Review of Systems: Constitutional: Denies fever, chills, night sweats, unintentional weight loss. Skin per HPI. No other new/concerning skin growth. Physical Exam: General: well appearing, of stated age, in no acute distress Neurology: alert and oriented times three Psychiatry: in a happy mood Skin: Akbar skin type: II Skin exam performed of neck and back Skin exam normal with the exception of: - several brown-silveira waxy stuck on papules and plaques on neck and trunk - scattered small, flesh-colored papules on lower neck - one with irritation/inflammation on Assessment and Plan: 1. Seborrheic keratoses -discussed benign etiology of lesions, no treatment necessary 2. Acrochordons - discussed the nature of these growths - recommend snip excision of irritated lesion on neck - Patient informed acrochordons (skin tags) are benign lesions and no treatment required. Cosmetic treatment is available. Cost discussed with patient - patient understands and agrees. Patient also understands tissue will not be submitted for processing by dermatopathology. - Snip excision of non-malignant lesion(s) Risks, benefits, alternatives and personnel required for snip excision reviewed with patient. Risks include, but not limited to include recurrence, incomplete treatment, bleeding, infection and scaring. Pt verbalizes understanding and wishes to proceed. The area(s) is/are identified, prepped with alcohol and anesthetized with 1% lidocaine with 1:100,000 epinephrine buffered with sodium bicarbonate Snip excision of acrochordons performed with sterile scissors. 1 lesion(s) removed. EBL scant. Hemostasis achieved with aluminum chloride. Wound care discussed. The patient will be alert for any signs of cutaneous infection, and call if there are any problems. Patient tolerated well. Return to clinic PRN The documentation for this note was completed by Theresa Mg RN acting as scribe for Tremaine Rodriguez MD. December 05, 2022 11:36 AM. I agree with the Chief Complaint, ROS, and Past Histories independently gathered by the clinical nursing support worker and the remaining scribed note accurately describes my personal service to the patient. Tremaine Rodriguez MD December 05, 2022 documented in this encounter [facility] 10-17-2022 Miscellaneous Notes PATIENT NOTIFIED OF SAME. If symptoms become worse will update office. Can treat symptomatically given mild symptoms. Has up to 5 days to from onset of symptoms (10/18) to start Paxlovid if decides wants to pursue (worsening symptoms). Would need Virtual Visit or do Express Care Online if wanted to pursue. Pt calls and states the following: COVID 19 positive home test 10-15-22 COVID -19 DIAGNOSIS: 10/15/22 home test COVID-19 EXPOSURE: unknown ONSET: 10-13-22 WORST SYMPTOM: stuffy nose and tired COUGH: occasional FEVER: no RESPIRATORY STATUS: no [id number]: a little better HIGH RISK DISEASE: cancer twice and on a cancer medication VACCINE: yes OTHER SYMPTOMS: runny nose off and on, light headache DENIES: chills last night but have resolved, smell or taste, loss off appetite, abdominal pain,vomiting, diarrhea. Advised Express Care if needed.and ER if any breathing issues shortness of breath. Millie Diallo LPN documented in this encounter [facility] 10-16-2022 History of Present illness Narrative CC: Patient presents with: Covid19 Concern: + rapid x1 day Symptomatic x4 days HPI: Daria Osborne is a 71 year old female who presents to the office with complaint of sore throat and fever for 4 days. Symptoms are improving Associated symptoms includes fatigue. Denies headache, body aches, fever, cough, nausea, vomiting , and diarrhea. Treatments tried include nothing so far. with no relief of symptoms. Sick contacts: unknown. History of asthma, frequent episodes of bronchitis, chronic bronchitis, bronchiectasis or COPD: No Smoker: No Seasonal/environmental allergies: No The ROS is otherwise negative. The patient's pmh, medications, allergies, and past visits are reviewed. PHYSICAL EXAM: BP 120/72 Pulse 101 Temp 37 C (98.6 F) Resp 20 Wt 48.7 kg (107 lb 6.4 oz) LMP 08/31/2013 SpO2 100% BMI 17.79 kg/m General appearance: alert, cooperative, pleasant, in no acute distress Head: Normocephalic Eyes: EOM's intact, conjunctiva pink and moist, no icterus, sclera white, non-injected Ears: Right ear: External ear/canal- Normal, TM - clear with good landmarks. Left ear: External ear/canal- Normal, TM - clear with good landmarks Oropharynx:moist without lesions, No erythema, exudates or tonsillar hypertrophy. Heart: Negative. RRR without obvious murmur, gallop, or rubs. No ectopy. Lungs: clear to auscultation, without rales or wheeze, good air exchange PAST MEDICAL HISTORY Diagnosis Date Anemia, unspecified Benign neoplasm of skin of trunk, except scrotum 01/12/2009 Benign neoplasm of skin of upper limb, including shoulder 08/26/2005 Breast cancer (HCC) 11/2012 left Dense breasts 07/16/2017 Difficult airway for intubation Disorder of bone and cartilage, unspecified History of bilateral breast cancer 04/21/2018 left them right; s/p bilateral mastectomy Incisional hernia of anterior abdominal wall without obstruction or gangrene 04/22/2017 just above and to the right of umbilicus; 02/10/[address] Shepherd reviewed; stable findings of slight bulge seen best while patient standing Irritable bowel syndrome Malignant neoplasm of upper-outer quadrant of right breast, estrogen receptor positive (HCC) Osteoporosis, unspecified progression to osteoporosis noted on 2007 bone density Postmenopausal bleeding Postmenop. bleeding Postoperative thrombophlebitis 09/20/2013 Temporomandibular joint disorders, unspecified TMJ (dislocation of temporomandibular joint) 10/20/2015 Transfusion history after childbirth Unspecified vitamin D deficiency PAST SURGICAL HISTORY Procedure Laterality Date CURETTAGE 1978 Curettage, post delivery CURETTAGE DILATION & CURETTAGE DX&/THER NONOBSTETRIC 07/01/2013 Dilation & [facility] EXCISION PILONIDAL CYST/SINUS SIMPLE LAPROSCOPIC REPAIR UMBILICAL HERNIA MASTECTOMY, SIMPLE, COMPLETE Left 01/06/2013 left breast with SLND ([place]) MASTECTOMY, SIMPLE, COMPLETE 10/2017 right PAST SURGICAL HISTORY OF pilonidal cyst PAST SURGICAL HISTORY OF abdominal hernia PAST SURGICAL HISTORY OF breast cyst removed PAST SURGICAL HISTORY OF wisdom teeth PAST SURGICAL HISTORY OF N/A 07/2020 removal of skin tags PORTOCATH PLACEMENT 2017 PORTOCATH PLACEMENT 12/18/2017 port placement [place] NOHEMI W/WO REMOVAL TUBE OVARY 08/2013 w/ BSO TONSILLECTOMY & ADENOIDECTOMY <AGE 12 ALLERGIES Cantaloupe, Chicken, Clindamycin, Propofol, Ciprofloxacin, Egg Derived, Zantac [Ranitidine Hcl], and Tetracycline MEDICATIONS anastrozole (ARIMIDEX) 1 mg tablet Take 1 tablet by mouth once daily. EPINEPHrine (EPIPEN) 0.3 mg/0.3 mL auto-injector Use as directed for reaction to food allergen triamcinolone acetonide (KENALOG) 0.1 % cream Apply 1 application to affected area three times daily as needed (for itchy rash and stings). Apply sparingly to area for rash/itching. Up to 14 days Cholecalciferol, Vitamin D3, 1,000 unit cap Take 1 capsule by mouth once daily. THERAPEUTIC MULTIVITAMIN TAB Take one(1) tablet daily. FAMILY HISTORY Problem Relation Age of Onset Alcohol/Drug Mother Heart Father [place] at 72 Diabetes Father Thyroid Father other (LIVER) Father Diabetes Paternal Grandmother Heart Paternal Grandmother Diabetes Maternal Grandmother Heart Maternal Grandmother [place] in her 40's; from [place] at 68 Stroke Maternal Grandfather Heart Paternal Grandfather Breast Cancer Maternal Aunt breast, 50's oral Coronary Artery Disease Maternal Uncle Prostate Cancer Maternal Uncle 86 Colon Cancer Maternal Aunt 60 Stroke Maternal Aunt Coronary Artery Disease Maternal Aunt Social History Tobacco Use Smoking status: Former Types: Cigarettes Quit date: 10/22/1970 Years since quittin.0 Smokeless tobacco: Never Tobacco comments: 3 cigarettes a week back in college for 9 months Vaping Use Vaping Use: Never used Substance Use Topics Alcohol use: Yes Comment: beer/wine maybe daily depends Drug use: No ASSESSMENT/PLAN: 1. URI, acute - ICD9: 465.9, ICD10: J06.9 Prescription instructions reviewed with patient as applicable. Potential red flag symptoms discussed with the patient. Reviewed appropriate action plan to take if red flag symptoms occur. Patient agreeable to treatment plan. Yvette Ramirez APRN.CNP documented in this encounter [facility] 10-04-2022 History of Present illness Narrative Images from the original note were not included. This note was created using Beetailerriter. Subjective Daria Osborne is a 71 year old female. Patient presents with: F/U 6 months SUBJECTIVE: Daria Osborne is a 71 year old year old lady here today for 6 month follow up appointment for review of medical conditions. Walk on treadmill daily (at least 6 days a week most weeks). Eats healthy diet. Does not eat a lot of sugary foods. Does like sweets but does not overdo. Doing weight bearing exercises as discussed with PT who gave her exercises with knowing has osteoporosis. Wary of meds for osteoporosis. Reviewed evaluation had with Dr. Irvin. Still nerve issue right lateral eyebrow and area right above lip--tender if taps on it. No longer sensitive to things like water hitting in the shower Some fluttering of muscle left cheek occasionally. Sometimes can be off and on for a day. Spot right abdomen where has a lump and tenderness; light palpation causes tender; states that if anyone does deeper palpation can cause pain for a week. Prior CT 2004 did not show hernia. Stated having ears itching after eating apples that are peeled--had been eating apples fur lunch for years. PAST MEDICAL HISTORY Diagnosis Date Anemia, unspecified Benign neoplasm of skin of trunk, except scrotum 01/12/2009 Benign neoplasm of skin of upper limb, including shoulder 08/26/2005 Breast cancer (HCC) 11/2012 left Dense breasts 07/16/2017 Difficult airway for intubation Disorder of bone and cartilage, unspecified History of bilateral breast cancer 04/21/2018 left them right; s/p bilateral mastectomy Incisional hernia of anterior abdominal wall without obstruction or gangrene 04/22/2017 just above and to the right of umbilicus; 02/10/[address] Shepherd reviewed; stable findings of slight bulge seen best while patient standing Irritable bowel syndrome Malignant neoplasm of upper-outer quadrant of right breast, estrogen receptor positive (HCC) Osteoporosis, unspecified progression to osteoporosis noted on 2007 bone density Postmenopausal bleeding Postmenop. bleeding Postoperative thrombophlebitis 09/20/2013 Temporomandibular joint disorders, unspecified TMJ (dislocation of temporomandibular joint) 10/20/2015 Transfusion history after childbirth Unspecified vitamin D deficiency Current Outpatient Medications Medication Sig anastrozole (ARIMIDEX) 1 mg tablet Take 1 tablet by mouth once daily. EPINEPHrine (EPIPEN) 0.3 mg/0.3 mL auto-injector Use as directed for reaction to food allergen Cholecalciferol, Vitamin D3, 1,000 unit cap Take 1 capsule by mouth once daily. THERAPEUTIC MULTIVITAMIN TAB Take one(1) tablet daily. triamcinolone acetonide (KENALOG) 0.1 % cream Apply 1 application to affected area three times daily as needed (for itchy rash and stings). Apply sparingly to area for rash/itching. Up to 14 days No current facility-administered medications for this visit. Review of Systems Objective BP 112/80 Pulse 81 Wt 48.1 kg (106 lb) LMP 08/31/2013 SpO2 100% BMI 17.55 kg/m Last 5 Encounter Wt Readings: Date: Wt: 10/04/2022 48.1 kg (106 lb) 08/18/2022 48.3 kg (106 lb 8 oz) 07/11/2022 47.2 kg (104 lb) 07/03/2022 47.6 kg (105 lb) 06/19/2022 47.2 kg (104 lb) No waist measurement recorded Estimated body mass index is 17.55 kg/m as calculated from the following: Height as of 07/11/22: 165.5 cm (5' 5.16 ). Weight as of this encounter: 48.1 kg (106 lb). Last 5 Encounter BP Readings: Date: BP: 10/04/2022 112/80 08/18/2022 122/74 07/11/2022 114/78 07/03/2022 119/69 06/19/2022 122/68 Physical Exam Abdominal: Component Latest Ref Rng & Units 09/23/2021 04/04/2022 09/28/2022 Protein, Total 6.3 - 8.0 g/dL 7.2 7.0 7.3 Albumin 3.9 - 4.9 g/dL 4.5 4.5 4.5 Calcium 8.5 - 10.2 mg/dL 9.4 9.6 9.4 Bilirubin, Total 0.2 - 1.3 mg/dL 0.4 0.6 0.6 Alkaline Phosphatase 34 - 123 U/L 52 48 46 AST 13 - 35 U/L 24 22 23 Glucose 74 - 99 mg/dL 110 (H) 116 (H) 114 (H) BUN 7 - 21 mg/dL 13 10 11 Creatinine 0.58 - 0.96 mg/dL 0.64 0.60 0.66 Sodium 136 - 144 mmol/L 139 139 136 Potassium 3.7 - 5.1 mmol/L 4.0 4.3 4.0 Chloride 97 - 105 mmol/L 100 101 100 CO2 22 - 30 mmol/L 26 28 26 Anion Gap 9 - 18 mmol/L 13 10 10 ALT 7 - 38 U/L 17 17 16 eGFR- >60 eGFR-All Other Races . >60 eGFR >=60 mL/min/1.73m 96 94 WBC 3.70 - 11.00 k/uL 5.37 5.00 4.68 RBC 3.90 - 5.20 m/uL 4.64 4.45 4.57 Hemoglobin 11.5 - 15.5 g/dL 14.3 13.8 14.1 Hematocrit 36.0 - 46.0 % 43.6 41.3 42.7 MCV 80.0 - 100.0 fL 94.0 92.8 93.4 MCH 26.0 - 34.0 pg 30.8 31.0 30.9 MCHC 30.5 - 36.0 g/dL 32.8 33.4 33.0 RDW-CV 11.5 - 15.0 % 12.5 12.6 12.7 Platelet Count 150 - 400 k/uL 228 218 222 MPV 9.0 - 12.7 fL 9.7 9.2 9.6 Absolute nRBC <0.01 k/uL <0.01 <0.01 <0.01 Cholesterol, Total <200 mg/dL 202 (H) Triglyceride <150 mg/dL 53 HDL Cholesterol >39 mg/dL 96 Non HDL Cholesterol <130 mg/dL 106 Fasting Time hrs 12 VLDL Cholesterol <30 mg/dL 11 TC:HDL Ratio <5.10 2.10 LDL Cholesterol <100 mg/dL 95 LDL:HDL Ratio <2.54 0.99 Hemoglobin A1C 4.3 - 5.6 % 5.8 (H) 5.7 (H) 5.8 (H) Estimated Average Glucose mg/dL 120 117 120 Vitamin D 25 Hydroxy 31.0 - 80.0 ng/mL 58.6 60.0 52.4 Assessment and Plan Encounter Diagnosis ICD-10-CM 1. Age-related osteoporosis without current pathological fracture M81.0 COMP METABOLIC PANEL CBC VITAMIN D 25 HYDROXY 2. IFG (impaired fasting glucose) R73.01 HGB A1C 3. Abdominal wall lump R22.2 4. Vitamin D deficiency E55.9 VITAMIN D 25 HYDROXY 5. Encounter for long-term current use of medication Z79.899 COMP METABOLIC PANEL CBC Above issues addressed with patient. Patient involved in shared decision making for management of medical issues. History and medications reviewed. Epic updated as needed Refills and/or prescriptions taken care of and meds adjusted as indicated after reviewed history, exam and labs. Health Maintenance reviewed. Updated record and/or ordered tests as recorded. Encouraged on efforts at healthy diet and regular exercise and adequate sleep. Carolina Peterson MD documented in this encounter [facility] 09-26-2022 History of Present illness Narrative Radiology Service Progress Note PATIENT NAME: Daria Osborne DATE OF SERVICE: September 26, 2022 TIME: 3:03 PM PATIENT IDENTITY VERIFICATION COMPLETED USING TWO (2) IDENTIFIERS: Name and Date of confirmed by patient verbally. FALL SCREENING: Has the patient had 2 falls in the last year or 1 fall with injury or currently using an Ambulatory Assistive Device (Walker, Cane, Wheelchair, Crutches, etc.)? No PATIENT GENDER DATA: Female. status: : No status: NO. PATIENT RELEVANT IMPLANT DATA REVIEWED: Not Applicable RADIOLOGY DEPARTMENT: Bone Density PERIPHERAL IV DATA: Not applicable SIGNED BY: RT Racquel(R) September 26, 2022 3:03 PM documented in this encounter [facility] 09-25-2022 Miscellaneous Notes PATIENT NOTIFIED OF SAME. Orders signed, it includes a lipid panel so please let patient know to fast. Thanks Patient calls and states that she has appointment with provider on 10/04/2022. Patient asking about lab orders to be done prior to appointment. Orders pended if agreeable. Please review and advise, Desi Castillo RN documented in this encounter [facility] 08-24-2022 Instructions Paty Jeffery Ma - 08/24/2022 1:58 PM EDT CARE OF BIOPSY SITE 1. Wash your hands with soap and water. 2. Cleanse the biopsy site with antibacterial soap. 3. Thoroughly dry the area and apply a small amount of Vaseline or Aquaphor to keep area greasy at all times (this prevents a scab from forming). 4. PLEASE DO NOT use polysporin, Bacitracin, triple antibiotic or similar ointments. 5. Place a small dressing or band-aid over the wound until the wound is healed. (Studies show that wounds heal better when covered with ointment and a dressing). If you have any questions or concerns, please contact the office at [phone]. documented in this encounter [facility] 08-24-2022 History of Present illness Narrative [facility] Department of Dermatology Chief Complaint: Patient presents with: Follow Up Date of last visit to [facility] Dermatology: 08/23/22 VV History of Present Illness: Daria Osborne is a 71 year old female Patient is here for: # Lesion Location: Right Arm Duration: 4 Months Symptoms (growing, itching, bleeding, tender): Itches Current Treatments: none Past Treatments: none PERTINENT PAST DERMATOLOGIC HISTORY: -Personal History of Skin Cancer: No -Personal History of Atypical Moles: No -Personal History of Extensive Sun Exposure/Blistering Sunburns:Yes -History of tanning bed usage: No -Does patient use sunscreen Yes -Is the patient immunosuppressed: No FAMILY HISTORY: -Family History of Skin Cancer: No REVIEW OF SYSTEMS: Patient feels well and denies any recent fevers, chills, or night sweats. PHYSICAL EXAM: -General: well appearing, in no acute distress -Neurology: alert and oriented times three -Psychiatry: appropriate mood/affect Skin: Akbar phototype: I Skin exam performed of right arm Skin exam normal with the exception of: -5X5 MM right upper arm r/o DF ASSESSMENT AND PLAN: 1. Neoplasm of unspecified behavior Shave biopsy of lesion to establish and confirm diagnosis: Photo taken: Yes Derm staff: Clinical Derm Staff: Dr. Shauna Fuller Risks, benefits, alternatives and personnel required for shave biopsy reviewed with patient. Specifically, the risks of permanent scar, loss or darkening of skin color, and recurrence of lesion were discussed. Patient and provider agree as to site(s) to be biopsied. Patient verbalizes understanding and wishes to proceed. Site(s) prepped with alcohol and anesthetized with 1% lidocaine with epinephrine. Shave biopsy of lesion(s) performed to the level of the dermis/epidermis The following was sent for histologic evaluation: LESION #1 R/O: DF LOC OF LESION: Right Upper Arm SIZE: 5X5MM EBL: scant 50% ALCL and bandaging applied. Written and verbal wound care instructions provided to patient, understanding verbalized. OK to call with results Patient verbalizes understanding and agrees with treatment plan and will contact us with any further questions or concerns. Return to clinic PRN pending biopsy results or sooner for any change in/worsening of condition or if any new/changing/symptomatic lesions arise.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 with routine treatment and panorex. PAST MEDICAL HISTORY Diagnosis Date Anemia, unspecified Benign neoplasm of skin of trunk, except scrotum 01/12/2009 Benign neoplasm of skin of upper limb, including shoulder 08/26/2005 Breast cancer (HCC) 11/2012 left Dense breasts 07/16/2017 Difficult airway for intubation Disorder of bone and cartilage, unspecified History of bilateral breast cancer 04/21/2018 left them right; s/p bilateral mastectomy Incisional hernia of anterior abdominal wall without obstruction or gangrene 04/22/2017 just above and to the right of umbilicus; 02/10/[address] Shepherd reviewed; stable findings of slight bulge seen best while patient standing Irritable bowel syndrome Malignant neoplasm of upper-outer quadrant of right breast, estrogen receptor positive (HCC) Osteoporosis, unspecified progression to osteoporosis noted on 2007 bone density Postmenopausal bleeding Postmenop. bleeding Postoperative thrombophlebitis 09/20/2013 Temporomandibular joint disorders, unspecified TMJ (dislocation of temporomandibular joint) 10/20/2015 Transfusion history after childbirth Unspecified vitamin D deficiency Current Outpatient Medications Medication Sig anastrozole (ARIMIDEX) 1 mg tablet Take 1 tablet by mouth once daily. EPINEPHrine (EPIPEN) 0.3 mg/0.3 mL auto-injector Use as directed for reaction to food allergen Cholecalciferol, Vitamin D3, 1,000 unit cap Take 1 capsule by mouth once daily. THERAPEUTIC MULTIVITAMIN TAB Take one(1) tablet daily. No current facility-administered medications for this visit. Review of Systems Objective LMP 08/31/2013 Physical Exam Constitutional: Appearance: Normal appearance. HENT: Head: Normocephalic. Eyes: Conjunctiva/sclera: Conjunctivae normal. Cardiovascular: Rate and Rhythm: Normal rate and regular rhythm. Heart sounds: Normal heart sounds. Pulmonary: Effort: Pulmonary effort is normal. Breath sounds: Normal breath sounds. Skin: General: Skin is warm and dry. Neurological: General: No focal deficit present. Mental Status: She is alert and oriented to person, place, and time. Psychiatric: Mood and Affect: Mood normal. Behavior: Behavior normal. Thought Content: Thought content normal. Judgment: Judgment normal. Finger still a little swollen but not hot or red. Red papule on right forearm around 4mm diameter--looks like resolving local reaction to sting. Assessment and Plan Encounter Diagnosis ICD-10-CM 1. Toxic reaction to hornets, wasps and bees, accidental or unintentional, subsequent encounter T63.451D T63.441D T63.461D resolving with Advil Above issues addressed with patient. Patient involved in shared decision making for management of medical issues. History and medications reviewed. Epic updated as needed Refills and/or prescriptions taken care of and meds adjusted as indicated after reviewed history, exam and labs. Further evaluation and treatment as indicated. Carolina Peterson MD documented in this encounter [facility] 07-03-2022 History of Present illness Narrative Chief Complaint Patient presents with: Established Patient HPI: Daria Osborne is a 71 year old female who presents here today for follow up breast cancer. Per Dr. Altamirano's previous note: H/o was found to have a suspicious mass in the left breast on a routine gynecologic exam 11/03/2012. Underwent a diagnostic mammogram on 11/25/2012 which demonstrated a lobulated mass associated with a few microcalcifications in the retroareolar region. An US was also performed which revealed a 1.8 cm mass at 12 o'clock. On 12/02, a US guided core biopsy was performed with pathology demonstrating moderate to poorly differentiated IDC with a focus of DCIS, ER/WY (+), Her2 equivocal. She subsequently underwent an MRI on 12/16 which revealed the known left breast cancer and a 0.5 cm enhancing lesion in the lower sternum for which a bone scan was recommended. The bone scan did not show any areas concerning for malignancy. Ultimately underwent left mastectomy with SLN biopsy 01/06/13. Final pathology revealed: FINAL DIAGNOSIS A. LEFT SENTINEL LYMPH NODE, EXCISION: TWO LYMPH NODES NEGATIVE FOR MALIGNANCY (0/2). B. LEFT BREAST 58 GRAMS, EXCISION: INVASIVE MODERATELY DIFFERENTIATED DUCTAL CARCINOMA DUCTAL CARCINOMA IN SITU, CRIBRIFORM AND COMEDONECROSIS TYPES SKIN - SEBORRHEIC KERATOSIS SP/mz 01/08/2013 COMMENT B. BREAST (INVASIVE CARCINOMA) SYNOPTIC REPORT PROCEDURE: - Simple mastectomy LYMPH NODE SAMPLING: - [place] lymph nodes SPECIMEN LATERALITY: - Left HISTOLOGIC TYPE OF INVASIVE CARCINOMA: - Invasive ductal carcinoma (no special type or not otherwise specified) TUMOR SIZE (SIZE OF LARGEST INVASIVE CARCINOMA): - Size of largest invasive carcinoma - - Greatest dimension of largest focus invasion over 1 mm: 1.3 cm VIELKA HISTOLOGIC GRADE: - Glandular (acinar)/Tubular differentiation: Score 2 - Nuclear pleomorphism: Score 2 - Mitotic rate: Score 2 - Overall grade: Grade 2 TUMOR FOCALITY: - Single focus of invasive carcinoma DUCTAL CARCINOMA IN SITU (DCIS): - DCIS is present MACROSCOPIC/MICROSCOPIC EXTENT OF TUMOR: - Skin: No invasive carcinoma - Nipple: No invasive carcinoma - Skeletal Muscle: Not identified MARGINS: - Invasive carcinoma MARGINS: - - Distance of DCIS from closest margin: 3.0 mm (deep) DCIS: - Margins uninvolved by DCIS Distance from closest margin: 4.0 mm (deep) LYMPH NODES: - Number of sentinel lymph nodes examined: 2 - Total number of lymph nodes examined (sentinel and non-sentinel): 2 - - Number of lymph nodes with macrometastasis (greater than 2 mm): 0 - - Number of lymph nodes with micrometastasis (greater than 0.2 mm to 2 mm and/or greater than 200 cells): 0 - - Number of lymph nodes with isolated tumor cells (less than or equal to 0.2 mm and less than or equal to 200 cells: 0 - - Number of lymph nodes without tumor cells identified: 2 PATHOLOGIC STAGING: pT1c p(sn)0 pMX Procedure Results and Interpretation ER/PgR/HER2(ERBB2) FISH Estrogen Receptor: Positive (90%) Stain Intensity: Strong Progesterone Receptor: Positive (90%) Stain Intensity: Strong HER2(ERBB2) by FISH: Not amplified HER2(ERBB2)/Ewasfusvnf70 ratio 1.1 Tissue analyzed: Invasive carcinoma Block Number: [id number] Control slides: Known positive control tissue (external control) is evaluated in concert with the patient's tissue for ER and PgR expression. A separate slide of the patient's tissue is similarly processed without antibody (negative control); slides were reviewed and showed appropriate staining. Internal control (normal breast epithelial elements) were present and were appropriately positive. Antibody and Detection System: Estrogen receptor (rabbit monoclonal clone SP1), progesterone receptor (rabbit monoclonal clone 1E2); both [place], [place], [place]. Detected with the [employer] iView Detection System (indirect biotin streptavidin detection); [employer], [place], [place]. Estrogen/Progesterone Interpretation: Positive: Greater than or equal to 1% of tumor nuclei stain Negative: Less than 1% of tumor nuclei stain These tests were performed and reported according to Guidelines for IHC testing of Estrogen and Progesterone Receptors in Breast Cancer, Arch Pathol Lab Med 2010; 134: E1-E16. Estrogen and progesterone results are valid if tissue was processed according to ASCO/CAP guidelines. HER2(ERBB2) Gene Amplification: NOT AMPLIFIED HER2(ERBB2) Gene Amplification was evaluated on paraffin-embedded block [id number] by interphase fluorescence in situ hybridization (FISH), using a dual label probe set for the HER2(ERBB2) locus and the centromeric region of chromosome 17 (PathShopExion; [employer], [place]). The Molecular Genetic Pathology Laboratory of the [facility] has validated modifications of the PathVysion kit used for the testing including the use of Target Retrieval Solution and proteinase K (Dako; [place]) for cell conditioning, and modified probe/target denaturation and hybridization conditions for the assay. When necessary, a test with a probe for the [id number] locus (laboratory developed), and using a similar protocol is also performed. The in situ hybridization analysis was performed for and correlated with preselected areas of invasive carcinoma. Result: HER2(ERBB2) gene amplification is absent; the average copy number is 1.9. The HER2(ERBB2)/Chromosome 17 ratio is 1.1 (reference range is 0.8 - 1.7). Had Oncotype testing done. Low risk. Didn't want to go on AI therapy due to concerns of ONJ (has h/o TMJ). Started tamoxifen. Underwent hysterectomy with BSO. Path: Uterus, cervix, bilateral fallopian tubes and ovaries, excision: Endometrium - Benign inactive endometrium. Myometrium - Adenomyosis and adenomyomas. Bilateral ovaries - No significant pathologic findings Had been on tamoxifen. Appreciated mass in right breast. Ultrasound-guided core needle biopsy performed on 10/18/2017 demonstrated invasive carcinoma with mixed ductal and lobular features, nuclear grade 2. Estrogen receptors stained with strong intensity at 95% and progesterone receptors were negative with 0% staining. HER-2 1+ on immunohistochemistry. MRI of the breast done on 10/23/2017 revealed a 7 mm mass in the upper outer quadrant of the right breast correlating with the biopsy-proven malignancy at 11:00 position 5 cm from the nipple. Left chest demonstrated postsurgical findings of left mastectomy with no MRI findings to suggest local recurrence. Mastectomy with SLN 11/09/2017. Pathology: 1. Right axillary sentinel lymph node, sentinel node biopsy (A) - One lymph node, negative for malignancy (0/1) 2. Right breast, mastectomy (B) - Invasive mammary carcinoma with mixed ductal and lobular features, Wilmot grade 1, measuring 0.6 cm in greatest dimension (please see synoptic report) - Atypical lobular hyperplasia - Skin with seborrheic keratoses - Biopsy clip and biopsy site reparative changes identified SYNOPTIC REPORT OF KUMAR PATHOLOGIC FINDINGS RIGHT BREAST: BREAST INVASIVE CARCINOMA WORKSHEET Part: A and B Procedure: Total mastectomy (including nipple-sparing and skin-sparing mastectomy) Specimen Laterality: Right Tumor size: Size of largest invasive carcinoma: Greatest dimension of largest focus of invasion >1 mm: 6 mm Tumor Focality: Single focus of invasive carcinoma Histologic Type of Invasive Carcinoma: Invasive carcinoma with ductal and lobular features (mixed type carcinoma) Histologic Grade: Glandular (Acinar) / Tubular Differentiation: Score 3 Nuclear Pleomorphism: Score 1 Mitotic Rate: Score 1 (<=3 mitosis per mm2) Overall Grade: Grade I Ductal Carcinoma In Situ: No DCIS is present in specimen Tumor Extension: Skin: Uninvolved Nipple: Uninvolved Skeletal muscle: Not applicable Invasive Carcinoma Margins: Margins uninvolved by invasive carcinoma Distance from closest margin: 2 mm Closest margin: Radial DCIS Margins: No DCIS in specimen Lymph Nodes: Number of lymph nodes with macrometastases (>2 mm): 0 Number of lymph nodes with micrometastases (>0.2 mm to 2 mm and/or >200 cells): 0 Number of lymph nodes with isolated tumor cells (<= 0.2 mm and <= 200 cells): 0 Number of lymph nodes examined: 1 Number of sentinel lymph nodes examined (required only if sentinel nodes are present): 1 Treatment Effect: No known presurgical therapy Lymph-Vascular Invasion: Not identified Pathologic Stage Classification (pTNM,AJCC 8th ed) TNM Descriptor(s): Not applicable Primary Tumor (Invasive Carcinoma) (pT): pT1b Regional Lymph Nodes (pN): Modifier: (sn): [place] node(s) evaluated Category (pN): pN0 Distant metastasis: Distant Metastasis (pM) Not applicable/Not confirmed pathologically in this case Previous therapy: 1) TC x1. Current therapy: 1) Adjuvant anastrozole. Begin spring 2017. Pt. was stung on Sunday. Her L fifth finger was red, swollen and tender. She went to the ED last night. Per ED not infected. Pt. here today with her . Appetite: Fine. Energy level: Good. Swims daily during the summer. Denies fevers. Resp:denies cough or sob Cardiac:denies chest pain/palpitations GI:denies abd pain, n/v, moving bowels regularly :denies dysuria/hematuria Extrem:denies pain, L 5th finger improved Endo:denies hot flashes Neuro:denies symptoms of neuropathy Skin:denies rashes/lesions Heme:denies bleeding The ROS is otherwise negative. Past medical history, appointments, medications, allergies reviewed. No changes. EXAM: BP 119/69 Pulse 77 Temp 36.7 C (98.1 F) Ht 164.3 cm (5' 4.67 ) Wt 47.6 kg (105 lb) LMP 08/31/2013 SpO2 98% BMI 17.65 kg/m APPEARANCE Well appearing, alert, in no acute distress, well-hydrated, well nourished. HEART RRR with normal S1 and S2, no murmurs LUNG clear to auscultation BREAST FEMALE b/l mastectomy scars, no nodule LYMPH NODES No cervical lymphadenopathy, No supraclavicular lymphadenopathy, and No axillary lymphadenopathy. ABDOMEN bowel sounds normoactive, soft, non-tender, non-distended, without organomegaly or palpable masses, no tenderness to palpation EXTREMITIES No edema to BLE, L 5th finger mild swelling/erythema NEURO Awake, alert and oriented x 3, Normal gait, and No involuntary motions. SKIN as above ASSESSMENT/PLAN: 1. Malignant neoplasm of upper-outer quadrant of right breast in female, estrogen receptor positive (HCC) - ICD9: 174.4, V86.0, ICD10: C50.411, Z17.0 (primary diagnosis) 2. Malignant neoplasm of nipple of left breast in female, estrogen receptor positive (HCC) - ICD9: 174.0, V86.0, ICD10: C50.012, Z17.0 pT1b (6 mm; grade I; no ALI) pN0(sln) ER positive/WY negative, HER-2 non-overexpressed mixed ductal/lobular carcinoma of the right breast. -Oncotype recurrence score 28 (intermediate risk) [id number] year risk of distant recurrence at 18% with the use of tamoxifen alone. Per Dr. Altamirano's previous note 07/04/21: Assessment: -pT1b (6 mm; grade I; no ALI) pN0(sln) ER positive/WY negative, HER-2 non-overexpressed mixed ductal/lobular carcinoma of the right breast. -Oncotype recurrence score 28 (intermediate risk) [id number] year risk of distant recurrence at 18% with the use of tamoxifen alone. -She is tolerating anastrozole well with no symptomatic side effects. -H/O osteoporosis. On vit D supplement. -She is scheduled to see another roof foreman at [facility]. Plan: -OV in 6 months. - No concerning findings on exam. - Tolerating arimidex well. - Continue arimidex. - Follow up with DERM/PCP/Breast Center as scheduled. - Follow up in 6 months. - Pt. aware to call office with any questions/concerns. The patient indicates understanding of these issues and agrees with the plan. All documentation from previous visit of 01/09/22-Dr. Altamirano/myself was copied and pasted, documentation has been reviewed and edited as necessary for today's visit. Jade Agudelo APRN.REUBEN documented in this encounter [facility] 06-19-2022 History of Present illness Narrative This note may contain typographical, grammatical, other errors. Daria is a 70 year old who presents for an annual gynecologic exam without complaints. she is busy with her garden osteoporosis on DXA no meds for now, open to this in the future she saw PT to learn about exercises to promote bone health hx traumatic fractures only has seen rheumatology has had uterus, cervix, ovaries, both breasts removed she see med breast for follow up has no imaging Postmenopausal: Yes HRT use: No. Last Pap: 11/26/2012 normal HPV: 11/19/2012 negative History of abnormal pap: No Last mammogram: 2016 History of abnormal mammogram: Yes hx of breast cancer in 2012- double mastectomy Sexually active: Yes History of STDS: None Patient concerns for STD exposure: No. Pain with intercourse: No Postcoital bleeding: No Vaginal dryness: No OB History T1 L1 SAB0 TAB0 Ectopic0 Multiple0 Live Births0 Comment: Menarche age 11 AFB 26 Pt did not breast feed Pt did use BC Pt denies use of HRTs Menopause 54 or 55 PAST MEDICAL HISTORY Diagnosis Date Anemia, unspecified Benign neoplasm of skin of trunk, except scrotum 01/12/2009 Benign neoplasm of skin of upper limb, including shoulder 08/26/2005 Breast cancer (HCC) 11/2012 left Dense breasts 07/16/2017 Difficult airway for intubation Disorder of bone and cartilage, unspecified History of bilateral breast cancer 04/21/2018 left them right; s/p bilateral mastectomy Incisional hernia of anterior abdominal wall without obstruction or gangrene 04/22/2017 just above and to the right of umbilicus; 02/10/[address] Shepherd reviewed; stable findings of slight bulge seen best while patient standing Irritable bowel syndrome Malignant neoplasm of upper-outer quadrant of right breast, estrogen receptor positive (HCC) Osteoporosis, unspecified progression to osteoporosis noted on 2007 bone density Postmenopausal bleeding Postmenop. bleeding Postoperative thrombophlebitis 09/20/2013 Temporomandibular joint disorders, unspecified TMJ (dislocation of temporomandibular joint) 10/20/2015 Transfusion history after childbirth Unspecified vitamin D deficiency PAST SURGICAL HISTORY Procedure Laterality Date CURETTAGE 1978 Curettage, post delivery CURETTAGE DILATION & CURETTAGE DX&/THER NONOBSTETRIC 07/01/2013 [facility] EXCISION PILONIDAL CYST/SINUS SIMPLE LAPROSCOPIC REPAIR UMBILICAL HERNIA MASTECTOMY, SIMPLE, COMPLETE Left 01/06/2013 left breast with SLND ([facility]) MASTECTOMY, SIMPLE, COMPLETE 10/2017 right PAST SURGICAL HISTORY OF pilonidal cyst PAST SURGICAL HISTORY OF abdominal hernia PAST SURGICAL HISTORY OF breast cyst removed PAST SURGICAL HISTORY OF wisdom teeth PAST SURGICAL HISTORY OF N/A 07/2020 removal of skin tags PORTOCATH PLACEMENT 2017 PORTOCATH PLACEMENT 12/18/2017 port placement [place] NOHEMI W/WO REMOVAL TUBE OVARY 08/2013 w/ BSO TONSILLECTOMY & ADENOIDECTOMY <AGE 12 FAMILY HISTORY Problem Relation Age of Onset Alcohol/Drug Mother Heart Father [place] at 72 Diabetes Father Thyroid Father other (LIVER) Father Diabetes Paternal Grandmother Heart Paternal Grandmother Diabetes Maternal Grandmother Heart Maternal Grandmother DE in her 40's; from [place] at 68 Stroke Maternal Grandfather Heart Paternal Grandfather Breast Cancer Maternal Aunt breast, 50's oral Coronary Artery Disease Maternal Uncle Prostate Cancer Maternal Uncle 86 Colon Cancer Maternal Aunt 60 Stroke Maternal Aunt Coronary Artery Disease Maternal Aunt SOCIAL HISTORY Social History Tobacco Use Smoking status: Former Types: Cigarettes Quit date: 10/22/1970 Years since quittin.6 Smokeless tobacco: Never Tobacco comments: 3 cigarettes a week back in college for 9 months Vaping Use Vaping Use: Never used Substance Use Topics Alcohol use: Yes Comment: beer/wine maybe daily depends Drug use: No Hands Parter offered: Patient accepts, visit chaperoned by MOLLY Roland MA April 29, 2021 10:16 AM REVIEW OF SYSTEMS Abdomen: No abdominal pain, nausea, vomiting, diarrhea, or constipation. No bloating, early satiety, indigestion, or increased flatulence. Bladder: No dysuria, gross hematuria, urinary frequency, urinary urgency, or incontinence Breast: No breast lumps, nipple d/c, overlying skin changes, redness or skin retraction Allergies and current medication updated:Yes EXAM: BP 122/68 Wt 104 lb (47.2kg) LMP 08/31/2013 EXAM: BP 122/68 Wt 47.2 kg (104 lb) LMP 08/31/2013 BMI 17.18 kg/m GENERAL: pleasant, female in no apparent distress HEENT: Normocephalic, atraumatic, mucus membranes moist and no lesions CHEST: Normal inspiratory effort ABDOMEN: soft, non-tender and no masses PELVIC: external genitalia normal, normal Bartholin's glands, urethra, Ashaway's glands, no vulvar lesions, good vaginal support, physiologic discharge present, normal appearing perineal body and perianal region, cervix surgically absent BIMANUAL: no adnexal masses, non-tender and uterus surgically absent RECTOVAGINAL: deferred. NEURO: alert and oriented x3,exam grossly non-focal EXTREMITIES: normal A information coordinator was present for the breast and/or pelvic exam Encounter Diagnosis ICD-10-CM 1. Encounter for gynecological examination (general) (routine) without abnormal findings Z01.419 discussed follow up bone density test as a concern she is staying active Carmelita Krishnamurthy MD . documented in this encounter [facility] 05-25-2022 Miscellaneous Notes Patient reports [facility] notified her, she is due for fecal occult test. Asking pcp to place order and notify her via [facility]. Pended. 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 She denies chest wall masses, pain, or skin changes. She is compliant with her Arimidex She is being followed for probably benign axillary nodes bilaterally with borderline cortical thickening. In 06/2020 bilateral ultrasounds were deemed benign. In 12/04 she was diagnosed with a [id number] breast cancer. MRI 12/04 showed the known lesion measuring 1.7cm on the left at 12pm. In 01/01 she had a left mastectomy with negative margins and 0/2 SLN. The tumor was ER+(90%)/WY+(90%)/HER2-. She did not have reconstruction. ODX was 13 corresponding to an 8% risk of distant intermediate recurrence. She saw Dr. Jimenez in consultation and given her pre-existing osteoporosis (BMD 11/03 -2.9) and TMJ, it was decided that she take Tamoxifen which she started 02/01. In 10/07, she felt a new lump on the right. She was found to have a 4mm mass by ultrasound. 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 She went on to right mastectomy 11/08 demonstrating the 6mm tumor with negative margins, no LVI and 0/1 SLN. She was switched to Arimidex 02/06 for another 5 years. She is tolerating it well. She is followed by Dr. Altamirano in [place]. She was having some vaginal dryness which is improved on Replens. 01/06: Daria Osborne's Common Hereditary Cancers panel through [employer] was negative for a deleterious mutation. 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 A VUS is a genetic variant for which insufficient data exists in order to determine if it is associated with disease (deleterious mutation) or is a normal genetic variant which can occur in the population without disease (benign polymorphism). Her vitamin D level was Vitamin D 25 Hydroxy (ng/mL) Date Value 04/04/2022 60.0 09/23/2021 58.6 . She takes Vitamin D 2000 units and gets a lot of calcium in her diet . BMD: Yes / 12/07 stable osteoporosis (-2.8). She is NOT interested in therapy as she has jaw issues. 01/06 stable at -2.8. 06/2020 BMD -3.3. Has been reordered PERSONAL BREAST HISTORY: Past breast history (prior to this encounter) is as follows: Breast biopsy: Yes, as above Breast cysts: No Breast surgery: Yes, left mastectomy as above Breast cancer: Yes, Left Stage 1 ([id number]) in the upper breast s/p left mastectomy CANCER SURVEILLANCE: Mammograms: Yes / right mammogram 01/05 negative Breast MRI: 11/08 showing the known cancer; otherwise negative. Colonoscopy: No RISK FACTORS FOR BREAST CANCER: Age at the onset of menses: unknown P: 1 Age at the of first child: 26 years of age. She did not breast feed Age at menopause: The patient does not remember. Post-menopausal hormone therapy: No She is S/P total hysterectomy with negative pathology History of Mantle Radiation prior to the age of 30: No Postmenopausal obesity: No Mammographic density: NA; she is s/p bilateral mastectomy. Personal History of Benign Atypical Breast Biopsy: No Alcohol use: 1-2 drinks daily PAST MEDICAL HISTORY: PAST MEDICAL HISTORY Diagnosis Date Anemia, unspecified Benign neoplasm of skin of trunk, except scrotum 01/12/2009 Benign neoplasm of skin of upper limb, including shoulder 08/26/2005 Breast cancer (HCC) 11/2012 left Dense breasts 07/16/2017 Difficult airway for intubation Disorder of bone and cartilage, unspecified History of bilateral breast cancer 04/21/2018 left them right; s/p bilateral mastectomy Incisional hernia of anterior abdominal wall without obstruction or gangrene 04/22/2017 just above and to the right of umbilicus; 02/10/[address] Shepherd reviewed; stable findings of slight bulge seen best while patient standing Irritable bowel syndrome Malignant neoplasm of upper-outer quadrant of right breast, estrogen receptor positive (HCC) Osteoporosis, unspecified progression to osteoporosis noted on 2007 bone density Postmenopausal bleeding Postmenop. bleeding Postoperative thrombophlebitis 09/20/2013 Temporomandibular joint disorders, unspecified TMJ (dislocation of temporomandibular joint) 10/20/2015 Transfusion history after childbirth Unspecified vitamin D deficiency Patient specifically denies history of: DVT, PE, Migraine headaches. She has osteoporosis. PAST SURGICAL HISTORY: PAST SURGICAL HISTORY Procedure Laterality Date CURETTAGE 1978 Curettage, post delivery CURETTAGE DILATION & CURETTAGE DX&/THER NONOBSTETRIC 07/01/2013 [facility] EXCISION PILONIDAL CYST/SINUS SIMPLE LAPROSCOPIC REPAIR UMBILICAL HERNIA MASTECTOMY, SIMPLE, COMPLETE Left 01/06/2013 left breast with SLND ([place]) MASTECTOMY, SIMPLE, COMPLETE 10/2017 right PAST SURGICAL HISTORY OF pilonidal cyst PAST SURGICAL HISTORY OF abdominal hernia PAST SURGICAL HISTORY OF breast cyst removed PAST SURGICAL HISTORY OF wisdom teeth PAST SURGICAL HISTORY OF N/A 07/2020 removal of skin tags PORTOCATH PLACEMENT 2017 PORTOCATH PLACEMENT 12/18/2017 port placement [place] NOHEMI W/WO REMOVAL TUBE OVARY 08/2013 w/ BSO TONSILLECTOMY & ADENOIDECTOMY <AGE 12 SOCIAL HISTORY: Social History Tobacco Use Smoking status: Former Smoker Types: Cigarettes Quit date: 10/22/1970 Years since quittin.5 Smokeless tobacco: Never Used Tobacco comment: 3 cigarettes a week back in college for 9 months Vaping Use Vaping Use: Never used Substance Use Topics Alcohol use: Yes Comment: beer/wine maybe daily depends Drug use: No Caffeine intake: 2 / day Exercise: 30 minutes/5 times a week or more FAMILY HISTORY: Family history of breast cancer: A maternal aunt had bilateral breast cancer Family history of ovarian cancer: None Number of sisters: 0 Number of maternal aunts: 2 Number of paternal aunts: 1 Ashkenazi Ancestry: no Has Patient had Genetic Testing? No Have any Family Members had Genetic Testing? No Other Cancer: Maternal aunt with colon cancer - There is no family history of prostate, uterine, pancreatic, gastric, brain, renal cell or thyroid cancer. - There is no family history of melanoma, sarcoma or leukemia. Osteoporosis: Maternal aunt Stroke: MGF and a maternal aunt had strokes Blood Clot: None Heart attack: PGF, PGM and MGM had MIs Thyroid Nodule or Goiter: None Autism: None FAMILY HISTORY Problem Relation Age of Onset Alcohol/Drug Mother Heart Father [place] at 72 Diabetes Father Thyroid Father other (LIVER) Father Diabetes Paternal Grandmother Heart Paternal Grandmother Diabetes Maternal Grandmother Heart Maternal Grandmother [place] in her 40's; from [place] at 68 Stroke Maternal Grandfather Heart Paternal Grandfather Breast Cancer Maternal Aunt breast, 50's oral Coronary Artery Disease Maternal Uncle Prostate Cancer Maternal Uncle 86 Colon Cancer Maternal Aunt 60 Stroke Maternal Aunt Coronary Artery Disease Maternal Aunt MEDICATIONS: anastrozole (ARIMIDEX) 1 mg tablet Take 1 tablet by mouth once daily. EPINEPHrine (EPIPEN) 0.3 mg/0.3 mL auto-injector Use as directed for reaction to food allergen Cholecalciferol, Vitamin D3, 1,000 unit cap Take 1 capsule by mouth once daily. THERAPEUTIC MULTIVITAMIN TAB Take one(1) tablet daily. ALLERGIES: ALLERGIES Allergen Reactions Cantaloupe Swelling Throat itchy Chicken GI Upset + allergy test to chicken meat (in past just had GI upset but test +); told by property custodian no flu shot because of this allergy Clindamycin Rash possible allergy, rash appeared treatment completed Propofol Unknown History of possible egg allergy as a child. Skin test to egg-white negative on 12/06/17. Patient has never been treated with propofol Ciprofloxacin Intolerance C/o feeling anxious and shaky while taking ciprofloxacin in the post-operative period following evacuation of breast hematoma in Oct, 2017. Also c/o joints popping no other symptoms. Egg Derived Contraindication-Medical Surgical Slipper Maker told patient to avoid anything derived from eggs due to chicken allergy revealed on testing. May eat eggs. Zantac [Ranitidine * Unknown Tetracycline Unknown REVIEW OF SYSTEMS: She denies chest pain, shortness of breath, persistent cough, severe headaches, unusual bony pains, abdominal pain or unintentional weight loss. PHYSICAL EXAM: [facility] 08/31/2013 General: well-nourished, healthy, female, alert and oriented x 3, calm Skin: warm, dry, skin color, texture, turgor normal Head/Eyes: normocephalic, atraumatic and anicteric Breasts and Regional Lymph Nodes: The patient was examined in the upright and supine positions. There is no concerning supraclavicular, infraclavicular or axillary lymphadenopathy. Specifically, I do not feel any axillary nodes or fullness. She is s/p left simple mastectomy with SLNB with no evidence of local recurrence. She is s/p right simple mastectomy with SLNB with no evidence of local recurrence. She has had no reconstruction on either side. Chest - clear Cor - s1+s2 Abd - soft, no hepatomegaly IMAGING: Deferred . Assessment IMPRESSION/PLAN: (Z85.3) Personal history of BILATERAL breast cancer (primary encounter diagnosis) (Z90.13) Status post bilateral mastectomy (M81.0) Osteoporosis without current pathological fracture (Z13.71) BRCA negative (Z79.811) Aromatase inhibitor use There is no evidence of malignancy. The patient was reassured as to the benign nature of her clinical findings. She is now s/p bilateral mastectomy and has reduced her risk of another cancer by 90-95%. We talked about her osteoporosis and potential treatment. The last test was done on a different machine and she is NOT interested in treatment. Genetics referral made: Negative panel testing as above. Chemoprevention discussion: She completed 5 years of tamoxifen and is now on 5 years of Arimidex for her second cancer which she is tolerating well. The patient is advised to exercise regularly, achieve/maintain ideal body weight, and to limit alcohol consumption to less than 3-5 drinks weekly for breast cancer risk reduction and overall health. She is reminded about screening colonoscopy. She really doesn't want to do it. For bone health, she exercises regularly and takes Calcium and D. She is not interested in medication. She will see medical oncology in 06/2023, and I will see her for clinical evaluation in one year. She will call me in the interim should she have any questions or concerns. I spent a total of 30 minutes on the date of the service which included preparing to see the patient, [id number] patient care, completing clinical documentation, obtaining and/or reviewing separately obtained history, performing a medically appropriate examination and counseling and educating the patient/family/caregiver. Dario Suárez MD Medical Breast Specialist documented in this encounter [facility] 04-12-2022 Instructions Cristina Lay Dc - 04/12/2022 3:19 PM EDT BREAST CANCER SCREENING If you have remaining breast tissue, an annual screening mammogram and clinical breast exam by your breast provider is recommended. Option for mammography include digital mammograms and digital breast tomosynthesis. Single view mammograms are recommended if you have had a mastectomy with tissue flap reconstruction. Mammograms are not necessary if you have had a mastectomy with implant reconstruction. Breast MRI is NOT ROUTINELY recommended for screening following a cancer diagnosis and is NOT recommended for women who have undergone bilateral mastectomy procedures unless otherwise clinically indicated. MRI is recommended for breast cancer survivors with remaining breast tissue who: Have a history if chest irradiation under the age of 30. Carry genetic mutations conferring increased cancer risk (BRCA1, BRCA2, PTEN, TP53, CDH1, STK11, PALB2, CHEK2, GORGE) Per [facility] High Risk Care Path recommendations, screening breast MRI may be considered for women under the age of 65 with remaining breast tissue in the following situations: Patients who were under the age of 50 at the time of their breast cancer diagnosis Patients with mammographically dense tissue (BI-RADS category 3 or 4) Patients with a history of invasive lobular breast cancer GENETIC TESTING Approximately 10% of all breast cancers in the [place] are due to inherited genetic mutations. BRCA 1 and BRCA 2 are the most common genes associated with hereditary breast and ovarian cancer risk, but other genes known to increase breast cancer risk have also been identified. A certified genetic counselor can help decide if you are a candidate for testing, especially if your breast cancer was diagnosed prior to the age of 50 you had triple negative breast cancer you have a personal or family history of ovarian cancer you have a family member with a known genetic mutation you have a person or family history of male breast cancer you are of Ashkenazi Sikh descent HEALTHY LIFESTYLE MANAGEMENT (per NCCN Guidelines Version 1.2017 for Survivorship) All survivors should be encouraged to achieve and maintain a healthy lifestyle with attention to weight management, physical activity, and healthy dietary habits. Healthy Lifestyle habits have been associated with overall health and quality of life. For some cancers, a healthy lifestyle has been associated with a reduced risk of recurrence and . For a healthy lifestyle, all survivors should be encouraged to: Achieve and maintain a healthy body weight throughout life. Strive for at least 150 minutes of moderate or 75 minutes of vigorous activity per week. Maintain a healthy diet high in fruits, vegetables, and whole grains and low in red and processed meats, sugars, and fat in order to promote weight control and avoid obesity. Limit alcohol intake to less than one drink per day. Avoid tobacco products. Practice sun safety. Obtain 6-7 hours of sleep per night. Follow up with primary care physician regularly. WHEN TO CALL Tests may become necessary in some point of time. We encourage you to call with any new questions or concerns, particularly if your symptoms are worsening or have lasted longer than two weeks. Specifically, please report: breast or chest wall lumps, skin changes, swelling, or nipple discharge unexplained nausea or vomiting unexplained localized bone pain unexplained cough or shortness of breath unexplained swelling in your arm(s) unexplained and persistent headaches Breast Cancer Support and Resources Many resources are available in the community and offer an array of programs including support groups and community education programs. All of them have web sites you can access for additional information. These include but are not limited to: [facility] Comprehensive Breast Cancer Program - [email or web address] - [email or web address] [employer] - cancer.org [facility] - [email or web address] FORCE - [email or web address] [place] - [email or web address] [employer] - [email or web address] [facility] [place] - [email or web address] [facility] - [email or web address] ([place] and [place]) [facility] - [email or web address] ([place] area) [facility] - [email or web address] ([place] area) [facility] - [email or web address] ([place] area) If you would like to compliment one of our caregivers you encountered today, you may do so at [email or web address]. Thank you ! documented in this encounter [facility] 04-12-2022 Nurse Note Patient is being seen today for annual exam Last mammogram on: N/A Bilateral mastectomy Is the patient active on MyChart Yes Electronically Signed By: Cristina Lay Ma In Department: BREAST CENTER REVIEW OF PATIENT HISTORY: OB History T1 L1 SAB0 IAB0 Ectopic0 Multiple0 Live Births1 Comment: Menarche age 11 AFB 26 Pt did not breast feed Pt did use BC Pt denies use of HRTs Menopause 54 or 55 FAMILY HISTORY Problem Relation Age of Onset Alcohol/Drug Mother Heart Father [place] at 72 Diabetes Father Thyroid Father other (LIVER) Father Diabetes Paternal Grandmother Heart Paternal Grandmother Diabetes Maternal Grandmother Heart Maternal Grandmother [place] in her 40's; from [place] at 68 Stroke Maternal Grandfather Heart Paternal Grandfather Breast Cancer Maternal Aunt breast, 50's oral Coronary Artery Disease Maternal Uncle Prostate Cancer Maternal Uncle 86 Colon Cancer Maternal Aunt 60 Stroke Maternal Aunt Coronary Artery Disease Maternal Aunt PAST MEDICAL HISTORY Diagnosis Date Anemia, unspecified Benign neoplasm of skin of trunk, except scrotum 01/12/2009 Benign neoplasm of skin of upper limb, including shoulder 08/26/2005 Breast cancer (HCC) 11/2012 left Dense breasts 07/16/2017 Difficult airway for intubation Disorder of bone and cartilage, unspecified History of bilateral breast cancer 04/21/2018 left them right; s/p bilateral mastectomy Incisional hernia of anterior abdominal wall without obstruction or gangrene 04/22/2017 just above and to the right of umbilicus; 02/10/[address] Shepherd reviewed; stable findings of slight bulge seen best while patient standing Irritable bowel syndrome Malignant neoplasm of upper-outer quadrant of right breast, estrogen receptor positive (HCC) Osteoporosis, unspecified progression to osteoporosis noted on 2007 bone density Postmenopausal bleeding Postmenop. bleeding Postoperative thrombophlebitis 09/20/2013 Temporomandibular joint disorders, unspecified TMJ (dislocation of temporomandibular joint) 10/20/2015 Transfusion history after childbirth Unspecified vitamin D deficiency PAST SURGICAL HISTORY Procedure Laterality Date CURETTAGE 1977 Curettage, post delivery CURETTAGE DILATION & CURETTAGE DX&/THER NONOBSTETRIC 07/01/2013 [facility] EXCISION PILONIDAL CYST/SINUS SIMPLE LAPROSCOPIC REPAIR UMBILICAL HERNIA MASTECTOMY, SIMPLE, COMPLETE Left 01/06/2013 left breast with SLND ([place]) MASTECTOMY, SIMPLE, COMPLETE 10/2017 right PAST SURGICAL HISTORY OF pilonidal cyst PAST SURGICAL HISTORY OF abdominal hernia PAST SURGICAL HISTORY OF breast cyst removed PAST SURGICAL HISTORY OF wisdom teeth PAST SURGICAL HISTORY OF N/A 07/2020 removal of skin tags PORTOCATH PLACEMENT 2017 PORTOCATH PLACEMENT 12/18/2017 port placement [place] NOHEMI W/WO REMOVAL TUBE OVARY 08/2013 w/ BSO TONSILLECTOMY & ADENOIDECTOMY <AGE 12 Social History Tobacco Use Smoking status: Former Smoker Types: Cigarettes Quit date: 10/22/1970 Years since quittin.5 Smokeless tobacco: Never Used Tobacco comment: 3 cigarettes a week back in college for 9 months Vaping Use Vaping Use: Never used Substance Use Topics Alcohol use: Yes Comment: beer/wine maybe daily depends Drug use: No documented in this encounter [facility] 04-05-2022 History of Present illness Narrative This note was created using NoteWriter. Subjective Daria Osborne is a 71 year old female. Patient presents with: F/U 6 months SUBJECTIVE: Daria Obsorne is a 71 year old year old lady here today for 6 month follow up appointment for review of medical conditions. Noted that rash on back of neck comes and goes. Right now okay. Never severe.Hand cream helps. Has cold sore now. Stressors noted. Friend known since 5th grade last Sunday from metastatic breast cancer. Noted that if touches right lateral eyebrow, can feel discomfort in the right jaw area in preauricular area. Not rash noted. Started day after [place]. Has been to dentist earlier in the month. Will see dentist for follow up on a chipped tooth. Reviewed her history TMJ issues. Noted that does not constant pain but just noted sensitivity with tapping on the nerve. Not affecting anything else. Strained muscle right mid abdomen (stirring the pot exercise). Resting those ab muscles for now. Noted that had reaction to Pneumovax 23. PAST MEDICAL HISTORY Diagnosis Date Anemia, unspecified Benign neoplasm of skin of trunk, except scrotum 01/12/2009 Benign neoplasm of skin of upper limb, including shoulder 08/26/2005 Breast cancer (HCC) 11/2012 left Dense breasts 07/16/2017 Difficult airway for intubation Disorder of bone and cartilage, unspecified History of bilateral breast cancer 04/21/2018 left them right; s/p bilateral mastectomy Incisional hernia of anterior abdominal wall without obstruction or gangrene 04/22/2017 just above and to the right of umbilicus; 02/10/[address] Shepherd reviewed; stable findings of slight bulge seen best while patient standing Irritable bowel syndrome Malignant neoplasm of upper-outer quadrant of right breast, estrogen receptor positive (HCC) Osteoporosis, unspecified progression to osteoporosis noted on 2007 bone density Postmenopausal bleeding Postmenop. bleeding Postoperative thrombophlebitis 09/20/2013 Temporomandibular joint disorders, unspecified TMJ (dislocation of temporomandibular joint) 10/20/2015 Transfusion history after childbirth Unspecified vitamin D deficiency Current Outpatient Medications Medication Sig anastrozole (ARIMIDEX) 1 mg tablet Take 1 tablet by mouth once daily. EPINEPHrine (EPIPEN) 0.3 mg/0.3 mL auto-injector Use as directed for reaction to food allergen Cholecalciferol, Vitamin D3, 1,000 unit cap Take 1 capsule by mouth once daily. THERAPEUTIC MULTIVITAMIN TAB Take one(1) tablet daily. No current facility-administered medications for this visit. Review of Systems Objective BP 108/60 Pulse 68 Wt 47.2 kg (104 lb) LMP 08/31/2013 SpO2 99% BMI 17.18 kg/m Last 5 Encounter Wt Readings: Date: Wt: 04/05/2022 47.2 kg (104 lb) 02/17/2022 47.3 kg (104 lb 4.8 oz) 01/09/2022 48.5 kg (107 lb) 10/04/2021 48.5 kg (107 lb) 07/06/2021 47.2 kg (104 lb) No waist measurement recorded Estimated body mass index is 17.18 kg/m as calculated from the following: Height as of 02/17/22: 165.7 cm (5' 5.24 ). Weight as of this encounter: 47.2 kg (104 lb). Last 5 Encounter BP Readings: Date: BP: 04/05/2022 108/60 02/17/2022 110/68 01/09/2022 124/68 10/04/2021 110/60 07/06/2021 110/70 Physical Exam Constitutional: Appearance: Normal appearance. HENT: Head: Normocephalic. Eyes: Conjunctiva/sclera: Conjunctivae normal. Cardiovascular: Rate and Rhythm: Normal rate and regular rhythm. Heart sounds: Normal heart sounds. Pulmonary: Effort: Pulmonary effort is normal. Breath sounds: Normal breath sounds. Skin: General: Skin is warm and dry. Neurological: General: No focal deficit present. Mental Status: She is alert and oriented to person, place, and time. Psychiatric: Mood and Affect: Mood normal. Behavior: Behavior normal. Thought Content: Thought content normal. Judgment: Judgment normal. Component Latest Ref Rng & Units 05/26/2021 09/23/2021 02/20/2022 04/04/2022 Protein, Total 6.3 - 8.0 g/dL 7.2 7.0 Albumin 3.9 - 4.9 g/dL 4.5 4.5 Calcium 8.5 - 10.2 mg/dL 9.4 9.6 Bilirubin, Total 0.2 - 1.3 mg/dL 0.4 0.6 Alkaline Phosphatase 34 - 123 U/L 52 48 AST 13 - 35 U/L 24 22 Glucose 74 - 99 mg/dL 110 (H) 116 (H) BUN 7 - 21 mg/dL 13 10 Creatinine 0.58 - 0.96 mg/dL 0.64 0.60 Sodium 136 - 144 mmol/L 139 139 Potassium 3.7 - 5.1 mmol/L 4.0 4.3 Chloride 97 - 105 mmol/L 100 101 CO2 22 - 30 mmol/L 26 28 Anion Gap 9 - 18 mmol/L 13 10 ALT 7 - 38 U/L 17 17 eGFR- >60 eGFR-All Other Races . >60 eGFR >=60 mL/min/1.73m 96 WBC 3.70 - 11.00 k/uL 5.37 5.00 RBC 3.90 - 5.20 m/uL 4.64 4.45 Hemoglobin 11.5 - 15.5 g/dL 14.3 13.8 Hematocrit 36.0 - 46.0 % 43.6 41.3 MCV 80.0 - 100.0 fL 94.0 92.8 MCH 26.0 - 34.0 pg 30.8 31.0 MCHC 30.5 - 36.0 g/dL 32.8 33.4 RDW-CV 11.5 - 15.0 % 12.5 12.6 Platelet Count 150 - 400 k/uL 228 218 MPV 9.0 - 12.7 fL 9.7 9.2 Absolute nRBC <0.01 k/uL <0.01 <0.01 Hemoglobin A1C 4.3 - 5.6 % 5.8 (H) 5.7 (H) Estimated Average Glucose mg/dL 120 117 Occult Blood, Stool Negative Negative Vitamin D 25 Hydroxy 31.0 - 80.0 ng/mL 58.6 60.0 Cross-Link N-telopeptide 5.0 - 65.0 nM BCE/mM Creatinine 61.9 Creatinine, Ur Random (UCRR) 20.0 - 300.0 mg/dL 55.3 Assessment and Plan ASSESSMENT/PLAN: 1. Psoriasis - ICD9: 696.1, ICD10: L40.9 (primary diagnosis) Further evaluation and treatment as indicated. 2. Neuralgia - ICD9: 729.2, ICD10: M79.2 Discussed management Further evaluation and treatment as indicated. 3. 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 4. Vitamin D deficiency - ICD9: 268.9, ICD10: E55.9 Continue present management. 5. IFG (impaired fasting glucose) - ICD9: 790.21, ICD10: R73.01 Needs to keep working on diet and exercise with lifestyle changes for effective weight loss as well as prevention of DM, and control of BP and lipids. .contmgm 6. Temporomandibular joint disorders, unspecified - ICD9: 524.60, ICD10: M26.609 Continue present management. Carolina Peterson MD documented in this encounter [facility] 02-27-2022 Miscellaneous Notes I spoke to daria. her urine ntx result is in the upper limit of normal. at 61.9. This can suggest increased bone breakdown. I recommend that she start treatment for the osteoporosis. she wants to wait until after her bmd to make a decision regarding treatment. she will call to schedule her bmd to be in June and she will schedule a virtual visit to see me after the bmd Ligia Valdes MD . documented in this encounter [facility] 02-20-2022 History of Present illness Narrative Episode Visit Count: 2 Therapist That Will Oversee The Plan Of Care: Judie Mcknight PT Start of Care Date: 01/12/22 Onset Date: 09/02/20 Plan of Care Certification Date: 01/12/22 Next Certification Due Date: 03/09/22 Patient Identified by Name and Date of : Yes REHABILITATION AND SPORTS THERAPY PHYSICAL THERAPY TREATMENT NOTE ASSESSMENT: Dariadaisy Osborne tolerated the session with expected muscle soreness. She demonstrated difficulty with increased discomfort in right Low band after paloff and stir the pot.. The patient will continue to benefit from ongoing skilled physical therapy to progress toward set goals. PLAN FOR NEXT VISIT: Will modify exs as appropriate / possible Discharge/POC SUBJECTIVE: Patient Reason for Visit: Pt has not been able to do exs. Was taking care of family member for the month of January . Did do the treadmill during that time. Plans to get back to exs. Notes that she irritated her back an hour ago. This is on the right side of her low back and happened while bending over. Pain: Pain Pain Level: 4 Pain Location: Low Back/Lumbar Spine - Right Description: Sore Frequency: Intermittent Post Treatment Pain Post Treatment Pain Level: No Change Post Treatment Pain Location: Low Back/Lumbar Spine - Right OBJECTIVE MEASURES WITH LEVEL OF FUNCTION: TREATMENT: Therapeutic Exercise: 1: sit to stand from 1x10 chair 2: bridges 1x10 and 1x5 3: steamboats orange band 1x10 4: orange rep band paloff, and stir the pot 1x10 with slightly increased soreness after 5: reviewed appropriate level of return to exs 6: orange rep band scapular retraction 1x10 Skilled Intervention: Patient was educated in proper exercise technique and purpose for exercises. Reviewed and educated patient on additions/changes for home exercise program .. Skilled judgment was provided in selection of appropriate interventions. Correct performance of therapeutic exercises was facilitated with verbal and visual cuing. Patient education as noted. Billing Therapeutic Exercise Treatment Minutes: 38 Total Treatment Time Minutes (timed/untimed): 38 Judie Mcknight PT documented in this encounter [facility] 02-17-2022 History of Present illness Narrative Images from the original note were not included. The patient is seen in consultation at the request of Carmelita Krishnamurthy for an opinion and advise regarding the management of the patient s osteoporosis. OSTEOPOROSIS AND METABOLIC BONE DISEASE HISTORY and PHYSICAL Gender: female Ethnicity: White Age: [age] year old Chief Complaint: Evaluation for osteoporosis TREATMENTS: Osteoporosis - Antiresorptive Treatments Treatment Start Date Stop Date Comment none Osteoporosis - Anabolic Treatments Treatment Start Date Stop Date Comment none Current Calcium, Multivitamin, and Vitamin D Use on File Vitamins - D Derivatives Start End Cholecalciferol, Vitamin D3, 1,000 unit cap 04/10/2018 Sig - Route: Take 1 capsule by mouth once daily. - ORAL Class: Med Update Multivitamins Start End THERAPEUTIC MULTIVITAMIN TAB 08/07/2005 Sig - Route: Take one(1) tablet daily. - ORAL Class: Historical Med OSTEOPOROSIS RISK FACTORS FRAX Risk Factors Fracture(s) no fragility fractures (Comment: only in 4rth grade metatarsal fracture. no fracture since then ) Family History of osteoporosis (Comment: maternal aunt) No parent with a hip fracture Not a current smoker no significant glucocorticoid use No rheumatoid arthritis No secondary osteoporosis No alcohol use more than 3 units per day Medication Risk Factors Aromatase inhibitors (Comment: has been on it 4 years. she will be on it another year) Proton pump inhibitor Overall med risk factors - additional details: mastectomy 2012- was on tamoxifen. then new breast cancer 2017 and was placed on arimidex. never received radiation. Disease-Specific Risk Factors Weight < 127 lbs No height loss normal balance No fall history No history of renal calculi No CKD Caffeine intake: 1-3 c/day Exercise routine: regular exercise program (Comment: tredmill daily, PT exercises, very active) REVIEW OF SYSTEMS: Review of Systems CONSTITUTION: Negative for: Fever and Recent weight change HEENT: Negative for: Nosebleeds, Mouth sores, Trouble swallowing and Dry mouth RESPIRATORY: Negative for: Cough, Shortness of breath and Pain with breathing GASTROINTESTINAL: Negative for: Melena, Diarrhea, Heartburn and Abdominal pain MUSCULOSKELETAL: Negative for: Arthralgias, Myalgias, Muscle weakness, Joint swelling and Morning Joint Stiffness NEUROLOGICAL: Negative for: Headaches, Numbness and Memory loss SKIN: Negative for: Rash, Skin changes, Hair loss and Nail changes EYES: Positive for: Eye dryness Negative for: Eye pain, Eye redness and visual disturbance CARDIOVASCULAR: Negative for: Chest pain and Leg swelling GENITOURINARY: Negative for: Dysuria and Hematuria HEMATOLOGIC/LYMPHATIC: Negative for: Swollen glands No invasive dental work in the last three months and none planned for the future. no tooth pain Osteoporosis History Patient has a history of fracture(s) (Comment: only in 4rth grade metatarsal fracture. no fracture since then ) Most Recent BMD Daily Calcium diet: 1585 mg Daily Calcium supplementation: 300 mg Daily Vitamin D: 1000 IU Current Multivitamin: Yes OB History 1 Para 1 Term 1 0 AB 0 Living 1 SAB 0 IAB 0 Ectopic 0 Multiple 0 Live Births 1 Obstetric Comments Menarche age 11 AFB 26 Pt did not breast feed Pt did use BC Pt denies use of HRTs Menopause 54 or 55 PAST MEDICAL HISTORY Diagnosis Date Anemia, unspecified Benign neoplasm of skin of trunk, except scrotum 01/12/2009 Benign neoplasm of skin of upper limb, including shoulder 08/26/2005 Breast cancer (HCC) 11/2012 left Dense breasts 07/16/2017 Difficult airway for intubation Disorder of bone and cartilage, unspecified History of bilateral breast cancer 04/21/2018 left them right; s/p bilateral mastectomy Incisional hernia of anterior abdominal wall without obstruction or gangrene 04/22/2017 just above and to the right of umbilicus; 02/10/[address] Shepherd reviewed; stable findings of slight bulge seen best while patient standing Irritable bowel syndrome Malignant neoplasm of upper-outer quadrant of right breast, estrogen receptor positive (HCC) Osteoporosis, unspecified progression to osteoporosis noted on 2007 bone density Postmenopausal bleeding Postmenop. bleeding Postoperative thrombophlebitis 09/20/2013 Temporomandibular joint disorders, unspecified TMJ (dislocation of temporomandibular joint) 10/20/2015 Transfusion history after childbirth Unspecified vitamin D deficiency PAST SURGICAL HISTORY Procedure Laterality Date CURETTAGE 1978 Curettage, post delivery CURETTAGE DILATION & CURETTAGE DX&/THER NONOBSTETRIC 07/01/2013 [facility] EXCISION PILONIDAL CYST/SINUS SIMPLE LAPROSCOPIC REPAIR UMBILICAL HERNIA MASTECTOMY, SIMPLE, COMPLETE Left 01/06/2013 left breast with SLND ([place]) MASTECTOMY, SIMPLE, COMPLETE 10/2017 right PAST SURGICAL HISTORY OF pilonidal cyst PAST SURGICAL HISTORY OF abdominal hernia PAST SURGICAL HISTORY OF breast cyst removed PAST SURGICAL HISTORY OF wisdom teeth PAST SURGICAL HISTORY OF N/A 07/2020 removal of skin tags PORTOCATH PLACEMENT 2017 PORTOCATH PLACEMENT 12/18/2017 port placement [place] NOHEMI W/WO REMOVAL TUBE OVARY 08/2013 w/ BSO TONSILLECTOMY & ADENOIDECTOMY <AGE 12 hysterectomy Family History: FAMILY HISTORY Problem Relation Age of Onset Alcohol/Drug Mother Heart Father [place] at 72 Diabetes Father Thyroid Father other (LIVER) Father Diabetes Paternal Grandmother Heart Paternal Grandmother Diabetes Maternal Grandmother Heart Maternal Grandmother [place] in her 40's; from [place] at 68 Stroke Maternal Grandfather Heart Paternal Grandfather Breast Cancer Maternal Aunt breast, 50's oral Coronary Artery Disease Maternal Uncle Prostate Cancer Maternal Uncle 86 Colon Cancer Maternal Aunt 60 Stroke Maternal Aunt Coronary Artery Disease Maternal Aunt Allergies: Cantaloupe, Chicken, Clindamycin, Propofol, Ciprofloxacin, Egg Derived, Zantac [Ranitidine Hcl], and Tetracycline Medications: Present: Current Outpatient Medications Medication Sig anastrozole (ARIMIDEX) 1 mg tablet Take 1 tablet by mouth once daily. Cholecalciferol, Vitamin D3, 1,000 unit cap Take 1 capsule by mouth once daily. THERAPEUTIC MULTIVITAMIN TAB Take one(1) tablet daily. EPINEPHrine (EPIPEN) 0.3 mg/0.3 mL auto-injector Use as directed for reaction to food allergen No current facility-administered medications for this visit. Physical Exam: BP 110/68 Pulse 66 Temp 36.3 C (97.3 F) (Temporal) Ht 165.7 cm (5' 5.24 ) Wt 47.3 kg (104 lb 4.8 oz) LMP 08/31/2013 SpO2 99% BMI 17.23 kg/m Last Ht 02/17/22 : 165.7 cm (5' 5.24 ) 01/09/22 : 165.7 cm (5' 5.25 ) 04/29/21 : 165.1 cm (5' 5 ) GEN: NAD, well groomed EYES: conjunctiva and sclera normal. EARS: External ears normal. NOSE/SINUS: Nares normal. Septum midline. Mucosa normal. No drainage or sinus tenderness. THROAT: Normal and no erythema. ORAL: unremarkable NECK: Neck supple, no adenopathy; no thyromegaly HEART: RRR, no murmurs LUNGS: Clear to auscultation. good respiratory effort LYMPH NODES: No cervical lymphadenopathy and no supraclavicular lymphadenopathy. ABDOMEN: Bowel sounds normoactive, no bruits; soft, nontender, without organomegaly or palpable masses. NEURO: Awake, alert and oriented x 3, cranial nerves II-XII grossly intact, reflexes symmetrical, normal gait and no involuntary motions. SKIN: Skin color, texture, turgor normal. No rash. Examination of Back: Profile -Dorsal kyphosis TS: No -Scoliosis: No No point tenderness to palpitation of spine Balance: -Romberg test: Normal -Heel/calderon test: Normal -Single leg balance: Normal RELEVANT PREVIOUS INVESTIGATIONS: Calcium Date Value Ref Range Status 09/23/2021 9.4 8.5 - 10.2 mg/dL Final 04/01/2021 9.5 8.5 - 10.2 mg/dL Final 10/08/2020 9.7 8.5 - 10.2 mg/dL Final 03/30/2020 9.7 8.5 - 10.2 mg/dL Final Phosphorus Date Value Ref Range Status 05/27/2004 4.4 2.5 - 4.5 mg/dL Final Alkaline Phosphatase Date Value Ref Range Status 09/23/2021 52 34 - 123 U/L Final 04/01/2021 51 34 - 123 U/L Final 10/08/2020 56 34 - 123 U/L Final 03/30/2020 48 34 - 123 U/L Final PTH, Intact Date Value Ref Range Status 04/01/2021 43 15 - 65 pg/mL Final 05/27/2004 50 10 - 60 pg/mL Final Calcium PTH Date Value Ref Range Status 05/27/2004 9.3 8.5 - 10.5 mg/dL Final TSH Date Value Ref Range Status 04/01/2021 3.180 0.270 - 4.200 uU/mL Final Vitamin D 25 Hydroxy Date Value Ref Range Status 09/23/2021 58.6 31.0 - 80.0 ng/mL Final Comment: Classification of 25 OH Vitamin D status: Insufficiency/Moderate Deficiency: < or = 30 ng/mL Sufficiency/Optimal Levels: 31 to 80 ng/mL Toxicity: > 100 ng/mL Test performed by chemiluminescent immunoassay. 04/01/2021 66.2 31.0 - 80.0 ng/mL Final Comment: Classification of 25 OH Vitamin D status: Insufficiency/Moderate Deficiency: < or = 30 ng/mL Sufficiency/Optimal Levels: 31 to 80 ng/mL Toxicity: > 100 ng/mL Test performed by chemiluminescent immunoassay. 10/08/2020 60.6 31.0 - 80.0 ng/mL Final Comment: Classification of 25 OH Vitamin D status: Insufficiency/Moderate Deficiency: < or = 30 ng/mL Sufficiency/Optimal Levels: 31 to 80 ng/mL Toxicity: > 100 ng/mL Test performed by chemiluminescent immunoassay. 07/12/2020 70.9 31.0 - 80.0 ng/mL Final Comment: Classification of 25 [place] Vitamin D status: Insufficiency/Moderate Deficiency: < or = 30 ng/mL Sufficiency/Optimal Levels: 31 to 80 ng/mL Toxicity: > 100 ng/mL Test performed by chemiluminescent immunoassay. Creatinine Date Value Ref Range Status 09/23/2021 0.64 0.58 - 0.96 mg/dL Final 04/01/2021 0.59 0.58 - 0.96 mg/dL Final 10/08/2020 0.60 0.58 - 0.96 mg/dL Final 03/30/2020 0.60 0.58 - 0.96 mg/dL Final Protein, Total Date Value Ref Range Status 09/23/2021 7.2 6.3 - 8.0 g/dL Final 04/01/2021 7.2 6.3 - 8.0 g/dL Final 10/08/2020 7.5 6.3 - 8.0 g/dL Final 03/30/2020 7.1 6.3 - 8.0 g/dL Final Albumin Date Value Ref Range Status 09/23/2021 4.5 3.9 - 4.9 g/dL Final 04/01/2021 4.7 3.9 - 4.9 g/dL Final 10/08/2020 4.7 3.9 - 4.9 g/dL Final 03/30/2020 4.4 3.9 - 4.9 g/dL Final BONE DENSITY RESULTS: DATE OF EXAM: Jan 16 2018 10:24AM [facility] 0804 - BD DXA - AXIAL SKELETON B / PROCEDURE REASON: multiple diagnoses * * * * Physician Interpretation * * * * PROCEDURE: BD DXA - AXIAL SKELETON INDICATION: Encounter for screening for osteoporosis Asymptomatic menopausal state Malignant neoplasm of upper-outer quadrant of right female breast Estrogen receptor positive status (ER+) TECHNIQUE: Low dose AP spine and hip images COMPARISON: 12/15/2015 LUMBAR SPINE: The bone mineral density from L1 through L4 is 0.744 grams per square centimeter which yields a T-score of -2.8. This is not significantly changed. LEFT HIP: The bone mineral density of the total region of the hip is 0.717 grams per square centimeter which yields a T-score of -1.8. This is not significantly changed. LEFT FEMORAL NECK: The bone mineral density of the femoral neck is 0.539 grams per square centimeter which yields a T-score of -2.8. This is not significantly changed. RIGHT HIP: The bone mineral density of the total region of the hip is 0.725 grams per square centimeter which yields a T-score of -1.8. . RIGHT FEMORAL NECK: The bone mineral density of the femoral neck is 0.566 grams per square centimeter which yields a T-score of -2.6. This is not significantly changed. Last Bone Density DXA-AXIAL SKELETON Exam End: 06/22/2020 10:24 AM (Final result) Narrative: * * *Final Report* * * DATE OF EXAM: Jun 22 2020 10:24AM [facility] 0804 - BD DXA - AXIAL SKELETON / PROCEDURE REASON: multiple diagnoses * * * * Physician Interpretation * * * * EXAMINATION: DXA BONE DENSITOMETRY TECHNIQUE: Low dose AP spine and hip images DXA Model: [facility] [facility] [place] Date Scanned: 06/22/2020 10:24 AM COMPARISON: CLINICAL HISTORY: Personal history of malignant neoplasm of breast Age-related osteoporosis without current pathological fracture TECHNICAL LIMITATIONS: None RESULTS: Lumbar spine (L1-L4): 0.782 , T-score -3.3 , Z-score -1.0 . Left Femoral Neck: 0.633 , T-score-2.9 , Z-score-0.9 . Left Total Hip: 0.658 , T-score-2.8 , Z-score -0.9 . Right Femoral Neck: 0.681 , T-score -2.6 , Z-score-0.5 . Right Total Hip: 0.679 , T-score-2.6 , Z-score -0.7 . Impression: IMPRESSION: THE LOWEST T-SCORE IS -3.3 IN THE LUMBAR SPINE 1) DIAGNOSIS (based on BMD alone): OSTEOPOROSIS . Follow-up scans should always be done on the same machine for accurate comparison. FOR MORE INFORMATION: [facility]: www.ccf.org/arthritis/osteo National Osteoporosis Foundation: www.nof.org International Society of Clinical Densitometry www.iscd.org [employer] CLASSIFICATION OF BONE MASS: CLASSIFICATION T-SCORE Normal Greater than -1 Low Bone Mass Between -1 and -2.5 (Osteopenia) Osteoporosis Less than or equal to -2.5 Vp Analysis: ANNA Transcribe Date/Time: Jun 22 2020 12:44P Dictated by : GRACE JACINTO MD This examination was interpreted and the report reviewed and electronically signed by: GRACE JACINTO MD on Jun 22 2020 12:46PM EST Complete Results IMPRESSION: Osteoporosis- lowest T score on most recent bmd is -3.3. she reports the technique on obtaining that bmd was incorrect. Her bmd from 2018 still showed osteoporosis though with a T score of -2.8 She has not had any fragility fractures PLAN: Osteoporosis was discussed with her and information to read was given to her. Treatment is recommended. She is hesitant to start treatment right now. She may consider use of reclast in the future. RBA discussed and information to read was given to her. Dental precautions discussed. Calcium 1200 to 1500 mg daily recommended- if cannot achieve this through diet, then calcium citrate supplement recommended in divided doses. she is achieving the recommended amount of calcium in her diet and does not need to take extra calcium supplement. Continue vitamin D Will check: Office Visit on 02/17/22 DXA-AXIAL SKELETON CROSS-LINK N-TELOPEP CONSULT TO RHEUMATOLOGY METABOLIC BONE Weight bearing exercise as tolerated recommended Fall precautions discussed Repeat bmd on same machine as prior around 06/2022 recommended I will contact her once her urine NTX is resulted. Continued f/u with PCP for routine health maintenance advised rba of meds discussed. My findings and final recommendations will be communicated to the requesting health care provider by way of the shared medical record for internal providers or letter via the [employer] for external providers. Thank you for allowing me to participate in the care of your patient. Ligia Valdes MD documented in this encounter [facility] 01-12-2022 History of Past i llness Narrative Problem Noted Date Resolved Date Hip pain, right 01/12/2022 03/06/2022 Hip pain, left 09/21/2021 03/06/2022 History of bilateral breast cancer 04/21/2018 07/28/2020 Overview: left them right; s/p bilateral mastectomy Breast mass, right 10/03/2017 07/28/2020 Overview: Added automatically from request for surgery [id number] Dense breasts 07/16/2017 04/21/2018 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 Shepherd reviewed; stable findings of slight bulge seen best while patient standing TMJ (dislocation of temporomandibular joint) 07/28/2020 Postoperative thrombophlebitis 09/20/2013 1 Postop check 01/22/2013 07/28/2020 Impaired fasting glucose 11/10/2010 015 Benign neoplasm of skin of trunk, except scrotum 01/12/2009 07/28/2020 Benign neoplasm of skin of upper limb, including shoulder 08/26/2005 07/28/2020 Anemia 07/28/2020 Breast cancer, right breast 10/22 documented as of this encounter (statuses as of 04/25/2022) [facility] History of Past illness Narrative* Problem Noted Date Resolved Date Hip pain, right 01/12/2022 03/06/2022 Hip pain, left 09/21/2021 03/06/2022 History of bilateral breast cancer 04/21/2018 07/28/2020 Overview: left them right; s/p bilateral mastectomy Breast mass, right 10/03/2017 07/28/2020 Overview: Added automatically from request for surgery [id number] Dense breasts 07/16/2017 04/21/2018 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 Shepherd reviewed; stable findings of slight bulge seen best while patient standing TMJ (dislocation of temporomandibular joint) 07/28/2020 Postoperative thrombophlebitis 09/20/2013 1 Postop check 01/22/2013 07/28/2020 Impaired fasting glucose 11/10/2010 015 Benign neoplasm of skin of trunk, except scrotum 01/12/2009 07/28/2020 Benign neoplasm of skin of upper limb, including shoulder 08/26/2005 07/28/2020 Anemia 07/28/2020 Breast cancer, right breast 10/22 documented as of this encounter (statuses as of 05/26/2022) [facility] History of Past illness Narrative* Problem Noted Date Resolved Date Hip pain, right 01/12/2022 03/06/2022 Hip pain, left 09/21/2021 03/06/2022 History of bilateral breast cancer 04/21/2018 07/28/2020 Overview: left them right; s/p bilateral mastectomy Breast mass, right 10/03/2017 07/28/2020 Overview: Added automatically from request for surgery [id number] Dense breasts 07/16/2017 04/21/2018 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 Shepherd reviewed; stable findings of slight bulge seen best while patient standing TMJ (dislocation of temporomandibular joint) 07/28/2020 Postoperative thrombophlebitis 09/20/2013 1 Postop check 01/22/2013 07/28/2020 Impaired fasting glucose 11/10/2010 015 Benign neoplasm of skin of trunk, except scrotum 01/12/2009 07/28/2020 Benign neoplasm of skin of upper limb, including shoulder 08/26/2005 07/28/2020 Anemia 07/28/2020 Breast cancer, right breast 10/22 documented as of this encounter (statuses as of 05/29/2022) [facility] History of Past illness Narrative* Problem Noted Date Resolved Date Hip pain, right 01/12/2022 03/06/2022 Hip pain, left 09/21/2021 03/06/2022 History of bilateral breast cancer 04/21/2018 07/28/2020 Overview: left them right; s/p bilateral mastectomy Breast mass, right 10/03/2017 07/28/2020 Overview: Added automatically from request for surgery [id number] Dense breasts 07/16/2017 04/21/2018 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 Shepherd reviewed; stable findings of slight bulge seen best while patient standing TMJ (dislocation of temporomandibular joint) 07/28/2020 Postoperative thrombophlebitis 09/20/2013 1 Postop check 01/22/2013 07/28/2020 Impaired fasting glucose 11/10/2010 015 Benign neoplasm of skin of trunk, except scrotum 01/12/2009 07/28/2020 Benign neoplasm of skin of upper limb, including shoulder 08/26/2005 07/28/2020 Anemia 07/28/2020 Breast cancer, right breast 10/22 documented as of this encounter (statuses as of 06/20/2022) [facility] History of Past illness Narrative* Problem Noted Date Resolved Date Hip pain, right 01/12/2022 03/06/2022 Hip pain, left 09/21/2021 03/06/2022 History of bilateral breast cancer 04/21/2018 07/28/2020 Overview: left them right; s/p bilateral mastectomy Breast mass, right 10/03/2017 07/28/2020 Overview: Added automatically from request for surgery [id number] Dense breasts 07/16/2017 04/21/2018 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 Shepherd reviewed; stable findings of slight bulge seen best while patient standing TMJ (dislocation of temporomandibular joint) 07/28/2020 Postoperative thrombophlebitis 09/20/2013 1 Postop check 01/22/2013 07/28/2020 Impaired fasting glucose 11/10/2010 015 Benign neoplasm of skin of trunk, except scrotum 01/12/2009 07/28/2020 Benign neoplasm of skin of upper limb, including shoulder 08/26/2005 07/28/2020 Anemia 07/28/2020 Breast cancer, right breast 10/22 documented as of this encounter (statuses as of 06/23/2022) [facility] History of Past illness Narrative* Problem Noted Date Resolved Date Hip pain, right 01/12/2022 03/06/2022 Hip pain, left 09/21/2021 03/06/2022 History of bilateral breast cancer 04/21/2018 07/28/2020 Overview: left them right; s/p bilateral mastectomy Breast mass, right 10/03/2017 07/28/2020 Overview: Added automatically from request for surgery [id number] Dense breasts 07/16/2017 04/21/2018 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 Shepherd reviewed; stable findings of slight bulge seen best while patient standing TMJ (dislocation of temporomandibular joint) 07/28/2020 Postoperative thrombophlebitis 09/20/2013 1 Postop check 01/22/2013 07/28/2020 Impaired fasting glucose 11/10/2010 015 Benign neoplasm of skin of trunk, except scrotum 01/12/2009 07/28/2020 Benign neoplasm of skin of upper limb, including shoulder 08/26/2005 07/28/2020 Anemia 07/28/2020 Breast cancer, right breast 10/22 documented as of this encounter (statuses as of 07/03/2022) [facility] History of Past illness Narrative* Problem Noted Date Resolved Date Hip pain, right 01/12/2022 03/06/2022 Hip pain, left 09/21/2021 03/06/2022 History of bilateral breast cancer 04/21/2018 07/28/2020 Overview: left them right; s/p bilateral mastectomy Breast mass, right 10/03/2017 07/28/2020 Overview: Added automatically from request for surgery [id number] Dense breasts 07/16/2017 04/21/2018 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 Shepherd reviewed; stable findings of slight bulge seen best while patient standing TMJ (dislocation of temporomandibular joint) 07/28/2020 Postoperative thrombophlebitis 09/20/2013 1 Postop check 01/22/2013 07/28/2020 Impaired fasting glucose 11/10/2010 015 Benign neoplasm of skin of trunk, except scrotum 01/12/2009 07/28/2020 Benign neoplasm of skin of upper limb, including shoulder 08/26/2005 07/28/2020 Anemia 07/28/2020 Breast cancer, right breast 10/22 documented as of this encounter (statuses as of 07/20/2022) [facility] History of Past illness Narrative* Problem Noted Date Resolved Date Hip pain, right 01/12/2022 03/06/2022 Hip pain, left 09/21/2021 03/06/2022 History of bilateral breast cancer 04/21/2018 07/28/2020 Overview: left them right; s/p bilateral mastectomy Breast mass, right 10/03/2017 07/28/2020 Overview: Added automatically from request for surgery [id number] Dense breasts 07/16/2017 04/21/2018 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 Shepherd reviewed; stable findings of slight bulge seen best while patient standing TMJ (dislocation of temporomandibular joint) 07/28/2020 Postoperative thrombophlebitis 09/20/2013 1 Postop check 01/22/2013 07/28/2020 Impaired fasting glucose 11/10/2010 015 Benign neoplasm of skin of trunk, except scrotum 01/12/2009 07/28/2020 Benign neoplasm of skin of upper limb, including shoulder 08/26/2005 07/28/2020 Anemia 07/28/2020 Breast cancer, right breast 10/22 documented as of this encounter (statuses as of 08/03/2022) [facility] History of Past illness Narrative* Problem Noted Date Resolved Date Hip pain, right 01/12/2022 03/06/2022 Hip pain, left 09/21/2021 03/06/2022 History of bilateral breast cancer 04/21/2018 07/28/2020 Overview: left them right; s/p bilateral mastectomy Breast mass, right 10/03/2017 07/28/2020 Overview: Added automatically from request for surgery [id number] Dense breasts 07/16/2017 04/21/2018 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 Shepherd reviewed; stable findings of slight bulge seen best while patient standing TMJ (dislocation of temporomandibular joint) 07/28/2020 Postoperative thrombophlebitis 09/20/2013 1 Postop check 01/22/2013 07/28/2020 Impaired fasting glucose 11/10/2010 015 Benign neoplasm of skin of trunk, except scrotum 01/12/2009 07/28/2020 Benign neoplasm of skin of upper limb, including shoulder 08/26/2005 07/28/2020 Anemia 07/28/2020 Breast cancer, right breast 10/22 documented as of this encounter (statuses as of 08/18/2022) [facility] History of Past illness Narrative* Problem Noted Date Resolved Date Hip pain, right 01/12/2022 03/06/2022 Hip pain, left 09/21/2021 03/06/2022 History of bilateral breast cancer 04/21/2018 07/28/2020 Overview: left them right; s/p bilateral mastectomy Breast mass, right 10/03/2017 07/28/2020 Overview: Added automatically from request for surgery [id number] Dense breasts 07/16/2017 04/21/2018 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 Shepherd reviewed; stable findings of slight bulge seen best while patient standing TMJ (dislocation of temporomandibular joint) 07/28/2020 Postoperative thrombophlebitis 09/20/2013 1 Postop check 01/22/2013 07/28/2020 Impaired fasting glucose 11/10/2010 015 Benign neoplasm of skin of trunk, except scrotum 01/12/2009 07/28/2020 Benign neoplasm of skin of upper limb, including shoulder 08/26/2005 07/28/2020 Anemia 07/28/2020 Breast cancer, right breast 10/22 documented as of this encounter (statuses as of 08/18/2022) [facility] History of Past illness Narrative* Problem Noted Date Resolved Date Hip pain, right 01/12/2022 03/06/2022 Hip pain, left 09/21/2021 03/06/2022 History of bilateral breast cancer 04/21/2018 07/28/2020 Overview: left them right; s/p bilateral mastectomy Breast mass, right 10/03/2017 07/28/2020 Overview: Added automatically from request for surgery [id number] Dense breasts 07/16/2017 04/21/2018 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 Shepherd reviewed; stable findings of slight bulge seen best while patient standing TMJ (dislocation of temporomandibular joint) 07/28/2020 Postoperative thrombophlebitis 09/20/2013 1 Postop check 01/22/2013 07/28/2020 Impaired fasting glucose 11/10/2010 015 Benign neoplasm of skin of trunk, except scrotum 01/12/2009 07/28/2020 Benign neoplasm of skin of upper limb, including shoulder 08/26/2005 07/28/2020 Anemia 07/28/2020 Breast cancer, right breast 10/22 documented as of this encounter (statuses as of 08/23/2022) [facility] History of Past illness Narrative* Problem Noted Date Resolved Date Hip pain, right 01/12/2022 03/06/2022 Hip pain, left 09/21/2021 03/06/2022 History of bilateral breast cancer 04/21/2018 07/28/2020 Overview: left them right; s/p bilateral mastectomy Breast mass, right 10/03/2017 07/28/2020 Overview: Added automatically from request for surgery [id number] Dense breasts 07/16/2017 04/21/2018 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 Shepherd reviewed; stable findings of slight bulge seen best while patient standing TMJ (dislocation of temporomandibular joint) 07/28/2020 Postoperative thrombophlebitis 09/20/2013 1 Postop check 01/22/2013 07/28/2020 Impaired fasting glucose 11/10/2010 015 Benign neoplasm of skin of trunk, except scrotum 01/12/2009 07/28/2020 Benign neoplasm of skin of upper limb, including shoulder 08/26/2005 07/28/2020 Anemia 07/28/2020 Breast cancer, right breast 10/22 documented as of this encounter (statuses as of 08/25/2022) [facility] History of Past illness Narrative* Problem Noted Date Resolved Date Hip pain, right 01/12/2022 03/06/2022 Hip pain, left 09/21/2021 03/06/2022 History of bilateral breast cancer 04/21/2018 07/28/2020 Overview: left them right; s/p bilateral mastectomy Breast mass, right 10/03/2017 07/28/2020 Overview: Added automatically from request for surgery [id number] Dense breasts 07/16/2017 04/21/2018 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 Shepherd reviewed; stable findings of slight bulge seen best while patient standing TMJ (dislocation of temporomandibular joint) 07/28/2020 Postoperative thrombophlebitis 09/20/2013 1 Postop check 01/22/2013 07/28/2020 Impaired fasting glucose 11/10/2010 015 Benign neoplasm of skin of trunk, except scrotum 01/12/2009 07/28/2020 Benign neoplasm of skin of upper limb, including shoulder 08/26/2005 07/28/2020 Anemia 07/28/2020 Breast cancer, right breast 10/22 documented as of this encounter (statuses as of 09/25/2022) [facility] History of Past illness Narrative* Problem Noted Date Resolved Date Hip pain, right 01/12/2022 03/06/2022 Hip pain, left 09/21/2021 03/06/2022 History of bilateral breast cancer 04/21/2018 07/28/2020 Overview: left them right; s/p bilateral mastectomy Breast mass, right 10/03/2017 07/28/2020 Overview: Added automatically from request for surgery [id number] Dense breasts 07/16/2017 04/21/2018 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 Shepherd reviewed; stable findings of slight bulge seen best while patient standing TMJ (dislocation of temporomandibular joint) 07/28/2020 Postoperative thrombophlebitis 09/20/2013 1 Postop check 01/22/2013 07/28/2020 Impaired fasting glucose 11/10/2010 015 Benign neoplasm of skin of trunk, except scrotum 01/12/2009 07/28/2020 Benign neoplasm of skin of upper limb, including shoulder 08/26/2005 07/28/2020 Anemia 07/28/2020 Breast cancer, right breast 10/22 documented as of this encounter (statuses as of 10/21/2022) [facility] History of Past illness Narrative* Problem Noted Date Resolved Date Hip pain, right 01/12/2022 03/06/2022 Hip pain, left 09/21/2021 03/06/2022 History of bilateral breast cancer 04/21/2018 07/28/2020 Overview: left them right; s/p bilateral mastectomy Breast mass, right 10/03/2017 07/28/2020 Overview: Added automatically from request for surgery [id number] Dense breasts 07/16/2017 04/21/2018 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 Shepherd reviewed; stable findings of slight bulge seen best while patient standing TMJ (dislocation of temporomandibular joint) 07/28/2020 Postoperative thrombophlebitis 09/20/2013 1 Postop check 01/22/2013 07/28/2020 Impaired fasting glucose 11/10/2010 015 Benign neoplasm of skin of trunk, except scrotum 01/12/2009 07/28/2020 Benign neoplasm of skin of upper limb, including shoulder 08/26/2005 07/28/2020 Anemia 07/28/2020 Breast cancer, right breast 10/22 documented as of this encounter (statuses as of 10/23/2022) [facility] History of Past illness Narrative* Problem Noted Date Resolved Date Hip pain, right 01/12/2022 03/06/2022 Hip pain, left 09/21/2021 03/06/2022 History of bilateral breast cancer 04/21/2018 07/28/2020 Overview: left them right; s/p bilateral mastectomy Breast mass, right 10/03/2017 07/28/2020 Overview: Added automatically from request for surgery [id number] Dense breasts 07/16/2017 04/21/2018 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 Shepherd reviewed; stable findings of slight bulge seen best while patient standing TMJ (dislocation of temporomandibular joint) 07/28/2020 Postoperative thrombophlebitis 09/20/2013 1 Postop check 01/22/2013 07/28/2020 Impaired fasting glucose 11/10/2010 015 Benign neoplasm of skin of trunk, except scrotum 01/12/2009 07/28/2020 Benign neoplasm of skin of upper limb, including shoulder 08/26/2005 07/28/2020 Anemia 07/28/2020 Breast cancer, right breast 10/22 documented as of this encounter (statuses as of 11/06/2022) [facility] History of Past illness Narrative* Problem Noted Date Resolved Date Hip pain, right 01/12/2022 03/06/2022 Hip pain, left 09/21/2021 03/06/2022 History of bilateral breast cancer 04/21/2018 07/28/2020 Overview: left them right; s/p bilateral mastectomy Breast mass, right 10/03/2017 07/28/2020 Overview: Added automatically from request for surgery [id number] Dense breasts 07/16/2017 04/21/2018 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 Shepherd reviewed; stable findings of slight bulge seen best while patient standing TMJ (dislocation of temporomandibular joint) 07/28/2020 Postoperative thrombophlebitis 09/20/2013 1 Postop check 01/22/2013 07/28/2020 Impaired fasting glucose 11/10/2010 015 Benign neoplasm of skin of trunk, except scrotum 01/12/2009 07/28/2020 Benign neoplasm of skin of upper limb, including shoulder 08/26/2005 07/28/2020 Anemia 07/28/2020 Breast cancer, right breast 10/22 documented as of this encounter (statuses as of 12/14/2022) [facility] History of Past illness Narrative* Problem Noted Date Resolved Date Hip pain, right 01/12/2022 03/06/2022 Hip pain, left 09/21/2021 03/06/2022 History of bilateral breast cancer 04/21/2018 07/28/2020 Overview: left them right; s/p bilateral mastectomy Breast mass, right 10/03/2017 07/28/2020 Overview: Added automatically from request for surgery [id number] Dense breasts 07/16/2017 04/21/2018 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 Shepherd reviewed; stable findings of slight bulge seen best while patient standing TMJ (dislocation of temporomandibular joint) 07/28/2020 Postoperative thrombophlebitis 09/20/2013 1 Postop check 01/22/2013 07/28/2020 Impaired fasting glucose 11/10/2010 015 Benign neoplasm of skin of trunk, except scrotum 01/12/2009 07/28/2020 Benign neoplasm of skin of upper limb, including shoulder 08/26/2005 07/28/2020 Anemia 07/28/2020 Breast cancer, right breast 10/22 documented as of this encounter (statuses as of 01/02/2023) [facility] History of Past illness Narrative* Problem Noted Date Resolved Date Hip pain, right 01/12/2022 03/06/2022 Hip pain, left 09/21/2021 03/06/2022 History of bilateral breast cancer 04/21/2018 07/28/2020 Overview: left them right; s/p bilateral mastectomy Breast mass, right 10/03/2017 07/28/2020 Overview: Added automatically from request for surgery [id number] Dense breasts 07/16/2017 04/21/2018 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 Shepherd reviewed; stable findings of slight bulge seen best while patient standing TMJ (dislocation of temporomandibular joint) 07/28/2020 Postoperative thrombophlebitis 09/20/2013 1 Postop check 01/22/2013 07/28/2020 Impaired fasting glucose 11/10/2010 015 Benign neoplasm of skin of trunk, except scrotum 01/12/2009 07/28/2020 Benign neoplasm of skin of upper limb, including shoulder 08/26/2005 07/28/2020 Anemia 07/28/2020 Breast cancer, right breast 10/22 documented as of this encounter (statuses as of 04/11/2023) [facility]03-24-2022 History of Past illness Narrative* Problem Noted Date Resolved Date Hip pain, right 01/12/2022 03/06/2022 Hip pain, left 09/21/2021 03/06/2022 History of bilateral breast cancer 04/21/2018 07/28/2020 Overview: left them right; s/p bilateral mastectomy Breast mass, right 10/03/2017 07/28/2020 Overview: Added automatically from request for surgery [id number] Dense breasts 07/16/2017 04/21/2018 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 Shepherd reviewed; stable findings of slight bulge seen best while patient standing TMJ (dislocation of temporomandibular joint) 07/28/2020 Postoperative thrombophlebitis 09/20/2013 1 Postop check 01/22/2013 07/28/2020 Impaired fasting glucose 11/10/2010 015 Benign neoplasm of skin of trunk, except scrotum 01/12/2009 07/28/2020 Benign neoplasm of skin of upper limb, including shoulder 08/26/2005 07/28/2020 Anemia 07/28/2020 Breast cancer, right breast 10/22 documented as of this encounter (statuses as of 04/13/2023) [facility] History of Past illness Narrative* Problem Noted Date Resolved Date Hip pain, right 01/12/2022 03/06/2022 Hip pain, left 09/21/2021 03/06/2022 History of bilateral breast cancer 04/21/2018 07/28/2020 Overview: left them right; s/p bilateral mastectomy Breast mass, right 10/03/2017 07/28/2020 Overview: Added automatically from request for surgery [id number] Dense breasts 07/16/2017 04/21/2018 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 Shepherd reviewed; stable findings of slight bulge seen best while patient standing TMJ (dislocation of temporomandibular joint) 07/28/2020 Postoperative thrombophlebitis 09/20/2013 1 Postop check 01/22/2013 07/28/2020 Impaired fasting glucose 11/10/2010 015 Benign neoplasm of skin of trunk, except scrotum 01/12/2009 07/28/2020 Benign neoplasm of skin of upper limb, including shoulder 08/26/2005 07/28/2020 Anemia 07/28/2020 Breast cancer, right breast 10/22 documented as of this encounter (statuses as of 04/16/2023) [facility] History of Past illness Narrative* Problem Noted Date Resolved Date Hip pain, right 01/12/2022 03/06/2022 Hip pain, left 09/21/2021 03/06/2022 History of bilateral breast cancer 04/21/2018 07/28/2020 Overview: left them right; s/p bilateral mastectomy Breast mass, right 10/03/2017 07/28/2020 Overview: Added automatically from request for surgery [id number] Dense breasts 07/16/2017 04/21/2018 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 Shepherd reviewed; stable findings of slight bulge seen best while patient standing TMJ (dislocation of temporomandibular joint) 07/28/2020 Postoperative thrombophlebitis 09/20/2013 1 Postop check 01/22/2013 07/28/2020 Impaired fasting glucose 11/10/2010 015 Benign neoplasm of skin of trunk, except scrotum 01/12/2009 07/28/2020 Benign neoplasm of skin of upper limb, including shoulder 08/26/2005 07/28/2020 Anemia 07/28/2020 Breast cancer, right breast 10/22 documented as of this encounter (statuses as of 04/20/2023) [facility] History of Past illness Narrative* Problem Noted Date Resolved Date Hip pain, right 01/12/2022 03/06/2022 Hip pain, left 09/21/2021 03/06/2022 History of bilateral breast cancer 04/21/2018 07/28/2020 Overview: left them right; s/p bilateral mastectomy Breast mass, right 10/03/2017 07/28/2020 Overview: Added automatically from request for surgery [id number] Dense breasts 07/16/2017 04/21/2018 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 Shepherd reviewed; stable findings of slight bulge seen best while patient standing TMJ (dislocation of temporomandibular joint) 07/28/2020 Postoperative thrombophlebitis 09/20/2013 1 Postop check 01/22/2013 07/28/2020 Impaired fasting glucose 11/10/2010 015 Benign neoplasm of skin of trunk, except scrotum 01/12/2009 07/28/2020 Benign neoplasm of skin of upper limb, including shoulder 08/26/2005 07/28/2020 Anemia 07/28/2020 Breast cancer, right breast 10/22 documented as of this encounter (statuses as of 04/22/2023) [facility] History of Past illness Narrative* Problem Noted Date Diagnosed Date Resolved Date Hip pain, right 01/12/2022 03/06/2022 Hip pain, left 09/21/2021 03/06/2022 History of bilateral breast cancer 04/21/2018 07/28/2020 Overview: left them right; s/p bilateral mastectomy Breast mass, right 10/03/2017 0 Overview: Added automatically from request for surgery [id number] Dense breasts 07/16/2017 04/21/2018 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 Shepherd reviewed; stable findings of slight bulge seen best while patient standing TMJ (dislocation of temporomandibular joint) 5 07/28/2020 Postoperative thrombophlebitis 09/20/2013 07/28/2020 Postop check 01/22/2013 07/28/2020 Impaired fasting glucose 11/10/201006/2015 Benign neoplasm of skin of t runk, except scrotum 01/12/2009 07/28/2020 Benign neoplasm of skin of u pper limb, including shoulder 08/26/2005 07/28/2020 Anemia 07/28/2020 Breast cancer, right breast 11/01/2017 documented as of this encounter (statuses as of 05/25/2023) [facility] History of Past illness Narrative* Problem Noted Date Diagnosed Date Resolved Date Hip pain, right 01/12/2022 03/06/2022 Hip pain, left 09/21/2021 03/06/2022 History of bilateral breast cancer 04/21/2018 07/28/2020 Overview: left them right; s/p bilateral mastectomy Breast mass, right 10/03/2017 0 Overview: Added automatically from request for surgery [id number] Dense breasts 07/16/2017 04/21/2018 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 Shepherd reviewed; stable findings of slight bulge seen best while patient standing TMJ (dislocation of temporomandibular joint) 5 07/28/2020 Postoperative thrombophlebitis 09/20/2013 07/28/2020 Postop check 01/22/2013 07/28/2020 Impaired fasting glucose 11/10/201006/2015 Benign neoplasm of skin of t runk, except scrotum 01/12/2009 07/28/2020 Benign neoplasm of skin of u pper limb, including shoulder 08/26/2005 07/28/2020 Anemia 07/28/2020 Breast cancer, right breast 11/01/2017 documented as of this encounter (statuses as of 06/13/2023) [facility] History of Past illness Narrative* Problem Noted Date Diagnosed Date Resolved Date Hip pain, right 01/12/2022 03/06/2022 Hip pain, left 09/21/2021 03/06/2022 History of bilateral breast cancer 04/21/2018 07/28/2020 Overview: left them right; s/p bilateral mastectomy Breast mass, right 10/03/2017 0 Overview: Added automatically from request for surgery [id number] Dense breasts 07/16/2017 04/21/2018 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 Shepherd reviewed; stable findings of slight bulge seen best while patient standing TMJ (dislocation of temporomandibular joint) 5 07/28/2020 Postoperative thrombophlebitis 09/20/2013 07/28/2020 Postop check 01/22/2013 07/28/2020 Impaired fasting glucose 11/10/201006/2015 Benign neoplasm of skin of t runk, except scrotum 01/12/2009 07/28/2020 Benign neoplasm of skin of u pper limb, including shoulder 08/26/2005 07/28/2020 Anemia 07/28/2020 Breast cancer, right breast 11/01/2017 documented as of this encounter (statuses as of 06/18/2023) [facility] History of Past illness Narrative* Problem Noted Date Diagnosed Date Resolved Date Hip pain, right 01/12/2022 03/06/2022 Hip pain, left 09/21/2021 03/06/2022 History of bilateral breast cancer 04/21/2018 07/28/2020 Overview: left them right; s/p bilateral mastectomy Breast mass, right 10/03/2017 0 Overview: Added automatically from request for surgery [id number] Dense breasts 07/16/2017 04/21/2018 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 Shepherd reviewed; stable findings of slight bulge seen best while patient standing TMJ (dislocation of temporomandibular joint) 5 07/28/2020 Postoperative thrombophlebitis 09/20/2013 07/28/2020 Postop check 01/22/2013 07/28/2020 Impaired fasting glucose 11/10/201006/2015 Benign neoplasm of skin of t runk, except scrotum 01/12/2009 07/28/2020 Benign neoplasm of skin of u pper limb, including shoulder 08/26/2005 07/28/2020 Anemia 07/28/2020 Breast cancer, right breast 11/01/2017 documented as of this encounter (statuses as of 06/20/2023) [facility] History of Past illness Narrative* Problem Noted Date Diagnosed Date Resolved Date Hip pain, right 01/12/2022 03/06/2022 Hip pain, left 09/21/2021 03/06/2022 History of bilateral breast cancer 04/21/2018 07/28/2020 Overview: left them right; s/p bilateral mastectomy Breast mass, right 10/03/2017 0 Overview: Added automatically from request for surgery [id number] Dense breasts 07/16/2017 04/21/2018 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 Shepherd reviewed; stable findings of slight bulge seen best while patient standing TMJ (dislocation of temporomandibular joint) 5 07/28/2020 Postoperative thrombophlebitis 09/20/2013 07/28/2020 Postop check 01/22/2013 07/28/2020 Impaired fasting glucose 11/10/201006/2015 Benign neoplasm of skin of t runk, except scrotum 01/12/2009 07/28/2020 Benign neoplasm of skin of u pper limb, including shoulder 08/26/2005 07/28/2020 Anemia 07/28/2020 Breast cancer, right breast 11/01/2017 documented as of this encounter (statuses as of 06/24/2023) [facility] History of Past illness Narrative* Problem Noted Date Diagnosed Date Resolved Date Hip pain, right 01/12/2022 03/06/2022 Hip pain, left 09/21/2021 03/06/2022 History of bilateral breast cancer 04/21/2018 07/28/2020 Overview: left them right; s/p bilateral mastectomy Breast mass, right 10/03/2017 0 Overview: Added automatically from request for surgery [id number] Dense breasts 07/16/2017 04/21/2018 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 Shepherd reviewed; stable findings of slight bulge seen best while patient standing TMJ (dislocation of temporomandibular joint) 5 07/28/2020 Postoperative thrombophlebitis 09/20/2013 07/28/2020 Postop check 01/22/2013 07/28/2020 Impaired fasting glucose 11/10/201006/2015 Benign neoplasm of skin of t runk, except scrotum 01/12/2009 07/28/2020 Benign neoplasm of skin of u pper limb, including shoulder 08/26/2005 07/28/2020 Anemia 07/28/2020 Breast cancer, right breast 11/01/2017 documented as of this encounter (statuses as of 06/30/2023) [facility] History of Past illness Narrative* Problem Noted Date Diagnosed Date Resolved Date Hip pain, right 01/12/2022 03/06/2022 Hip pain, left 09/21/2021 03/06/2022 History of bilateral breast cancer 04/21/2018 07/28/2020 Overview: left them right; s/p bilateral mastectomy Breast mass, right 10/03/2017 0 Overview: Added automatically from request for surgery [id number] Dense breasts 07/16/2017 04/21/2018 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 Shepherd reviewed; stable findings of slight bulge seen best while patient standing TMJ (dislocation of temporomandibular joint) 5 07/28/2020 Postoperative thrombophlebitis 09/20/2013 07/28/2020 Postop check 01/22/2013 07/28/2020 Impaired fasting glucose 11/10/201006/2015 Benign neoplasm of skin of t runk, except scrotum 01/12/2009 07/28/2020 Benign neoplasm of skin of u pper limb, including shoulder 08/26/2005 07/28/2020 Anemia 07/28/2020 Breast cancer, right breast 11/01/2017 documented as of this encounter (statuses as of 07/03/2023) [facility] History of Past illness Narrative* Problem Noted Date Diagnosed Date Resolved Date Hip pain, right 01/12/2022 03/06/2022 Hip pain, left 09/21/2021 03/06/2022 History of bilateral breast cancer 04/21/2018 07/28/2020 Overview: left them right; s/p bilateral mastectomy Breast mass, right 10/03/2017 0 Overview: Added automatically from request for surgery [id number] Dense breasts 07/16/2017 04/21/2018 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 Shepherd reviewed; stable findings of slight bulge seen best while patient standing TMJ (dislocation of temporomandibular joint) 5 07/28/2020 Postoperative thrombophlebitis 09/20/2013 07/28/2020 Postop check 01/22/2013 07/28/2020 Impaired fasting glucose 11/10/201006/2015 Benign neoplasm of skin of t runk, except scrotum 01/12/2009 07/28/2020 Benign neoplasm of skin of u pper limb, including shoulder 08/26/2005 07/28/2020 Anemia 07/28/2020 Breast cancer, right breast 11/01/2017 documented as of this encounter (statuses as of 07/20/2023) [facility] History of Past illness Narrative* Problem Noted Date Diagnosed Date Resolved Date Hip pain, right 01/12/2022 03/06/2022 Hip pain, left 09/21/2021 03/06/2022 History of bilateral breast cancer 04/21/2018 07/28/2020 Overview: left them right; s/p bilateral mastectomy Breast mass, right 10/03/2017 0 Overview: Added automatically from request for surgery [id number] Dense breasts 07/16/2017 04/21/2018 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 Shepherd reviewed; stable findings of slight bulge seen best while patient standing TMJ (dislocation of temporomandibular joint) 5 07/28/2020 Postoperative thrombophlebitis 09/20/2013 07/28/2020 Postop check 01/22/2013 07/28/2020 Impaired fasting glucose 11/10/201006/2015 Benign neoplasm of skin of t runk, except scrotum 01/12/2009 07/28/2020 Benign neoplasm of skin of u pper limb, including shoulder 08/26/2005 07/28/2020 Anemia 07/28/2020 Breast cancer, right breast 11/01/2017 documented as of this encounter (statuses as of 08/01/2023) [facility] History of Past illness Narrative* Problem Noted Date Diagnosed Date Resolved Date Hip pain, right 01/12/2022 03/06/2022 Hip pain, left 09/21/2021 03/06/2022 History of bilateral breast cancer 04/21/2018 07/28/2020 Overview: left them right; s/p bilateral mastectomy Breast mass, right 10/03/2017 0 Overview: Added automatically from request for surgery [id number] Dense breasts 07/16/2017 04/21/2018 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 Shepherd reviewed; stable findings of slight bulge seen best while patient standing TMJ (dislocation of temporomandibular joint) 5 07/28/2020 Postoperative thrombophlebitis 09/20/2013 07/28/2020 Postop check 01/22/2013 07/28/2020 Impaired fasting glucose 11/10/201006/2015 Benign neoplasm of skin of t runk, except scrotum 01/12/2009 07/28/2020 Benign neoplasm of skin of u pper limb, including shoulder 08/26/2005 07/28/2020 Anemia 07/28/2020 Breast cancer, right breast 11/01/2017 documented as of this encounter (statuses as of 08/26/2023) [facility] History of Past illness Narrative* Problem Noted Date Diagnosed Date Resolved Date Hip pain, right 01/12/2022 03/06/2022 Hip pain, left 09/21/2021 03/06/2022 History of bilateral breast cancer 04/21/2018 07/28/2020 Overview: left them right; s/p bilateral mastectomy Breast mass, right 10/03/2017 0 Overview: Added automatically from request for surgery [id number] Dense breasts 07/16/2017 04/21/2018 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 Shepherd reviewed; stable findings of slight bulge seen best while patient standing TMJ (dislocation of temporomandibular joint) 5 07/28/2020 Postoperative thrombophlebitis 09/20/2013 07/28/2020 Postop check 01/22/2013 07/28/2020 Impaired fasting glucose 11/10/201006/2015 Benign neoplasm of skin of t runk, except scrotum 01/12/2009 07/28/2020 Benign neoplasm of skin of u pper limb, including shoulder 08/26/2005 07/28/2020 Anemia 07/28/2020 Breast cancer, right breast 11/01/2017 documented as of this encounter (statuses as of 08/26/2023) [facility] History of Past illness Narrative* Problem Noted Date Diagnosed Date Resolved Date Hip pain, right 01/12/2022 03/06/2022 Hip pain, left 09/21/2021 03/06/2022 History of bilateral breast cancer 04/21/2018 07/28/2020 Overview: left them right; s/p bilateral mastectomy Breast mass, right 10/03/2017 0 Overview: Added automatically from request for surgery [id number] Dense breasts 07/16/2017 04/21/2018 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 Shepherd reviewed; stable findings of slight bulge seen best while patient standing TMJ (dislocation of temporomandibular joint) 5 07/28/2020 Postoperative thrombophlebitis 09/20/2013 07/28/2020 Postop check 01/22/2013 07/28/2020 Impaired fasting glucose 11/10/201006/2015 Benign neoplasm of skin of t runk, except scrotum 01/12/2009 07/28/2020 Benign neoplasm of skin of u pper limb, including shoulder 08/26/2005 07/28/2020 Anemia 07/28/2020 Breast cancer, right breast 11/01/2017 documented as of this encounter (statuses as of 10/05/2023) [facility] History of Past illness Narrative* Problem Noted Date Diagnosed Date Resolved Date Hip pain, right 01/12/2022 03/06/2022 Hip pain, left 09/21/2021 03/06/2022 History of bilateral breast cancer 04/21/2018 07/28/2020 Overview: left them right; s/p bilateral mastectomy Breast mass, right 10/03/2017 0 Overview: Added automatically from request for surgery [id number] Dense breasts 07/16/2017 04/21/2018 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 Shepherd reviewed; stable findings of slight bulge seen best while patient standing TMJ (dislocation of temporomandibular joint) 5 07/28/2020 Postoperative thrombophlebitis 09/20/2013 07/28/2020 Postop check 01/22/2013 07/28/2020 Impaired fasting glucose 11/10/201006/2015 Benign neoplasm of skin of t runk, except scrotum 01/12/2009 07/28/2020 Benign neoplasm of skin of u pper limb, including shoulder 08/26/2005 07/28/2020 Anemia 07/28/2020 Breast cancer, right breast 11/01/2017 documented as of this encounter (statuses as of 01/02/2024) [facility] History of Past illness Narrative* Problem Noted Date Diagnosed Date Resolved Date Hip pain, right 01/12/2022 03/06/2022 Hip pain, left 09/21/2021 03/06/2022 History of bilateral breast cancer 04/21/2018 07/28/2020 Overview: left them right; s/p bilateral mastectomy Breast mass, right 10/03/2017 0 Overview: Added automatically from request for surgery [id number] Dense breasts 07/16/2017 04/21/2018 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 Shepherd reviewed; stable findings of slight bulge seen best while patient standing TMJ (dislocation of temporomandibular joint) 5 07/28/2020 Postoperative thrombophlebitis 09/20/2013 07/28/2020 Postop check 01/22/2013 07/28/2020 Impaired fasting glucose 11/10/201006/2015 Benign neoplasm of skin of t runk, except scrotum 01/12/2009 07/28/2020 Benign neoplasm of skin of u pper limb, including shoulder 08/26/2005 07/28/2020 Anemia 07/28/2020 Breast cancer, right breast 11/01/2017 documented as of this encounter (statuses as of 01/11/2024) [facility]21 NoteHNO ID: [id number] Author: Sarbjit Chicas MD Service: ? 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 She denies chest wall masses or skin changes. She is compliant with her Arimidex, and is swimming daily and not walking on the treadmill as much. She is being followed for probably benign axillary nodes bilaterally with borderline cortical thickening. In 06/2020 bilateral ultrasounds were deemed benign. In 12/04 she was diagnosed with a [id number] breast cancer. MRI 12/04 showed the known lesion measuring 1.7cm on the left at 12pm. In 01/01 she had a left mastectomy with negative margins and 0/2 SLN. The tumor was ER+(90%)/WY+(90%)/HER2-. She did not have reconstruction. ODX was 13 corresponding to an 8% risk of distant intermediate recurrence. She saw Dr. Jimenez in consultation and given her pre-existing osteoporosis (BMD 11/03 -2.9) and TMJ, it was decided that she take Tamoxifen which she started 02/01. In 10/07, she felt a new lump on the right. She was found to have a 4mm mass by ultrasound. 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 She went on to right mastectomy 11/08 demonstrating the 6mm tumor with negative margins, no LVI and 0/1 SLN. She was switched to Arimidex 02/06 for another 5 years. She is tolerating it well. She is followed by Dr. Altamirano in [place]. She was having some vaginal dryness which is improved on Replens. 01/06: Daria Osborne's Common Hereditary Cancers panel through [facility] was negative for a deleterious mutation. ? 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 A VUS is a genetic variant for which insufficient data exists in order to determine if it is associated with disease (deleterious mutation) or is a normal genetic variant which can occur in the population without disease (benign polymorphism).?? History pertaining to prior breast biopsies, genetic reports, pathology reports, treatment summaries, personal, social and family history has been extracted from my note dated 06/04/2020. Her vitamin D level was Vitamin D 25 Hydroxy (ng/mL) Date Value 04/01/2021 66.2 . She takes Vitamin D 2000 units and gets a lot of calcium in her diet . BMD: Yes / 12/07 stable osteoporosis (-2.8). She is NOT interested in therapy as she has jaw issues. 01/06 stable at -2.8. 06/2020 BMD -3.3. PERSONAL BREAST HISTORY: Past breast history (prior to this encounter) is as follows: Breast biopsy: Yes, as above Breast cysts: No Breast surgery: Yes, left mastectomy as above Breast cancer: Yes, Left Stage 1 ([id number]) in the upper breast s/p left mastectomy CANCER SURVEILLANCE: Mammograms: Yes / right mammogram 01/05 negative Breast MRI: 11/08 showing the known cancer; otherwise negative. Colonoscopy: No RISK FACTORS FOR BREAST CANCER: Age at the onset of menses: unknown P: 1 Age at the of first child: 26 years of age. She did not breast feed Age at menopause: The patient does not remember. Post-menopausal hormone therapy: No She is S/P total hysterectomy with negative pathology History of Mantle Radiation prior to the age of 30: No Postmenopausal obesity: No Body mass index is 17.37 kg/m?. Mammographic density: NA; she is s/p bilateral mastectomy. Personal History of Benign Atypical Breast Biopsy: No Alcohol use: 1-2 drinks daily PAST MEDICAL HISTORY: PAST MEDICAL HISTORY Diagnosis Date - Anemia, unspecified - Benign neoplasm of skin of trunk, except scrotum 01/12/2009 - Benign neoplasm of skin of upper limb, including shoulder 08/26/2005 - Breast cancer (HCC) 11/2012 left - Dense breasts 07/16/2017 - Difficult airway for intubation - Disorder of bone and cartilage, unspecified - History of bilateral breast cancer 04/21/2018 left them right; s/p bilateral mastectomy - Incisional hernia of anterior abdominal wall without obstruction or gangrene 04/22/2017 just above and to the right of umbilicus; 02/10/[address] Shepherd reviewed; stable findings of slight bulge seen best while patient standing - Irritable bowel syndrome - Malignant neoplasm of upper-outer quadrant of right breast, estrogen receptor positive (HCC) - Osteoporosis, unspecified progression to osteoporosis noted on 2007 bone density - Postmenopausal bleeding Postmenop. bleeding - Postoperative thrombophlebitis 09/20/2013 - Temporomandibular joint disorders, unspecified - TMJ (dislocation of temporomandibular joint) 10/20/2015 - Transfusion history after childbirth - Unspecified vitamin D deficiency Patient specifically denies history of: DVT, PE, Migraine headaches. She has stable osteoporosis. PAST SURGICAL HISTORY: PAST SURGICAL HISTORY (more content not included)...[id number] of Past illness Narrative* Problem Noted Date Resolved Date History of bilateral breast cancer 04/21/2018 07/28/2020 Overview: left them right; s/p bilateral mastectomy Breast mass, right 10/03/2017 07/28/2020 Overview: Added automatically from request for surgery [id number] Dense breasts 07/16/2017 04/21/2018 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 Shepherd reviewed; stable findings of slight bulge seen best while patient standing TMJ (dislocation of temporomandibular joint) 07/28/2020 Postoperative thrombophlebitis 09/20/2013 1 Postop check 01/22/2013 07/28/2020 Impaired fasting glucose 11/10/2010 015 Benign neoplasm of skin of trunk, except scrotum 01/12/2009 07/28/2020 Benign neoplasm of skin of upper limb, including shoulder 08/26/2005 07/28/2020 Anemia 07/28/2020 Breast cancer, right breast 10/22 documented as of this encounter (statuses as of 02/17/2022) [facility] History of Past illness Narrative* Problem Noted Date Resolved Date History of bilateral breast cancer 04/21/2018 07/28/2020 Overview: left them right; s/p bilateral mastectomy Breast mass, right 10/03/2017 07/28/2020 Overview: Added automatically from request for surgery [id number] Dense breasts 07/16/2017 04/21/2018 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 Shepherd reviewed; stable findings of slight bulge seen best while patient standing TMJ (dislocation of temporomandibular joint) 07/28/2020 Postoperative thrombophlebitis 09/20/2013 1 Postop check 01/22/2013 07/28/2020 Impaired fasting glucose 11/10/2010 015 Benign neoplasm of skin of trunk, except scrotum 01/12/2009 07/28/2020 Benign neoplasm of skin of upper limb, including shoulder 08/26/2005 07/28/2020 Anemia 07/28/2020 Breast cancer, right breast 10/22 documented as of this encounter (statuses as of 02/21/2022) [facility] History of Past illness Narrative* Problem Noted Date Resolved Date History of bilateral breast cancer 04/21/2018 07/28/2020 Overview: left them right; s/p bilateral mastectomy Breast mass, right 10/03/2017 07/28/2020 Overview: Added automatically from request for surgery [id number] Dense breasts 07/16/2017 04/21/2018 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 Shepherd reviewed; stable findings of slight bulge seen best while patient standing TMJ (dislocation of temporomandibular joint) 07/28/2020 Postoperative thrombophlebitis 09/20/2013 1 Postop check 01/22/2013 07/28/2020 Impaired fasting glucose 11/10/2010 015 Benign neoplasm of skin of trunk, except scrotum 01/12/2009 07/28/2020 Benign neoplasm of skin of upper limb, including shoulder 08/26/2005 07/28/2020 Anemia 07/28/2020 Breast cancer, right breast 10/22 documented as of this encounter (statuses as of 02/27/2022) [facility] Diagnosis Osteoporosis, post menopausal- Primary Encounter for long-term (current) use of medications Encounter for long-term (current) use of other medications [facility] Diagnosis Hip pain, left- Primary Pain in joint, pelvic region and thigh Hip pain, right Pain in joint, pelvic region and thigh [facility] Diagnosis Personal history of breast cancer- Primary Personal history of malignant neoplasm of breast Status post bilateral mastectomy Acquired absence of breast and nipple Osteoporosis without current pathological fracture, unspecified osteoporosis type BRCA negative Screening for genetic disease carrier status Aromatase inhibitor use Use of aromatase inhibitors [facility] Diagnosis Colon cancer screening- Primary Special screening for malignant neoplasms, colon [facility] Diagnosis Psoriasis- Primary Other psoriasis Neuralgia Neuralgia, neuritis, and radiculitis, unspecified Recurrent cold sores Herpes simplex without mention of complication Vitamin D deficiency Unspecified vitamin D deficiency IFG (impaired fasting glucose) Impaired fasting glucose Temporomandibular joint disorders, unspecified [facility] Diagnosis Encounter for gynecological examination (general) (routine) without abnormal findings- Primary [facility]* Diagnosis Malignant neoplasm of upper-outer quadrant of right breast in female, estrogen receptor positive (HCC)- Primary Malignant neoplasm of nipple of left breast in female, estrogen receptor positive (HCC) [facility] Diagnosis Skin exam, screening for cancer- Primary Screening for malignant neoplasm of the skin Photoaging of skin Other dermatitis due to solar radiation Multiple benign nevi Benign neoplasm of skin, site unspecified Lentigines Other dyschromia Seborrheic keratosis Other seborrheic keratosis Jefferson angioma Nevus, non-neoplastic Arthropod bite, subsequent encounter Dermatofibroma of right upper arm Benign neoplasm of skin of upper limb, including shoulder [facility] Diagnosis Toxic reaction to hornets, wasps and bees, accidental or unintentional, subsequent encounter- Primary [facility] Diagnosis Malignant neoplasm of upper-outer quadrant of right breast in female, estrogen receptor positive (HCC)- Primary [facility] Diagnosis Neoplasm of unspecified behavior of bone, soft tissue, and skin- Primary [facility] Diagnosis Neoplasm of unspecified behavior of bone, soft tissue, and skin- Primary [facility] Diagnosis Personal history of malignant neoplasm of breast- Primary IFG (impaired fasting glucose) Impaired fasting glucose Vitamin D deficiency Unspecified vitamin D deficiency Encounter for therapeutic drug monitoring Screening for lipid disorders [facility] Diagnosis URI, acute- Primary Acute upper respiratory infections of unspecified site [facility] Diagnosis Age-related osteoporosis without current pathological fracture- Primary Senile osteoporosis IFG (impaired fasting glucose) Impaired fasting glucose Abdominal wall lump Abdominal or pelvic swelling, mass or lump, unspecified site Vitamin D deficiency Unspecified vitamin D deficiency Encounter for long-term current use of medication [facility] Diagnosis Seborrheic keratosis- Primary Other seborrheic keratosis Inflamed acrochordon Unspecified hypertrophic and atrophic condition of skin [facility] Diagnosis Recurrent cold sores- Primary Herpes simplex without mention of complication IFG (impaired fasting glucose) Impaired fasting glucose Lump on neck Swelling, mass, or lump in head and neck Vitamin D deficiency Unspecified vitamin D deficiency Colon cancer screening Special screening for malignant neoplasms, colon [facility] Diagnosis Personal history of breast cancer- Primary Personal history of malignant neoplasm of breast History of bilateral mastectomy Acquired absence of breast and nipple Enlarged lymph node in neck [facility] Diagnosis Personal history of breast cancer- Primary Personal history of malignant neoplasm of breast Status post bilateral mastectomy Acquired absence of breast and nipple BRCA negative Screening for genetic disease carrier status Osteoporosis NEC Enlarged lymph node in neck [facility] Diagnosis Right wrist pain- Primary Pain in joint, forearm Age-related osteoporosis without current pathological fracture Senile osteoporosis [facility] Diagnosis Personal history of breast cancer- Primary Personal history of malignant neoplasm of breast History of bilateral mastectomy Acquired absence of breast and nipple Enlarged lymph nodes Enlargement of lymph nodes [facility] Diagnosis Localized swelling, mass and lump, neck- Primary Swelling, mass, or lump in head and neck [facility] Diagnosis Malignant neoplasm of upper-outer quadrant of right breast in female, estrogen receptor positive (HCC)- Primary [facility]* Diagnosis Localized swelling, mass and lump, neck Swelling, mass, or lump in head and neck [facility]* Diagnosis Personal history of breast cancer Personal history of malignant neoplasm of breast History of bilateral mastectomy Acquired absence of breast and nipple Enlarged lymph nodes Enlargement of lymph nodes [facility]* Diagnosis Osteoporosis, post menopausal Encounter for long-term (current) use of medications Encounter for long-term (current) use of other medications [facility]* Diagnosis IFG (impaired fasting glucose)- Primary Impaired fasting glucose Vitamin D deficiency Unspecified vitamin D deficiency Chronic rhinitis Age-related osteoporosis without current pathological fracture Senile osteoporosis [facility] Diagnosis Personal history of breast cancer- Primary Personal history of malignant neoplasm of breast [facility] Diagnosis Encounter for gynecological examination (general) (routine) without abnormal findings- Primary [facility] Diagnosis Encounter for immunization Need for other specified prophylactic vaccination against single bacterial disease [facility] Diagnosis Hand arthritis- Primary Unspecified arthropathy, hand IFG (impaired fasting glucose) Impaired fasting glucose Osteoporosis without current pathological fracture, unspecified osteoporosis type Vitamin D deficiency Unspecified vitamin D deficiency Malignant neoplasm of upper-outer quadrant of right breast in female, estrogen receptor positive (HCC) documented in this encounter [facility] note* Diagnosis Colon cancer screening- Primary Special screening for malignant neoplasms, colon documented in this encounter [facility] note* Diagnosis Personal history of breast cancer- Primary Personal history of malignant neoplasm of breast Status post bilateral mastectomy Acquired absence of breast and nipple BRCA negative Screening for genetic disease carrier status Osteoporosis NEC [facility] Diagnosis Medicare annual wellness visit, subsequent- Primary Routine general medical examination at a health care facility [facility]* Diagnosis Benign paroxysmal positional vertigo, unspecified laterality- Primary documented in this encounter [facility] note* Diagnosis Right wrist pain Pain in joint, forearm Age-related osteoporosis without current pathological fracture Senile osteoporosis documented in this encounter [facility] note* Diagnosis Personal history of breast cancer- Primary Personal history of malignant neoplasm of breast documented in this encounter [facility] for referral (narrative)* Diagnostic Procedure Only (Routine) - Closed Specialty Diagnoses / Procedures Referred By Esme ellis Referred To Contact XR IMAGING Diagnoses Right wrist pain Age-related osteoporosis without current pathological fracture Procedures XR WRIST GENERAL 3V PA/LAT/OBL RIGHT RADEX WRIST COMPLETE MINIMUM 3 VIEWS Tee Lagunas APRN.CNP [address] [place] [address] Xr Imaging Referral ID Status Reason Start Date Expiration Date V isits Requested Visits Authorized [id number] Closed Auto-Generate d Referral 05/25/2023 06/23/2024 1 1 [facility] for referral (narrative)* Diagnostic Procedure Only (Routine) - Authorized Specialty Diagnoses / Procedures Referred By Esme t Referred To Contact US IMAGING Diagnoses Personal history of breast cancer History of bilateral mastectomy Enlarged lymph nodes Procedures US HEAD/NECK SOFT TISSUE OTHER US SOFT TISSUE HEAD & NECK REAL TIME IMGE Jade Monteiro APRN.CNP [address] [place] [phone] [place] [address] Referral ID Status Reason Start Date Expiration Date Visits Requested Visits Authorized [id number] Authorized Auto-Generat ed Referral 06/11/2023 07/10/2024 1 1 [facility] for referral (narrative)* Diagnostic Procedure Only (Routine) - Closed Specialty Diagnoses / Procedures Referred By Contac t Referred To Contact US IMAGING Diagnoses Personal history of breast cancer History of bilateral mastectomy Enlarged lymph nodes Procedures US HEAD/NECK SOFT TISSUE OTHER US SOFT TISSUE HEAD & NECK REAL TIME IMGE Jade Monteiro APRN.DISTRIBUTION SYSTEM OPERATOR [address] [place] [address] [place] [address] Referral ID Status Reason Start Date Expiration Date V isits Requested Visits Authorized [id number] Closed Auto-Generate d Referral 06/11/2023 07/10/2024 1 1 [facility] for referral (narrative)* Diagnostic Procedure Only (Routine) - Closed Specialty Diagnoses / Procedures Referred By Contac t Referred To Contact XR IMAGING Diagnoses Right wrist pain Age-related osteoporosis without current pathological fracture Procedures XR WRIST GENERAL 3V PA/LAT/OBL RIGHT RADEX WRIST COMPLETE MINIMUM 3 VIEWS Tee Lagunas APRN.DISTRIBUTION SYSTEM OPERATOR [address] [place] [address] [place] [address] Referral ID Status Reason Start Date Expiration Date V isits Requested Visits Authorized [id number] Closed Auto-Generate d Referral 05/25/2023 06/23/2024 1 1 [facility] for visit Narrative* Diagnostic Procedure Only (Routine) - Closed Specialty Diagnoses / Procedures Referred By Contac t Referred To Contact US IMAGING Diagnoses Personal history of breast cancer History of bilateral mastectomy Enlarged lymph nodes Procedures US HEAD/NECK SOFT TISSUE OTHER US SOFT TISSUE HEAD & NECK REAL TIME IMGE Jade Monteiro CARETAKER.DISTRIBUTION SYSTEM OPERATOR [address] [place] [address] [place] [address] Referral ID Status Reason Start Date Expiration Date V isits Requested Visits Authorized [id number] Closed Auto-Generate d Referral 06/11/2023 07/10/2024 1 1 [facility] Diagnostic Procedure Only (Routine) - Closed Specialty Diagnoses / Procedures Referred By Contac t Referred To Contact XR IMAGING Diagnoses Right wrist pain Age-related osteoporosis without current pathological fracture Procedures XR WRIST GENERAL 3V PA/LAT/OBL RIGHT RADEX WRIST COMPLETE MINIMUM 3 VIEWS Tee Lagunas, CARETAKER.DISTRIBUTION SYSTEM OPERATOR [address] [place] [address] [place] [address] Referral ID Status Reason Start Date Expiration Date V isits Requested Visits Authorized [id number] Closed Auto-Generate d Referral 05/25/2023 06/23/2024 1 1 [facility] Summary Purpose Family History No Family History Records FoundNo Family History Records FoundNo Family History Records FoundNo Family History Records FoundNo Family History Records FoundNo Family History Records Found Advance Directives No Advanced Directives Records FoundDocuments on File 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) 2019 11:44 AM Advance Directive(s) 12/18/2017 6:09 AM Advance Directive(s) 2017 11:01 AM Advance Directive(s) 11/09/2017 7:27 AM Documents on File 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) 2019 11:44 AM Advance Directive(s) 12/18/2017 6:09 AM Advance Directive(s) 2017 11:01 AM Advance Directive(s) 11/09/2017 7:27 AM Documents on File 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) 2019 11:44 AM Documents on File 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) 2019 11:44 AM Reason for Referral Specialty Diagnoses / Procedures Referred By Contac t Referred To Contact CT IMAGING Diagnoses Localized swelling, mass and lump, neck Procedures CT NECK SOFT TISSUE WO IVCON CT SOFT TISSUE NECK W/O CONTRAST MATERIAL Mac Shepherd MD [address] [place] [address] [place] [address] Referral ID Status Reason Start Date Expiration Date Visits Requested Visits Authorized [id number] Authorized Auto-Generat ed Referral 06/22/2023 07/21/2024 1 1 Referral ID Status Reason Start Date Expiration Date V isits Requested Visits Authorized [id number] Closed Auto-Generate d Referral 06/22/2023 07/21/2024 1 1 Additional Source Comments INFORMATION SOURCE (unrecogn ized section and content) DATE CREATED AUTHOR 04/12/2018 [facility] DATE CREATED AUTHOR AUTHOR'S ORGANIZ ATION 04/16/2018 [facility] DATE CREATED AUTHOR AUTHOR'S ORGANIZ ATION 05/31/2020 [facility] DATE CREATED AUTHOR AUTHOR'S ORGANIZ ATION 01/03/2021 [facility] DATE CREATED AUTHOR AUTHOR'S ORGANIZ ATION 07/26/2021 [facility] DATE CREATED AUTHOR AUTHOR'S ORGANIZ ATION 07/12/2024 [facility] Source Comments (unrecognize d section and content) In the event this informatio n is protected by the Federal Confidentiality of Alcohol and Drug Abuse Patient Records regulations: The Federal rules restrict any use of the information to criminally investigate or prosecute any alcohol or drug abuse patient.[facility] the event this information is protected by the Federal Confidentiality of Alcohol and Drug Abuse Patient Records regulations: The Federal rules restrict any use of the information to criminally investigate or prosecute any alcohol or drug abuse patient.[facility] the event this information is protected by the Federal Confidentiality of Alcohol and Drug Abuse Patient Records regulations: The Federal rules restrict any use of the information to criminally investigate or prosecute any alcohol or drug abuse patient.[facility] the event this information is protected by the Federal Confidentiality of Alcohol and Drug Abuse Patient Records regulations: The Federal rules restrict any use of the information to criminally investigate or prosecute any alcohol or drug abuse patient.[facility] the event this information is protected by the Federal Confidentiality of Alcohol and Drug Abuse Patient Records regulations: The Federal rules restrict any use of the information to criminally investigate or prosecute any alcohol or drug abuse patient.[facility] the event this information is protected by the Federal Confidentiality of Alcohol and Drug Abuse Patient Records regulations: The Federal rules restrict any use of the information to criminally investigate or prosecute any alcohol or drug abuse patient.[facility] the event this information is protected by the Federal Confidentiality of Alcohol and Drug Abuse Patient Records regulations: The Federal rules restrict any use of the information to criminally investigate or prosecute any alcohol or drug abuse patient.[facility] the event this information is protected by the Federal Confidentiality of Alcohol and Drug Abuse Patient Records regulations: The Federal rules restrict any use of the information to criminally investigate or prosecute any alcohol or drug abuse patient.[facility] the event this information is protected by the Federal Confidentiality of Alcohol and Drug Abuse Patient Records regulations: The Federal rules restrict any use of the information to criminally investigate or prosecute any alcohol or drug abuse patient.[facility] the event this information is protected by the Federal Confidentiality of Alcohol and Drug Abuse Patient Records regulations: The Federal rules restrict any use of the information to criminally investigate or prosecute any alcohol or drug abuse patient.[facility] the event this information is protected by the Federal Confidentiality of Alcohol and Drug Abuse Patient Records regulations: The Federal rules restrict any use of the information to criminally investigate or prosecute any alcohol or drug abuse patient.[facility] the event this information is protected by the Federal Confidentiality of Alcohol and Drug Abuse Patient Records regulations: The Federal rules restrict any use of the information to criminally investigate or prosecute any alcohol or drug abuse patient.[facility] the event this information is protected by the Federal Confidentiality of Alcohol and Drug Abuse Patient Records regulations: The Federal rules restrict any use of the information to criminally investigate or prosecute any alcohol or drug abuse patient.[facility]In the event this information is protected by the Federal Confidentiality of Alcohol and Drug Abuse Patient Records regulations: The Federal rules restrict any use of the information to criminally investigate or prosecute any alcohol or drug abuse patient.[facility]In the event this information is protected by the Federal Confidentiality of Alcohol and Drug Abuse Patient Records regulations: The Federal rules restrict any use of the information to criminally investigate or prosecute any alcohol or drug abuse patient.[facility]In the event this information is protected by the Federal Confidentiality of Alcohol and Drug Abuse Patient Records regulations: The Federal rules restrict any use of the information to criminally investigate or prosecute any alcohol or drug abuse patient.[facility]In the event this information is protected by the Federal Confidentiality of Alcohol and Drug Abuse Patient Records regulations: The Federal rules restrict any use of the information to criminally investigate or prosecute any alcohol or drug abuse patient.[facility]In the event this information is protected by the Federal Confidentiality of Alcohol and Drug Abuse Patient Records regulations: The Federal rules restrict any use of the information to criminally investigate or prosecute any alcohol or drug abuse patient.[facility]In the event this information is protected by the Federal Confidentiality of Alcohol and Drug Abuse Patient Records regulations: The Federal rules restrict any use of the information to criminally investigate or prosecute any alcohol or drug abuse patient.[facility]In the event this information is protected by the Federal Confidentiality of Alcohol and Drug Abuse Patient Records regulations: The Federal rules restrict any use of the information to criminally investigate or prosecute any alcohol or drug abuse patient.[facility]In the event this information is protected by the Federal Confidentiality of Alcohol and Drug Abuse Patient Records regulations: The Federal rules restrict any use of the information to criminally investigate or prosecute any alcohol or drug abuse patient.[facility] HospitalIn the event this information is protected by the Federal Confidentiality of Alcohol and Drug Abuse Patient Records regulations: The Federal rules restrict any use of the information to criminally investigate or prosecute any alcohol or drug abuse patient.[facility]In the event this information is protected by the Federal Confidentiality of Alcohol and Drug Abuse Patient Records regulations: The Federal rules restrict any use of the information to criminally investigate or prosecute any alcohol or drug abuse patient.[facility]In the event this information is protected by the Federal Confidentiality of Alcohol and Drug Abuse Patient Records regulations: The Federal rules restrict any use of the information to criminally investigate or prosecute any alcohol or drug abuse patient.[facility] HospitalIn the event this information is protected by the Federal Confidentiality of Alcohol and Drug Abuse Patient Records regulations: The Federal rules restrict any use of the information to criminally investigate or prosecute any alcohol or drug abuse patient.[facility]In the event this information is protected by the Federal Confidentiality of Alcohol and Drug Abuse Patient Records regulations: The Federal rules restrict any use of the information to criminally investigate or prosecute any alcohol or drug abuse patient.[facility]In the event this information is protected by the Federal Confidentiality of Alcohol and Drug Abuse Patient Records regulations: The Federal rules restrict any use of the information to criminally investigate or prosecute any alcohol or drug abuse patient.[facility]In the event this information is protected by the Federal Confidentiality of Alcohol and Drug Abuse Patient Records regulations: The Federal rules restrict any use of the information to criminally investigate or prosecute any alcohol or drug abuse patient.[facility]In the event this information is protected by the Federal Confidentiality of Alcohol and Drug Abuse Patient Records regulations: The Federal rules restrict any use of the information to criminally investigate or prosecute any alcohol or drug abuse patient.[facility]In the event this information is protected by the Federal Confidentiality of Alcohol and Drug Abuse Patient Records regulations: The Federal rules restrict any use of the information to criminally investigate or prosecute any alcohol or drug abuse patient.[facility] HospitalIn the event this information is protected by the Federal Confidentiality of Alcohol and Drug Abuse Patient Records regulations: The Federal rules restrict any use of the information to criminally investigate or prosecute any alcohol or drug abuse patient.[facility]In the event this information is protected by the Federal Confidentiality of Alcohol and Drug Abuse Patient Records regulations: The Federal rules restrict any use of the information to criminally investigate or prosecute any alcohol or drug abuse patient.[facility]In the event this information is protected by the Federal Confidentiality of Alcohol and Drug Abuse Patient Records regulations: The Federal rules restrict any use of the information to criminally investigate or prosecute any alcohol or drug abuse patient.[facility]In the event this information is protected by the Federal Confidentiality of Alcohol and Drug Abuse Patient Records regulations: The Federal rules restrict any use of the information to criminally investigate or prosecute any alcohol or drug abuse patient.[facility]In the event this information is protected by the Federal Confidentiality of Alcohol and Drug Abuse Patient Records regulations: The Federal rules restrict any use of the information to criminally investigate or prosecute any alcohol or drug abuse patient.[facility]In the event this information is protected by the Federal Confidentiality of Alcohol and Drug Abuse Patient Records regulations: The Federal rules restrict any use of the information to criminally investigate or prosecute any alcohol or drug abuse patient.[facility]In the event this information is protected by the Federal Confidentiality of Alcohol and Drug Abuse Patient Records regulations: The Federal rules restrict any use of the information to criminally investigate or prosecute any alcohol or drug abuse patient.[facility]In the event this information is protected by the Federal Confidentiality of Alcohol and Drug Abuse Patient Records regulations: The Federal rules restrict any use of the information to criminally investigate or prosecute any alcohol or drug abuse patient.[facility]In the event this information is protected by the Federal Confidentiality of Alcohol and Drug Abuse Patient Records regulations: The Federal rules restrict any use of the information to criminally investigate or prosecute any alcohol or drug abuse patient.[facility]In the event this information is protected by the Federal Confidentiality of Alcohol and Drug Abuse Patient Records regulations: The Federal rules restrict any use of the information to criminally investigate or prosecute any alcohol or drug abuse patient.[facility]In the event this information is protected by the Federal Confidentiality of Alcohol and Drug Abuse Patient Records regulations: The Federal rules restrict any use of the information to criminally investigate or prosecute any alcohol or drug abuse patient.[facility]In the event this information is protected by the Federal Confidentiality of Alcohol and Drug Abuse Patient Records regulations: The Federal rules restrict any use of the information to criminally investigate or prosecute any alcohol or drug abuse patient.[facility]In the event this information is protected by the Federal Confidentiality of Alcohol and Drug Abuse Patient Records regulations: The Federal rules restrict any use of the information to criminally investigate or prosecute any alcohol or drug abuse patient.[facility]In the event this information is protected by the Federal Confidentiality of Alcohol and Drug Abuse Patient Records regulations: The Federal rules restrict any use of the information to criminally investigate or prosecute any alcohol or drug abuse patient.[facility]In the event this information is protected by the Federal Confidentiality of Alcohol and Drug Abuse Patient Records regulations: The Federal rules restrict any use of the information to criminally investigate or prosecute any alcohol or drug abuse patient.[facility]In the event this information is protected by the Federal Confidentiality of Alcohol and Drug Abuse Patient Records regulations: The Federal rules restrict any use of the information to criminally investigate or prosecute any alcohol or drug abuse patient.[facility]In the event this information is protected by the Federal Confidentiality of Alcohol and Drug Abuse Patient Records regulations: The Federal rules restrict any use of the information to criminally investigate or prosecute any alcohol or drug abuse patient.[facility]In the event this information is protected by the Federal Confidentiality of Alcohol and Drug Abuse Patient Records regulations: The Federal rules restrict any use of the information to criminally investigate or prosecute any alcohol or drug abuse patient.[facility]In the event this information is protected by the Federal Confidentiality of Alcohol and Drug Abuse Patient Records regulations: The Federal rules restrict any use of the information to criminally investigate or prosecute any alcohol or drug abuse patient.[facility]In the event this information is protected by the Federal Confidentiality of Alcohol and Drug Abuse Patient Records regulations: The Federal rules restrict any use of the information to criminally investigate or prosecute any alcohol or drug abuse patient.[facility]In the event this information is protected by the Federal Confidentiality of Alcohol and Drug Abuse Patient Records regulations: The Federal rules restrict any use of the information to criminally investigate or prosecute any alcohol or drug abuse patient.[facility]In the event this information is protected by the Federal Confidentiality of Alcohol and Drug Abuse Patient Records regulations: The Federal rules restrict any use of the information to criminally investigate or prosecute any alcohol or drug abuse patient.[facility] HospitalIn the event this information is protected by the Federal Confidentiality of Alcohol and Drug Abuse Patient Records regulations: The Federal rules restrict any use of the information to criminally investigate or prosecute any alcohol or drug abuse patient.[facility] Reason for Visit (unrecogniz ed section and content) Specialty Diagnoses / Procedures Referred By Contac t Referred To Contact Rheumatology Diagnoses Osteoporosis, unspecified osteoporosis type, unspecified pathological fracture presence Procedures CONSULT TO RHEUMATOLOGY METABOLIC BONE NEW PATIENT VISIT LEVEL 5 Carmelita Krishnamurthy MD [address] [place] [address] Referral ID Status Reason Start Date Expiration Date Visits Requested Visits Authorized Pending Review PCP Requested Referral 07/21/2021 07/21/2022 1 1 Reason Comments Physical Therapy Specialty Diagnoses / Procedures Referred By Contac t Referred To Contact Physical Therapy / PHYSICAL THERAPY Diagnoses Osteoporosis osteoporosis Procedures PHYSICAL THERAPY EVALUATION HIGH COMPLEX 45 MINS THERAPEUTIC EXERCISES RE, EA 15 MIN. NEW RS PT ORTH K Carolina Peterson MD [address] [place] [address] Judie Mcknight, PT [address] [place] [address] Referral ID Status Reason Start Date Expiration Date V isits Requested Visits Authorized [id number] Authorized 10/22/2021 10/21/2022 99 99 Reason Comments Results Reason Comments Yearly Exam Reason Comments Lab Orders Reason Comments F/U 6 months Reason Comments Well Woman Reason Comments Established Patient Reason Comments Full Body Skin Check Reason Onset Date Comments Refill Request 08/02/2022 Reason Comments ER F/U Reason Comments LESION, SKIN Reason Comments Follow Up Reason Comments Orders Reason Comments Covid19 Concern + rapid x1 daySympto matic x4 days Reason Comments COVID positive home test Reason Comments Patient Update Patient Question Reason Comments Patient Update Patient Question Appointment Reason Comments Yearly Exam With Mammogram Reason Comments Acute Visit right wrist pain Reason Comments Established Patient Reason Comments Lymph Node Enlargement Reason Onset Date Comments Refill Request 07/18/2023 Reason Comments result (x-ray) Reason Comments Radiology CT Specialty Diagnoses / Procedures Referred By Esme ellis Referred To Contact CT IMAGING Diagnoses Localized swelling, mass and lump, neck Procedures CT NECK SOFT TISSUE WO IVCON CT SOFT TISSUE NECK W/O CONTRAST MATERIAL Mac Shepherd MD [address] [place] [address] [place] [address] Referral ID Status Reason Start Date Expiration Date V isits Requested Visits Authorized [id number] Closed Auto-Generate d Referral 06/22/2023 07/21/2024 1 1 Reason Comments F/U 6 months Labs prior Reason Comments Imm/Inj Reason Comments Medicare Annual Wellness Reason Comments Dizziness Reason Comments Dizziness started Sunday am. O ff and onMore with ROM of head Reason Onset Date Comments Refill Request 07/03/2024 Care Teams (unrecognized sec tion and content) Animal Care Service Worker Relationship Specialty Start Date End Date Carolina Peterson MD [address] [place] [address] PCP - General Internal Medicine 03/02/14 Martina Moreno RN Specialty Splicing Supervisor Oncology 12/04/17 Animal Care Service Worker Relationship Specialty Start Date End Date Carolina Peterson MD [address] [place] [address] PCP - General Internal Medicine 03/02/14 Martina Moreno RN Specialty Splicing Supervisor Oncology 12/04/17 Animal Care Service Worker Relationship Specialty Start Date End Date Carolina Peterson MD [address] [place], [place] [address] PCP - General Internal Medicine 03/02/14 Martina Moreno RN Specialty Splicing Supervisor Oncology 12/04/17 Animal Care Service Worker Relationship Specialty Start Date End Date Carolina Peterson MD [address] [place] [address] PCP - General Internal Medicine 03/02/14 Martina oMreno RN Specialty Splicing Supervisor Oncology 12/04/17 Animal Care Service Worker Relationship Specialty Start Date End Date Carolina Peterson MD [address] [place] [address] PCP - General Internal Medicine 03/02/14 Martina Moreno RN Specialty Splicing Supervisor Oncology 12/04/17 Animal Care Service Worker Relationship Specialty Start Date End Date Carolina Peterson MD [address] [place] [address] PCP - General Internal Medicine 03/02/14 Martina Moreno RN Specialty Splicing Supervisor Oncology 12/04/17 Animal Care Service Worker Relationship Specialty Start Date End Date Carolina Peterson MD [address] [place] [address] PCP - General Internal Medicine 03/02/14 Martina Moreno RN Specialty Splicing Supervisor Oncology 12/04/17 Animal Care Service Worker Relationship Specialty Start Date End Date Carolina Peterson MD [address] [place] [address] PCP - General Internal Medicine 03/02/14 Martina Moreno RN Specialty Splicing Supervisor Oncology 12/04/17 Animal Care Service Worker Relationship Specialty Start Date End Date Carolina Peterson MD [address] [place] [address] PCP - General Internal Medicine 03/02/14 Martina Moreno RN Specialty Splicing Supervisor Oncology 12/04/17 Animal Care Service Worker Relationship Specialty Start Date End Date Carolina Peterson MD [address] [place] [address] PCP - General Internal Medicine 03/02/14 Martina Moreno RN Specialty Splicing Supervisor Oncology 12/04/17 Animal Care Service Worker Relationship Specialty Start Date End Date Carolina Peterson MD [address] [place] [address] PCP - General Internal Medicine 03/02/14 Martina Moreno RN Specialty Splicing Supervisor Oncology 12/04/17 Animal Care Service Worker Relationship Specialty Start Date End Date Carolina Peterson MD [address] [place] [address] PCP - General Internal Medicine 03/02/14 Martina Moreno RN Specialty Splicing Supervisor Oncology 12/04/17 Animal Care Service Worker Relationship Specialty Start Date End Date Carolina Peterson MD [address] [facility] [place] [address] PCP - General Internal Medicine 03/02/14 Martina Moreno RN Specialty Splicing Supervisor Oncology 12/04/17 Animal Care Service Worker Relationship Specialty Start Date End Date Carolina Peterson MD [address] [place] [address] PCP - General Internal Medicine 03/02/14 Martina Moreno RN Specialty Splicing Supervisor Oncology 12/04/17 Animal Care Service Worker Relationship Specialty Start Date End Date Carolina Peterson MD [address] [place] [address] PCP - General Internal Medicine 03/02/14 Martina Moreno RN Specialty Splicing Supervisor Oncology 12/04/17 Animal Care Service Worker Relationship Specialty Start Date End Date Carolina Peterson MD [address] [place] [address] PCP - General Internal Medicine 03/02/14 Martina Moreno RN Specialty Splicing Supervisor Oncology 12/04/17 Animal Care Service Worker Relationship Specialty Start Date End Date Carolina Peterson MD [address] [place] [address] PCP - General Internal Medicine 03/02/14 Martina Moreno RN Specialty Splicing Supervisor Oncology 12/04/17 Animal Care Service Worker Relationship Specialty Start Date End Date aCrolina Peterson MD [address] [place] [address] PCP - General Internal Medicine 03/02/14 Martina Moreno RN Specialty Splicing Supervisor Oncology 12/04/17 Animal Care Service Worker Relationship Specialty Start Date End Date Carolina Peterson MD [address] [place] [address] PCP - General Internal Medicine 03/02/14 Martina Moreno RN Specialty Splicing Supervisor Oncology 12/04/17 Animal Care Service Worker Relationship Specialty Start Date End Date Carolina Peterson MD [address] [place] [address] PCP - General Internal Medicine 03/02/14 Martina Moreno RN Specialty Splicing Supervisor Oncology 12/04/17 Animal Care Service Worker Relationship Specialty Start Date End Date Carolina Peterson MD [address] [place] [address] PCP - General Internal Medicine 03/02/14 Martina Moreno RN Specialty Splicing Supervisor Oncology 12/04/17 Animal Care Service Worker Relationship Specialty Start Date End Date Carolina Peterson MD [address] [place] [address] PCP - General Internal Medicine 03/02/14 Martina Moreno RN Specialty Splicing Supervisor Oncology 12/04/17 Animal Care Service Worker Relationship Specialty Start Date End Date Carolina Peterson MD [address] [place] [address] PCP - General Internal Medicine 03/02/14 Martina Moreno RN Specialty Splicing Supervisor Oncology 12/04/17 Animal Care Service Worker Relationship Specialty Start Date End Date Carolina Peterson MD [address] [place] [address] PCP - General Internal Medicine 03/02/14 Martina Moreno RN Specialty Splicing Supervisor Oncology 12/04/17 Animal Care Service Worker Relationship Specialty Start Date End Date Carolina Peterson MD [address] [place] [address] PCP - General Internal Medicine 03/02/14 Martina Moreno RN Specialty Splicing Supervisor Oncology 12/04/17 Animal Care Service Worker Relationship Specialty Start Date End Date Carolina Peterson MD [address] [place] [address] PCP - General Internal Medicine 03/02/14 Martina Moreno RN Specialty Splicing Supervisor Oncology 12/04/17 Animal Care Service Worker Relationship Specialty Start Date End Date Carolina Peterson MD [address] [place] [address] PCP - General Internal Medicine 03/02/14 Martina Moreno RN Specialty Splicing Supervisor Oncology 12/04/17 Animal Care Service Worker Relationship Specialty Start Date End Date Carolina Peterson MD [address] [place] [address] PCP - General Internal Medicine 03/02/14 Martina Moreno RN Specialty Splicing Supervisor Oncology 12/04/17 Animal Care Service Worker Relationship Specialty Start Date End Date Carolina Peterson MD [address] [place] [address] PCP - General Internal Medicine 03/02/14 Martina Moreno RN Specialty Splicing Supervisor Oncology 12/04/17 Animal Care Service Worker Relationship Specialty Start Date End Date Carolina Peterson MD [address] [place] [address] PCP - General Internal Medicine 03/02/14 Martina Moreno RN Specialty Splicing Supervisor Oncology 12/04/17 Animal Care Service Worker Relationship Specialty Start Date End Date Carolina Peterson MD [address] [place] [address] PCP - General Internal Medicine 03/02/14 Martina Moreno RN Specialty Splicing Supervisor Oncology 12/04/17 Animal Care Service Worker Relationship Specialty Start Date End Date Carolina Peterson MD [address] [place], [place] [address] PCP - General Internal Medicine 03/02/14 Martina Moreno RN Specialty Splicing Supervisor Oncology 12/04/17 [place] [address] [place] [address] Internal Medicine 07/10/24 FOR RECORDS PERTAINING TO PATIENTS WHO ARE OR HAVE BEEN ENROLLED IN A CHEMICAL DEPENDENCY/SUBSTANCEABUSE PROGRAM, SOME INFORMATION MAY BE OMITTED. This clinical summary was aggregated from multiple sources. Caution should be exercised in using it in the provision of clinical care. This summary normalizes information from multiple sources, and as a consequence, information in this document may materially change the coding, format and clinical context of patient data. In addition, data may be omitted in some cases. CLINICAL DECISIONS SHOULD BE BASED ON THE PRIMARY CLINICAL RECORDS. [employer] [facility] provides no warranty or guarantee of the accuracy or completeness of information in this document.
== END 2024-08-18 18:34 | disposition home or self-care (01) ==
PROVIDERS: Emergency Provider Emergency Medicine; PCP Internal Medicine; Visit Provider Emergency Medicine
DX: I49.3 Ventricular premature depolarization (principal); M79.604 Pain in right leg; I49.8 Other specified cardiac arrhythmias; M81.0 Age-related osteoporosis without current pathological fracture; Z79.811 Long term (current) use of aromatase inhibitors; Z85.3 Personal history of malignant neoplasm of breast
CPT/HCPCS: 71045; 80048; 83735; 84443; 84484; 85025; 85379; 93005; 93971; 99284; A4216